=== PATIENT | male | born 1945 | race African-American/Black ===

== ENCOUNTER 2018-11-08 16:38 | Inpatient (IN) | payer MEDICARE ==
[~2018-11-08] VITALS: Ht 182.9 cm; Wt 99.2 kg
[2018-11-08] MEDS ORDERED: ASPIRIN81 MG PO (16:41)
[2018-11-08] MEDS ORDERED: LACTINEX C1 TAB.CHEW PO (16:41)
[2018-11-08] MEDS ORDERED: NORVASC2.5 MG PO (16:41)
[2018-11-08] MEDS ORDERED: ZYLOPRIM100 MG PO (16:41)
[2018-11-08] MEDS ORDERED: LIPITOR40 MG PO (16:42)
[2018-11-08] MEDS ORDERED: CATAPRES0.1 MG PO (16:42)
[2018-11-08] MEDS ORDERED: VITAMIN D31000 UNI2 PO (16:42)
[2018-11-08] MEDS ORDERED: COREG6.25 MG PO (16:42)
[2018-11-08] MEDS ORDERED: FLUTICASONE PRO16 GM NASAL (16:43)
[2018-11-08] MEDS ORDERED: CARDURA8 MG PO (16:43)
[2018-11-08] MEDS ORDERED: FERROUS SULFAT325 MG PO (16:43)
[2018-11-08] MEDS ORDERED: AVODART0.5 MG PO (16:43)
[2018-11-08] MEDS ORDERED: GLIMEPIRIDE2 MG PO (16:44)
[2018-11-08] MEDS ORDERED: PROCTOCORT28.35 GM RC (16:44)
[2018-11-08] MEDS ORDERED: NOVOLOG100 UNIT/1 SQ (16:44)
[2018-11-08] MEDS ORDERED: LASIX80 MG PO (16:44)
[2018-11-08] MEDS ORDERED: CHRONULAC30 ML PO (16:45)
[2018-11-08] MEDS ORDERED: CLARITIN 10 MG10 MG PO (16:45)
[2018-11-08] MEDS ORDERED: LEVEMIR IN100 UNITS/ SC (16:45)
[2018-11-08] MEDS ORDERED: [UNRECOGNIZED DRUG - OTHER] (16:46)
[2018-11-08] MEDS ORDERED: SALONPAS (16:46)
[2018-11-08] MEDS ORDERED: LOPRESSOR25 MG PO (16:46)
[2018-11-08] MEDS ORDERED: ADALAT CC90 MG PO (16:47)
[2018-11-08] MEDS ORDERED: SENNA-DOCUSATE (16:47)
[2018-11-08] MEDS ORDERED: OMEPRAZOLE20 M1 PO (16:47)
[2018-11-08] MEDS ORDERED: GLYCOLAX527 GM PO (16:47)
[2018-11-08] MEDS ORDERED: RENVELA800 MG PO (16:48)
[2018-11-08] MEDS ORDERED: VITAMIN B-12500 MC1 PO (16:48)
--- NOTE | 2018-11-08 17:13 | NUR ---
ARMEN ROBERSON TRANSPORTED PT TO DIALYSIS OK PER EDP JAD.
[2018-11-08 17:47] LABS: BASOPHILS 0.4 % (0-2); HEMATOCRIT 35.4 % (42.0-54.0); HEMOGLOBIN 10.9 g/dL (13.5-17.5); IMMATURE GRANULOCYTES 0.1 % (0-5); LYMPHOCYTES 27.7 % (15-50); MCHC 30.8 g/dL (31.0-37.0); MCV 81.2 fL (80.0-100.0); MEAN PLATELET VOLUME 10.3 fL (7.4-10.4); MONOCYTES 13.2 % (2-11); NEUTROPHILS 53.6 % (40-80); RBC 4.36 10x6/uL (4.20-6.10); RDW 16.6 % (11.5-14.5)
[2018-11-08 17:54] LABS: PLATELET COUNT 210 10x3/uL (130-400)
[2018-11-08 17:58] LABS: ANION GAP 14.1 mmol/L (8-16); CALCIUM 9.1 mg/dL (8.5-10.1); CARBON DIOXIDE 28.8 mmol/L (21.0-32.0); CREATININE - SERUM 8.3 mg/dL (0.6-1.3); POTASSIUM - SERUM 4.9 mmol/L (3.5-5.1)
--- NOTE | 2018-11-08 18:17 | NUR ---
CALLED REPORT TO CHAGO ESTRELLA. PT IS IN DIALYSIS AT THIS TIME AND WILL BE TRANSPORTED AFTER DIALYSIS.
--- NOTE | 2018-11-08 18:39 | NUR ---
RECIEVED REPORT FROM ER. PT IN DIAYLISIS.
[2018-11-08 18:52] LABS: ERYTHROCYTE SEDIMENTATION RATE 40 mm/hr (0-20)
--- NOTE | 2018-11-08 19:40 | NUR ---
RECIEVED FROM DIALYSIS AAOX3, RESP EVEN AND UNLABORED WITH NO SS OF DISTRESS, DRESSING TO ANAHY FEET, SALINE LOCK TO LEFT AC PATENT AND INTACT. LEFT SUBCLAVIAN HEME SPLIT INTACT. NOTED MISSING TEETH. SKIN EXTREMELY DRY AND SHEDDING. EDEMA TO ANAHY LOWER EXT NOTED. 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 DENIES PAIN OR DISCOMFORT AT THIS TIME. ORIENTED TO ROOM AND EQUIPMENT. VERBALIZED UNDERSTANDING. TELEMETRY PLACED ON PT. INSTRUCTED TO CALL FOR NEEDS OR ASSISTANCE AND ENSURED CALL LIGHT IN REACH. WILL CONT TO MONITOR.
[2018-11-08 21:08] VITALS: BP 138/55
--- NOTE | 2018-11-08 22:30 | NUR ---
CHANGED DRESSING TO RIGHT FOOT. PLACED 4X4 AND WRAPPED WITH KERLIX. SEE ASSESSMENT FOR FINDINGS.
[2018-11-09] VITALS (8 sets, daily range): BP systolic 126–172; BP diastolic 49–80; BMI 30.4; BMI 30.3
--- NOTE | 2018-11-09 02:00 | NUR ---
SITTING UP ON SIDE OF BED STATED" I JUST HAD TO USE THE URINAL." ASSISTED BACK TO BED. NO C/O OF PAIN OR DISCOMFORT. CALL LIGHT IN REACH WILL CONT TO MONITOR.
[2018-11-09 05:27] LABS: BASOPHILS 0.5 % (0-2); EOSINOPHILS 4.5 % (0-7); HEMATOCRIT 31.2 % (42.0-54.0); HEMOGLOBIN 9.6 g/dL (13.5-17.5); IMMATURE GRANULOCYTES 0.1 % (0-5); MCHC 30.8 g/dL (31.0-37.0); MCV 81.3 fL (80.0-100.0); MEAN PLATELET VOLUME 10.2 fL (7.4-10.4); MONOCYTES 10.3 % (2-11); NEUTROPHILS 52.6 % (40-80); PLATELET COUNT 188 10x3/uL (130-400); RBC 3.84 10x6/uL (4.20-6.10); RDW 16.4 % (11.5-14.5); WBC 7.8 10x3/uL (4.8-10.8)
[2018-11-09 06:09] LABS: ANION GAP 13.3 mmol/L (8-16); CALCIUM 8.6 mg/dL (8.5-10.1); CARBON DIOXIDE 29.6 mmol/L (21.0-32.0); CREATININE - SERUM 8.2 mg/dL (0.6-1.3); POTASSIUM - SERUM 4.9 mmol/L (3.5-5.1)
--- NOTE | 2018-11-09 06:15 | NUR ---
RESTING IN BED RESP EVEN AND UNLABORED WITH NO SS OF DISTRESS NOTED. FINGER STICK BLOOD SUGAR 214. NO C/O OF PAIN OR DISCOMFORT AT PRESENT TIME. BED IN LOW POSITION AND CALL LIGHT IN REACH WILL CONT TO MONITOR.
--- NOTE | 2018-11-09 08:10 | NUR ---
PT LYING IN BED ASLEEP. DID NOT DISTURB AT THIS TIME. CL IN REACH.
--- NOTE | 2018-11-09 09:40 | NUR ---
UP SOB WITH CALL LIGHT IN REACH. WILL MONITOR NEEDS.
--- NOTE | 2018-11-09 14:36 | NUR ---
SPOKE WITH PARMINDER MONTES, STATED THEY COULD WAIT TO DO CT WITH CONTRAST UNTIL TOMORROW SINCE NEXT DIAYLISIS IS ON SUNDAY.
--- NOTE | 2018-11-09 16:45 | NUR ---
PT GONE FOR CT
--- NOTE | 2018-11-09 16:50 | NUR ---
I ENTERED PATIENT'S ROOM TO GATHER PATIENT AND BRING HIM DOWN TO SUITE FOR TREATMENT. PATIENT WANTED TO KNOW WHY, AND I EXPLAINED THAT HE DID NOT GET A FULL TREATMENT YESTERDAY AND THE DOCTOR WANTS HIM TO HAVE A COMPLETE TREATMENT. HE WANTED TO KNOW WHICH DOCTOR, I EXPLAINED IT WAS FROM HIS FORMULA MIXER HERE DR. SUN. HE STATED HE NEVER SEEN DR. SUN. I TOLD HIM THAT HE MIGHT HAVE SEEN HIS CAREER SERVICES COORDINATOR, PARMINDER. HE THEN WANTED TO KNOW WHAT LABS WERE MESSED UP THAT HE WAS HAVING TO GO DO ANOTHER TREATMENT. I THEN EXPLAINED I HAD TO GO SPEAK WITH HIS NURSE, THAT I WAS NOT SURE. I WENT AND SPOKE WITH OZZIE. WE WENT OVER THE NOTES IN THE COMPUTER AND HER NOTES AND WHAT SHE HAD HEARD FROM THE NEPHROLOGY TEAM THIS AM, AND THAT THEY WANTED HIM TO FINISH TREATMENT BECAUSE HE ONLY HAD 500 ML TAKEN OFF. WHEN I RETURNED TO ROOM TO EXPLAIN THIS (NOW ABOUT 1715), HE HAD JUST RECEIVED HIS DINNER TRAY, AND WANTED TO EAT AND WANTED LEMON MERANGUE PIE AND I EXPLAINED THAT I WOULD COME BACK IN 30 MINUTES AND SEE IF HE WAS READY. AT 1745 I RETURNED AND PATIENT WAS STILL NOT WANTING TO COME DOWN.
--- NOTE | 2018-11-09 18:27 | NUR ---
DIAYLISIS HELD TILL 09 TOMORROW PER DIAYLISIS TEAM.
--- NOTE | 2018-11-09 19:19 | NUR ---
REPORT RECEIVED. PT SITTING UP IN BED WITH EYES OPEN, RR EVEN AND UNLABORED. BED IN LOW POSITION. NO S/S OF DISTRESS. DENIES NEEDS AND COMPLAINTS OF PAIN. CALL LIGHT IN REACH. WILL CONTINUE TO MONITOR.
[2018-11-10] VITALS (8 sets, daily range): BP systolic 100–135; BP diastolic 45–75
--- NOTE | 2018-11-10 02:38 | NUR ---
PT SITTING UP IN BED EATING ICE CREAM, DENIES NEEDS. NO S/S OF DISTRESS. BED IN LOW POSITION. SIDE RAILS UP X2. CALL LIGHT IN REACH. WILL CONTINUE TO MONITOR.
--- NOTE | 2018-11-10 04:12 | NUR ---
RESTING IN BED WITH NO DISTRESS. CALL LIGHT IN REACH. MONITOR AND CPOC.
--- NOTE | 2018-11-10 11:35 | NUR ---
ALERT AND ORIENTED X4. SITTING UP IN BED. WAITING FOR DIALYSIS. DENIES ANY NEEDS. DELORES ANDERS RESUMES PLAN OF CARE AND SAFETY PRECAUTIONS.
--- NOTE | 2018-11-10 12:29 | NUR ---
CHANGED [facility] FOOT DRESSING. DATED/TIMED
--- NOTE | 2018-11-10 17:56 | NUR ---
PT ABOUT TO GO TO DIALYSIS. FINISHED SUPPER. FEET DRESSINGS FIXED. NO CONCERNS OR COMPLAINTS AT THIS TIME. CL IN REACH.
--- NOTE | 2018-11-10 19:19 | NUR ---
REPORT RECEIVED. PT NOT AVAILABLE IN ROOM. IN DIALYSIS.
--- NOTE | 2018-11-10 22:09 | NUR ---
PT RECEIVED TO FLOOR FROM DIALYSIS, VITALS STABLE, BLOOD SUGAR 138, NO COVERAGE NEEDED. ADMINISTERED ORDERED ATARAX FOR PT COMPLAINTS OF ITCHINESS. PT SITTING UP IN BED WITH EYES OPEN, EATING SANDWHICH. NO S/S OF DISTRESS. IV ABX INFUSING THROUGH LEFT AC PIV. BED IN LOW POSITION. CALL LIGHT IN REACH. WILL CONTINUE TO MONITOR.
[2018-11-11 00:30] VITALS: BP 107/54
--- NOTE | 2018-11-11 03:54 | NUR ---
RESTING IN BED WITH NO DISTRESS. MONITOR AND CPOC.
[2018-11-11 04:30] VITALS: BP 108/50
--- NOTE | 2018-11-11 05:28 | NUR ---
LEFT FOREARM IV REMOVED, IV RESITED IN LEFT HAND.
--- NOTE | 2018-11-11 07:30 | NUR ---
PATIENT REPORT RECIEVED FROM DESK EDITOR NURSE. PATIENT ROUNDING COMPLETED. DENIES ANY NEEDS. CALL LIGHT IN REACH. BED IN LOWEST POSITION. WILL CONT WITH POC.
[2018-11-11 07:47] VITALS: BP 134/50
--- NOTE | 2018-11-11 09:30 | NUR ---
PATIENT TRANSPORTED BY [facility] ETCHER IN BED TO DIALYSIS. IV VANCYOMCIN IS ON HOLD AT THIS TIME. WILL RESUME ONCE BACK TO FLOOR.
--- NOTE | 2018-11-11 10:51 | NUR ---
Nutrition follow-up: Diet: Renal ADA PO intake 90% average of last 3 meals Labs reviewed Wt: 225# PO intake good at this time RDN following.
--- NOTE | 2018-11-11 15:08 | MORECARE ---
CASE MANAGEMENT DISCHARGE SUMMARY PATIENT: RADHA SALGUERO UNIT: [id number] ADM DATE: 11/08/18 AGE: 73 : 45 SEX: M ROOM/BED: D.2135 AUTHOR: GENEVA LEE PHYSICIAN: REFERRING PHYSICIAN: MALOU SUN MD DATE OF SERVICE: 11/11/18 Discharge Plan Patient Name: RADHA SALGUERO Facility: [facility]:[place] : 1945 Planned Disposition: Home Anticipated Discharge Date: Discharge Date: Expected LOS: Initial Reviewer: [email or web address] Initial Review Date: 11/08/2018 Generated: 11/11/18 4:07 pm Comments DCP- Discharge Planning Updated by [email or web address]: Mallory Hawley on 11/11/18 12:[address] PATIENT PRESENTLY IN HD. CM AWAITS HIS RETURN TO THE ROOM DCP- Discharge Planning Updated by [email or web address]: Mallory Hawley on 11/10/18 6:[address] CM TO FOLLOW FOR ASSESSMENT. APPARENTLY HE RECENTLY RELOCATED TO [place], [place]. HAS ORDERED HD SETUP FOR [facility]. TC TO KAYLENE HELTON. LEFT VOICE MAIL. PATIENT REPORTEDLY LIVING IN A HOTEL. QUESTION REGARDING HOUSING. CM TO FOLLOW. DCPIA - Discharge Planning Initial Assessment Updated by [email or web address]: Mallory Hawley on 11/11/18 3:04 pm * Is the patient Alert and Oriented? Yes * PCP DR RONN DURAN * Pharmacy [facility] IN [place] * Other Environment [facility] * ADLs Independent * List name and contact numbers for known caregivers / representatives who currently or will assist patient after discharge: INDIRA DUNN- FRIEND FOR TRANSPORTATION * Verbal permission to speak to the caregivers and representatives has been obtained from the patient. No * Community resources currently utilized Other * Please name any agencies selected above. [facility] IN [place], [place] KAYLENE HELTON TRYING TO GET HD SET UP * Additional services required to return to the preadmission environment? Yes * Can the patient safely return to the preadmission environment? Yes Patient Name: RADHA SALGUERO Page [id number] at 1508 All edits/amendments must be made on the electronic document DICTATION DATE: 11/11/181506 EAR MOLD LABORATORY TECHNICIAN: JEANMARIE 11/11/181506 RPT#: [id number] LA DATE: STATUS: ADM IN [facility] [address] [place] [address] END OF REPORT
[2018-11-11 15:09] VITALS: BP 130/47
--- NOTE | 2018-11-11 15:16 | MORECARE ---
CASE MANAGEMENT DISCHARGE SUMMARY PATIENT: RADHA SALGUERO UNIT: [id number] ADM DATE: 11/08/18 AGE: 73 : 45 SEX: M ROOM/BED: D.4357 AUTHOR: ROSA,DOC PHYSICIAN: REFERRING PHYSICIAN: MALOU SUN MD DATE OF SERVICE: 11/11/18 Discharge Plan Patient Name: RADHA SALGUERO Facility: [facility]:[place] : 1945 Planned Disposition: Home Anticipated Discharge Date: Discharge Date: Expected LOS: Initial Reviewer: [email or web address] Initial Review Date: 11/08/2018 Generated: 11/11/18 4:16 pm Comments DCP- Discharge Planning Updated by [id number]: Mallory Hawley on 11/11/18 2:[address] PATIENT HAD RECENTLY RETURNED FROM HD AND HAD EATEN HIS LUNCH. HE SAID HE WAS TIRED. SPOKE SLOWLY PATIENT STATES HE IS HARD OF HEARING BUT DID NOT WANT TO TURN DOWN THE VOLUME ON TV. LIVES AT THE [facility] IN [place], [place]. STATES HE HAS NO BROTHERS, SISTERS OR CHILDREN. HE SAYS HE DOES HAVE COUSINS THAT LIVE IN [place]. STATES HE WILL HAVE TRANSPORTATION AT DISCHARGE FROM HIS FRIEND INDIRA DUNN. CONTACT PHONE NUMBER- [phone]. STATES HE IS TIRED THEREFORE CM STATED WILL REVISIT TO ASSIST WITH DISCHARGE. KAYLENE HELTON ON SITE AND HE STATES HE HAS SPOKEN WITH THE HD COORDINATOR. DCP- Discharge Planning Updated by [id number]: Mallory Pemiscot on 11/11/18 12:[address] PATIENT PRESENTLY IN HD. CM AWAITS HIS RETURN TO THE ROOM DCP- Discharge Planning Updated by [id number]: Mallory Pemiscot on 11/10/18 6:[address] CM TO FOLLOW FOR ASSESSMENT. APPARENTLY HE RECENTLY RELOCATED TO [place], [place]. HAS ORDERED HD SETUP FOR [facility]. TC TO KAYLENE HELTON. LEFT VOICE MAIL. PATIENT REPORTEDLY LIVING IN A HOTEL. QUESTION REGARDING HOUSING. CM TO FOLLOW. DCPIA - Discharge Planning Initial Assessment Updated by [id number]: Mallory [place]ot on 11/11/18 3:04 pm * Is the patient Alert and Oriented? Yes * PCP DR RONN DURAN * Pharmacy [facility] IN [place] * Other Environment [facility] * ADLs Independent * List name and contact numbers for known caregivers / representatives who currently or will assist patient after discharge: INDIRA DUNN- FRIEND FOR TRANSPORTATION * Verbal permission to speak to the caregivers and representatives has been obtained from the patient. No * Community resources currently utilized Other * Please name any agencies selected above. [facility] [place] , [place] KAYLENE HELTON TRYING TO GET HD SET UP * Additional services required to return to the preadmission environment? Yes * Can the patient safely return to the preadmission environment? Yes Last DP export: 11/11/18 2:07 Patient Name: RADHA SALGUERO Page [phone] at 1516 All edits/amendments must be made on the electronic document DICTATION DATE: 11/11/181515 NETWORK SUPPORT ADMINISTRATOR: JEANMARIE 11/11/181515 RPT#: [id number] DC DATE: STATUS: ADM IN [facility] [address] [place] [address] END OF REPORT
--- NOTE | 2018-11-11 17:09 | NUR ---
PATIENT SITTING UP IN BED EATING SUPPER. BLOOD SUGAR CHECKED AND INSULIN COVERAGE PROVIDED. ITCH MEDICATION GIVEN PER REQUEST AT THIS TIME. PATIENT ADVISES HE IS OK BESIDES BEING ITCHY. CALL LIGHT IN REACH. BED IN LOWEST POSITION. WILL CONT WITH POC.
--- NOTE | 2018-11-11 19:25 | NUR ---
REPORT RECEIVED. PT SITTING UP IN BED WITH EYES CLOSED, RR EVEN AND UNLABORED. BED IN LOW POSITION. SIDE RAILS UP X2. NO S/S OF DISTRESS. CALL LIGHT IN REACH. WILL CONTINUE TO MONITOR.
[2018-11-11 20:00] VITALS: BP 111/43
--- NOTE | 2018-11-12 04:16 | NUR ---
CONCESSION WORKER AT BEDSIDE TO OBTAIN VITALS, CALL LIGHT IN REACH. WILL CONTINUE WITH PLAN OF CARE.
[2018-11-12 04:48] VITALS: BP 114/45
[2018-11-12 05:08] LABS: BASOPHILS 0.3 % (0-2); EOSINOPHILS 7.7 % (0-7); HEMATOCRIT 32.5 % (42.0-54.0); HEMOGLOBIN 10.2 g/dL (13.5-17.5); IMMATURE GRANULOCYTES 0.2 % (0-5); LYMPHOCYTES 24.6 % (15-50); MCH 25.2 pg (26.0-34.0); MCHC 31.4 g/dL (31.0-37.0); MCV 80.2 fL (80.0-100.0); MEAN PLATELET VOLUME 10.1 fL (7.4-10.4); NEUTROPHILS 54.2 % (40-80); PLATELET COUNT 187 10x3/uL (130-400); RBC 4.05 10x6/uL (4.20-6.10); RDW 16.3 % (11.5-14.5); WBC 6.4 10x3/uL (4.8-10.8)
[2018-11-12 05:56] LABS: ANION GAP 14.5 mmol/L (8-16); CALCIUM 8.5 mg/dL (8.5-10.1); CARBON DIOXIDE 28.4 mmol/L (21.0-32.0); CREATININE - SERUM 6.2 mg/dL (0.6-1.3); POTASSIUM - SERUM 3.9 mmol/L (3.5-5.1); VANCOMYCIN - RANDOM 18.2 ug/mL (10.0-20.0)
--- NOTE | 2018-11-12 06:05 | NUR ---
PT RESTING COMFORTABLY IN BED WITH EYES CLOSED, RR EVEN AND UNLABORED. BED IN LOW POSITION. SIDE RAILS UP X2. DENIES NEEEDS. CALL LIGHT IN REACH. DRESSING ON RIGHT FOOT CHANGED. WILL CONTINUE TO MONITOR.
--- NOTE | 2018-11-12 08:00 | NUR ---
AM ROUNDS COMPLETED. PT A/O, VSS, RR UNLABORED. PT C/O ITCHING IN HIS BACK ASSESSED PT AND ADMINISTERED AM MEDICATION WITH KARAN FOR PT ITCHING. ASSESSED PT FOOT ULCER. DRESSING C/D/I.. PT DENIES NEED FOR PAIN. CL IN REACH. BED IN LOW. WILL CONTINUE TO MONITOR PT.
[2018-11-12 08:08] LABS: HEPATITIS C ANTIBODY 0.1 S/CO RAT (0.0-0.9)
[2018-11-12 08:25] VITALS: BP 107/44
--- NOTE | 2018-11-12 08:30 | NUR ---
HELD PT NIFEDIPINE FOR LOW BP. WILL CONTINUE TO MONITOR VS.
--- NOTE | 2018-11-12 09:50 | NUR ---
BP IMPROVE, NIFIDIPINE GIVEN. CL IN REACH, BED IN LOW WILL CONTINUE TO MONITOR PT.
[2018-11-12 12:13] VITALS: BP 141/60
--- NOTE | 2018-11-12 14:00 | NUR ---
REMOVED OLD DRESSING ON RIGHT FOOT ULCER. PRIMARY, REQUESTED FOR NEW DRESSING. CLEANED PT PU, APPLIED A 4X4 GUAZE, TAPED AND DATED. PT TOLERATED WELL. PT DENIES ANY NEED FOR PAIN. BED IN LOW, CL IN REACH. WILL CONTINUE TO MONITOR PT.
[2018-11-12 16:00] VITALS: BP 131/52
--- NOTE | 2018-11-12 16:07 | NUR ---
ASSUMED PRIMARY CARE OF IDANIA. DENIES NEEDS AT THIS TIME. WATCHING TV.
--- NOTE | 2018-11-12 17:52 | NUR ---
FINISHED SUPPER, WANTS LIGHTS OUT. DENIES NEEDS.
[2018-11-12 18:50] VITALS: BP 121/49
--- NOTE | 2018-11-12 18:50 | NUR ---
CALLED TO ROOM WITH PATIENT HAVING COMPLAINTS OF "NIGHT SWEATS". PATIENT REPORTS THAT HE HAS AT LEAST 3-4 A NIGHT. WHEN ASKED FOR HOW LONG, HE REPLIES "LONG TIME". CHECKED POC GLUCOSE WITH RESULTS OF 180. B/P 121/49, HR 66. UN-COVERED TWO BLANKETS AND LEFT SHEET IN PLACE. WILL PASS THIS TO NEXT SHIFT.
--- NOTE | 2018-11-12 19:43 | NUR ---
RESUMING PATIENT CARE. PATIENT IS ALERT AND ORIENTED. RESTING COMFORTABLY IN BED. RESPIRATIONS ARE EVEN AND UNLABORED. NO S/S OF DISTRESS. ALL PATIENT NEEDS MET. CALL LIGHT WITHIN REACH, PATIENT BOARD UPDATED. WILL CPOC.
[2018-11-12 20:25] VITALS: BP 132/35
[2018-11-13] VITALS: BP 142/59
[2018-11-13 04:00] VITALS: BP 130/58
--- NOTE | 2018-11-13 04:11 | NUR ---
REC;D, ASSISTED UP BSC. DRSG. DRY AND INTACT TO RT. FOOT WITH DRY CRUSTY GRAVES BOTH FEET.STATES SOME DECREASE IN SENSATION.BUT CAN FEEL JAMARCUS PRESSURE TO FOOT. WIGGLES TOES ON COMMAND.FEET ELEVATED BILAT.HEEL PROTECTORS IN PLACE.WILL CONTINUE TO MONITOR FOR ANY CHGES. IN NEUROVASCULAR STATUS AND FOLLOW CURRENT PLAN OF CARE.
[2018-11-13 05:51] LABS: BASOPHILS 0.3 % (0-2); EOSINOPHILS 7.4 % (0-7); HEMATOCRIT 31.2 % (42.0-54.0); HEMOGLOBIN 9.7 g/dL (13.5-17.5); IMMATURE GRANULOCYTES 0.1 % (0-5); LYMPHOCYTES 23.2 % (15-50); MCH 24.9 pg (26.0-34.0); MCHC 31.1 g/dL (31.0-37.0); MEAN PLATELET VOLUME 10.5 fL (7.4-10.4); MONOCYTES 11.7 % (2-11); NEUTROPHILS 57.3 % (40-80); PLATELET COUNT 187 10x3/uL (130-400); RDW 16.1 % (11.5-14.5); WBC 6.9 10x3/uL (4.8-10.8)
[2018-11-13 06:14] LABS: ANION GAP 15.5 mmol/L (8-16); CALCIUM 8.1 mg/dL (8.5-10.1); CARBON DIOXIDE 28.9 mmol/L (21.0-32.0); POTASSIUM - SERUM 4.4 mmol/L (3.5-5.1); VANCOMYCIN - RANDOM 25.2 ug/mL (10.0-20.0)
--- NOTE | 2018-11-13 07:36 | NUR ---
REPORT RECIEVED AND MORNING ROUNDING COMPLETE. PT LAYING IN BED A&O. PT STATES HE IS HARD OF HEARING. PT HAS NO NEEDS AT THIS TIME. CALL LIGHT WITHIN REACH. BED IN LOWEST POSITION.
[2018-11-13 08:19] VITALS: BP 127/53
[2018-11-13 09:19] VITALS: Ht 182.9 cm; Wt 99.2 kg
--- NOTE | 2018-11-13 09:29 | NUR ---
RESTS IN BED WITH EYES CLOSED. IV PATENT. CALL LIGHT IN REACH. WILL CONT. PLAN OF CARE.
--- NOTE | 2018-11-13 11:49 | NUR ---
Wound care consult: Pt has open nonhealing wounds on right foot and heel. 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 Dr. Marin here seeing pt. Orders entered for dressing changes. Wound care will follow as needed.
[2018-11-13 12:25] VITALS: BP 130/53
[2018-11-13 16:05] VITALS: BP 122/56
--- NOTE | 2018-11-13 18:21 | NUR ---
PT LAYING IN BED EYES CLOSED BREATHING EVEN AND UNLABORED, CALL LIGHT WITHIN REACH.
--- NOTE | 2018-11-13 19:49 | NUR ---
AWAKE,ALERT,ORIENTED. RESP EVEN AND UNLABORED.NO DISTRESS NOTED. IV TO LEFT HAND INTACT WITHOUT REDNESS OR EDEMA NOTED. DRSG TO RIGHT FOOT INTACT. HEAL PROTECTORS ON BILATERAL. NO COMPLIAINTS VOICED. CL IN REACH
[2018-11-13 20:27] VITALS: BP 113/42
--- NOTE | 2018-11-14 01:35 | NUR ---
PT RESTING WELL IN BED WITH EYES CLOSED, RESPIRATIONS EVEN AND UNALBORED. CALL LIGHT IN REACH, WILL CONTINUE PLAN OF CARE.
[2018-11-14 02:01] VITALS: BP 127/54
[2018-11-14 05:42] VITALS: BP 140/57
[2018-11-14 06:04] LABS: BASOPHILS 0.4 % (0-2); EOSINOPHILS 7.8 % (0-7); HEMATOCRIT 28.9 % (42.0-54.0); HEMOGLOBIN 9.1 g/dL (13.5-17.5); IMMATURE GRANULOCYTES 0.1 % (0-5); LYMPHOCYTES 25.8 % (15-50); MCH 25.1 pg (26.0-34.0); MCHC 31.5 g/dL (31.0-37.0); MCV 79.6 fL (80.0-100.0); MEAN PLATELET VOLUME 10.1 fL (7.4-10.4); MONOCYTES 8.7 % (2-11); NEUTROPHILS 57.2 % (40-80); PLATELET COUNT 207 10x3/uL (130-400); RBC 3.63 10x6/uL (4.20-6.10); RDW 16.2 % (11.5-14.5); WBC 8.1 10x3/uL (4.8-10.8)
[2018-11-14 06:23] LABS: ANION GAP 17.2 mmol/L (8-16); C-REACTIVE PROTEIN 0.9 mg/dL (0.0-0.9); CALCIUM 7.7 mg/dL (8.5-10.1); CARBON DIOXIDE 24.2 mmol/L (21.0-32.0); CREATININE - SERUM 9.2 mg/dL (0.6-1.3); POTASSIUM - SERUM 4.4 mmol/L (3.5-5.1); VANCOMYCIN - RANDOM 23.9 ug/mL (10.0-20.0)
[2018-11-14 07:16] LABS: ERYTHROCYTE SEDIMENTATION RATE 59 mm/hr (0-20)
[2018-11-14 08:02] VITALS: BP 144/62
--- NOTE | 2018-11-14 08:38 | NUR ---
PT TAKEN TO DIALYSIS VIA BED.
--- NOTE | 2018-11-14 08:48 | NUR ---
IN DIALYSIS AT THIS TIME. WILL CONT. PLAN OF CARE.
--- NOTE | 2018-11-14 09:18 | NUR ---
SPOKE WITH [facility] AND THEY STATED THEY DO NOT SUPPL CRUTCHES AND TO CALL [facility]8 [facility]. CALLED [facility] AND THEY STATED THEY DO NOT CARRY CRUTCHES.
--- NOTE | 2018-11-14 09:29 | NUR ---
[facility] TO DELIVER CRUTCHES WITHIN AN HOUR PER CASE MANANAGEMENT.
--- NOTE | 2018-11-14 13:10 | NUR ---
PT RETURNED FROM DIALYSIS VIA BED. CRUTCHES ON BED WITH PT. DIALYSIS REPORT RECEIVED AND THEY STATED TOOK PT OFF 30 MIN. EARLY BECAUSE HIS BP STARTED DROPPING. 3.3L WAS REMOVED. TEMP. 97.4, RR 17, HR 55, AND BP 127/65.
--- NOTE | 2018-11-14 14:18 | NUR ---
Nutrition follow-up: Diet: Renal ADA PO intake 75-100% of meals Labs reviewed Wt: 229# PO intake remains good at this time. RDN following.
--- NOTE | 2018-11-14 14:29 | NUR ---
RIGHT FOOT BETADINE WET TO DRY DRESSING DONE.
--- NOTE | 2018-11-14 14:58 | NUR ---
PHYSICAL THERAPY WORKING WITH PT.
--- NOTE | 2018-11-14 15:30 | NUR ---
PHYSICAL THERAPIST STATES PT IS NOT VERY ABLE TO USE CRUTCHES AT THIS TIME. HE DOES MUCH BETTER WITH A WALKER.
[2018-11-14 15:42] VITALS: BP 136/68
--- NOTE | 2018-11-14 15:53 | MORECARE ---
CASE MANAGEMENT DISCHARGE SUMMARY PATIENT: RADHA SALGUERO UNIT: [id number] ADM DATE: 11/08/18 AGE: 73 : 45 SEX: M ROOM/BED: D.8885 AUTHOR: ROSA,DOC PHYSICIAN: REFERRING PHYSICIAN: MALOU SUN MD DATE OF SERVICE: 11/14/18 Discharge Plan Patient Name: RADHA SALGUERO Facility: [facility]:[place] : 1945 Planned Disposition: Home Anticipated Discharge Date: Discharge Date: Expected LOS: Initial Reviewer: [email or web address] Initial Review Date: 11/08/2018 Generated: 11/14/18 4:53 pm Comments DCP- Discharge Planning Updated by [id number]: Sherri Walker on 11/14/18 2:[address] I HAVE BEEN IN COMMUNICATION WITH KAYLENE KIM, CLINICAL LIASON FOR [facility]. SHE HAS BEEN WORKING ON PLACEMENT FOR THE PATIENT. THIS PATIENT WAS IN A [facility] IN [place] AND RECEIVING DIALYSIS. HE KNEW HE WAS NOT ACCEPTED BY THE [place] [facility] BEFORE HE EVER MOVED TO [place], BUT CAME ANYWAY. KAYLENE HAD BEEN WORKING WITH THE [place] [facility], AND THEY ARE STILL DENYING HIM PLACEMENT THERE. SHE STATED THAT HE HAS THE OPTION OF [place], [place], OR [place]. WHILE I WAS ON THE PHONE WITH KAYLENE, PHILOMENA WENT AND ASKED THE PATIENT AND HE SAID [facility], BUT IS INSISTENT THAT HE HAVE A M-W-F SCHEDULE. KAYLENE CALLED BACK AND STATED THAT BECAUSE DR SIMS HAS REFUSED THE PATIENT, THE [place] AND [place] UNITS HAVE ALSO DENIED THE PATIENT. THE ONLY OPTION IS FOR THE [place] UNIT AND THESE ARE THE SAME DOCTORS THAT CARED FOR HIM IN [place]. I WENT AND TALKED TO THE PATIENT AND HE STATED THAT THAT WOULD BE FINE. I HAVE LET KAYLENE KNOW THIS. I HAVE ALSO PASSED ONTO HER THAT PER DR AGUIRRE, THE PATIENT WAS GOING TO NEED 6 WEEKS OF VANCOMYCIN TO BE GIVEN IN DIALYSIS. SHE HAS STATED THAT THAT SHOULD NOT BE A PROBLEM ONCE HE IS ACCEPTED. ALSO DURING THIS TIME, JEFFERSON, PHYSICAL THERAPIST, CAME BY AND STATED THAT THE PATIENT WAS NOT STABLE ON THE CRUTCHES AND DID MUCH BETTER ON THE WALKER. HE RECOMMENDED THAT THE PATIENT GET A WALKER. I ALSO SPOKE WITH THE PATIENT AND HE STATED THAT HE HAS A WALKER AT THE [place] AND DOES NOT NEED ANOTHER ONE. HE STATED THAT THE THERAPIST CAME IN AND GOT HIM UP RIGHT AFTER DIALYSIS AND HE WAS WEEK. HE STATED THAT HE WILL DO BETTER TOMORROW. I HAVE EXPLAINED THAT WE SHOULD HAVE A WALKER THAT HE CAN BORROW DURING THERAPY IF NEEDED. DCP- Discharge Planning Updated by [id number]: Mallory Tripp on 11/11/18 2:[address] PATIENT HAD RECENTLY RETURNED FROM HD AND HAD EATEN HIS LUNCH. HE SAID HE WAS TIRED. SPOKE SLOWLY PATIENT STATES HE IS HARD OF HEARING BUT DID NOT WANT TO TURN DOWN THE VOLUME ON TV. LIVES AT [facility] IN [place], [place]. STATES HE HAS NO BROTHERS, SISTERS OR CHILDREN. HE SAYS HE DOES HAVE COUSINS THAT LIVE IN [place]. STATES HE WILL HAVE TRANSPORTATION AT DISCHARGE FROM HIS FRIEND INDIRA DUNN. CONTACT PHONE NUMBER- [phone]. STATES HE IS TIRED THEREFORE CM STATED WILL REVISIT TO ASSIST WITH DISCHARGE. KAYLENE HELTON ON SITE AND HE STATES HE HAS SPOKEN WITH THE HD COORDINATOR. DCP- Discharge Planning Updated by [id number]: Mallory Tripp on 11/11/18 12:[address] PATIENT PRESENTLY IN HD. CM AWAITS HIS RETURN TO THE ROOM DCP- Discharge Planning Updated by [id number]: Mallory Tripp on 11/10/18 6:[address] CM TO FOLLOW FOR ASSESSMENT. APPARENTLY HE RECENTLY RELOCATED TO [place], [place]. HAS ORDERED HD SETUP FOR [facility]. TC TO KAYLENE HELTON. LEFT VOICE MAIL. PATIENT REPORTEDLY LIVING IN A HOTEL. QUESTION REGARDING HOUSING. CM TO FOLLOW. DCPIA - Discharge Planning Initial Assessment Updated by [id number]: Mallory Tripp on 11/11/18 3:04 pm * Is the patient Alert and Oriented? Yes * PCP DR RONN DURAN * Pharmacy [facility] IN [place] * Other Environment [facility] * ADLs Independent * List name and contact numbers for known caregivers / representatives who currently or will assist patient after discharge: INDIRA DUNN- FRIEND FOR TRANSPORTATION * Verbal permission to speak to the caregivers and representatives has been obtained from the patient. No * Community resources currently utilized Other * Please name any agencies selected above. [facility] [place] , JENNIFER HELTON TRYING TO GET HD SET UP * Additional services required to return to the preadmission environment? Yes * Can the patient safely return to the preadmission environment? Yes Last DP export: 11/11/18 2:16 Patient Name: RADHA SALGUERO Page [id number] at 1553 All edits/amendments must be made on the electronic document DICTATION DATE: 11/14/181552 SLIP LASTER: JEANMARIE 11/14/181552 RPT#: [id number] DC DATE: STATUS: ADM IN [facility] [address] [place] [address] END OF REPORT
--- NOTE | 2018-11-14 17:43 | MORECARE ---
CASE MANAGEMENT DISCHARGE SUMMARY PATIENT: RADHA SALGUERO UNIT: [id number] ADM DATE: 11/08/18 AGE: 73 : 45 SEX: M ROOM/BED: D.2135 AUTHOR: ROSA,DOC PHYSICIAN: REFERRING PHYSICIAN: MALOU SUN MD DATE OF SERVICE: 11/14/18 Discharge Plan Patient Name: RADHA SALGUERO Facility: [facility]:[place] : 1945 Planned Disposition: Home Anticipated Discharge Date: Discharge Date: Expected LOS: Initial Reviewer: [id number] Initial Review Date: 11/08/2018 Generated: 11/14/18 6:43 pm Comments DCP- Discharge Planning Updated by [id number]: Eloy Casillas on 11/14/18 4:[address] Patient Name: RADHA SALGUERO Encounter No: [id number] : 1945 Primary Insurance: [employer] MEDICARE ADV Anticipated DC Date: Planned Disposition: Home DCP follow-up note: CM SPOKE TO DR. MATHIS REGARDING PT'S LIVING ARRAGEMENTS. CM SPOKE TO PT IN ROOM REGARDING LIVING IN HOTEL ROOM. PT REPORTS HE WAS LIVING IN A SENIOR CARE, DOES NOT WANT TO GO BACK TO ONE AND IS LIVING IN THE HOTEL UNTIL HE FINDS A PLACE THAT HE LIKES. CM DISCUSSED REHAB SERVICES HOME HEALTH AND MEDICAL EQUIPMENT. PT DENIES DISCHARGE NEEDS OTHER THAN NEEDING A DIALYSIS CLINIC. PT STILL UPSET THAT THE [facility] WILL NOT ACCEPT HIM A PATIENT. PT REPORTS HE WILL BE STAYING IN [place] AND WILL FIND HIMSELF AN APARTMENT THERE. PT REPORTS USING MEDICAID TRANSPORT FOR MEDICAL APPOINTMENTS AND NEEDS A Sunday SCHEDULE IN ORDER TO USE MEDICAID TRANSPORT TO AND FROM DIALYSIS. PT REPORTS INABILITY TO GET TO DILAYSIS ON WEEKENDS. KAYLENE OF [facility] [employer] NOTIFIED. CM WAITING ARRANGEMENT AND ACCEPTANCE AT OUTPATIENT DIALYSIS CLINIC; [facility] COORDINATOR IS WORKING ON THIS. CM TO CONTINUE TO FOLLOW AND ASSIST IF NEEDED. Eloy Casillas, CASE MANAGEMENT DCP- Discharge Planning Updated by [id number]: Sherri Walker on 11/14/18 2:[address] I HAVE BEEN IN COMMUNICATION WITH KAYLENE KIM, CLINICAL LI[facility]ON FOR [facility]. SHE HAS BEEN WORKING ON PLACEMENT FOR THE PATIENT. THIS PATIENT WAS IN A SENIOR CARE IN [place] AND RECEIVING DIALYSIS. HE KNEW HE WAS NOT ACCEPTED BY THE [facility] BEFORE HE EVER MOVED TO [place], BUT CAME ANYWAY. KAYLENE HAD BEEN WORKING WITH THE [facility], AND THEY ARE STILL DENYING HIM PLACEMENT THERE. SHE STATED THAT HE HAS THE OPTION OF [place], [place], OR [place]. WHILE I WAS ON THE PHONE WITH KAYLENE, PHILOMENA WENT AND ASKED THE PATIENT AND HE SAID CRICKET CRAMER, BUT IS INSISTENT THAT HE HAVE A -W- SCHEDULE. KAYLENE CALLED BACK AND STATED THAT BECAUSE DR SIMS HAS REFUSED THE PATIENT, THE [place] AND [place] UNITS HAVE ALSO DENIED THE PATIENT. THE ONLY OPTION IS FOR THE [place] UNIT AND THESE ARE THE SAME DOCTORS THAT CARED FOR HIM IN [place]. I WENT AND TALKED TO THE PATIENT AND HE STATED THAT THAT WOULD BE FINE. I HAVE LET KAYLENE KNOW THIS. I HAVE ALSO PASSED ONTO HER THAT PER DR AGUIRRE, THE PATIENT WAS GOING TO NEED 6 WEEKS OF VANCOMYCIN TO BE GIVEN IN DIALYSIS. SHE HAS STATED THAT THAT SHOULD NOT BE A PROBLEM ONCE HE IS ACCEPTED. ALSO DURING THIS TIME, JEFFERSON, PHYSICAL THERAPIST, CAME BY AND STATED THAT THE PATIENT WAS NOT STABLE ON THE CRUTCHES AND DID MUCH BETTER ON THE WALKER. HE RECOMMENDED THAT THE PATIENT GET A WALKER. I ALSO SPOKE WITH THE PATIENT AND HE STATED THAT HE HAS A WALKER AT THE HOTEL AND DOES NOT NEED ANOTHER ONE. HE STATED THAT THE THERAPIST CAME IN AND GOT HIM UP RIGHT AFTER DIALYSIS AND HE WAS WEEK. HE STATED THAT HE WILL DO BETTER TOMORROW. I HAVE EXPLAINED THAT WE SHOULD HAVE A WALKER THAT HE CAN BORROW DURING THERAPY IF NEEDED. DCP- Discharge Planning Updated by [email or web address]: Malloryruperto Hawley on 11/11/18 2:[address] PATIENT HAD RECENTLY RETURNED FROM HD AND HAD EATEN HIS LUNCH. HE SAID HE WAS TIRED. SPOKE SLOWLY PATIENT STATES HE IS HARD OF HEARING BUT DID NOT WANT TO TURN DOWN THE VOLUME ON TV. LIVES AT THE [facility] IN [place], [place]. STATES HE HAS NO BROTHERS, SISTERS OR CHILDREN. HE SAYS HE DOES HAVE COUSINS THAT LIVE IN [place]. STATES HE WILL HAVE TRANSPORTATION AT DISCHARGE FROM HIS FRIEND INDIRA DUNN. CONTACT PHONE NUMBER- [phone]. STATES HE IS TIRED THEREFORE CM STATED WILL REVISIT TO ASSIST WITH DISCHARGE. KAYLENE HELTON ON SITE AND HE STATES HE HAS SPOKEN WITH THE HD COORDINATOR. DCP- Discharge Planning Updated by [email or web address]: Mallory Hawley on 11/11/18 12:[address] PATIENT PRESENTLY IN HD. CM AWAITS HIS RETURN TO THE ROOM DCP- Discharge Planning Updated by [id number]: Mallory Hawley on 11/10/18 6:[address] CM TO FOLLOW FOR ASSESSMENT. APPARENTLY HE RECENTLY RELOCATED TO [place], [place]. HAS ORDERED HD SETUP FOR [facility]. TC TO KAYLENE HELTON. LEFT VOICE MAIL. PATIENT REPORTEDLY LIVING IN A HOTEL. QUESTION REGARDING HOUSING. CM TO FOLLOW. DCPIA - Discharge Planning Initial Assessment Updated by [id number]: Mallory Hawley on 11/11/18 3:04 pm * Is the patient Alert and Oriented? Yes * PCP DR RONN DURAN * Pharmacy [facility] IN [place] * Other Environment [facility] * ADLs Independent * List name and contact numbers for known caregivers / representatives who currently or will assist patient after discharge: INDIRA DUNN- FRIEND FOR TRANSPORTATION * Verbal permission to speak to the caregivers and representatives has been obtained from the patient. No * Community resources currently utilized Other * Please name any agencies selected above. [facility] [place] KAYLENE HELTON TRYING TO GET HD SET UP * Additional services required to return to the preadmission environment? Yes * Can the patient safely return to the preadmission environment? Yes Last DP export: 11/14/18 2:53 Patient Name: RADHA SALGUERO Page [phone] at 1743 All edits/amendments must be made on the electronic document DICTATION DATE: 11/14/181742 DRUM HANDLER: JEANMARIE 11/14/181742 RPT#: [id number] DC DATE: STATUS: ADM IN [facility] [address] [place] [address] END OF REPORT
--- NOTE | 2018-11-14 18:23 | NUR ---
PT NOT HAPPY WITH DINNER TRAY. PATIENT APPOINTMENT COORDINATOR CHAI ORDERED.
[2018-11-14 20:00] VITALS: BP 137/50
--- NOTE | 2018-11-15 02:00 | NUR ---
RN NOTE. PATIENT APPEARS TO BE SLEEPING. RESPIRATIONS ARE EVEN AND UNLABORED. NO S/S OF DISTRESS. CALL LIGHT WITHIN REACH.
--- NOTE | 2018-11-15 03:42 | NUR ---
PT LAYING IN BED WITH EYES CLOSED RESTING COMFORTABLY. BED IN LOW POSITION WITH CALL LIGHT IN REACH. WILL CONTINUE TO MONITOR PT AND FOLLOW PLAN OF CARE.
[2018-11-15 05:23] VITALS: BP 149/57
[2018-11-15 06:32] LABS: BASOPHILS 0.5 % (0-2); HEMATOCRIT 32.7 % (42.0-54.0); HEMOGLOBIN 10.3 g/dL (13.5-17.5); IMMATURE GRANULOCYTES 0.1 % (0-5); LYMPHOCYTES 27.1 % (15-50); MCH 25.3 pg (26.0-34.0); MCHC 31.5 g/dL (31.0-37.0); MCV 80.3 fL (80.0-100.0); MEAN PLATELET VOLUME 10.5 fL (7.4-10.4); MONOCYTES 9.6 % (2-11); NEUTROPHILS 56.7 % (40-80); PLATELET COUNT 223 10x3/uL (130-400); RBC 4.07 10x6/uL (4.20-6.10); RDW 16.6 % (11.5-14.5); WBC 8.5 10x3/uL (4.8-10.8)
[2018-11-15 07:11] LABS: ANION GAP 15.6 mmol/L (8-16); CALCIUM 8.6 mg/dL (8.5-10.1); CARBON DIOXIDE 26.4 mmol/L (21.0-32.0); CREATININE - SERUM 7.2 mg/dL (0.6-1.3); VANCOMYCIN - RANDOM 21.7 ug/mL (10.0-20.0)
--- NOTE | 2018-11-15 08:05 | NUR ---
AM ROUNDS COMPLETED, PT LAYING IN BED WITH EYES OPEN. VSS, RESP UNLABORED. ASSESED PT VITAL SIGN BEFORE AM BP MEDS. AM MEDS GIVEN. PT STATES HE IS AGITATED THIS MORNING. ASSESS PT FOOT ULCER, DRESSING C/D/I. PT DENIES NEEDS FOR PAIN AT THE MOMENT. CL IN REACH BED IN LOW, WILL CONTINUE TO MONITOR PT.
[2018-11-15 08:33] VITALS: BP 155/64
[2018-11-15 12:05] VITALS: BP 134/49
--- NOTE | 2018-11-15 14:00 | NUR ---
PT RESTING IN BED WITH EYES OPEN. ASSESSED PT FOOT ULCER, CHANGED PREVIOUS DRESSING. CLEAN, APPLY 4X4 GAUZE WITH POVODINE AND COVERED WITH A BANDAGE AND TAPE. DRESSING C/D/I. PT TOLERATED WELL. PT DENIES NEED FOR PAIN AT THIS MOMENT. CL LIGHT IN REACH, BED IN LOW. WILL CONTINUE TO MOITOR PT.
--- NOTE | 2018-11-15 14:39 | MORECARE ---
CASE MANAGEMENT DISCHARGE SUMMARY PATIENT: RADHA SALGUERO UNIT: [id number] ADM DATE: 11/08/18 AGE: 73 : 45 SEX: M ROOM/BED: D.2135 AUTHOR: ROSA,DOC PHYSICIAN: REFERRING PHYSICIAN: MALOU SUN MD DATE OF SERVICE: 11/15/18 Discharge Plan Patient Name: RADHA SALGUERO Facility: [facility]:[place] : 1945 Planned Disposition: Home Anticipated Discharge Date: Discharge Date: Expected LOS: Initial Reviewer: [email or web address] Initial Review Date: 11/08/2018 Generated: 11/15/18 3:38 pm Comments DCP- Discharge Planning Updated by [id number]: Eloy Casillas on 11/14/18 4:[address] Patient Name: RADHA SALGUERO Encounter No: [id number] : 1945 Primary Insurance: WELL[employer] MEDICARE ADV Anticipated DC Date: Planned Disposition: Home DCP follow-up note: CM SPOKE TO DR. MATHIS REGARDING PT'S LIVING ARRAGEMENTS. CM SPOKE TO PT IN ROOM REGARDING LIVING IN HOTEL ROOM. PT REPORTS HE WAS LIVING IN A RESIDENTIAL, DOES NOT WANT TO GO BACK TO ONE AND IS LIVING IN THE HOTEL UNTIL HE FINDS A PLACE THAT HE LIKES. CM DISCUSSED REHAB SERVICES HOME HEALTH AND MEDICAL EQUIPMENT. PT DENIES DISCHARGE NEEDS OTHER THAN NEEDING A DIALYSIS CLINIC. PT STILL UPSET THAT THE [facility] WILL NOT ACCEPT HIM A PATIENT. PT REPORTS HE WILL BE STAYING IN [place] AND WILL FIND HIMSELF AN APARTMENT THERE. PT REPORTS USING MEDICAID TRANSPORT FOR MEDICAL APPOINTMENTS AND NEEDS A Sunday SCHEDULE IN ORDER TO USE MEDICAID TRANSPORT TO AND FROM DIALYSIS. PT REPORTS INABILITY TO GET TO DILAYSIS ON WEEKENDS. KAYLENE OF [facility] [employer] NOTIFIED. CM WAITING ARRANGEMENT AND ACCEPTANCE AT OUTPATIENT DIALYSIS CLINIC; [facility] COORDINATOR IS WORKING ON THIS. CM TO CONTINUE TO FOLLOW AND ASSIST IF NEEDED. Eloy Casillas, CASE MANAGEMENT DCP- Discharge Planning Updated by [id number]: Sherri Walker on 11/14/18 2:[address] I HAVE BEEN IN COMMUNICATION WITH KAYLENE KIM, CLINICAL LIASON FOR [facility]. SHE HAS BEEN WORKING ON PLACEMENT FOR THE PATIENT. THIS PATIENT WAS IN A RESIDENTIAL IN [place] AND RECEIVING DIALYSIS. HE KNEW HE WAS NOT ACCEPTED BY THE [facility] BEFORE HE EVER MOVED TO [place], BUT CAME ANYWAY. KAYLENE HAD BEEN WORKING WITH THE [place] [facility], AND THEY ARE STILL DENYING HIM PLACEMENT THERE. SHE STATED THAT HE HAS THE OPTION OF [place], [place], OR [place]. WHILE I WAS ON THE PHONE WITH KAYLENE, PHILOMENA WENT AND ASKED THE PATIENT AND HE SAID CRICKET CRAMER, BUT IS INSISTENT THAT HE HAVE A -W- SCHEDULE. KAYLENE CALLED BACK AND STATED THAT BECAUSE DR SIMS HAS REFUSED THE PATIENT, THE [place] AND [place] UNITS HAVE ALSO DENIED THE PATIENT. THE ONLY OPTION IS FOR THE [place] UNIT AND THESE ARE THE SAME DOCTORS THAT CARED FOR HIM IN [place]. I WENT AND TALKED TO THE PATIENT AND HE STATED THAT THAT WOULD BE FINE. I HAVE LET KAYLENE KNOW THIS. I HAVE ALSO PASSED ONTO HER THAT PER DR AGUIRRE, THE PATIENT WAS GOING TO NEED 6 WEEKS OF VANCOMYCIN TO BE GIVEN IN DIALYSIS. SHE HAS STATED THAT THAT SHOULD NOT BE A PROBLEM ONCE HE IS ACCEPTED. ALSO DURING THIS TIME, JEFFERSON, PHYSICAL THERAPIST, CAME BY AND STATED THAT THE PATIENT WAS NOT STABLE ON THE CRUTCHES AND DID MUCH BETTER ON THE WALKER. HE RECOMMENDED THAT THE PATIENT GET A WALKER. I ALSO SPOKE WITH THE PATIENT AND HE STATED THAT HE HAS A WALKER AT THE [place] AND DOES NOT NEED ANOTHER ONE. HE STATED THAT THE THERAPIST CAME IN AND GOT HIM UP RIGHT AFTER DIALYSIS AND HE WAS WEEK. HE STATED THAT HE WILL DO BETTER TOMORROW. I HAVE EXPLAINED THAT WE SHOULD HAVE A WALKER THAT HE CAN BORROW DURING THERAPY IF NEEDED. DCP- Discharge Planning Updated by [id number]: Malloryruperto Hawley on 11/11/18 2:[address] PATIENT HAD RECENTLY RETURNED FROM HD AND HAD EATEN HIS LUNCH. HE SAID HE WAS TIRED. SPOKE SLOWLY PATIENT STATES HE IS HARD OF HEARING BUT DID NOT WANT TO TURN DOWN THE VOLUME ON TV. LIVES AT THE [facility] IN [place], [place]. STATES HE HAS NO BROTHERS, SISTERS OR CHILDREN. HE SAYS HE DOES HAVE COUSINS THAT LIVE IN [place]. STATES HE WILL HAVE TRANSPORTATION AT DISCHARGE FROM HIS FRIEND INDIRA DUNN. CONTACT PHONE NUMBER- [phone]. STATES HE IS TIRED THEREFORE CM STATED WILL REVISIT TO ASSIST WITH DISCHARGE. KAYLENE HELTON ON SITE AND HE STATES HE HAS SPOKEN WITH THE HD COORDINATOR. DCP- Discharge Planning Updated by [id number]: Mallory Hawley on 11/11/18 12:[address] PATIENT PRESENTLY IN HD. CM AWAITS HIS RETURN TO THE ROOM DCP- Discharge Planning Updated by [id number]: Mallory Hawley on 11/10/18 6:[address] CM TO FOLLOW FOR ASSESSMENT. APPARENTLY HE RECENTLY RELOCATED TO [place], [place]. HAS ORDERED HD SETUP FOR [facility]. TC TO KAYLENE HELTON. LEFT VOICE MAIL. PATIENT REPORTEDLY LIVING IN A HOTEL. QUESTION REGARDING HOUSING. CM TO FOLLOW. DCPIA - Discharge Planning Initial Assessment Updated by [id number]: Mallory Hawley on 11/11/18 3:04 pm * Is the patient Alert and Oriented? Yes * PCP DR RONN DURAN * Pharmacy [facility] IN [place] * Other Environment [facility] * ADLs Independent * List name and contact numbers for known caregivers / representatives who currently or will assist patient after discharge: INDIRA DUNN- FRIEND FOR TRANSPORTATION * Verbal permission to speak to the caregivers and representatives has been obtained from the patient. No * Community resources currently utilized Other * Please name any agencies selected above. [facility] [place] KAYLENE HELTON TRYING TO GET HD SET UP * Additional services required to return to the preadmission environment? Yes * Can the patient safely return to the preadmission environment? Yes Last DP export: 11/14/18 4:43 Patient Name: RADHA SALGUERO Page [id number] at 1439 All edits/amendments must be made on the electronic document DICTATION DATE: 11/15/18 1438 CHILDCARE WORKER: JEANMARIE 11/15/18 1438 RPT#: [id number] DC DATE: STATUS: ADM IN [facility] [address] [place] [address] END OF REPORT
[2018-11-15 15:52] VITALS: BP 127/57
--- NOTE | 2018-11-15 17:37 | NUR ---
PT HAS ALL HIS PILLS FROM HOME THAT NOBODY HAS LOCKED UP THEY WERE LAYING ON [place]USES STATION AND MOVED IN SEVERAL DIFFERENT LOCATIONS. I FOUND THEM AND EXPLAINED TO PT WE LOCK THEM UP HOWEVER HE STATES THAT WAS ALREADY SUPPOSE TO BE DONE AND WE JUST LEFT THEM SO HE REFUSED AND I PLACED ALL HIS PILL PACKAGES WITH HOME PILLS UP IN HIS CLOSET IN HIS BEDROOM. PT VERBALIZED UNDERSTANDING AND VOICED THANKS AND STATES HE WILL MAKE SURE TO TAKE HOME WHEN HE IS DISCHARGED.
--- NOTE | 2018-11-15 19:50 | NUR ---
RESUMING CARE. PT IS ALERT LAYING BED WATCHING TV. RESPIRATIONS EVEN AND UNLABORED. NO C/O VOICED AT THIS TIME. BED IN THE LOWEST POSITION WITH CALL LIGHT IN REACH. WILL CONTINUE TO MONITOR PT AND FOLLOW PLAN OF CARE.
[2018-11-15 20:50] VITALS: BP 101/35
--- NOTE | 2018-11-16 02:11 | NUR ---
RESTING QUIETLY WITH EYES CLOSED. RR EVEN UL. NO S/S OF DISCOMFORT. BED IS LOW WITH SR UP X2. CL IN REACH.
--- NOTE | 2018-11-16 03:25 | NUR ---
PT LAYING IN BED RESTING COMFORTABLY WITH EYES CLOSED. RESPIRATIONS EVEN AND UNLABORED. NO SIGNS OF DISTRESS AT THIS TIME. BED IN THE LOWEST POSITION WITH CALL LIGHT IN REACH. WILL CONTINUE MONITOR PT AND FOLLOW PLAN OF CARE
[2018-11-16 06:14] VITALS: BP 105/54
[2018-11-16 06:56] LABS: BASOPHILS 0.4 % (0-2); EOSINOPHILS 5.9 % (0-7); HEMATOCRIT 31.6 % (42.0-54.0); HEMOGLOBIN 9.8 g/dL (13.5-17.5); IMMATURE GRANULOCYTES 0.1 % (0-5); LYMPHOCYTES 38.3 % (15-50); MCH 24.7 pg (26.0-34.0); MCV 79.8 fL (80.0-100.0); MEAN PLATELET VOLUME 11.1 fL (7.4-10.4); MONOCYTES 9.6 % (2-11); NEUTROPHILS 45.7 % (40-80); PLATELET COUNT 232 10x3/uL (130-400); RBC 3.96 10x6/uL (4.20-6.10); RDW 16.4 % (11.5-14.5); WBC 7.7 10x3/uL (4.8-10.8)
--- NOTE | 2018-11-16 07:28 | NUR ---
AM ROUNDS COMPLETED, PT SITTING UP IN BED. AAO X3, VSS, PT C/O SINUS CONGESTION AND STATES THAT HIS NOSE HAS BEEN DRAINING ALL NIGHT. WILL NOTIFY PRIMARY. ASSESSED PT FOOT ULCER DRESSING C/D/I. PT DENIES NEED FOR PAIN. BED IN LOW, WILL CONTINUE TO MONITOR PT.
[2018-11-16 07:40] LABS: ANION GAP 18.5 mmol/L (8-16); CALCIUM 8.1 mg/dL (8.5-10.1); CARBON DIOXIDE 25.6 mmol/L (21.0-32.0); POTASSIUM - SERUM 4.1 mmol/L (3.5-5.1); VANCOMYCIN - RANDOM 18.1 ug/mL (10.0-20.0)
[2018-11-16 07:42] LABS: CREATININE - SERUM 9.2 mg/dL (0.6-1.3)
--- NOTE | 2018-11-16 08:01 | NUR ---
LAB CALLED CRITICAL GLUCOSE. PT IS ASYMPTOMATIC SITTING UP IN BED EATING BREAKFAST. WILL HOLD PTS INSULIN AND RECHECK AFTER HE EATS. NO IMMEDIATE ACTION NEEDED AT THIS TIME.
[2018-11-16 08:21] VITALS: BP 116/52
--- NOTE | 2018-11-16 08:32 | NUR ---
PTS FSBS NOW UP TO 158. PT ATE HIS BREAKFAST AND STATES HE IS FEELING GOOD. NO ACTION NEEDED. WILL CTM.
--- NOTE | 2018-11-16 10:00 | NUR ---
PT OUT FOR DIALYSIS. BP MEDS HELD FOR DIALYSIS. WILL ASSESS PT ON RETURN FROM DIALYSIS AND ADMINISTER MED.
[2018-11-16 16:51] VITALS: BP 152/85
--- NOTE | 2018-11-16 18:00 | NUR ---
ASSESSED PT FOOT ULCER. CHANGED PREVIOUS DRESSING, CLEANED WITH NS, APPLIED DAB OF POVODINE ON FOOT ULCER. COVERED WITH 4X4, WRAPPED WITH BANDAGE AND DATED. PT TOLERATED WELL. WILL CTM. CL IN REACH, BED IN LOW.
--- NOTE | 2018-11-16 19:10 | NUR ---
AWAKE WATCHING TV. DENIES PAIN OR ANY NEEDS. IV IN L HAND INTACT SL. RT CHEST HEMESPLIT DRSG C/D/I. DRSG ON RT FOOT C/D/I. ORIENTED TO CALL LIGHT FOR ANY NEEDS.
[2018-11-16 20:30] VITALS: BP 120/56
--- NOTE | 2018-11-16 21:50 | NUR ---
ADMIN SCHED PO MEDS WITH SIPS OF WATER. CHECKED BS AT 267, ADMIN SCHED LEVIMIR 20 UNITS SC AND HUMULIN R 16 UNITS SC. GAVE DIABETIC SNACK OF VANILLA WAFERS, REFUSED THE APPLESAUCE. REQUESTED A DIET LEMON-KLAMATH SODA.
[2018-11-17 00:38] VITALS: BP 115/56
[2018-11-17 05:40] VITALS: BP 104/51
--- NOTE | 2018-11-17 05:58 | NUR ---
AWAKE WATCHING TV. DENIES PAIN OR ANY NEEDS.
[2018-11-17 06:51] LABS: BASOPHILS 0.3 % (0-2); HEMOGLOBIN 11.3 g/dL (13.5-17.5); IMMATURE GRANULOCYTES 0.1 % (0-5); LYMPHOCYTES 34.7 % (15-50); MCH 25.2 pg (26.0-34.0); MCHC 31.4 g/dL (31.0-37.0); MCV 80.4 fL (80.0-100.0); MEAN PLATELET VOLUME 10.6 fL (7.4-10.4); MONOCYTES 9.7 % (2-11); NEUTROPHILS 50.2 % (40-80); PLATELET COUNT 239 10x3/uL (130-400); RBC 4.48 10x6/uL (4.20-6.10); RDW 16.5 % (11.5-14.5); WBC 7.8 10x3/uL (4.8-10.8)
[2018-11-17 07:31] LABS: ANION GAP 17.6 mmol/L (8-16); CALCIUM 8.4 mg/dL (8.5-10.1); CARBON DIOXIDE 26.3 mmol/L (21.0-32.0); CREATININE - SERUM 8.3 mg/dL (0.6-1.3); POTASSIUM - SERUM 3.9 mmol/L (3.5-5.1); VANCOMYCIN - RANDOM 16.9 ug/mL (10.0-20.0)
--- NOTE | 2018-11-17 08:14 | NUR ---
AM ROUNDS COMPLETED INTRODUCED MYSELF TO PT PRIMARY RN FOR TODAYS SHIFT. PT IS A&O SITTING UP ON EDGE OF BED. PT C/O BEING DIZZY. BP LOW LEFT ARM 95/45 RIGHT ARM 90/46. WILL HOLD MORNING BP MEDICATIONS AND WATCH CLOSELY. PT STATES EVER SINCE HE STARTED DIALYSIS HE GETS SICK AT TIMES AND BP WILL DROP, MAY NEED TO CLEAN UP MEDICATION LIST AND COME OFF SOME MEDICATIONS IF ABLE, WILL DISCUSS WITH PRIMARY. PT C/O HIS URINE BEING PAINFUL AND STATES HE HAD A UTI PRIOR TO ADMISSION NO WORKUP HAS BEEN DONE HERE BUT WILL ALSO DISCUSS ABOUT NEEDING CULTURE OR WORKUP. PT VOICED THANKS AND DENIES ANY CURRENT PAIN OR NEEDS. SITTING UP ON EDGE OF BED AND STATES HE DOESNT WANT BREAKFAST HE IS GOING TO LAY DOWN FOR A BIT. CL IN REACH, BED IN LOWEST, SIDE RAILS X2. WILL CTM.
[2018-11-17 08:31] VITALS: BP 94/45
[2018-11-17 12:54] VITALS: BP 126/62
[2018-11-17 16:42] VITALS: BP 127/61
[2018-11-17 20:53] VITALS: BP 138/68
--- NOTE | 2018-11-17 23:52 | NUR ---
AWAKE WATCHING TV. ADMIN SCHED PO MEDS AND INSULINS FOR BS 258. REQUESTED DIET SODA. GAVE DIABETIC SNACK OF VANILLA WAFERS.
[2018-11-18 00:45] VITALS: BP 147/73
--- NOTE | 2018-11-18 02:01 | NUR ---
CHANGED DRSG'S ON RT FOOT WET-DRY WITH BETADINE PER ORDER. REQUESTED SHERBERT ICE CREAM.
[2018-11-18 04:25] VITALS: BP 146/69
[2018-11-18 04:40] LABS: BASOPHILS 0.4 % (0-2); EOSINOPHILS 4.9 % (0-7); HEMATOCRIT 32.6 % (42.0-54.0); HEMOGLOBIN 10.3 g/dL (13.5-17.5); IMMATURE GRANULOCYTES 0.1 % (0-5); LYMPHOCYTES 26.2 % (15-50); MCH 25.1 pg (26.0-34.0); MCHC 31.6 g/dL (31.0-37.0); MCV 79.3 fL (80.0-100.0); MEAN PLATELET VOLUME 10.4 fL (7.4-10.4); MONOCYTES 7.5 % (2-11); NEUTROPHILS 60.9 % (40-80); PLATELET COUNT 264 10x3/uL (130-400); RBC 4.11 10x6/uL (4.20-6.10); RDW 16.2 % (11.5-14.5); WBC 9.1 10x3/uL (4.8-10.8)
[2018-11-18 05:26] LABS: CALCIUM 7.9 mg/dL (8.5-10.1); CARBON DIOXIDE 24.5 mmol/L (21.0-32.0); VANCOMYCIN - RANDOM 14.7 ug/mL (10.0-20.0)
[2018-11-18 05:30] LABS: CREATININE - SERUM 10.5 mg/dL (0.6-1.3); POTASSIUM - SERUM 4.5 mmol/L (3.5-5.1)
--- NOTE | 2018-11-18 07:28 | NUR ---
ROUNDING DONE WITH PATIENT SITTING ON SIDE OF BED DURING AM CARE, WASHING UP. DENIES NEEDS AT THIS TIME. ON HEART MONITOR SHOWING SR, HR 87. ROOM AIR. RIGHT CHEST HEMISPLIT SEEN WITH C/D/I DRESSING. LEFT HAND PIV SAL[place] LOCK. ON EP, K+ 4.5. RIGHT FOOT SEEN WITH C/D/I DRESSING, MISSING SOME TOES. WILL ASSIST NEEDED.
[2018-11-18 08:52] VITALS: BP 141/63
--- NOTE | 2018-11-18 10:05 | NUR ---
TO DIALYSIS VIA BED.
--- NOTE | 2018-11-18 14:18 | NUR ---
TO RETURN FROM DIALYSIS VIA BED.
--- NOTE | 2018-11-18 15:29 | NUR ---
IV TO LEFT HAND INFILTRATING. CATH REMOVED WITH TIP INTACT. RE-SITED TO RIGHT HAND PAST 3 ATTEMPTS WITH 22 G.
--- NOTE | 2018-11-18 16:33 | NUR ---
IV VANC IS STILL INFUSING WITHOUT PROBLEMS TO RIGHT THUMB.
[2018-11-18 16:42] VITALS: BP 135/61
--- NOTE | 2018-11-18 18:16 | NUR ---
PATIENT STILL HAS NOT VOIDED FOR THIS SHIFT FOR URINE COLLECTION.
[2018-11-18 19:00] VITALS: BP 155/76
--- NOTE | 2018-11-18 19:51 | NUR ---
PT LAYING IN BED RESTING. PT DENIES PAIN AT THIS TIME. PT SLEEPY FROM TAKING BENADRYL. NORMAL SINUS ON TELE. VERY HARD OF HEARING. DRSG TO R FOOT C/D/I. R HAND IV SL. ROOM AIR. BS 263, WILL TREAT WITH HUMULIN AND LEVAMIR. BEDSIDE COMMODE WITHIN REACH. NO FURTHER CONCERNS AT THIS TIME. BED LOWERED AND LOCKED. CL IN REACH. WILL CONTINUE TO MONITOR.
--- NOTE | 2018-11-18 21:43 | NUR ---
PT TOOK MEDS WITHOUT DIFFICULTY. NO FURTHER COMPLAINTS AT THIS TIME. BED LOWERED AND LOCKED. CL IN REACH. WILL CONTINUE TO MONITOR.
[2018-11-19] VITALS: BP 124/67
[2018-11-19 05:03] LABS: BASOPHILS 0.6 % (0-2); EOSINOPHILS 6.2 % (0-7); HEMATOCRIT 34.4 % (42.0-54.0); HEMOGLOBIN 10.9 g/dL (13.5-17.5); IMMATURE GRANULOCYTES 0.1 % (0-5); LYMPHOCYTES 31.1 % (15-50); MCH 25.2 pg (26.0-34.0); MCHC 31.7 g/dL (31.0-37.0); MCV 79.6 fL (80.0-100.0); MEAN PLATELET VOLUME 10.8 fL (7.4-10.4); MONOCYTES 11.1 % (2-11); NEUTROPHILS 50.9 % (40-80); PLATELET COUNT 248 10x3/uL (130-400); RBC 4.32 10x6/uL (4.20-6.10); RDW 16.1 % (11.5-14.5); WBC 8.1 10x3/uL (4.8-10.8)
[2018-11-19 05:32] LABS: ANION GAP 15.6 mmol/L (8-16); CALCIUM 8.5 mg/dL (8.5-10.1); CARBON DIOXIDE 27.3 mmol/L (21.0-32.0); CREATININE - SERUM 7.9 mg/dL (0.6-1.3); POTASSIUM - SERUM 3.9 mmol/L (3.5-5.1); VANCOMYCIN - RANDOM 21.5 ug/mL (10.0-20.0)
[2018-11-19 05:36] VITALS: BP 110/51
--- NOTE | 2018-11-19 06:29 | NUR ---
PT LAYING IN BED. C/O BEING HOT AND SOB. PT O2 @ 96% ON ROOM AIR. PT 72 NORMAL SINUS ON TELE. INFORMED PT THAT HIS VITALS WERE STABLE AND THAT HIS OXYGEN WAS NORMAL. PT NOT RUNNING A FEVER. PT STATES HE FEELS THAT HIS SINUSES ARE STOPPED UP AND WOULD LIKE A NASAL SPRAY. WILL WORK ON GETTING THIS FOR PT. INFORMED HIM HE WILL BE GETTING AN KARAN AT 0900, NO FURTHER CONCERNS AT THIS TIME.
--- NOTE | 2018-11-19 07:15 | NUR ---
REPORT RECIEVED AND MORNING ROUNDING COMPLETE. PT LAYING IN BED EYES CLOSED AND BREATHING EVENA AND UNLABORED. CALL LIGHT WITHIN REACH AND BED IN LOWEST POSITION.
[2018-11-19 07:46] VITALS: BP 135/68
--- NOTE | 2018-11-19 09:25 | NUR ---
RESTS IN BED WITH EYES CLOSED. CALL LIGHT IN REACH. WILL MONITOR NEEDS.
[2018-11-19 11:58] VITALS: BP 138/72
--- NOTE | 2018-11-19 18:33 | NUR ---
CHANGED BANDGE TO Pt'S RIGHT FOOT. CLEANED AND APPLIED NEW WET TO DRY DRESSING. PT TOLERATED WELL. NO OTHER NEEDS AT THIS TIME. CALL LIGHT WITHIN REACH AND BED IN LOWEST POSITION.
--- NOTE | 2018-11-19 19:30 | NUR ---
RESUMING PATIENT CARE. PATIENT IS ALERT AND ORIENTED. RESPIRATIONS ARE EVEN AND UNLABORED. NO S/S OF DISTRESS. NO C/O PAIN. PT. VERBALIZED NO NEEDS AT THIS TIME. PATIENT BOARD UPDATED. CALL LIGHT WITHIN REACH. WILL CPOC.
[2018-11-19 21:23] VITALS: BP 120/55
[2018-11-20 00:33] VITALS: BP 133/56
--- NOTE | 2018-11-20 03:00 | NUR ---
PATIENT APPEARS TO BE SLEEPING. RESPIRATIONS NOTED. NO S/S OF DISTRESS. CALL LIGHT WITHIN REACH. WILL CPOC.
[2018-11-20 05:39] LABS: BASOPHILS 0.5 % (0-2); EOSINOPHILS 5.8 % (0-7); HEMOGLOBIN 10.5 g/dL (13.5-17.5); IMMATURE GRANULOCYTES 0.1 % (0-5); LYMPHOCYTES 29.9 % (15-50); MCH 25.2 pg (26.0-34.0); MCHC 31.8 g/dL (31.0-37.0); MCV 79.1 fL (80.0-100.0); MEAN PLATELET VOLUME 10.8 fL (7.4-10.4); NEUTROPHILS 51.7 % (40-80); PLATELET COUNT 266 10x3/uL (130-400); RBC 4.17 10x6/uL (4.20-6.10); RDW 16.1 % (11.5-14.5); WBC 8.8 10x3/uL (4.8-10.8)
[2018-11-20 06:09] LABS: ANION GAP 19.5 mmol/L (8-16); CALCIUM 8.3 mg/dL (8.5-10.1); CARBON DIOXIDE 25.4 mmol/L (21.0-32.0)
[2018-11-20 06:21] LABS: CREATININE - SERUM 10.4 mg/dL (0.6-1.3); POTASSIUM - SERUM 4.9 mmol/L (3.5-5.1)
[2018-11-20 06:24] VITALS: BP 133/66
[2018-11-20 07:54] VITALS: BP 135/64
--- NOTE | 2018-11-20 11:00 | NUR ---
TAKEN TO DIALYSIS VIA BED. CONTINUE PLAN OF CARE AND SAFETY PRECAUTIONS.
[2018-11-20 15:07] VITALS: BP 128/65
--- NOTE | 2018-11-20 15:18 | NUR ---
Nutrition follow-up: Diet: Renal ADA PO intake ~75% average of meals Labs reviewed Wt: 220# +BM PO intake good at this time. RDN following.
[2018-11-20 20:46] VITALS: BP 122/60
[2018-11-21 00:03] VITALS: BP 128/59
[2018-11-21 04:17] VITALS: BP 137/62
--- NOTE | 2018-11-21 04:41 | NUR ---
PT RESTING IN BED WITH EYES CLOSED. RESPIRATIONS EVEN AND UNLABORED. BED LOW CALL LIGHT WITHIN REACH. WILL CONTINUE TO MONITOR
[2018-11-21 06:32] LABS: BASOPHILS 0.3 % (0-2); EOSINOPHILS 5.5 % (0-7); HEMATOCRIT 34.6 % (42.0-54.0); HEMOGLOBIN 11.1 g/dL (13.5-17.5); IMMATURE GRANULOCYTES 0.1 % (0-5); LYMPHOCYTES 26.6 % (15-50); MCH 25.4 pg (26.0-34.0); MCHC 32.1 g/dL (31.0-37.0); MCV 79.2 fL (80.0-100.0); MEAN PLATELET VOLUME 10.3 fL (7.4-10.4); MONOCYTES 8.5 % (2-11); PLATELET COUNT 238 10x3/uL (130-400); RBC 4.37 10x6/uL (4.20-6.10); WBC 9.3 10x3/uL (4.8-10.8)
[2018-11-21 06:51] LABS: ANION GAP 19.5 mmol/L (8-16); CALCIUM 8.2 mg/dL (8.5-10.1); CARBON DIOXIDE 25.8 mmol/L (21.0-32.0); CREATININE - SERUM 9.3 mg/dL (0.6-1.3); POTASSIUM - SERUM 5.3 mmol/L (3.5-5.1)
--- NOTE | 2018-11-21 07:30 | NUR ---
ASSESSMENT DONE. DENIES NEEDS.
[2018-11-21 08:25] VITALS: BP 135/66
--- NOTE | 2018-11-21 11:03 | NUR ---
RESTING QUIETLY NAD NOTED
[2018-11-21 12:41] VITALS: BP 141/63
[2018-11-21 15:48] VITALS: BP 132/81
--- NOTE | 2018-11-21 18:04 | NUR ---
WITHOUT CHANGES OR DISTRESS NOTED AT THIS TIME.
[2018-11-21 21:41] VITALS: BP 133/58
--- NOTE | 2018-11-22 05:17 | NUR ---
REC'D. AT [facility] SHIFT IN BED REQUESTING REGULAR COKE AND ICECREAM INSTRUCTEDWOULD BE HAPPYTO GET HIMDIET COLA.BECAME VERYANGRY.DRSG. DRY AND INTACT TO FOOT UP ON PILLOW. WILL CONTINUE TO MONITOR FORANY CHGDES.IN NEUROVASCULARSTATUS AND FOLLOW CURRENT PLAN OF CARE.
[2018-11-22 05:44] VITALS: BP 118/55
--- NOTE | 2018-11-22 07:00 | NUR ---
MORNING ASSESSMENT COMPLETE. SEE ASSESSMENT FLOWSHEET FOR FURTHER DETAILS. PT LYING IN BED AAO X3 TO PERSON, PLACE, ADN TIME. L WRIST PIV SL; RC HEMESPLIT- BOTH C/D/I AND PATENT. R FOOT ULCER WRAPPED IN KERLEX DRSG. HEART: S1 AND S2 HEARD AT AORTIC, PULMONIC, ERBS, TRICUSPID, AND MITRAL SITES- REG RHYTHM. BILAT RADIALA DN PEDAL PULSES PALP- REGULAR AND STRONG. LUNGS: CTA IN ALL LUNG ROBLERO. ABD: BS ACTIVE X4. DENIES NEEDS AT THIS TIME. CL IN REACH. SIDE RAILS UP X3 FOR PATIENT SAFETY
[2018-11-22 08:37] VITALS: BP 108/54
[2018-11-22 11:54] VITALS: BP 161/66
[2018-11-22 12:44] LABS: APPEARANCE CLEAR (CLEAR); COLOR YELLOW (YELLOW)
[2018-11-22 12:45] LABS: BILIRUBIN NEGATIVE (NEGATIVE); GLUCOSE NEGATIVE (NEGATIVE); KETONE NEGATIVE (NEGATIVE); NITRITE NEGATIVE (NEGATIVE); PROTEIN 2+ mg/dL (NEGATIVE); UROBILINOGEN NORMAL (NORMAL); WHITE CELLS - URINE OCC /hpf (0-5)
[2018-11-22 12:46] LABS: BACTERIA FEW /hpf (NONE SEEN)
[2018-11-22 12:47] LABS: EPITHELIAL CELLS OCC /hpf (0-5); RED CELLS - URINE OCC /hpf (0-5)
--- NOTE | 2018-11-22 15:58 | MORECARE ---
CASE MANAGEMENT DISCHARGE SUMMARY PATIENT: RADHA SALGUERO UNIT: [id number] ADM DATE: 11/08/18 AGE: 73 : 45 SEX: M ROOM/BED: D.2135 AUTHOR: ROSA,DOC PHYSICIAN: REFERRING PHYSICIAN: MALOU SUN MD DATE OF SERVICE: 11/22/18 Discharge Plan Patient Name: RADHA SALGUERO Facility: [facility]:[place] : 1945 Planned Disposition: [facility]ci Facility Anticipated Discharge Date: Discharge Date: Expected LOS: Initial Reviewer: [id number] Initial Review Date: 11/08/2018 Generated: 11/22/18 4:58 pm Comments DCP- Discharge Planning Updated by [id number]: Eloy Casillas on 11/14/18 4:[address] Patient Name: RADHA SALGUERO Encounter No: [id number] : 1945 Primary Insurance: WE[employer] MEDICARE ADV Anticipated DC Date: Planned Disposition: Home DCP follow-up note: CM SPOKE TO DR. MATHIS REGARDING PT'S LIVING ARRAGEMENTS. CM SPOKE TO PT IN ROOM REGARDING LIVING IN HOTEL ROOM. PT REPORTS HE WAS LIVING IN A PRISON, DOES NOT WANT TO GO BACK TO ONE AND IS LIVING IN THE HOTEL UNTIL HE FINDS A PLACE THAT HE LIKES. CM DISCUSSED REHAB SERVICES HOME HEALTH AND MEDICAL EQUIPMENT. PT DENIES DISCHARGE NEEDS OTHER THAN NEEDING A DIALYSIS CLINIC. PT STILL UPSET THAT THE [place] [facility] WILL NOT ACCEPT HIM A PATIENT. PT REPORTS HE WILL BE STAYING IN [place] AND WILL FIND HIMSELF AN APARTMENT THERE. PT REPORTS USING MEDICAID TRANSPORT FOR MEDICAL APPOINTMENTS AND NEEDS A Sunday SCHEDULE IN ORDER TO USE MEDICAID TRANSPORT TO AND FROM DIALYSIS. PT REPORTS INABILITY TO GET TO DILAYSIS ON WEEKENDS. KAYLENE OF [facility] NOTIFIED. CM WAITING ARRANGEMENT AND ACCEPTANCE AT OUTPATIENT DIALYSIS CLINIC; [facility] COORDINATOR IS WORKING ON THIS. CM TO CONTINUE TO FOLLOW AND ASSIST IF NEEDED. Eloy Casillas, CASE MANAGEMENT DCP- Discharge Planning Updated by [id number]: Sherri Walker on 11/14/18 2:[address] I HAVE BEEN IN COMMUNICATION WITH KAYLENE KIM, CLINICAL LIASON FOR [facility]. SHE HAS BEEN WORKING ON PLACEMENT FOR THE PATIENT. THIS PATIENT WAS IN A PRISON IN [place] AND RECEIVING DIALYSIS. HE KNEW HE WAS NOT ACCEPTED BY THE [place] [facility] BEFORE HE EVER MOVED TO [place], BUT CAME ANYWAY. KAYLENE HAD BEEN WORKING WITH THE [place] [facility], AND THEY ARE STILL DENYING HIM PLACEMENT THERE. SHE STATED THAT HE HAS THE OPTION OF [place], [place], OR [place]. WHILE I WAS ON THE PHONE WITH KAYLENE, PHILOMENA WENT AND ASKED THE PATIENT AND HE SAID CRICKET CRAMER, BUT IS INSISTENT THAT HE HAVE A M-W- SCHEDULE. KAYLENE CALLED BACK AND STATED THAT BECAUSE DR SIMS HAS REFUSED THE PATIENT, THE [place] AND [place] UNITS HAVE ALSO DENIED THE PATIENT. THE ONLY OPTION IS FOR THE [place] UNIT AND THESE ARE THE SAME DOCTORS THAT CARED FOR HIM IN [place]. I WENT AND TALKED TO THE PATIENT AND HE STATED THAT THAT WOULD BE FINE. I HAVE LET KAYLENE KNOW THIS. I HAVE ALSO PASSED ONTO HER THAT PER DR AGUIRRE, THE PATIENT WAS GOING TO NEED 6 WEEKS OF VANCOMYCIN TO BE GIVEN IN DIALYSIS. SHE HAS STATED THAT THAT SHOULD NOT BE A PROBLEM ONCE HE IS ACCEPTED. ALSO DURING THIS TIME, JEFFERSON, PHYSICAL THERAPIST, CAME BY AND STATED THAT THE PATIENT WAS NOT STABLE ON THE CRUTCHES AND DID MUCH BETTER ON THE WALKER. HE RECOMMENDED THAT THE PATIENT GET A WALKER. I ALSO SPOKE WITH THE PATIENT AND HE STATED THAT HE HAS A WALKER AT THE [place] AND DOES NOT NEED ANOTHER ONE. HE STATED THAT THE THERAPIST CAME IN AND GOT HIM UP RIGHT AFTER DIALYSIS AND HE WAS WEEK. HE STATED THAT HE WILL DO BETTER TOMORROW. I HAVE EXPLAINED THAT WE SHOULD HAVE A WALKER THAT HE CAN BORROW DURING THERAPY IF NEEDED. DCP- Discharge Planning Updated by [email or web address]: Mallory Zamarripas on 11/11/18 2:[address] PATIENT HAD RECENTLY RETURNED FROM HD AND HAD EATEN HIS LUNCH. HE SAID HE WAS TIRED. SPOKE SLOWLY PATIENT STATES HE IS HARD OF HEARING BUT DID NOT WANT TO TURN DOWN THE VOLUME ON TV. LIVES AT THE [facility] IN [place], [place]. STATES HE HAS NO BROTHERS, SISTERS OR CHILDREN. HE SAYS HE DOES HAVE COUSINS THAT LIVE IN [place]. STATES HE WILL HAVE TRANSPORTATION AT DISCHARGE FROM HIS FRIEND INDIRA DUNN. CONTACT PHONE NUMBER- [phone]. STATES HE IS TIRED THEREFORE CM STATED WILL REVISIT TO ASSIST WITH DISCHARGE. KAYLENE HELTON ON SITE AND HE STATES HE HAS SPOKEN WITH THE HD COORDINATOR. DCP- Discharge Planning Updated by [id number]: Mallory Hawley on 11/11/18 12:[address] PATIENT PRESENTLY IN HD. CM AWAITS HIS RETURN TO THE ROOM DCP- Discharge Planning Updated by [id number]: Mallory Hawley on 11/10/18 6:[address] CM TO FOLLOW FOR ASSESSMENT. APPARENTLY HE RECENTLY RELOCATED TO [place], [place]. HAS ORDERED HD SETUP FOR [facility]. TC TO KAYLENE HELTON. LEFT VOICE MAIL. PATIENT REPORTEDLY LIVING IN A HOTEL. QUESTION REGARDING HOUSING. CM TO FOLLOW. DCPIA - Discharge Planning Initial Assessment Updated by [id number]: Mallory Hawley on 11/11/18 3:04 pm * Is the patient Alert and Oriented? Yes * PCP DR RONN DURAN * [facility] [place] * Other Environment [facility] * ADLs Independent * List name and contact numbers for known caregivers / representatives who currently or will assist patient after discharge: INDIRA DUNN- FRIEND FOR TRANSPORTATION * Verbal permission to speak to the caregivers and representatives has been obtained from the patient. No * Community resources currently utilized Other * Please name any agencies selected above. [facility] [place] KAYLENE HELTON TRYING TO GET HD SET UP * Additional services required to return to the preadmission environment? Yes * Can the patient safely return to the preadmission environment? Yes External Providers External Provider: OTHER-OTHER Next Contact Date: 11/22/2018 Service Request Date: Service Type: Resolution: Reviewer: Comments: External Provider: ELEAZ[facility] Next Contact Date: 11/22/2018 Service Request Date: Service Type: Resolution: Reviewer: Comments: External Provider: [facility] Next Contact Date: 11/22/2018 Service Request Date: Service Type: Resolution: Reviewer: Comments: External Provider: LEONELA[facility] Next Contact Date: 11/22/2018 Service Request Date: Service Type: Resolution: Reviewer: Comments: Last DP export: 11/15/18 1:38 Patient Name: RADHA SALGUERO Page [phone] at 1558 All edits/amendments must be made on the electronic document DICTATION DATE: 11/22/181557 LEVEL GLASS FORMING MACHINE OPERATOR: JEANMARIE 11/22/181557 RPT#: [id number] DC DATE: STATUS: ADM IN [facility] [address] [place] [address] END OF REPORT
--- NOTE | 2018-11-22 17:01 | MORECARE ---
CASE MANAGEMENT DISCHARGE SUMMARY PATIENT: RADHA SALGUERO UNIT: [id number] ADM DATE: 11/08/18 AGE: 73 : 45 SEX: M ROOM/BED: D.2135 AUTHOR: ROSA,DOC PHYSICIAN: REFERRING PHYSICIAN: MALOU SUN MD DATE OF SERVICE: 11/22/18 Discharge Plan Patient Name: RADHA SALGUERO Facility: [facility]:[place] : 1945 Planned Disposition: Long-Term Facility Anticipated Discharge Date: Discharge Date: Expected LOS: Initial Reviewer: [id number] Initial Review Date: 11/08/2018 Generated: 11/22/18 6:01 pm Comments DCP- Discharge Planning Updated by [id number]: Eloy Casillas on 11/22/18 3:[address] Patient Name: RADHA SALGUERO Encounter No: [id number] : 1945 Primary Insurance: WELLCARE MEDICARE ADV Anticipated DC Date: Planned Disposition: Long-Term Facility External Planned Provider: FIRST ACCEPTING ASSISTED FACILITY FOR MEDICARE REHAB BED DCP follow-up note: CM SPOKE TO PT IN ROOM AND PROVIDED UPDATE THIS MORNING. CM INFORMED PT THAT HE WOULD BE DISCHARGING FROM THE HOSPITAL SOON OUTPATIENT DIALYSIS UNIT SCHEDULE IS OBTAINED. PT CONTINUES TO REPORT PLAN TO GO BACK TO HIS HOTEL ROOM IN [place] AND THEN BEGAN INSISTING TO KNOW WHY THE DOCTORS AT THE DIALYSIS UNITS WILL NOT ACCEPT HIM. CM EXPLAINED THAT PT WILL HAVE TO TALK TO THE DOCTORS HIMSELF AND CM WAS CONCERNED WITH FINDING AN ACCEPTING UNIT FOR OUTPATIENT DIALYSIS. PT ARGUED THAT THE DOCTORS HAVE NO REASON TO NOT ACCEPT HIM. CM EXPLAINED TO PT THAT HE CANNOT CHANGE THIS AND NEEDS TO CONCENTRATE ON DISCHARGE PLANNING AND LET THE [facility] COORDINATOR FIND A UNIT THAT WOULD ACCEPT. PT CONTINUED TO ARGUE REPORTING THE [place] [facility] HAD ACCEPTED HIM AND HAD NO REASON TO NOT TAKE HIM WHEN HE ARRIVED "HOME" IN [place]. CM EXPLAINED THAT THE UNIT NEVER ACCEPTED HIM, PT REPORTS THIS IS NOT TRUE. CM INFORMED PT THAT CM WILL NOT CONTINUE TO ARGUE THE POINT AND WOULD FOCUS ON DISCHARGE PLANNING. PT REPORTS PLAN TO RETURN TO HIS HOTEL ROOM IN [place] AND NEEDS A MWF DIALYSIS SCHEDULE TO USE MEDICAID TRANSPORTATION. CM DISCUSSED AVAILABILTY OF ASSISTED REHAB SERVICES PT'S THERAPY NOTES INDICATE PT IS NOT WALKING WELL. PT DECLINES AND STATES HE IS GOING HOME. CM RECEIVED CALL FROM KWAN OF [facility] WHO REPORTS THEY RECEIVED REFERRAL FOR HOME HEALTH REGARDING PT. KWAN ADVISED THAT THEY WILL NOT ACCEPT PT DOES NOT APPEAR TO BE APPROPRIATE AT THIS TIME FOR HOME HEALTH. CM SPOKE TO KAYLENE OF [facility], PT ACCEPTED FOR DIALYSIS AT [facility] IN [place], [facility] [place], 0930AM. CM NOTIFIED PT AND PROVIDED PT A COPY OF HIS THERAPY NOTE FROM YESTERDAY THAT INDICATES PT WALKING 4 FEET WITH 35 % ASSISTANCE. CM INFORMED PT THAT IS NOT SAFE FOR HIM TO DISCHARGE HOME WITHOUT ASSISTANCE. PT REPORTS HAVING NO FAMILY OR FRIENDS TO ASSIST. PT STILL DECLINED ASSISTED FACILITY STATING HE LEFT ONE AND IS NOT GOING BACK. CM DISCUSSED HAVING A SAFE DISCHARGE PLAN AND IF PT INSISTED ON GOING HOME IN CURRENT CONDITION, CM WOULD CALL ADULT PROTECTIVE SERVICES. PT DOES NOT WANT TO BE INVOLVED WITH ADULT PROTECTIVE SERVICES AND WILL AGREE FOR REHAB PLACEMENT ONLY IN [place] IF POSSIBLE AND IF NOT, [place]. CHOICE LETTER SIGNED. CM SPOKE TO [facility], [facility] AND [facility]. N[facility]Y INFORMED CM THAT [facility] WILL NOT TRANSPORT TO DIALYSIS IN [place], THAT [facility] CANNOT ACCOMODATE TTS SCHEDULE ADN [facility] WOULD NEED TO EVALUATE. CM FAXED REFERRAL TO [facility] AT [phone]. CM CALLED [facility], , SPOKE TO SANTA WHO WILL EVALUATE PT NEXT SUNDAY. CM FAXED REFERRAL TO [facility] AT [phone]. CM CALLED [facility], , SPOKE TO ENRIKE WHO WILL SCREEN FOR REHAB ADMISSION; CM FAXED REFERRAL TO [facility] AT [phone]. CM CALLED [facility], , SPOKE TO EZEKIEL WHO WILL SCREEN PT FOR ADMISSION, CM FAXED REFERRAL TO [facility] AT [phone]. PT HAS BEEN ACCEPTED FOR DIALYSIS AT [facility] IN [place], [place], 0930AM. CM WAITING ADMISSION DETERMINATIONS FOR REHAB FROM [facility], [facility], [facility] AND [facility]. Eloy Casillas, CASE MANAGEMENT DCP- Discharge Planning Updated by [id number]: Eloy Casillas on 11/14/18 4:[address] Patient Name: RADHA SALGUERO Encounter No: [id number] : 1945 Primary Insurance: WELLCARE MEDICARE ADV Anticipated DC Date: Planned Disposition: Home DCP follow-up note: CM SPOKE TO DR. MATHIS REGARDING PT'S LIVING ARRAGEMENTS. CM SPOKE TO PT IN ROOM REGARDING LIVING IN HOTEL ROOM. PT REPORTS HE WAS LIVING IN A [facility]P, DOES NOT WANT TO GO BACK TO ONE AND IS LIVING IN THE HOTEL UNTIL HE FINDS A PLACE THAT HE LIKES. CM DISCUSSED REHAB SERVICES HOME HEALTH AND MEDICAL EQUIPMENT. PT DENIES DISCHARGE NEEDS OTHER THAN NEEDING A DIALYSIS CLINIC. PT STILL UPSET THAT THE [place] [facility] WILL NOT ACCEPT HIM A PATIENT. PT REPORTS HE WILL BE STAYING IN [place] AND WILL FIND HIMSELF AN APARTMENT THERE. PT REPORTS USING MEDICAID TRANSPORT FOR MEDICAL APPOINTMENTS AND NEEDS A Sunday SCHEDULE IN ORDER TO USE MEDICAID TRANSPORT TO AND FROM DIALYSIS. PT REPORTS INABILITY TO GET TO [facility] WEEKEN[facility]. KAYLENE OF [facility] NOTIFIED. CM WAITING ARRANGEMENT AND ACCEPTANCE AT OUTPATIENT DIALYSIS CLINIC; [facility] COORDINATOR IS WORKING ON THIS. CM TO CONTINUE TO FOLLOW AND ASSIST IF NEEDED. Eloy Casillas, CASE MANAGEMENT DCP- Discharge Planning Updated by [id number]: Sherri Walker on 11/14/18 2:[address] I HAVE BEEN IN COMMUNICATION WITH KAYLENE KIM, CLINICAL LIASON FOR [facility]. SHE HAS BEEN WORKING ON PLACEMENT FOR THE PATIENT. THIS PATIENT WAS IN A USP IN [place] AND RECEIVING DIALYSIS. HE KNEW HE WAS NOT ACCEPTED BY THE [place] [facility] BEFORE HE EVER MOVED TO [place], BUT CAME ANYWAY. KAYLENE HAD BEEN WORKING WITH THE [place] UNIT, AND THEY ARE STILL DENYING HIM PLACEMENT THERE. SHE STATED THAT HE HAS THE OPTION OF [place], [place], OR [place]. WHILE I WAS ON THE PHONE WITH KAYLENE, PHILOMENA WENT AND ASKED THE PATIENT AND HE SAID CRICKET CRAMER, BUT IS INSISTENT THAT HE HAVE A -W- SCHEDULE. KAYLENE CALLED BACK AND STATED THAT BECAUSE DR SIMS HAS REFUSED THE PATIENT, THE [place] AND [place] UNITS HAVE ALSO DENIED THE PATIENT. THE ONLY OPTION IS FOR THE [place] UNIT AND THESE ARE THE SAME DOCTORS THAT CARED FOR HIM IN [place]. I WENT AND TALKED TO THE PATIENT AND HE STATED THAT THAT WOULD BE FINE. I HAVE LET KAYLENE KNOW THIS. I HAVE ALSO PASSED ONTO HER THAT PER DR AGUIRRE, THE PATIENT WAS GOING TO NEED 6 WEEKS OF VANCOMYCIN TO BE GIVEN IN DIALYSIS. SHE HAS STATED THAT THAT SHOULD NOT BE A PROBLEM ONCE HE IS ACCEPTED. ALSO DURING THIS TIME, JEFFERSON, PHYSICAL THERAPIST, CAME BY AND STATED THAT THE PATIENT WAS NOT STABLE ON THE CRUTCHES AND DID MUCH BETTER ON THE WALKER. HE RECOMMENDED THAT THE PATIENT GET A WALKER. I ALSO SPOKE WITH THE PATIENT AND HE STATED THAT HE HAS A WALKER AT THE [place]OTEL AND DOES NOT NEED ANOTHER ONE. HE STATED THAT THE THERAPIST CAME IN AND GOT HIM UP RIGHT AFTER DIALYSIS AND HE WAS WEEK. HE STATED THAT HE WILL DO BETTER TOMORROW. I HAVE EXPLAINED THAT WE SHOULD HAVE A WALKER THAT HE CAN BORROW DURING THERAPY IF NEEDED. DCP- Discharge Planning Updated by [id number]: Mallory Hawley on 11/11/18 2:[address] PATIENT HAD RECENTLY RETURNED FROM HD AND HAD EATEN HIS LUNCH. HE SAID HE WAS TIRED. SPOKE SLOWLY PATIENT STATES HE IS HARD OF HEARING BUT DID NOT WANT TO TURN DOWN THE VOLUME ON TV. L[facility] [place], [place]. STATES HE HAS NO BROTHERS, SISTERS OR CHILDREN. HE SAYS HE DOES HAVE COUSINS THAT LIVE IN [place]. STATES HE WILL HAVE TRANSPORTATION AT DISCHARGE FROM HIS FRIEND INDIRA DUNN. CONTACT PHONE NUMBER- [phone]. STATES HE IS TIRED THEREFORE CM STATED WILL REVISIT TO ASSIST WITH DISCHARGE. KAYLENE HELTON ON SITE AND HE STATES HE HAS SPOKEN WITH THE HD COORDINATOR. DCP- Discharge Planning Updated by [id number]: Mallory Hawley on 11/11/18 12:[address] PATIENT PRESENTLY IN HD. CM AWAITS HIS RETURN TO THE ROOM DCP- Discharge Planning Updated by [id number]: Mallory Hawley on 11/10/18 6:[address] CM TO FOLLOW FOR ASSESSMENT. APPARENTLY HE RECENTLY RELOCATED TO [place], [place]. HAS ORDERED HD SETUP FOR [facility]. TC TO KAYLENE HELTON. LEFT VOICE MAIL. PATIENT REPORTEDLY LIVING IN A HOTEL. QUESTION REGARDING HOUSING. CM TO FOLLOW. DCPIA - Discharge Planning Initial Assessment Updated by [id number]: Mallory Hawley on 11/11/18 3:04 pm * Is the patient Alert and Oriented? Yes * PCP DR RONN DURAN * Pharmacy [facility] IN [place] * Other Environment [facility] * ADLs Independent * List name and contact numbers for known caregivers / representatives who currently or will assist patient after discharge: INDIRA DUNN- FRIEND FOR TRANSPORTATION * Verbal permission to speak to the caregivers and representatives has been obtained from the patient. No * Community resources currently utilized Other * Please name any agencies selected above. [facility] IN [place] , [place] KAYLENE HELTON TRYING TO GET HD SET UP * Additional services required to return to the preadmission environment? Yes * Can the patient safely return to the preadmission environment? Yes Coverage Notice Reviewer: [id number] Vincenzo Casillas Notice Issued Date-Time: 11/22/2018 11:50 Notice Type: Patient Choice Letter Notice Delivered To: Patient Relationship to Patient: Auto Clutch Specialist Name: Delivery Method: HAND - Hand Delivered Nguyen Days: Prior Verbal Notification: Recipient Understood Notice: Yes Recipient Signature: Yes Med Rec Note Co-signed by Attending: Coverage Notice Comment: SNF IN [place] OR [place] FOR REHAB ONLY... Last DP export: 11/22/18 2:58 pm Patient Name: RADHA SALGUERO Page [id number] at 1701 All edits/amendments must be made on the electronic document DICTATION DATE: 11/22/181700 MANAGER OF DISTRIBUTION: JEANMARIE 11/22/181700 RPT#: [id number] DC DATE: STATUS: ADM IN [facility] [address] [place] [address] END OF REPORT
--- NOTE | 2018-11-22 17:15 | MORECARE ---
CASE MANAGEMENT DISCHARGE SUMMARY PATIENT: RADHA SALGUERO UNIT: [id number] ADM DATE: 11/08/18 AGE: 73 : 45 SEX: M ROOM/BED: D.2135 AUTHOR: ROSA,DOC PHYSICIAN: REFERRING PHYSICIAN: MALOU SUN MD DATE OF SERVICE: 11/22/18 Discharge Plan Patient Name: RADHA SALGUERO Facility: [facility] : 1945 Planned Disposition: [facility] Facility Anticipated Discharge Date: Discharge Date: Expected LOS: Initial Reviewer: [id number] Initial Review Date: 11/08/2018 Generated: 11/22/18 6:15 pm Comments DCP- Discharge Planning Updated by [id number]: Eloy Casillas on 11/22/18 4:[address] Patient Name: RADHA SALGUERO Encounter No: [id number] : 1945 Primary Insurance: [employer] MEDICARE ADV Anticipated DC Date: Planned Disposition: [facility] Facility External Planned Provider: FIRST ACCEPTING CUSTODIAL FACILITY FOR MEDICARE REHAB BED DCP follow-up note: CM SPOKE TO PT IN ROOM AND PROVIDED UPDATE THIS MORNING. CM INFORMED PT THAT HE WOULD BE DISCHARGING FROM THE HOSPITAL SOON OUTPATIENT DIALYSIS UNIT SCHEDULE IS OBTAINED. PT CONTINUES TO REPORT PLAN TO GO BACK TO HIS HOTEL ROOM IN [place] AND THEN BEGAN INSISTING TO KNOW WHY THE DOCTORS AT THE DIALYSIS UNITS WILL NOT ACCEPT HIM. CM EXPLAINED THAT PT WILL HAVE TO TALK TO THE DOCTORS HIMSELF AND CM WAS CONCERNED WITH FINDING AN ACCEPTING UNIT FOR OUTPATIENT DIALYSIS. PT ARGUED THAT THE DOCTORS HAVE NO REASON TO NOT ACCEPT HIM. CM EXPLAINED TO PT THAT HE CANNOT CHANGE THIS AND NEEDS TO CONCENTRATE ON DISCHARGE PLANNING AND LET THE [facility] COORDINATOR FIND A UNIT THAT WOULD ACCEPT. PT CONTINUED TO ARGUE REPORTING THE [place] UNIT HAD ACCEPTED HIM AND HAD NO REASON TO NOT TAKE HIM WHEN HE ARRIVED "HOME" IN [place]. CM EXPLAINED THAT THE UNIT NEVER ACCEPTED HIM, PT REPORTS THIS IS NOT TRUE. CM INFORMED PT THAT CM WILL NOT CONTINUE TO ARGUE THE POINT AND WOULD FOCUS ON DISCHARGE PLANNING. PT REPORTS PLAN TO RETURN TO HIS HOTEL ROOM IN [place] AND NEEDS A MWF DIALYSIS SCHEDULE TO USE MEDICAID TRANSPORTATION. CM DISCUSSED AVAILABILTY OF CUSTODIAL REHAB SERVICES PT'S THERAPY NOTES INDICATE PT IS NOT WALKING WELL. PT DECLINES AND STATES HE IS GOING HOME. BHAVANA RECEIVED CALL FROM KWAN OF [facility] WHO REPORTS THEY RECEIVED REFERRAL FOR HOME HEALTH REGARDING PT. KWAN ADVISED THAT THEY WILL NOT ACCEPT PT DOES NOT APPEAR TO BE APPROPRIATE AT THIS TIME FOR HOME HEALTH. CM SPOKE TO KAYLENE OF [facility], PT ACCEPTED FOR DIALYSIS AT [facility] IN [place], TTS, 0930AM. CM NOTIFIED PT AND PROVIDED PT A COPY OF HIS THERAPY NOTE FROM YESTERDAY THAT INDICATES PT WALKING 4 FEET WITH 35 % ASSISTANCE. CM INFORMED PT THAT IS NOT SAFE FOR HIM TO DISCHARGE HOME WITHOUT ASSISTANCE. PT REPORTS HAVING NO FAMILY OR FRIENDS TO ASSIST. PT STILL DECLINED CUSTODIAL FACILITY STATING HE LEFT ONE AND IS NOT GOING BACK. CM DISCUSSED HAVING A SAFE DISCHARGE PLAN AND IF PT INSISTED ON GOING HOME IN CURRENT CONDITION, CM WOULD CALL ADULT PROTECTIVE SERVICES. PT DOES NOT WANT TO BE INVOLVED WITH ADULT PROTECTIVE SERVICES AND WILL AGREE FOR REHAB PLACEMENT ONLY IN [place] IF POSSIBLE AND IF NOT, [place]. CHOICE LETTER SIGNED. CM SPOKE TO [facility]ATHALY [facility]. NATHALY INFORMED CM THAT [facility] WILL NOT TRANSPORT TO DIALYSIS IN [place], THAT [facility] CANNOT ACCOMODATE TTS SCHEDULE ADN [facility] WOULD NEED TO EVALUATE. CM FAXED REFERRAL TO NATHALY AT [phone]. CM CALLED [facility] CHRISTOPHER, , SPOKE TO SANTA WHO WILL EVALUATE PT NEXT SUNDAY. CM FAXED REFERRAL TO MELISSA BLOCK AT [phone]. CM CALLED [facility], , SPOKE TO ENRIKE WHO WILL SCREEN FOR REHAB ADMISSION; CM FAXED REFERRAL TO [facility] AT [phone]. CM CALLED [facility], , SPOKE TO EZEKIEL WHO WILL SCREEN PT FOR ADMISSION, CM FAXED REFERRAL TO [facility] AT [phone]. PT HAS BEEN ACCEPTED FOR DIALYSIS AT [facility] IN [place], TTS, 0930AM. PT CAN START AT [facility] OP DAILYSIS ON 11-26-18 AT 0900 AM. CM WAITING ADMISSION DETERMINATIONS FOR REHAB FROM [facility], [facility], [facility] AND [facility]. Eloy Casillas, CASE MANAGEMENT DCP- Discharge Planning Updated by [id number]: Eloy Casillas on 11/14/18 4:[address] Patient Name: RADHA SALGUERO Encounter No: [id number] : 1945 Primary Insurance: WELLCARE MEDICARE ADV Anticipated DC Date: Planned Disposition: Home DCP follow-up note: CM SPOKE TO DR. MATHIS REGARDING PT'S LIVING ARRAGEMENTS. CM SPOKE TO PT IN ROOM REGARDING LIVING IN HOTEL ROOM. PT REPORTS HE WAS LIVING IN A SNF, DOES NOT WANT TO GO BACK TO ONE AND IS LIVING IN THE HOTEL UNTIL HE FINDS A PLACE THAT HE LIKES. CM DISCUSSED REHAB SERVICES HOME HEALTH AND MEDICAL EQUIPMENT. PT DENIES DISCHARGE NEEDS OTHER THAN NEEDING A DIALYSIS CLINIC. PT STILL UPSET THAT THE [place] [facility] WILL NOT ACCEPT HIM A PATIENT. PT REPORTS HE WILL BE STAYING IN [place] AND WILL FIND HIMSELF AN APARTMENT THERE. PT REPORTS USING MEDICAID TRANSPORT FOR MEDICAL APPOINTMENTS AND NEEDS A Sunday SCHEDULE IN ORDER TO USE MEDICAID TRANSPORT TO AND FROM DIALYSIS. PT REPORTS INABILITY TO GET TO [facility] ON WEEKENDS. KAYLENE OF [facility] NOTIFIED. CM WAITING ARRANGEMENT AND ACCEPTANCE AT OUTPATIENT DIALYSIS CLINIC; [facility] COORDINATOR IS WORKING ON THIS. CM TO CONTINUE TO FOLLOW AND ASSIST IF NEEDED. Eloy Casillas, CASE MANAGEMENT DCP- Discharge Planning Updated by [id number]: Sherri Walker on 11/14/18 2:[address] I HAVE BEEN IN COMMUNICATION WITH KAYLENE KIM, CLINICAL LIASON FOR [facility]. SHE HAS BEEN WORKING ON PLACEMENT FOR THE PATIENT. THIS PATIENT WAS IN A SNF IN [place] AND RECEIVING DIALYSIS. HE KNEW HE WAS NOT ACCEPTED BY THE [place] [facility] BEFORE HE EVER MOVED TO [place], BUT CAME ANYWAY. KAYLENE HAD BEEN WORKING WITH [facility], AND THEY ARE STILL DENYING HIM PLACEMENT THERE. SHE STATED THAT HE HAS THE OPTION OF [place], [place], OR [place]. WHILE I WAS ON THE PHONE WITH KAYLENE, PHILOMENA WENT AND ASKED THE PATIENT AND HE SAID CRICKET CRAMER, BUT IS INSISTENT THAT HE HAVE A M-W- SCHEDULE. KAYLENE CALLED BACK AND STATED THAT BECAUSE DR SIMS HAS REFUSED THE PATIENT, THE [place] AND [place] UNITS HAVE ALSO DENIED THE PATIENT. THE ONLY OPTION IS FOR THE [place] UNIT AND THESE ARE THE SAME DOCTORS THAT CARED FOR HIM IN [place]. I WENT AND TALKED TO THE PATIENT AND HE STATED THAT THAT WOULD BE FINE. I HAVE LET KAYLENE KNOW THIS. I HAVE ALSO PASSED ONTO HER THAT PER DR AGUIRRE, THE PATIENT WAS GOING TO NEED 6 WEEKS OF VANCOMYCIN TO BE GIVEN IN DIALYSIS. SHE HAS STATED THAT THAT SHOULD NOT BE A PROBLEM ONCE HE IS ACCEPTED. ALSO DURING THIS TIME, JEFFERSON, PHYSICAL THERAPIST, CAME BY AND STATED THAT THE PATIENT WAS NOT STABLE ON THE CRUTCHES AND DID MUCH BETTER ON THE WALKER. HE RECOMMENDED THAT THE PATIENT GET A WALKER. I ALSO SPOKE WITH THE PATIENT AND HE STATED THAT HE HAS A WALKER AT THE [place] AND DOES NOT NEED ANOTHER ONE. HE STATED THAT THE THERAPIST CAME IN AND GOT HIM UP RIGHT AFTER DIALYSIS AND HE WAS WEEK. HE STATED THAT HE WILL DO BETTER TOMORROW. I HAVE EXPLAINED THAT WE SHOULD HAVE A WALKER THAT HE CAN BORROW DURING THERAPY IF NEEDED. DCP- Discharge Planning Updated by [id number]: Mallory Hawley on 11/11/18 2:[address] PATIENT HAD RECENTLY RETURNED FROM HD AND HAD EATEN HIS LUNCH. HE SAID HE WAS TIRED. SPOKE SLOWLY PATIENT STATES HE IS HARD OF HEARING BUT DID NOT WANT TO TURN DOWN THE VOLUME ON TV. LIVES AT THE [facility] IN [place], [place]. STATES HE HAS NO BROTHERS, SISTERS OR CHILDREN. HE SAYS HE DOES HAVE COUSINS THAT LIVE IN [place]. STATES HE WILL HAVE TRANSPORTATION AT DISCHARGE FROM HIS FRIEND INDIRA DUNN. CONTACT PHONE NUMBER- [phone]. STATES HE IS TIRED THEREFORE CM STATED WILL REVISIT TO ASSIST WITH DISCHARGE. KAYLENE HELTON ON SITE AND HE STATES HE HAS SPOKEN WITH THE HD COORDINATOR. DCP- Discharge Planning Updated by [id number]: Mallory Hawley on 11/11/18 12:[address] PATIENT PRESENTLY IN HD. CM AWAITS HIS RETURN TO THE ROOM DCP- Discharge Planning Updated by [id number]: Mallory Hawley on 11/10/18 6:[address] CM TO FOLLOW FOR ASSESSMENT. APPARENTLY HE RECENTLY RELOCATED TO [place], [place]. HAS ORDERED HD SETUP FOR [facility]. TC TO KAYLENE HELTON. LEFT VOICE MAIL. PATIENT REPORTEDLY LIVING IN A HOTEL. QUESTION REGARDING HOUSING. CM TO FOLLOW. DCPIA - Discharge Planning Initial Assessment Updated by [id number]: Mallory Hawley on 11/11/18 3:04 pm * Is the patient Alert and Oriented? Yes * PCP DR RONN DURAN * Pharmacy [facility] IN [place] * Other Environment [facility] * ADLs Independent * List name and contact numbers for known caregivers / representatives who currently or will assist patient after discharge: INDIRA DUNN- FRIEND FOR TRANSPORTATION * Verbal permission to speak to the caregivers and representatives has been obtained from the patient. No * Community resources currently utilized Other * Please name any agencies selected above. [facility] [place] , [place] KAYLENE HELTON TRYING TO GET HD SET UP * Additional services required to return to the preadmission environment? Yes * Can the patient safely return to the preadmission environment? 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 Last DP export: 11/22/18 4:01 pm Patient Name: RADHA SALGUERO Page [phone] at 1715 All edits/amendments must be made on the electronic document DICTATION DATE: 11/22/181714 SUPERVISOR PRE WAVE: JEANMARIE 11/22/181714 RPT#: [id number] DC DATE: STATUS: ADM IN [facility] [address] [place] [address] END OF REPORT
[2018-11-22 20:00] VITALS: BP 112/48
--- NOTE | 2018-11-22 20:42 | NUR ---
REPORT RECEIVED. PT SITTING UP IN BED WITH EYES CLOSED, RR EVEN AND UNLABORED. BED IN LOW POSITION. SIDE RAILS UP X2, NO S/S OF DISTRESS, CALL LIGHT IN REACH. WILL CTM.
[2018-11-23] VITALS: BP 116/49
--- NOTE | 2018-11-23 03:05 | NUR ---
RIGHT FOOT DRESSING CHANGED ORDERED, HEEL WOUND APPEARS TO BE 2.5 CM BY 3 CM IN DIAMETER WITH PINK, EVEN BORDERS. NO SIGNS OF DRAINAGE NOTED. NO FOUL ODORS NOTED. DRESSING SIGNED AND DATED.
[2018-11-23 04:00] VITALS: BP 123/55
[2018-11-23 07:00] VITALS: BP 107/40
--- NOTE | 2018-11-23 07:50 | NUR ---
PT ASLEEP, LYING IN BED. DID NOT WAKE I ENTERED DID NOT DISTURB AT THIS TIME. CL IN REACH.
--- NOTE | 2018-11-23 10:30 | NUR ---
NO NEEDS VOICED AT THIS TIME. CALL LIGHT IN REACH. WILL MONITOR.
[2018-11-23 11:00] VITALS: BP 110/72
--- NOTE | 2018-11-23 11:52 | NUR ---
D/C TELEMTRY. PT HAS BEEN SR SINCE ADMIT, IS TO D/C WITH PLACEMENT. NO CURRENT CARDIAC ISSUES.
[2018-11-23 15:00] VITALS: BP 112/82
--- NOTE | 2018-11-23 19:15 | NUR ---
AROUSES EASILY LCTA SKIN WARM AND DRY DRSG IN PLACE TO RT FOOT DATE INDICATES CHANGED TODAY. APPLIED HEAL PROTECTORS TO BOTH FEET PEDAL PULSES PRES. BED LOW SR UP X2 AND CALL LIGHT IS IN REACH
--- NOTE | 2018-11-23 20:16 | NUR ---
PTWATCHING TV. NO DISTRESS NOTED. CALL LIGHT WITHIN REACH.
[2018-11-23 20:25] VITALS: BP 131/59
--- NOTE | 2018-11-23 21:13 | NUR ---
OMAR GIVEN PER PT REQUEST... CALL LIGHT IN REACH
[2018-11-24 00:30] VITALS: BP 135/60
--- NOTE | 2018-11-24 01:12 | NUR ---
AWAKE NOW ASKING FOR SHERBERET. DENIES PAIN..SR X2 BED LOW AND CALL LIGHT IN PLACE
--- NOTE | 2018-11-24 03:34 | NUR ---
AT REST WITH EYES CLOSED SRX2 BED LOW CALL LIGHT IN REACH RESP EVEN AND UNLABORED
[2018-11-24 04:45] VITALS: BP 138/59
[2018-11-24 08:25] VITALS: BP 189/61
[2018-11-24 11:32] VITALS: BP 172/58
--- NOTE | 2018-11-24 15:05 | NUR ---
SANDWICH ORDERED FROM DIETARY. PT AT BEDSIDE WORKING WITH PATIENT AT THIS TIME.
[2018-11-24 15:54] VITALS: BP 141/67
--- NOTE | 2018-11-24 17:28 | NUR ---
ALERT AND ORIENTED X4. SITTING UP IN BED WATCHING TV. DENIES ANY NEEDS. NO CHANGE. CONTINUE PLAN OF CARE AND SAFETY PRECAUTIONS.
--- NOTE | 2018-11-24 19:30 | NUR ---
RECEIVED REPORT, WILL ASSUME CARE OF PT, PT WATCHING TV, DENIES ANY NEEDS, BED IS LOW, SRX2, CALL LIGHT IN REACH, WILL CONTINUE PLAN OF CARE
[2018-11-24 21:20] VITALS: BP 137/57
[2018-11-25 00:57] VITALS: BP 129/53
--- NOTE | 2018-11-25 03:18 | NUR ---
RESTING IN BED WITH NO DISTRESS. RESPS EVEN/NONLABORED. CALL LIGHT IN REACH. MONITOR AND CPOC.
--- NOTE | 2018-11-25 04:50 | NUR ---
SLEEPING, NO DISTRESS NOTICED, BED IS LOW, SRX2, CALL LIGHT IN REACH
[2018-11-25 05:53] VITALS: BP 131/56
[2018-11-25 09:20] VITALS: BP 136/59
--- NOTE | 2018-11-25 12:32 | MORECARE ---
CASE MANAGEMENT DISCHARGE SUMMARY PATIENT: RADHA SALGUERO UNIT: [id number] ADM DATE: 11/08/18 AGE: 73 : 45 SEX: M ROOM/BED: D.2135 AUTHOR: ROSA,DOC PHYSICIAN: REFERRING PHYSICIAN: MALOU SUN MD DATE OF SERVICE: 11/25/18 Discharge Plan Patient Name: RADHA SALGUERO Facility: [facility]:[place] : 1945 Planned Disposition: Group Home Facility Anticipated Discharge Date: Discharge Date: Expected LOS: Initial Reviewer: [id number] Initial Review Date: 11/08/2018 Generated: 11/25/18 1:32 pm Comments DCP- Discharge Planning Updated by [id number]: Eloy Casillas on 11/25/18 11:[address] Patient Name: RADHA SALGUERO Encounter No: [id number] : 1945 Primary Insurance: [employer] MEDICARE ADV Anticipated DC Date: Planned Disposition: Group Home Facility External Planned Provider: FIRST ACCEPTING INTERMEDIATE FACILITY FOR MEDICARE REHAB BED DCP follow-up note: CM SPOKE TO PT IN ROOM AND PROVIDED UPDATE THIS MORNING. CM INFORMED PT THAT HE WOULD BE DISCHARGING FROM THE HOSPITAL SOON OUTPATIENT DIALYSIS UNIT SCHEDULE IS OBTAINED. PT CONTINUES TO REPORT PLAN TO GO BACK TO HIS HOTEL ROOM IN [place] AND THEN BEGAN INSISTING TO KNOW WHY THE DOCTORS AT THE DIALYSIS UNITS WILL NOT ACCEPT HIM. CM EXPLAINED THAT PT WILL HAVE TO TALK TO THE DOCTORS HIMSELF AND CM WAS CONCERNED WITH FINDING AN ACCEPTING UNIT FOR OUTPATIENT DIALYSIS. PT ARGUED THAT THE DOCTORS HAVE NO REASON TO NOT ACCEPT HIM. CM EXPLAINED TO PT THAT HE CANNOT CHANGE THIS AND NEEDS TO CONCENTRATE ON DISCHARGE PLANNING AND LET THE [facility] COORDINATOR FIND A UNIT THAT WOULD ACCEPT. PT CONTINUED TO ARGUE REPORTING THE [place] [facility] HAD ACCEPTED HIM AND HAD NO REASON TO NOT TAKE HIM WHEN HE ARRIVED "HOME" IN [place]. CM EXPLAINED THAT THE UNIT NEVER ACCEPTED HIM, PT REPORTS THIS IS NOT TRUE. CM INFORMED PT THAT CM WILL NOT CONTINUE TO ARGUE THE POINT AND WOULD FOCUS ON DISCHARGE PLANNING. PT REPORTS PLAN TO RETURN TO HIS HOTEL ROOM IN [place] AND NEEDS A MWF DIALYSIS SCHEDULE TO USE MEDICAID TRANSPORTATION. CM DISCUSSED AVAILABILTY OF INTERMEDIATE REHAB SERVICES PT'S THERAPY NOTES INDICATE PT IS NOT WALKING WELL. PT DECLINES AND STATES HE IS GOING HOME. CM RECEIVED CALL FROM KWAN OF [facility] WHO REPORTS THEY RECEIVED REFERRAL FOR HOME HEALTH REGARDING PT. KWAN ADVISED THAT THEY WILL NOT ACCEPT PT DOES NOT APPEAR TO BE APPROPRIATE AT THIS TIME FOR HOME HEALTH. CM SPOKE TO DR. SUN WHO INFORMED PT IS STABLE FOR DISCHARGE. CM FAXED REFERRAL TO [facility]IA [facility] AT [phone]. CM RECEIVED REQUEST FOR MORE INFORMATION (OUTPATIENT DIALYSIS UNIT, NEED FOR ANTIBIOTICS AT DISCHARE AND ISOLATION STATUS.) CM CALLED [facility], , SPOKE TO EZEKIEL, PROVIDED INFORMATION AND FAXED REFERRAL UPDATE TO [facility] AT [phone] CM FAXED REFERRAL UPDATE TO MELISSA CHRISTOPHER AT [phone]. CM FAXED REFERRAL UPDATE TO [facility] AT [phone]. . PT HAS BEEN ACCEPTED FOR DIALYSIS AT [facility] IN [facility], 0930AM. PT CAN START AT [facility] OP DAILYSIS ON 11-26-18 AT 0900 AM. CM WAITING ADMISSION DETERMINATIONS FOR REHAB FROM [facility], [facility], [facility] AND [facility]. Eloy Casillas, CASE MANAGEMENT DCP- Discharge Planning Updated by [id number]: Eloy Casillas on 11/22/18 4:[address] Patient Name: RADHA SALGUERO Encounter No: [id number] : 1945 Primary Insurance: WELL[employer] MEDICARE ADV Anticipated DC Date: Planned Disposition: Group Home Facility External Planned Provider: FIRST ACCEPTING INTERMEDIATE FACILITY FOR MEDICARE REHAB BED DCP follow-up note: CM SPOKE TO PT IN ROOM AND PROVIDED UPDATE THIS MORNING. CM INFORMED PT THAT HE WOULD BE DISCHARGING FROM THE HOSPITAL SOON OUTPATIENT DIALYSIS UNIT SCHEDULE IS OBTAINED. PT CONTINUES TO REPORT PLAN TO GO BACK TO HIS HOTEL ROOM IN [place] AND THEN BEGAN INSISTING TO KNOW WHY THE DOCTORS AT THE DIALYSIS UNITS WILL NOT ACCEPT HIM. CM EXPLAINED THAT PT WILL HAVE TO TALK TO THE DOCTORS HIMSELF AND CM WAS CONCERNED WITH FINDING AN ACCEPTING UNIT FOR OUTPATIENT DIALYSIS. PT ARGUED THAT THE DOCTORS HAVE NO REASON TO NOT ACCEPT HIM. CM EXPLAINED TO PT THAT HE CANNOT CHANGE THIS AND NEEDS TO CONCENTRATE ON DISCHARGE PLANNING AND LET THE [facility] COORDINATOR FIND A UNIT THAT WOULD ACCEPT. PT CONTINUED TO ARGUE REPORTING THE [place] [facility] HAD ACCEPTED HIM AND HAD NO REASON TO NOT TAKE HIM WHEN HE ARRIVED "HOME" IN [place]. CM EXPLAINED THAT THE UNIT NEVER ACCEPTED HIM, PT REPORTS THIS IS NOT TRUE. CM INFORMED PT THAT CM WILL NOT CONTINUE TO ARGUE THE POINT AND WOULD FOCUS ON DISCHARGE PLANNING. PT REPORTS PLAN TO RETURN TO HIS HOTEL ROOM IN [place] AND NEEDS A MWF DIALYSIS SCHEDULE TO USE MEDICAID TRANSPORTATION. CM DISCUSSED AVAILABILTY OF INTERMEDIATE REHAB SERVICES PT'S THERAPY NOTES INDICATE PT IS NOT WALKING WELL. PT DECLINES AND STATES HE IS GOING HOME. CM RECEIVED CALL FROM KWAN OF [facility] WHO REPORTS THEY RECEIVED REFERRAL FOR HOME HEALTH REGARDING PT. KWAN ADVISED THAT THEY WILL NOT ACCEPT PT DOES NOT APPEAR TO BE APPROPRIATE AT THIS TIME FOR HOME HEALTH. CM SPOKE TO KAYLENE OF [facility], PT ACCEPTED FOR DIALYSIS AT [facility] IN [place], [facility], 0930AM. CM NOTIFIED PT AND PROVIDED PT A COPY OF HIS THERAPY NOTE FROM YESTERDAY THAT INDICATES PT WALKING 4 FEET WITH 35 % ASSISTANCE. CM INFORMED PT THAT IS NOT SAFE FOR HIM TO DISCHARGE HOME WITHOUT ASSISTANCE. PT REPORTS HAVING NO FAMILY OR FRIENDS TO ASSIST. PT STILL DECLINED INTERMEDIATE FACILITY STATING HE LEFT ONE AND IS NOT GOING BACK. CM DISCUSSED HAVING A SAFE DISCHARGE PLAN AND IF PT INSISTED ON GOING HOME IN CURRENT CONDITION, CM WOULD CALL ADULT PROTECTIVE SERVICES. PT DOES NOT WANT TO BE INVOLVED WITH ADULT PROTECTIVE SERVICES AND WILL AGREE FOR REHAB PLACEMENT ONLY IN [place] IF POSSIBLE AND IF NOT, [place]. CHOICE LETTER SIGNED. CM SPOKE TO NATHALY PURDY CLIFFORD, [facility] AND [facility]. NATHALY INFORMED CM THAT [facility] WILL NOT TRANSPORT TO DIALYSIS IN [place], THAT [facility] CANNOT ACCOMODATE TTS SCHEDULE ADN [facility] WOULD NEED TO EVALUATE. CM FAXED REFERRAL TO [facility] AT [phone]. CM CALLED [facility] CHRISTOPHER, , SPOKE TO SANTA WHO WILL EVALUATE PT NEXT SUNDAY. CM FAXED REFERRAL TO MELISSA BLOCK AT [phone]. CM CALLED [facility], , SPOKE TO ENRIKE WHO WILL SCREEN FOR REHAB ADMISSION; CM FAXED REFERRAL TO [facility] AT [phone]. CM CALLED [facility], , SPOKE TO EZEKIEL WHO WILL SCREEN PT FOR ADMISSION, CM FAXED REFERRAL TO [facility] AT [phone]. PT HAS BEEN ACCEPTED FOR DIALYSIS AT [facility] IN [place], [place], 0930AM. PT CAN START AT [facility] OP DAILYSIS ON 11-26-18 AT 0900 AM. CM WAITING ADMISSION DETERMINATIONS FOR REHAB FROM [facility], [facility], [facility] AND [facility]. Eloy Casillas, CASE MANAGEMENT DCP- Discharge Planning Updated by [id number]: Eloy Casillas on 11/14/18 4:[address] Patient Name: RADHA SALGUERO Encounter No: [id number] : 1945 Primary Insurance: WELLCARE MEDICARE ADV Anticipated DC Date: Planned Disposition: Home DCP follow-up note: CM SPOKE TO DR. MATHIS REGARDING PT'S LIVING ARRAGEMENTS. CM SPOKE TO PT IN ROOM REGARDING LIVING IN HOTEL ROOM. PT REPORTS HE WAS LIVING IN A ASSISTED, DOES NOT WANT TO GO BACK TO ONE AND IS LIVING IN THE HOTEL UNTIL HE FINDS A PLACE THAT HE LIKES. CM DISCUSSED REHAB SERVICES HOME HEALTH AND MEDICAL EQUIPMENT. PT DENIES DISCHARGE NEEDS OTHER THAN NEEDING A DIALYSIS CLINIC. PT STILL UPSET THAT THE [place] [facility] [facility] WILL NOT ACCEPT HIM A PATIENT. PT REPORTS HE WILL BE STAYING IN [place] AND WILL FIND HIMSELF AN APARTMENT THERE. PT REPORTS USING MEDICAID TRANSPORT FOR MEDICAL APPOINTMENTS AND NEEDS A Sunday SCHEDULE IN ORDER TO USE MEDICAID TRANSPORT TO AND FROM DIALYSIS. PT RE[facility]. KAYLENE OF [facility] NOTIFIED. CM WAITING ARRANGEMENT AND ACCEPTANCE AT OUTPATIENT DIALYSIS CLINIC; [facility] COORDINATOR IS WORKING ON THIS. CM TO CONTINUE TO FOLLOW AND ASSIST IF NEEDED. Eloy Casillas, CASE MANAGEMENT DCP- Discharge Planning Updated by [id number]: Sherri Walker on 11/14/18 2:[address] I HAVE BEEN IN COMMUNICATION WITH KAYLENE KIM, CLINICAL LIASON FOR [facility]. SHE HAS BEEN WORKING ON PLACEMENT FOR THE PATIENT. THIS PATIENT WAS IN A ASSISTED IN [place] AND RECEIVING DIALYSIS. HE KNEW HE WAS NOT ACCEPTED BY THE [place] [facility] BEFORE HE EVER MOVED TO [place], BUT CAME ANYWAY. KAYLENE HAD BEEN WORKING WITH THE [place] [facility], AND THEY ARE STILL DENYING HIM PLACEMENT THERE. SHE STATED THAT HE HAS THE OPTION OF [place], [place], OR [place]. WHILE I WAS ON THE PHONE WITH KAYLENE, PHILOMENA WENT AND ASKED THE PATIENT AND HE SAID [place], BUT IS INSISTENT THAT HE HAVE A -W- SCHEDULE. KAYLENE CALLED BACK AND STATED THAT BECAUSE DR SIMS HAS REFUSED THE PATIENT, THE [place] AND [place] UNITS HAVE ALSO DENIED THE PATIENT. THE ONLY OPTION IS FOR THE [place] UNIT AND THESE ARE THE SAME DOCTORS THAT CARED FOR HIM IN [place]. I WENT AND TALKED TO THE PATIENT AND HE STATED THAT THAT WOULD BE FINE. I HAVE LET KAYLENE KNOW THIS. I HAVE ALSO PASSED ONTO HER THAT PER DR AGUIRRE, THE PATIENT WAS GOING TO NEED 6 WEEKS OF VANCOMYCIN TO BE GIVEN IN DIALYSIS. SHE HAS STATED THAT THAT SHOULD NOT BE A PROBLEM ONCE HE IS ACCEPTED. ALSO DURING THIS TIME, JEFFERSON, PHYSICAL THERAPIST, CAME BY AND STATED THAT THE PATIENT WAS NOT STABLE ON THE CRUTCHES AND DID MUCH BETTER ON THE WALKER. HE RECOMMENDED THAT THE PATIENT GET A WALKER. I ALSO SPOKE WITH THE PATIENT AND HE STATED THAT HE HAS A WALKER AT THE [facility] AND DOES NOT NEED ANOTHER ONE. HE STATED THAT THE THERAPIST CAME IN AND GOT HIM UP RIGHT AFTER DIALYSIS AND HE WAS WEEK. HE STATED THAT HE WILL DO BETTER TOMORROW. I HAVE EXPLAINED THAT WE SHOULD HAVE A WALKER THAT HE CAN BORROW DURING THERAPY IF NEEDED. DCP- Discharge Planning Updated by [id number]: Mallory Hawley on 11/11/18 2:[address] PATIENT HAD RECENTLY RETURNED FROM HD AND HAD EATEN HIS LUNCH. HE SAID HE WAS TIRED. SPOKE SLOWLY PATIENT STATES HE IS HARD OF HEARING BUT DID NOT WANT TO TURN DOWN THE VOLUME ON TV. LIV[facility] AT THE [facility] IN [place], [place]. STATES HE HAS NO BROTHERS, SISTERS OR CHILDREN. HE SAYS HE DOES HAVE COUSINS THAT LIVE IN [place]. STATES HE WILL HAVE TRANSPORTATION AT DISCHARGE FROM HIS FRIEND INDIRA DUNN. CONTACT PHONE NUMBER- [phone]. STATES HE IS TIRED THEREFORE CM STATED WILL REVISIT TO ASSIST WITH DISCHARGE. KAYLENE ROBERT PHI ON SITE AND HE STATES HE HAS SPOKEN WITH THE HD COORDINATOR. DCP- Discharge Planning Updated by [id number]: Mallory Hawley on 11/11/18 12:[address] PATIENT PRESENTLY IN HD. CM AWAITS HIS RETURN TO THE ROOM DCP- Discharge Planning Updated by [id number]: Mallory Hawley on 11/10/18 6:[address] CM TO FOLLOW FOR ASSESSMENT. APPARENTLY HE RECENTLY RELOCATED TO [place], [place]. HAS ORDERED HD SETUP FOR [facility]. TC TO KAYLENE HELTON. LEFT VOICE MAIL. PATIENT REPORTEDLY LIVING IN A HOTEL. QUESTION REGARDING HOUSING. CM TO FOLLOW. DCPIA - Discharge Planning Initial Assessment Updated by [id number]: Mallory Hawley on 11/11/18 3:04 pm * Is the patient Alert and Oriented? Yes * PCP DR RONN DURAN * Pharmacy [facility] IN [place] * Other Environment [facility] [place] * ADLs Independent * List name and contact numbers for known caregivers / representatives who currently or will assist patient after discharge: INDIRA DUNN- FRIEND FOR TRANSPORTATION * Verbal permission to speak to the caregivers and representatives has been obtained from the patient. No * Community resources currently utilized Other * Please name any agencies selected above. [facility] IN [place] , [place] KAYLENE HELTON TRYING TO GET HD SET UP * Additional services required to return to the preadmission environment? Yes * Can the patient safely return to the preadmission environment? Yes Coverage Notice Reviewer: [id number] - Eloy Casillas Notice Issued Date-Time: 11/22/2018 11:50 Notice Type: Patient Choice Letter Notice Delivered To: Patient Relationship to Patient: Java Sdet Name: Delivery Method: HAND - Hand Delivered Nguyen Days: Prior Verbal Notification: Recipient Understood Notice: Yes Recipient Signature: Yes Med Rec Note Co-signed by Attending: Coverage Notice Comment: SNF IN [place] OR [place] FOR REHAB ONLY... Last DP export: 11/22/18 4:15 pm Patient Name: RADHA SALGUERO Page [id number] at 1232 All edits/amendments must be made on the electronic document DICTATION DATE: 11/25/[address]: JEANMARIE 11/25/18 1232 RPT#: [id number] DC DATE: STATUS: ADM IN [facility] [address] [place] [address] END OF REPORT
--- NOTE | 2018-11-25 19:30 | NUR ---
RECEIVED REPORT, WILL ASSUME CARE OF PT, PT ASKING FOR A DRINK, WILL PROVIDE, DENIES ANY NEEDS AT THIS TIME, BED IS LOW, SRX2, CALL LIGHT IN REACH, WILL CONTINUE PLAN OF CARE
[2018-11-25 20:56] VITALS: BP 125/56
--- NOTE | 2018-11-25 21:43 | NUR ---
[id number] 12 UNITS HUMULIN-20 UNITS OF LEVEMIR, CALL LIGHT IN REACH, WILL CONTINUE PLAN OF CARE
--- NOTE | 2018-11-25 23:27 | NUR ---
INTERLIBRARY LOAN SPECIALIST AT BEDSIDE TO OBTAIN VITALS, CALL LIGHT IN REACH. WILL CONTINUE WITH PLAN OF CARE.
[2018-11-26 02:02] VITALS: BP 113/47
[2018-11-26 06:09] VITALS: BP 144/72
--- NOTE | 2018-11-26 06:16 | NUR ---
[id number] COVERAGE
[2018-11-26 09:34] VITALS: BP 160/64
--- NOTE | 2018-11-26 09:49 | MORECARE ---
CASE MANAGEMENT DISCHARGE SUMMARY PATIENT: RADHA SALGUERO UNIT: [id number] ADM DATE: 11/08/18 AGE: 73 : 45 SEX: M ROOM/BED: D.2135 AUTHOR: ROSA,DOC PHYSICIAN: REFERRING PHYSICIAN: MALOU SUN MD DATE OF SERVICE: 11/26/18 Discharge Plan Patient Name: RADHA SALGUERO Facility: [facility]:[place] : 1945 Planned Disposition: Shelter Facility Anticipated Discharge Date: Discharge Date: Expected LOS: Initial Reviewer: [id number] Initial Review Date: 11/08/2018 Generated: 11/26/18 10:48 am Comments DCP- Discharge Planning Updated by [id number]: Eloy Casillas on 11/26/18 8:[address] Patient Name: RADHA SALGUERO Encounter No: [id number] : 1945 Primary Insurance: [employer] MEDICARE ADV Anticipated DC Date: Planned Disposition: Shelter Facility External Planned Provider: FIRST ACCEPTING [facility]PC FACILITY FOR MEDICARE REHAB BED DCP follow-up note: CM RECEIVED CALL FROM [facility], , THEY WERE WILLING TO ACCEPT BUT CALLED [facility] DIALYSIS AND PT COULD NOT BE CHANGED TO MWF DIALYSIS SCHEDULE FROM [facility]. [facility] CANNOT ACCEPT THEY HAVE NO TRANSPORT AVAILABLE FOR SUNDAY DIALYSIS. CM FAXED REFERRAL UPDATE TO [facility] VIA NATHALY AT [phone]. CM FAXED REFERRAL UPDATE TO [facility] AT [phone]. CM FAXED REFERRAL UPDATE TO [facility] AT [phone]. . PT HAS BEEN ACCEPTED FOR DIALYSIS AT [facility] IN [facility] [place], 0930AM. PT CAN START AT [facility] OP DAILYSIS ON 11-26-18 AT 0900 AM. CM WAITING ADMISSION DETERMINATIONS FOR REHAB FROM [facility], [facility] AND [facility]. Eloy Casillas, CASE MANAGEMENT DCP- Discharge Planning Updated by [id number]: Eloy Casillas on 11/25/18 11:[address] Patient Name: RADHA SALGUERO Encounter No: [id number] : 1945 Primary Insurance: WELL[employer] MEDICARE ADV Anticipated DC Date: Planned Disposition: Shelter Facility External Planned Provider: FIRST ACCEPTING [facility] FACILITY FOR MEDICARE REHAB BED DCP follow-up note: CM SPOKE TO PT IN ROOM AND PROVIDED UPDATE THIS MORNING. CM INFORMED PT THAT HE WOULD BE DISCHARGING FROM THE HOSPITAL SOON OUTPATIENT DIALYSIS UNIT SCHEDULE IS OBTAINED. PT CONTINUES TO REPORT PLAN TO GO BACK TO HIS HOTEL ROOM IN [place] AND THEN BEGAN INSISTING TO KNOW WHY THE DOCTORS AT THE DIALYSIS UNITS WILL NOT ACCEPT HIM. CM EXPLAINED THAT PT WILL HAVE TO TALK TO THE DOCTORS HIMSELF AND CM WAS CONCERNED WITH FINDING AN ACCEPTING UNIT FOR OUTPATIENT DIALYSIS. PT ARGUED THAT THE DOCTORS HAVE NO REASON TO NOT ACCEPT HIM. CM EXPLAINED TO PT THAT HE CANNOT CHANGE THIS AND NEEDS TO CONCENTRATE ON DISCHARGE PLANNING AND LET THE [facility] COORDINATOR FIND A UNIT THAT WOULD ACCEPT. PT CONTINUED TO ARGUE REPORTING THE [place] UNIT HAD ACCEPTED HIM AND HAD NO REASON TO NOT TAKE HIM WHEN HE ARRIVED "HOME" IN [place]. CM EXPLAINED THAT THE UNIT NEVER ACCEPTED HIM, PT REPORTS THIS IS NOT TRUE. CM INFORMED PT THAT CM WILL NOT CONTINUE TO ARGUE THE POINT AND WOULD FOCUS ON DISCHARGE PLANNING. PT REPORTS PLAN TO RETURN TO HIS HOTEL ROOM IN [place] AND NEEDS A MWF DIALYSIS SCHEDULE TO USE MEDICAID TRANSPORTATION. CM DISCUSSED AVAILABILTY OF FPC REHAB SERVICES PT'S THERAPY NOTES INDICATE PT IS NOT WALKING WELL. PT DECLINES AND STATES HE IS GOING HOME. BHAVANA RECEIVED CALL FROM KWAN OF [facility] WHO REPORTS THEY RECEIVED REFERRAL FOR HOME HEALTH REGARDING PT. KWAN ADVISED THAT THEY WILL NOT ACCEPT PT DOES NOT APPEAR TO BE APPROPRIATE AT THIS TIME FOR HOME HEALTH. BHAVANA SPOKE TO DR. SUN WHO INFORMED PT IS STABLE FOR DISCHARGE. CM FAXED REFERRAL TO [facility]IA NATHALY AT [phone]. CM RECEIVED REQUEST FOR MORE INFORMATION (OUTPATIENT DIALYSIS UNIT, NEED FOR ANTIBIOTICS AT DISCHARE AND ISOLATION STATUS.) CM CALLED [facility], , SPOKE TO EZEKIEL, PROVIDED INFORMATION AND FAXED REFERRAL UPDATE TO [facility] AT [phone] CM FAXED REFERRAL UPDATE TO [facility] AT [phone]. CM FAXED REFERRAL UPDATE TO [facility] AT [phone]. . PT HAS BEEN ACCEPTED FOR DIALYSIS AT [facility] IN [facility] [place], 0930AM. PT CAN START AT [facility] OP DAILYSIS ON 11-26-18 AT 0900 AM. CM WAITING ADMISSION DETERMINATIONS FOR REHAB FROM [facility], [facility], [facility] AND [facility]. Eloy Casillas, CASE MANAGEMENT DCP- Discharge Planning Updated by [id number]: Elyo Casillas on 11/22/18 4:[address] Patient Name: RADHA SALGUERO Encounter No: [id number] : 1945 Primary Insurance: WELL[employer] MEDICARE ADV Anticipated DC Date: Planned Disposition: Shelter Facility External Planned Provider: FIRST ACCEPTING [facility] FACILITY FOR MEDICARE REHAB BED DCP follow-up note: CM SPOKE TO PT IN ROOM AND PROVIDED UPDATE THIS MORNING. CM INFORMED PT THAT HE WOULD BE DISCHARGING FROM THE HOSPITAL SOON OUTPATIENT DIALYSIS UNIT SCHEDULE IS OBTAINED. PT CONTINUES TO REPORT PLAN TO GO BACK TO HIS HOTEL ROOM IN [place] AND THEN BEGAN INSISTING TO KNOW WHY THE DOCTORS AT THE DIALYSIS UNITS WILL NOT ACCEPT HIM. CM EXPLAINED THAT PT WILL HAVE TO TALK TO THE DOCTORS HIMSELF AND CM WAS CONCERNED WITH FINDING AN ACCEPTING UNIT FOR OUTPATIENT DIALYSIS. PT ARGUED THAT THE DOCTORS HAVE NO REASON TO NOT ACCEPT HIM. CM EXPLAINED TO PT THAT HE CANNOT CHANGE THIS AND NEEDS TO CONCENTRATE ON DISCHARGE PLANNING AND LET THE [facility] COORDINATOR FIND A UNIT THAT WOULD ACCEPT. PT CONTINUED TO ARGUE REPORTING THE [place] UNIT HAD ACCEPTED HIM AND HAD NO REASON TO NOT TAKE HIM WHEN HE ARRIVED "HOME" IN [place]. CM EXPLAINED THAT THE UNIT NEVER ACCEPTED HIM, PT REPORTS THIS IS NOT TRUE. CM INFORMED PT THAT CM WILL NOT CONTINUE TO ARGUE THE POINT AND WOULD FOCUS ON DISCHARGE PLANNING. PT REPORTS PLAN TO RETURN TO HIS HOTEL ROOM IN [place] AND NEEDS A MWF DIALYSIS SCHEDULE TO USE MEDICAID TRANSPORTATION. CM DISCUSSED AVAILABILTY OF [facility] REHAB SERVICES PT'S THERAPY NOTES INDICATE PT IS NOT WALKING WELL. PT DECLINES AND STATES HE IS GOING HOME. BHAVANA RECEIVED CALL FROM KWAN OF [facility] WHO REPORTS THEY RECEIVED REFERRAL FOR HOME HEALTH REGARDING PT. [facility] ADVISED THAT THEY WILL NOT ACCEPT PT DOES NOT APPEAR TO BE APPROPRIATE AT THIS TIME FOR HOME HEALTH. BHAVANA SPOKE TO KAYLENE OF [facility], PT ACCEPTED FOR DIALYSIS AT [facility] IN [facility] [place], 0930AM. CM NOTIFIED PT AND PROVIDED PT A COPY OF HIS THERAPY NOTE FROM YESTERDAY THAT INDICATES PT WALKING 4 FEET WITH 35 % ASSISTANCE. CM INFORMED PT THAT IS NOT SAFE FOR HIM TO DISCHARGE HOME WITHOUT ASSISTANCE. PT REPORTS HAVING NO FAMILY OR FRIENDS TO ASSIST. PT STILL DECLINED FPC FACILITY STATING HE LEFT ONE AND IS NOT GOING BACK. CM DISCUSSED HAVING A SAFE DISCHARGE PLAN AND IF PT INSISTED ON GOING HOME IN CURRENT CONDITION, CM WOULD CALL ADULT PROTECTIVE SERVICES. PT DOES NOT WANT TO BE INVOLVED WITH ADULT PROTECTIVE SERVICES AND WILL AGREE FOR REHAB PLACEMENT ONLY IN [place] IF POSSIBLE AND IF NOT, [place]. CHOICE LETTER SIGNED. CM SPOKE TO NATHALY EDWARDS [facility] AND [facility]. NATHALY INFORMED CM THAT [facility] WILL NOT TRANSPORT TO DIALYSIS IN [place], THAT [facility] CANNOT ACCOMODATE TTS SCHEDULE ADN [facility] WOULD NEED TO EVALUATE. CM FAXED REFERRAL TO [facility] AT [phone]. CM CALLED [facility], , SPOKE TO [facility]ANTA WHO WILL EVALUATE PT NEXT SUNDAY. CM FAXED REFERRAL TO [facility] AT [phone]. CM CALLED [facility], , SPOKE TO ENRIKE WHO WILL SCREEN FOR REHAB ADMISSION; CM FAXED REFERRAL TO [facility] AT [phone]. CM CALLED [facility], , SPOKE TO EZEKIEL WHO WILL SCREEN PT FOR ADMISSION, CM FAXED REFERRAL TO [facility] AT [phone]. PT HAS BEEN ACCEPTED FOR DIALYSIS AT [facility] IN [place], [place], 0930AM. PT CAN START AT [facility] OP DAILYSIS ON 11-26-18 AT 0900 AM. CM WAITING ADMISSION DETERMINATIONS FOR REHAB FROM [facility], [facility], [facility] AND [facility]. Eloy Casillas, CASE MANAGEMENT DCP- Discharge Planning Updated by [id number]: Eloy Casillas on 11/14/18 4:[address] Patient Name: RADHA SALGUERO Encounter No: [id number] : 1945 Primary Insurance: WELLCARE MEDICARE ADV Anticipated DC Date: Planned Disposition: Home DCP follow-up note: CM SPOKE TO DR. MATHIS REGARDING PT'S LIVING ARRAGEMENTS. CM SPOKE TO PT IN ROOM REGARDING LIVING IN HOTEL ROOM. PT REPORTS HE WAS LIVING IN A GROUP HOME, DOES NOT WANT TO GO BACK TO ONE AND IS LIVING IN THE HOTEL UNTIL HE FINDS A PLACE THAT HE LIKES. CM DISCUSSED REHAB SERVICES HOME HEALTH AND MEDICAL EQUIPMENT. PT DENIES DISCHARGE NEEDS OTHER THAN NEEDING A DIALYSIS CLINIC. PT STILL UPSET THAT THE [place] [facility] WILL NOT ACCEPT HIM A PATIENT. PT REPORTS HE WILL BE STAYING IN [place] AND WILL FIND HIMSELF AN APARTMENT THERE. PT REPORTS USING MEDICAID TRANSPORT FOR MEDICAL APPOINTMENTS AND NEEDS A Sunday SCHEDULE IN ORDER TO USE MEDICAID TRANSPORT TO AND FROM DIALYSIS. PT REPORTS INABILITY TO GET TO [facility] ON WEEKENDS. KAYLENE OF [facility] NOTIFIED. CM WAITING ARRANGEMENT AND ACCEPTANCE AT OUTPATIENT DIALYSIS CLINIC; [facility] COORDINATOR IS WORKING ON THIS. CM TO CONTINUE TO FOLLOW AND ASSIST IF NEEDED. Eloy Casillas, CASE MANAGEMENT DCP- Discharge Planning Updated by [id number]: Sherri Walker on 11/14/18 2:[address] I HAVE BEEN IN COMMUNICATION WITH KAYLENE KIM, CLINICAL LIASON FOR [facility]. SHE HAS BEEN WORKING ON PLACEMENT FOR THE PATIENT. THIS PATIENT WAS IN A GROUP HOME IN [place] AND RECEIVING DIALYSIS. HE KNEW HE WAS NOT ACCEPTED BY THE [place] [facility] BEFORE HE EVER MOVED TO [place], BUT CAME ANYWAY. KAYLENE HAD BEEN WORKING WITH [facility], AND THEY ARE STILL DENYING HIM PLACEMENT THERE. SHE STATED THAT HE HAS THE OPTION OF [place], [place], OR [place]. WHILE I WAS ON THE PHONE WITH KAYLENE, PHILOMENA WENT AND ASKED THE PATIENT AND HE SAID [facility], BUT IS INSISTENT THAT HE HAVE A M-W-F SCHEDULE. KAYLENE CALLED BACK AND STATED THAT BECAUSE DR SIMS HAS REFUSED THE PATIENT, THE [place] AND [place] UNITS HAVE ALSO DENIED THE PATIENT. THE ONLY OPTION IS FOR THE [place] UNIT AND THESE ARE THE SAME DOCTORS THAT CARED FOR HIM IN [place]. I WENT AND TALKED TO THE PATIENT AND HE STATED THAT THAT WOULD BE FINE. I HAVE LET KAYLENE KNOW THIS. I HAVE ALSO PASSED ONTO HER THAT PER DR AGURIRE, THE PATIENT WAS GOING TO NEED 6 WEEKS OF VANCOMYCIN TO BE GIVEN IN DIALYSIS. SHE HAS STATED THAT THAT SHOULD NOT BE A PROBLEM ONCE HE IS ACCEPTED. ALSO DURING THIS TIME, JEFFERSON, PHYSICAL THERAPIST, CAME BY AND STATED THAT THE PATIENT WAS NOT STABLE ON THE CRUTCHES AND DID MUCH BETTER ON THE WALKER. HE RECOMMENDED THAT THE PATIENT GET A WALKER. I ALSO SPOKE WITH THE PATIENT AND HE STATED THAT HE HAS A WALKER AT THE [place]EL AND DOES NOT NEED ANOTHER ONE. HE STATED THAT THE THERAPIST CAME IN AND GOT HIM UP RIGHT AFTER DIALYSIS AND HE WAS WEEK. HE STATED THAT HE WILL DO BETTER TOMORROW. I HAVE EXPLAINED THAT WE SHOULD HAVE A WALKER THAT HE CAN BORROW DURING THERAPY IF NEEDED. DCP- Discharge Planning Updated by [id number]: Malloryruperto Hawley on 11/11/18 2:[address] PATIENT HAD RECENTLY RETURNED FROM HD AND HAD EATEN HIS LUNCH. HE SAID HE WAS TIRED. SPOKE SLOWLY PATIENT STATES HE IS HARD OF HEARING BUT DID NOT WANT TO TURN DOWN THE VOLUME ON TV. L[facility] IN [place], [place]. STATES HE HAS NO BROTHERS, SISTERS OR CHILDREN. HE SAYS HE DOES HAVE COUSINS THAT LIVE IN [place]. STATES HE WILL HAVE TRANSPORTATION AT DISCHARGE FROM HIS FRIEND INDIRA DUNN. CONTACT PHONE NUMBER- [phone]. STATES HE IS TIRED THEREFORE CM STATED WILL REVISIT TO ASSIST WITH DISCHARGE. KAYLENE HELTON ON SITE AND HE STATES HE HAS SPOKEN WITH THE HD COORDINATOR. DCP- Discharge Planning Updated by [id number]: Mallorynicolette Hawley on 11/11/18 12:[address] PATIENT PRESENTLY IN HD. CM AWAITS HIS RETURN TO THE ROOM DCP- Discharge Planning Updated by [id number]: Mallory Hawley on 11/10/18 6:[address] CM TO FOLLOW FOR ASSESSMENT. APPARENTLY HE RECENTLY RELOCATED TO [place], [place]. HAS ORDERED HD SETUP FOR [facility]. TC TO KAYLENE HELTON. LEFT VOICE MAIL. PATIENT REPORTEDLY LIVING IN A [place]OTEL. QUESTION REGARDING HOUSING. CM TO FOLLOW. DCPIA - Discharge Planning Initial Assessment Updated by [id number]: Mallory Hawley on 11/11/18 3:04 pm * Is the patient Alert and Oriented? Yes * PCP DR RONN DURAN * Pharmacy [facility] IN [place] * Other Environment [facility] * ADLs Independent * List name and contact numbers for known caregivers / representatives who currently or will assist patient after discharge: INDIRA DUNN- FRIEND FOR TRANSPORTATION * Verbal permission to speak to the caregivers and representatives has been obtained from the patient. No * Community resources currently utilized Other * Please name any agencies selected above. [facility] [place] KAYLENE HELTON TRYING TO GET HD SET UP * Additional services required to return to the preadmission environment? Yes * Can the patient safely return to the preadmission environment? 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 Last DP export: 11/25/18 11:32 am Patient Name: RADHA SALGUERO Page [id number] at 0949 All edits/amendments must be made on the electronic document DICTATION DATE: 11/26/18947 KNITTING MACHINE FIXER HEAD: JEANMARIE 11/26/18947 RPT#: [id number] DC DATE: STATUS: ADM IN [facility] [address] [place] [address] END OF REPORT
--- NOTE | 2018-11-26 11:06 | MORECARE ---
CASE MANAGEMENT DISCHARGE SUMMARY PATIENT: RADHA SALGUERO UNIT: [id number] ADM DATE: 11/08/18 AGE: 73 : 45 SEX: M ROOM/BED: D.2135 AUTHOR: ROSA,DOC PHYSICIAN: REFERRING PHYSICIAN: MALOU SUN MD DATE OF SERVICE: 11/26/18 Discharge Plan Patient Name: RADHA SALGUERO Facility: [facility]:[place] : 1945 Planned Disposition: [facility] Facility Anticipated Discharge Date: Discharge Date: Expected LOS: Initial Reviewer: [id number] Initial Review Date: 11/08/2018 Generated: 11/26/18 12:06 pm Comments DCP- Discharge Planning Updated by [id number]: Eloy Casillas on 11/26/18 10:[address] Patient Name: RADHA SALGUERO Encounter No: [id number] : 1945 Primary Insurance: WELL[employer] MEDICARE ADV Anticipated DC Date: Planned Disposition: [facility] Facility External Planned Provider: FIRST ACCEPTING LONGTERM FACILITY FOR MEDICARE REHAB BED DCP follow-up note: CM RECEIVED CALL FROM [facility], , THEY WERE WILLING TO ACCEPT BUT CALLED [facility] AND PT COULD NOT BE CHANGED TO MWF DIALYSIS SCHEDULE FROM [facility]. [facility] CANNOT ACCEPT THEY HAVE NO TRANSPORT AVAILABLE FOR SUNDAY DIALYSIS. CM FAXED REFERRAL UPDATE TO [facility]IA [facility] AT [phone]. CM FAXED REFERRAL UPDATE TO M[facility] CHRISTOPHER AT [phone]. CM FAXED REFERRAL UPDATE TO M[facility] AT [phone]. . PT HAS BEEN ACCEPTED FOR DIALYSIS AT [facility] IN [facility], 0930AM. PT CAN START AT [facility] OP DAILYSIS ON 11-26-18 AT 0900 AM. CM WAITING ADMISSION DETERMINATIONS FOR REHAB FROM [facility], [facility] AND [facility]. Eloy Casillas, CASE MANAGEMENT Appended by Eloy Casillas on 11/26/2018 11:05 SKEIN YARN DYER: CM [facility] WHO REPORTS THEY WILL NOT ACCEPT PT DUE TO PRIOR NON COMPLIANCE IN PREVIOUS SENIOR CARE PLACEMENT IN [place] AND THEY CANNOT TRANSPORT TO DIALYSIS ON SATURDAYS. CM RECEIVED CALL FROM [facility], THEY ARE NOT ABLE TO MEET PT'S CLINICAL NEEDS AT THIS TIME. PT HAS BEEN ACCEPTED FOR DIALYSIS AT [facility] IN [place], [facility], 0930AM. PT CAN START AT [facility] OP DAILYSIS ON 11-26-18 AT 0900 AM. CM WAITING ADMISSION DETERMINATIONS FOR REHAB FROM [facility]. Eloy Casillas, CASE MANAGEMENT DCP- Discharge Planning Updated by [id number]: Eloy Casillas on 11/25/18 11:[address] Patient Name: RADHA SALGUERO Encounter No: [id number] : 1945 Primary Insurance: WELLCARE MEDICARE ADV Anticipated DC Date: Planned Disposition: [facility] Facility External Planned Provider: FIRST ACCEPTING LONGTERM FACILITY FOR MEDICARE REHAB BED DCP follow-up note: CM SPOKE TO PT IN ROOM AND PROVIDED UPDATE THIS MORNING. CM INFORMED PT THAT HE WOULD BE DISCHARGING FROM THE HOSPITAL SOON OUTPATIENT DIALYSIS UNIT SCHEDULE IS OBTAINED. PT CONTINUES TO REPORT PLAN TO GO BACK TO HIS HOTEL ROOM IN [place] AND THEN BEGAN INSISTING TO KNOW WHY THE DOCTORS AT THE DIALYSIS UNITS WILL NOT ACCEPT HIM. CM EXPLAINED THAT PT WILL HAVE TO TALK TO THE DOCTORS HIMSELF AND CM WAS CONCERNED WITH FINDING AN ACCEPTING UNIT FOR OUTPATIENT DIALYSIS. PT ARGUED THAT THE DOCTORS HAVE NO REASON TO NOT ACCEPT HIM. CM EXPLAINED TO PT THAT HE CANNOT CHANGE THIS AND NEEDS TO CONCENTRATE ON DISCHARGE PLANNING AND LET THE [facility] COORDINATOR FIND A UNIT THAT WOULD ACCEPT. PT CONTINUED TO ARGUE REPORTING THE [place] UNIT HAD ACCEPTED HIM AND HAD NO REASON TO NOT TAKE HIM WHEN HE ARRIVED "HOME" IN [place]. CM EXPLAINED THAT THE UNIT NEVER ACCEPTED HIM, PT REPORTS THIS IS NOT TRUE. CM INFORMED PT THAT CM WILL NOT CONTINUE TO ARGUE THE POINT AND WOULD FOCUS ON DISCHARGE PLANNING. PT REPORTS PLAN TO RETURN TO HIS HOTEL ROOM IN [place] AND NEEDS A MWF DIALYSIS SCHEDULE TO USE MEDICAID TRANSPORTATION. CM DISCUSSED AVAILABILTY OF LONGTERM REHAB SERVICES PT'S THERAPY NOTES INDICATE PT IS NOT WALKING WELL. PT DECLINES AND STATES HE IS GOING HOME. CM RECEIVED CALL FROM [facility] WHO REPORTS THEY RECEIVED REFERRAL FOR HOME HEALTH REGARDING PT. [facility] ADVISED THAT THEY WILL NOT ACCEPT PT DOES NOT APPEAR TO BE APPROPRIATE AT THIS TIME FOR HOME HEALTH. BHAVANA SPOKE TO DR. SUN WHO INFORMED PT IS STABLE FOR DISCHARGE. CM FAXED REFERRAL TO [facility] AT [phone]. CM RECEIVED REQUEST FOR MORE INFORMATION (OUTPATIENT DIALYSIS UNIT, NEED FOR ANTIBIOTICS AT DISCHARE AND ISOLATION STATUS.) CM CALLED [facility], , SPOKE TO EZEKIEL, PROVIDED INFORMATION AND FAXED REFERRAL UPDATE TO [facility] AT [phone] CM FAXED REFERRAL UPDATE TO MAXELIN NETTIEMellisa AT [phone]. CM FAXED REFERRAL UPDATE TO [facility] AT [phone]. . PT HAS BEEN ACCEPTED FOR DIALYSIS AT [facility] IN [facility], 0930AM. PT CAN START AT [facility] OP DAILYSIS ON 11-26-18 AT 0900 AM. CM WAITING ADMISSION DETERMINATIONS FOR REHAB FROM [facility], [facility], [facility] AND [facility]. Eloy Casillas, CASE MANAGEMENT DCP- Discharge Planning Updated by [id number]: Eloy Casillas on 11/22/18 4:[address] Patient Name: RADHA SALGUERO Encounter No: [id number] : 1945 Primary Insurance: WELLCARE MEDICARE ADV Anticipated DC Date: Planned Disposition: [facility] Facility External Planned Provider: FIRST ACCEPTING LONGTERM FACILITY FOR MEDICARE REHAB BED DCP follow-up note: CM SPOKE TO PT IN ROOM AND PROVIDED UPDATE THIS MORNING. CM INFORMED PT THAT HE WOULD BE DISCHARGING FROM THE HOSPITAL SOON OUTPATIENT DIALYSIS UNIT SCHEDULE IS OBTAINED. PT CONTINUES TO REPORT PLAN TO GO BACK TO HIS HOTEL ROOM IN [place] AND THEN BEGAN INSISTING TO KNOW WHY THE DOCTORS AT THE DIALYSIS UNITS WILL NOT ACCEPT HIM. CM EXPLAINED THAT PT WILL HAVE TO TALK TO THE DOCTORS HIMSELF AND CM WAS CONCERNED WITH FINDING AN ACCEPTING UNIT FOR OUTPATIENT DIALYSIS. PT ARGUED THAT THE DOCTORS HAVE NO REASON TO NOT ACCEPT HIM. CM EXPLAINED TO PT THAT HE CANNOT CHANGE THIS AND NEEDS TO CONCENTRATE ON DISCHARGE PLANNING AND LET THE [facility] COORDINATOR FIND A UNIT THAT WOULD ACCEPT. PT CONTINUED TO ARGUE REPORTING THE [place] [facility] HAD ACCEPTED HIM AND HAD NO REASON TO NOT TAKE HIM WHEN HE ARRIVED "HOME" IN [place]. CM EXPLAINED THAT THE UNIT NEVER ACCEPTED HIM, PT REPORTS THIS IS NOT TRUE. CM INFORMED PT THAT CM WILL NOT CONTINUE TO ARGUE THE POINT AND WOULD FOCUS ON DISCHARGE PLANNING. PT REPORTS PLAN TO RETURN TO HIS HOTEL ROOM IN [place] AND NEEDS A MWF DIALYSIS SCHEDULE TO USE MEDICAID TRANSPORTATION. CM DISCUSSED AVAILABILTY OF LONGTERM REHAB SERVICES PT'S THERAPY NOTES INDICATE PT IS NOT WALKING WELL. PT DECLINES AND STATES HE IS GOING HOME. CM RECEIVED CALL FROM [facility] WHO REPORTS THEY RECEIVED REFERRAL FOR HOME HEALTH REGARDING PT. [facility] ADVISED THAT THEY WILL NOT ACCEPT PT DOES NOT APPEAR TO BE APPROPRIATE AT THIS TIME FOR HOME HEALTH. CM SPOKE TO KAYLENE OF [facility], PT ACCEPTED FOR DIALYSIS AT [facility] IN [place], [place], 0930AM. CM NOTIFIED PT AND PROVIDED PT A COPY OF HIS THERAPY NOTE FROM YESTERDAY THAT INDICATES PT WALKING 4 FEET WITH 35 % ASSISTANCE. CM INFORMED PT THAT IS NOT SAFE FOR HIM TO DISCHARGE HOME WITHOUT ASSISTANCE. PT REPORTS HAVING NO FAMILY OR FRIENDS TO ASSIST. PT STILL DECLINED LONGTERM FACILITY STATING HE LEFT ONE AND IS NOT GOING BACK. CM DISCUSSED HAVING A SAFE DISCHARGE PLAN AND IF PT INSISTED ON GOING HOME IN CURRENT CONDITION, CM WOULD CALL ADULT PROTECTIVE SERVICES. PT DOES NOT WANT TO BE INVOLVED WITH ADULT PROTECTIVE SERVICES AND WILL AGREE FOR REHAB PLACEMENT ONLY IN [place] IF POSSIBLE AND IF NOT, [place]. CHOICE LETTER SIGNED. CM SPOKE TO [facility] AND [facility]. NATHALY INFORMED CM THAT [facility] WILL NOT TRANSPORT TO DIALYSIS IN [place], THAT [facility] CANNOT ACCOMODATE TTS SCHEDULE ADN [facility] WOULD NEED TO EVALUATE. CM FAXED REFERRAL TO [facility] AT [phone]. CM CALLED [facility], , SPOKE TO [facility]ANTA WHO WILL EVALUATE PT NEXT SUNDAY. CM FAXED REFERRAL TO [facility] AT [phone]. CM CALLED [facility], , SPOKE TO ENRIKE WHO WILL SCREEN FOR REHAB ADMISSION; CM FAXED REFERRAL TO [facility] AT [phone]. CM CALLED [facility], , SPOKE TO EZEKIEL WHO WILL SCREEN PT FOR ADMISSION, CM FAXED REFERRAL TO [facility] AT [phone]. PT HAS BEEN ACCEPTED FOR DIALYSIS AT [facility] IN [place], [place], 0930AM. PT CAN START AT [facility] OP DAILYSIS ON 11-26-18 AT 0900 AM. CM WAITING ADMISSION DETERMINATIONS FOR REHAB FROM [facility], [facility], [facility] AND [facility]. Eloy Casillas, CASE MANAGEMENT DCP- Discharge Planning Updated by [id number]: Eloy Casillas on 11/14/18 4:[address] Patient Name: RADHA SALGUERO Encounter No: [id number] : 1945 Primary Insurance: WELLCARE MEDICARE ADV Anticipated DC Date: Planned Disposition: Home DCP follow-up note: CM SPOKE TO DR. MATHIS REGARDING PT'S LIVING ARRAGEMENTS. CM SPOKE TO PT IN ROOM REGARDING LIVING IN HOTEL ROOM. PT REPORTS HE WAS LIVING IN A SENIOR CARE, DOES NOT WANT TO GO BACK TO ONE AND IS LIVING IN THE HOTEL UNTIL HE FINDS A PLACE THAT HE LIKES. CM DISCUSSED REHAB SERVICES HOME HEALTH AND MEDICAL EQUIPMENT. PT DENIES DISCHARGE NEEDS OTHER THAN NEEDING A DIALYSIS CLINIC. PT STILL UPSET THAT THE [place] [facility] WILL NOT ACCEPT HIM A PATIENT. PT REPORTS HE WILL BE STAYING IN [place] AND WILL FIND HIMSELF AN APARTMENT THERE. PT REPORTS USING MEDICAID TRANSPORT FOR MEDICAL APPOINTMENTS AND NEEDS A Sunday SCHEDULE IN ORDER TO USE MEDICAID TRANSPORT TO AND FROM DIALYSIS. PT REPORTS INABILITY TO GET TO [facility] WEEKEN[facility]. KAYLENE OF [facility] NOTIFIED. CM WAITING ARRANGEMENT AND ACCEPTANCE AT OUTPATIENT DIALYSIS CLINIC; [facility] COORDINATOR IS WORKING ON THIS. CM TO CONTINUE TO FOLLOW AND ASSIST IF NEEDED. Eloy Casillas, CASE MANAGEMENT DCP- Discharge Planning Updated by [id number]: Sherri Walker on 11/14/18 2:[address] I HAVE BEEN IN COMMUNICATION WITH KAYLENE KIM, CLINICAL LIASON [facility]. SHE HAS BEEN WORKING ON PLACEMENT FOR THE PATIENT. THIS PATIENT WAS IN A SENIOR CARE IN [place] AND RECEIVING DIALYSIS. HE KNEW HE WAS NOT ACCEPTED BY THE [place] [facility] BEFORE HE EVER MOVED TO [place], BUT CAME ANYWAY. KAYLENE HAD BEEN WORKING WITH THE [place] UNIT, AND THEY ARE STILL DENYING HIM PLACEMENT THERE. SHE STATED THAT HE HAS THE OPTION OF [place], [place], OR [place]. WHILE I WAS ON THE PHONE WITH KAYLENE, PHILOMENA WENT AND ASKED THE PATIENT AND HE SAID [place], BUT IS INSISTENT THAT HE HAVE A M-W-F SCHEDULE. KAYLENE CALLED BACK AND STATED THAT BECAUSE DR SIMS HAS REFUSED THE PATIENT, THE [place] AND [place] UNITS HAVE ALSO DENIED THE PATIENT. THE ONLY OPTION IS FOR THE [place] UNIT AND THESE ARE THE SAME DOCTORS THAT CARED FOR HIM IN [place]. I WENT AND TALKED TO THE PATIENT AND HE STATED THAT THAT WOULD BE FINE. I HAVE LET KAYLENE KNOW THIS. I HAVE ALSO PASSED ONTO HER THAT PER DR AGUIRRE, THE PATIENT WAS GOING TO NEED 6 WEEKS OF VANCOMYCIN TO BE GIVEN IN DIALYSIS. SHE HAS STATED THAT THAT SHOULD NOT BE A PROBLEM ONCE HE IS ACCEPTED. ALSO DURING THIS TIME, JEFFERSON, PHYSICAL THERAPIST, CAME BY AND STATED THAT THE PATIENT WAS NOT STABLE ON THE CRUTCHES AND DID MUCH BETTER ON THE WALKER. HE RECOMMENDED THAT THE PATIENT GET A WALKER. I ALSO SPOKE WITH THE PATIENT AND HE STATED THAT HE HAS A WALKER AT THE [place] AND DOES NOT NEED ANOTHER ONE. HE STATED THAT THE THERAPIST CAME IN AND GOT HIM UP RIGHT AFTER DIALYSIS AND HE WAS WEEK. HE STATED THAT HE WILL DO BETTER TOMORROW. I HAVE EXPLAINED THAT WE SHOULD HAVE A WALKER THAT HE CAN BORROW DURING THERAPY IF NEEDED. DCP- Discharge Planning Updated by [id number]: Mallory Hawley on 11/11/18 2:[address] PATIENT HAD RECENTLY RETURNED FROM HD AND HAD EATEN HIS LUNCH. HE SAID HE WAS TIRED. SPOKE SLOWLY PATIENT STATES HE IS HARD OF HEARING BUT DID NOT WANT TO TURN DOWN THE VOLUME ON TV. LIVES AT THE [facility] IN [place], [place]. STATES HE HAS NO BROTHERS, SISTERS OR CHILDREN. HE SAYS HE DOES HAVE COUSINS THAT LIVE IN [place]. STATES HE WILL HAVE TRANSPORTATION AT DISCHARGE FROM HIS FRIEND INDIRA DUNN. CONTACT PHONE NUMBER- [phone]. STATES HE IS TIRED THEREFORE CM STATED WILL REVISIT TO ASSIST WITH DISCHARGE. KAYLENE HELTON ON SITE AND HE STATES HE HAS SPOKEN WITH THE HD COORDINATOR. DCP- Discharge Planning Updated by [id number]: Mallory Hawley on 11/11/18 12:[address] PATIENT PRESENTLY IN HD. CM AWAITS HIS RETURN TO THE ROOM DCP- Discharge Planning Updated by [id number]: Mallory Hawley on 11/10/18 6:[address] CM TO FOLLOW FOR ASSESSMENT. APPARENTLY HE RECENTLY RELOCATED TO [place]. HAS ORDERED HD SETUP FOR [facility]. TC TO KAYLENE HELTON. LEFT VOICE MAIL. PATIENT REPORTEDLY LIVING IN A [place]OTEL. QUESTION REGARDING HOUSING. CM TO FOLLOW. DCPIA - Discharge Planning Initial Assessment Updated by [id number]: Mallory Hawley on 11/11/18 3:04 pm * Is the patient Alert and Oriented? Yes * PCP DR RONN DURAN * [facility] [place] * Other Environment [facility] * ADLs Independent * List name and contact numbers for known caregivers / representatives who currently or will assist patient after discharge: INDIRA DUNN- FRIEND FOR TRANSPORTATION * Verbal permission to speak to the caregivers and representatives has been obtained from the patient. No * Community resources currently utilized Other * Please name any agencies selected above. [facility] [place] KAYLENE HELTON TRYING TO GET HD SET UP * Additional services required to return to the preadmission environment? Yes * Can the patient safely return to the preadmission environment? Yes Coverage Notice Reviewer: [id number] Vincenzo Casillas Notice Issued Date-Time: 11/22/2018 11:50 Notice Type: Patient Choice Letter Notice Delivered To: Patient Relationship to Patient: Oiler Bander Name: Delivery Method: HAND - Hand Delivered Nguyen Days: Prior Verbal Notification: Recipient Understood Notice: Yes Recipient Signature: Yes Med Rec Note Co-signed by Attending: Coverage Notice Comment: SNF IN [place] OR [place] FOR REHAB ONLY... Last DP export: 11/26/18 8:49 am Patient Name: RADHA SALGUERO Page [phone] at 1106 All edits/amendments must be made on the electronic document DICTATION DATE: 11/26/18 1106 DANCE CHOREOGRAPHER: JEANMARIE 11/26/18 1106 RPT#: [id number] DC DATE: STATUS: ADM IN [facility] [address] [place] [address] END OF REPORT
--- NOTE | 2018-11-26 11:24 | MORECARE ---
CASE MANAGEMENT DISCHARGE SUMMARY PATIENT: RADHA SALGUERO UNIT: [id number] ADM DATE: 11/08/18 AGE: 73 : 45 SEX: M ROOM/BED: D.2135 AUTHOR: ROSA,DOC PHYSICIAN: REFERRING PHYSICIAN: MALOU SUN MD DATE OF SERVICE: 11/26/18 Discharge Plan Patient Name: RADHA SALGUERO Facility: [facility]:[place] : 1945 Planned Disposition: Detention Facility Anticipated Discharge Date: Discharge Date: Expected LOS: Initial Reviewer: [id number] Initial Review Date: 11/08/2018 Generated: 11/26/18 12:24 pm Comments DCP- Discharge Planning Updated by [id number]: Eloy Casillas on 11/26/18 10:[address] Patient Name: RADHA SALGUERO Encounter No: [id number] : 1945 Primary Insurance: [employer] MEDICARE ADV Anticipated DC Date: Planned Disposition: Detention Facility External Planned Provider: FIRST ACCEPTING RETIREMENT FACILITY FOR MEDICARE REHAB BED DCP follow-up note: CM RECEIVED CALL FROM [facility], , THEY WERE WILLING TO ACCEPT BUT CALLED [facility]IAL[facility] AND PT COULD NOT BE CHANGED TO MWF DIALYSIS SCHEDULE FROM [facility]. [facility] CANNOT ACCEPT THEY HAVE NO TRANSPORT AVAILABLE FOR SUNDAY DIALYSIS. CM FAXED REFERRAL UPDATE TO [facility] VIA NATHALY AT [phone]. CM FAXED REFERRAL UPDATE TO M[facility] CHRISTOPHER AT [phone]. CM FAXED REFERRAL UPDATE TO [facility] AT [phone]. . PT HAS BEEN ACCEPTED FOR DIALYSIS AT [facility], 0930AM[facility] PT CAN START AT [facility] OP DAILYSIS ON 11-26-18 AT 0900 AM. CM WAITING ADMISSION DETERMINATIONS FOR REHAB FROM [facility], [facility] AND [facility]. 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 CM RECEIVED CALL FROM [facility], THEY ARE NOT ABLE TO MEET PT'S CLINICAL NEEDS AT THIS TIME. PT HAS BEEN ACCEPTED FOR DIALYSIS AT [facility] IN [place], [facility], 0930AM. PT CAN START AT [facility] OP DAILYSIS ON 11-26-18 AT 0900 AM. CM WAITING ADMISSION DETERMINATIONS FOR REHAB FROM [facility]. Eloy Casillas, CASE MANAGEMENT DCP- Discharge Planning Updated by [id number]: Eloy Casillas on 11/25/18 11:[address] Patient Name: RADHA SALGUERO Encounter No: [id number] : 1945 Primary Insurance: WELLCARE MEDICARE ADV Anticipated DC Date: Planned Disposition: Detention Facility External Planned Provider: FIRST ACCEPTING RETIREMENT FACILITY FOR MEDICARE REHAB BED DCP follow-up note: CM SPOKE TO PT IN ROOM AND PROVIDED UPDATE THIS MORNING. CM INFORMED PT THAT HE WOULD BE DISCHARGING FROM THE HOSPITAL [facility] OUTPATIENT DIALYSIS UNIT SCHEDULE IS OBTAINED. PT CONTINUES TO REPORT PLAN TO GO BACK TO HIS HOTEL ROOM IN [place] AND THEN BEGAN INSISTING TO KNOW WHY THE DOCTORS AT THE DIALYSIS UNITS WILL NOT ACCEPT HIM. CM EXPLAINED THAT PT WILL HAVE TO TALK TO THE DOCTORS HIMSELF AND CM WAS CONCERNED WITH FINDING AN ACCEPTING UNIT FOR OUTPATIENT DIALYSIS. PT ARGUED THAT THE DOCTORS HAVE NO REASON TO NOT ACCEPT HIM. CM EXPLAINED TO PT THAT HE CANNOT CHANGE THIS AND NEEDS TO CONCENTRATE ON DISCHARGE PLANNING AND LET THE [facility] COORDINATOR FIND A UNIT THAT WOULD ACCEPT. PT CONTINUED TO ARGUE REPORTING THE [place] HAD ACCEPTED HIM AND HAD NO REASON TO NOT TAKE HIM WHEN HE ARRIVED "HOME" IN [place]. CM EXPLAINED THAT THE UNIT NEVER ACCEPTED HIM, PT REPORTS THIS IS NOT TRUE. CM INFORMED PT THAT CM WILL NOT CONTINUE TO ARGUE THE POINT AND WOULD FOCUS ON DISCHARGE PLANNING. PT REPORTS PLAN TO RETURN TO HIS HOTEL ROOM IN [place] AND NEEDS A MWF DIALYSIS SCHEDULE TO USE MEDICAID TRANSPORTATION. CM DISCUSSED AVAILABILTY OF RETIREMENT REHAB SERVICES PT'S THERAPY NOTES INDICATE PT IS NOT WALKING WELL. PT DECLINES AND STATES HE IS GOING HOME. CM RECEIVED CALL FROM [facility] WHO REPORTS THEY RECEIVED REFERRAL FOR HOME HEALTH REGARDING PT. [facility] ADVISED THAT THEY WILL NOT ACCEPT PT DOES NOT APPEAR TO BE APPROPRIATE AT THIS TIME FOR HOME HEALTH. BHAVANA SPOKE TO DR. SUN WHO INFORMED PT IS STABLE FOR DISCHARGE. CM FAXED REFERRAL TO [facility]IA N[facility] AT [phone]. CM RECEIVED REQUEST FOR MORE INFORMATION (OUTPATIENT DIALYSIS UNIT, NEED FOR ANTIBIOTICS AT DISCHARE AND ISOLATION STATUS.) CM CALLED [facility], , SPOKE TO EZEKIEL, PROVIDED INFORMATION AND FAXED REFERRAL UPDATE TO [facility] AT [phone] CM FAXED REFERRAL UPDATE TO MAXELIN NETTIEMellisa AT [phone]. CM FAXED REFERRAL UPDATE TO [facility] AT [phone]. . PT HAS BEEN ACCEPTED FOR DIALYSIS AT [facility], 0930AM. PT CAN START AT [facility] OP DAILYSIS ON 11-26-18 AT 0900 AM. CM WAITING ADMISSION DETERMINATIONS FOR REHAB FROM [facility], [facility], [facility] AND [facility]. Eloy Casillas, CASE MANAGEMENT DCP- Discharge Planning Updated by [id number]: Eloy Casillas on 11/22/18 4:[address] Patient Name: RADHA SALGUERO Encounter No: [id number] : 1945 Primary Insurance: WELL[employer]ARE MEDICARE ADV Anticipated DC Date: Planned Disposition: Detention Facility External Planned Provider: FIRST ACCEPTING RETIREMENT FACILITY FOR MEDICARE REHAB BED DCP follow-up note: CM SPOKE TO PT IN ROOM AND PROVIDED UPDATE THIS MORNING. CM INFORMED PT THAT HE WOULD BE DISCHARGING FROM THE HOSPITAL [facility] OUTPATIENT DIALYSIS UNIT SCHEDULE IS OBTAINED. PT CONTINUES TO REPORT PLAN TO GO BACK TO HIS [place]OTEL ROOM [place] AND THEN BEGAN INSISTING TO KNOW WHY THE DOCTORS AT THE DIALYSIS UNITS WILL NOT ACCEPT HIM. CM EXPLAINED THAT PT WILL HAVE TO TALK TO THE DOCTORS HIMSELF AND CM WAS CONCERNED WITH FINDING AN ACCEPTING UNIT FOR OUTPATIENT DIALYSIS. PT ARGUED THAT THE DOCTORS HAVE NO REASON TO NOT ACCEPT HIM. CM EXPLAINED TO PT THAT HE CANNOT CHANGE THIS AND NEEDS TO CONCENTRATE ON DISCHARGE PLANNING AND LET THE [facility] COORDINATOR FIND A UNIT THAT WOULD ACCEPT. PT CONTINUED TO ARGUE REPORTING THE [place] [facility] HAD ACCEPTED HIM AND HAD NO REASON TO NOT TAKE HIM WHEN HE ARRIVED "HOME" IN [place]. CM EXPLAINED THAT THE UNIT NEVER ACCEPTED HIM, PT REPORTS THIS IS NOT TRUE. CM INFORMED PT THAT CM WILL NOT CONTINUE TO ARGUE THE POINT AND WOULD FOCUS ON DISCHARGE PLANNING. PT REPORTS PLAN TO RETURN TO HIS [place]OTEL ROOM IN [place] AND NEEDS A MWF DIALYSIS SCHEDULE TO USE MEDICAID TRANSPORTATION. CM DISCUSSED AVAILABILTY OF RETIREMENT REHAB SERVICES PT'S THERAPY NOTES INDICATE PT IS NOT WALKING WELL. PT DECLINES AND STATES HE IS GOING HOME. CM RECEIVED CALL FROM [facility] WHO REPORTS THEY RECEIVED REFERRAL FOR HOME HEALTH REGARDING PT. [facility] ADVISED THAT THEY WILL NOT ACCEPT PT DOES NOT APPEAR TO BE APPROPRIATE AT THIS TIME FOR HOME HEALTH. CM SPOKE TO KAYLENE OF [facility], PT ACCEPTED FOR DIALYSIS AT [facility] IN [place], [place], 0930AM. CM NOTIFIED PT AND PROVIDED PT A COPY OF HIS THERAPY NOTE FROM YESTERDAY THAT INDICATES PT WALKING 4 FEET WITH 35 % ASSISTANCE. CM INFORMED PT THAT IS NOT SAFE FOR HIM TO DISCHARGE HOME WITHOUT ASSISTANCE. PT REPORTS HAVING NO FAMILY OR FRIENDS TO ASSIST. PT STILL DECLINED RETIREMENT FACILITY STATING HE LEFT ONE AND IS NOT GOING BACK. CM DISCUSSED HAVING A SAFE DISCHARGE PLAN AND IF PT INSISTED ON GOING HOME IN CURRENT CONDITION, CM WOULD CALL ADULT PROTECTIVE SERVICES. PT DOES NOT WANT TO BE INVOLVED WITH ADULT PROTECTIVE SERVICES AND WILL AGREE FOR REHAB PLACEMENT ONLY IN [place] IF POSSIBLE AND IF NOT, [place]. CHOICE LETTER SIGNED. CM SPOKE TO [facility]. NATHALY INFORMED CM THAT [facility] WILL NOT TRANSPORT TO DIALYSIS IN [place], THAT [facility] CANNOT ACCOMODATE TTS SCHEDULE ADN [facility] WOULD NEED TO EVALUATE. CM FAXED REFERRAL TO [facility] AT [phone]. CM CALLED [facility], , SPOKE TO [facility] WHO WILL EVALUATE PT NEXT SUNDAY. CM FAXED REFERRAL TO [facility] AT [phone]. CM CALLED [facility], , SPOKE TO ENRIKE WHO WILL SCREEN FOR REHAB ADMISSION; CM FAXED REFERRAL TO [facility] AT [phone]. CM CALLED [facility], , SPOKE TO EZEKIEL WHO WILL SCREEN PT FOR ADMISSION, CM FAXED REFERRAL TO [facility] AT [phone]. PT HAS BEEN ACCEPTED FOR DIALYSIS AT [facility] IN [place], [place], 0930AM. PT CAN START AT [facility] OP DAILYSIS ON 11-26-18 AT 0900 AM. CM WAITING ADMISSION DETERMINATIONS FOR REHAB FROM [facility], [facility], [facility] AND [facility]. Eloy Casillas, CASE MANAGEMENT DCP- Discharge Planning Updated by [id number]: Eloy Casillas on 11/14/18 4:[address] Patient Name: RADHA SALGUERO Encounter No: [id number] : 1945 Primary Insurance: WELLCARE MEDICARE ADV Anticipated DC Date: Planned Disposition: Home DCP follow-up note: CM SPOKE TO DR. MATHIS REGARDING PT'S LIVING ARRAGEMENTS. CM SPOKE TO PT IN ROOM REGARDING LIVING IN [place] RO[place]. PT REPORTS HE WAS LIVING IN A [facility], DOES NOT WANT TO GO BACK TO ONE AND IS LIVING IN THE [place] UNTIL HE FINDS A PLACE THAT HE LIKES. CM DISCUSSED REHAB SERVICES HOME HEALTH AND MEDICAL EQUIPMENT. PT DENIES DISCHARGE NEEDS OTHER THAN NEEDING A DIALYSIS CLINIC. PT STILL UPSET THAT THE [facility] WILL NOT ACCEPT HIM A PATIENT. PT REPORTS HE WILL BE STAYING IN [place] AND WILL FIND HIMSELF AN APARTMENT THERE. PT REPORTS USING MEDICAID TRANSPORT FOR MEDICAL APPOINTMENTS AND NEEDS A Sunday SCHEDULE IN ORDER TO USE MEDICAID TRANSPORT TO AND FROM DIALYSIS. PT REPORTS INABILITY TO GET TO [facility] ON WEEKENDS. KAYLENE OF [facility] NOTIFIED. CM WAITING ARRANGEMENT AND ACCEPTANCE AT OUTPATIENT DIALYSIS CLINIC; [facility] COORDINATOR IS WORKING ON THIS. CM TO CONTINUE TO FOLLOW AND ASSIST IF NEEDED. Eloy Casillas, CASE MANAGEMENT DCP- Discharge Planning Updated by [id number]: Sherri Walker on 11/14/18 2:[address] I HAVE BEEN IN COMMUNICATION WITH KAYLENE KIM, CLINICAL LIASON [facility]. SHE HAS BEEN WORKING ON PLACEMENT FOR THE PATIENT. THIS PATIENT WAS IN A [facility] [place] AND RECEIVING DIALYSIS. HE KNEW HE WAS NOT ACCEPTED BY THE [place] [facility] BEFORE HE EVER MOVED TO [place], BUT CAME ANYWAY. KAYLENE HAD BEEN WORKING WITH THE [place] [facility], AND THEY ARE STILL DENYING HIM PLACEMENT THERE. SHE STATED THAT HE HAS THE OPTION OF [place], [place], OR [place]. WHILE I WAS ON THE PHONE WITH KAYLENE, PHILOMENA WENT AND ASKED THE PATIENT AND HE SAID [place], BUT IS INSISTENT THAT HE HAVE A M-W-F SCHEDULE. KAYLENE CALLED BACK AND STATED THAT BECAUSE DR SIMS HAS REFUSED THE PATIENT, THE [place] AND [place] UNITS HAVE ALSO DENIED THE PATIENT. THE ONLY OPTION IS FOR THE [place] UNIT AND THESE ARE THE SAME DOCTORS THAT CARED FOR HIM IN [place]. I WENT AND TALKED TO THE PATIENT AND HE STATED THAT THAT WOULD BE FINE. I HAVE LET KAYLENE KNOW THIS. I HAVE ALSO PASSED ONTO HER THAT PER DR AGUIRRE, THE PATIENT WAS GOING TO NEED 6 WEEKS OF VANCOMYCIN TO BE GIVEN IN DIALYSIS. SHE HAS STATED THAT THAT SHOULD NOT BE A PROBLEM ONCE HE IS ACCEPTED. ALSO DURING THIS TIME, JEFFERSON, PHYSICAL THERAPIST, CAME BY AND STATED THAT THE PATIENT WAS NOT STABLE ON THE CRUTCHES AND DID MUCH BETTER ON THE WALKER. HE RECOMMENDED THAT THE PATIENT GET A WALKER. I ALSO SPOKE WITH THE PATIENT AND HE STATED THAT HE HAS A WALKER AT THE [place] AND DOES NOT NEED ANOTHER ONE. HE STATED THAT THE THERAPIST CAME IN AND GOT HIM UP RIGHT AFTER DIALYSIS AND HE WAS WEEK. HE STATED THAT HE WILL DO BETTER TOMORROW. I HAVE EXPLAINED THAT WE SHOULD HAVE A WALKER THAT HE CAN BORROW DURING THERAPY IF NEEDED. DCP- Discharge Planning Updated by [id number]: Mallory Hawley on 11/11/18 2:[address] PATIENT HAD RECENTLY RETURNED FROM HD AND HAD EATEN HIS LUNCH. HE SAID HE WAS TIRED. SPOKE SLOWLY PATIENT STATES HE IS HARD OF HEARING BUT DID NOT WANT TO TURN DOWN THE VOLUME ON TV. L[facility] IN [place], [place]. STATES HE HAS NO BROTHERS, SISTERS OR CHILDREN. HE SAYS HE DOES HAVE COUSINS THAT LIVE IN [place]. STATES HE WILL HAVE TRANSPORTATION AT DISCHARGE FROM HIS FRIEND INDIRA DUNN. CONTACT PHONE NUMBER- [phone]. STATES HE IS TIRED THEREFORE CM STATED WILL REVISIT TO ASSIST WITH DISCHARGE. KAYLENE HELTON ON SITE AND HE STATES HE HAS SPOKEN WITH THE HD COORDINATOR. DCP- Discharge Planning Updated by [id number]: Mallory Hawley on 11/11/18 12:[address] PATIENT PRESENTLY IN [place]. CM AWAITS HIS RETURN TO THE ROOM DCP- Discharge Planning Updated by [id number]: Mallory Hawley on 11/10/18 6:[address] CM TO FOLLOW FOR ASSESSMENT. APPARENTLY HE RECENTLY RELOCATED TO [place], [place]. HAS ORDERED HD SETUP FOR [facility]. TC TO KAYLENE HELTON. LEFT VOICE MAIL. PATIENT REPORTEDLY LIVING IN A [place]. QUESTION REGARDING HOUSING. CM TO FOLLOW. DCPIA - Discharge Planning Initial Assessment Updated by [id number]: Mallory Hawley on 11/11/18 3:04 pm * Is the patient Alert and Oriented? Yes * PCP DR RONN DURAN * [facility] [place] * Other Environment [facility] * ADLs Independent * List name and contact numbers for known caregivers / representatives who currently or will assist patient after discharge: INDIRAKevin DUNN- FRIEND FOR TRANSPORTATION * Verbal permission to speak to the caregivers and representatives has been obtained from the patient. No * Community resources currently utilized Other * Please name any agencies selected above. [facility] IN [place] , [place] KAYLENE HELTON TRYING TO GET HD SET UP * Additional services required to return to the preadmission environment? Yes * Can the patient safely return to the preadmission environment? Yes External Providers External Provider: [facility] Next Contact Date: 11/26/2018 Service Request Date: Service Type: Resolution: Reviewer: Comments: Coverage Notice Reviewer: [id number] Vincenzo Casillas Notice Issued Date-Time: 11/22/2018 11:50 Notice Type: Patient Choice Letter Notice Delivered To: Patient Relationship to Patient: Chief Deputy Coroner Name: Delivery Method: HAND - Hand Delivered Nguyen Days: Prior Verbal Notification: Recipient Understood Notice: Yes Recipient Signature: Yes Med Rec Note Co-signed by Attending: Coverage Notice Comment: [facility] IN [place] OR [place] FOR REHAB ONLY... Last DP export: 11/26/18 10:06 am Patient Name: RADHA SALGUERO Page [id number] at 1124 All edits/amendments must be made on the electronic document DICTATION DATE: 11/26/18 1124 MOP WORKER: JEANMARIE 11/26/18 1124 RPT#: [id number] DC DATE: STATUS: ADM IN [facility] [address], [place] [id number] END OF REPORT
--- NOTE | 2018-11-26 12:15 | MORECARE ---
CASE MANAGEMENT DISCHARGE SUMMARY PATIENT: RADHA SALGUERO UNIT: [id number] ADM DATE: 11/08/18 AGE: 73 : 45 SEX: M ROOM/BED: D.2135 AUTHOR: ROSA,DOC PHYSICIAN: REFERRING PHYSICIAN: MALOU SUN MD DATE OF SERVICE: 11/26/18 Discharge Plan Patient Name: RADHA SALGUERO Facility: [facility]:[place] : 1945 Planned Disposition: Detention Facility Anticipated Discharge Date: Discharge Date: Expected LOS: Initial Reviewer: [id number] Initial Review Date: 11/08/2018 Generated: 11/26/18 1:14 pm Comments DCP- Discharge Planning Updated by [id number]: Eloy Casillas on 11/26/18 11:[address] Patient Name: RADHA SALGUERO Encounter No: [id number] : 1945 Primary Insurance: [employer] MED[employer]ARE ADV Anticipated DC Date: Planned Disposition: Detention Facility External Planned Provider: FIRST ACCEPTING PENITENTIARY FACILITY FOR MEDICARE REHAB BED DCP follow-up note: CM RECEIVED CALL FROM [facility], , THEY WERE WILLING TO ACCEPT BUT CALLED [facility] AND PT COULD NOT BE CHANGED TO MWF DIALYSIS SCHEDULE FROM [facility]. [facility] CANNOT ACCEPT THEY HAVE NO TRANSPORT AVAILABLE FOR SUNDAY DIALYSIS. CM FAXED REFERRAL UPDATE TO [facility]IA [facility] AT [phone]. CM FAXED REFERRAL UPDATE TO [facility] CHRISTOPHER AT [phone]. CM FAXED REFERRAL UPDATE TO [facility] AT [phone]. . PT HAS BEEN ACCEPTED FOR DIALYSIS AT [facility] IN [facility], 0930AM. PT CAN START AT [facility] OP DAILYSIS ON 11-26-18 AT 0900 AM. CM WAITING ADMISSION DETERMINATIONS FOR REHAB FROM [facility], [facility] AND [facility]. Eloy Casillas, CASE MANAGEMENT Appended by Eloy Casillas on 11/26/2018 11:05 DIRECTOR CAREER SERVICES: CM RECEIVED CALL FROM [facility] WHO REPORTS THEY WILL NOT ACCEPT PT DUE TO PRIOR NON COMPLIANCE IN PREVIOUS CORRECTION PLACEMENT IN [place] AND THEY CANNOT TRANSPORT TO DIALYSIS ON SATURDAYS. CM RECEIVED CALL FROM [facility], THEY ARE NOT ABLE TO MEET PT'S CLINICAL NEEDS AT THIS TIME. PT HAS BEEN ACCEPTED FOR DIALYSIS AT [facility] IN [facility], 0930AM. PT CAN START AT [facility] OP DAILYSIS ON 11-26-18 AT 0900 AM. CM WAITING ADMISSION DETERMINATIONS FOR REHAB FROM [facility]. Eloy Casillas, CASE MANAGEMENT Appended by Eloy Casillas on 11/26/2018 12:06 DIRECTOR CAREER SERVICES: CM CALLED AND SPOKE TO JES OF [facility] IN [place], , DISCUSSED REHAB REFERRAL AND ASKED IF SHE WOULD BE ABLE TO TRANSPORT PT TO [place] FOR DIALYSIS ON TTS SCHEDULE. JES WILL REVIEW REFERRAL AND GET BACK WITH CM. CM FAXED REFERRAL TO [facility] AT [phone]. PT HAS BEEN ACCEPTED FOR DIALYSIS AT [facility] IN [place], [facility], 0930AM. PT CAN START AT [facility] OP DAILYSIS ON 11-26-18 AT 0900 AM. CM WAITING ADMISSION DETERMINATIONS FOR REHAB FROM [facility] AND [facility]. Eloy Casillas, CASE MANAGEMENT DCP- Discharge Planning Updated by [id number]: Eloy Casillas on 11/25/18 11:[address] Patient Name: RADHA SALGUERO Encounter No: [id number] : 1945 Primary Insurance: [employer] MEDICARE ADV Anticipated DC Date: Planned Disposition: Detention Facility External Planned Provider: FIRST ACCEPTING PENITENTIARY FACILITY FOR MEDICARE REHAB BED DCP follow-up note: CM SPOKE TO PT IN ROOM AND PROVIDED UPDATE THIS MORNING. CM INFORMED PT THAT HE WOULD BE DISCHARGING FROM THE HOSPITAL SOON OUTPATIENT DIALYSIS UNIT SCHEDULE IS OBTAINED. PT CONTINUES TO REPORT PLAN TO GO BACK TO HIS HOTEL ROOM IN [place] AND THEN BEGAN INSISTING TO KNOW WHY THE DOCTORS AT THE DIALYSIS UNITS WILL NOT ACCEPT HIM. CM EXPLAINED THAT PT WILL HAVE TO TALK TO THE DOCTORS HIMSELF AND CM WAS CONCERNED WITH FINDING AN ACCEPTING UNIT FOR OUTPATIENT DIALYSIS. PT ARGUED THAT THE DOCTORS HAVE NO REASON TO NOT ACCEPT HIM. CM EXPLAINED TO PT THAT HE CANNOT CHANGE THIS AND NEEDS TO CONCENTRATE ON DISCHARGE PLANNING AND LET THE [facility] COORDINATOR FIND A UNIT THAT WOULD ACCEPT. PT CONTINUED TO ARGUE REPORTING THE [place] UNIT HAD ACCEPTED HIM AND HAD NO REASON TO NOT TAKE HIM WHEN HE ARRIVED "HOME" IN [place]. CM EXPLAINED THAT THE UNIT NEVER ACCEPTED HIM, PT REPORTS THIS IS NOT TRUE. CM INFORMED PT THAT CM WILL NOT CONTINUE TO ARGUE THE POINT AND WOULD FOCUS ON DISCHARGE PLANNING. PT REPORTS PLAN TO RETURN TO HIS HOTEL ROOM IN [place] AND NEEDS A MWF DIALYSIS SCHEDULE TO USE MEDICAID TRANSPORTATION. CM DISCUSSED AVAILABILTY OF PENITENTIARY REHAB SERVICES PT'S THERAPY NOTES INDICATE PT IS NOT WALKING WELL. PT DECLINES AND STATES HE IS GOING HOME. CM RECEIVED CALL FROM KWAN OF [facility] WHO REPORTS THEY RECEIVED REFERRAL FOR HOME HEALTH REGARDING PT. KWAN ADVISED THAT THEY WILL NOT ACCEPT PT DOES NOT APPEAR TO BE APPROPRIATE AT THIS TIME FOR HOME HEALTH. CM SPOKE TO DR. SUN WHO INFORMED PT IS STABLE FOR DISCHARGE. CM FAXED REFERRAL TO [facility] AT [phone]. CM RECEIVED REQUEST FOR MORE INFORMATION (OUTPATIENT DIALYSIS UNIT, NEED FOR ANTIBIOTICS AT DISCHARE AND ISOLATION STATUS.) CM CALLED [facility], , SPOKE TO EZEKIEL, PROVIDED INFORMATION AND FAXED REFERRAL UPDATE TO [facility] AT [phone] CM FAXED REFERRAL UPDATE TO [facility]RISTOP[facility] AT [phone]. CM FAXED REFERRAL UPDATE TO [facility] AT [phone]. . PT HAS BEEN ACCEPTED FOR DIALYSIS AT [facility] IN [facility], 0930AM. PT CAN START AT [facility] OP DAILYSIS ON 11-26-18 AT 0900 AM. CM WAITING ADMISSION DETERMINATIONS FOR REHAB FROM [facility], [facility], [facility] AND [facility]. Eloy Casillas, CASE MANAGEMENT DCP- Discharge Planning Updated by [id number]: Eloy Casillas on 11/22/18 4:[address] Patient Name: RADHA SALGUERO Encounter No: [id number] : 1945 Primary Insurance: [employer] MEDICARE ADV Anticipated DC Date: Planned Disposition: Detention Facility External Planned Provider: FIRST ACCEPTING PENITENTIARY FACILITY FOR MEDICARE REHAB BED DCP follow-up note: CM SPOKE TO PT IN ROOM AND PROVIDED UPDATE THIS MORNING. CM INFORMED PT THAT HE WOULD BE DISCHARGING FROM THE HOSPITAL SOON OUTPATIENT DIALYSIS UNIT SCHEDULE IS OBTAINED. PT CONTINUES TO REPORT PLAN TO GO BACK TO HIS HOTEL ROOM IN [place] AND THEN BEGAN INSISTING TO KNOW WHY THE DOCTORS AT THE DIALYSIS UNITS WILL NOT ACCEPT HIM. CM EXPLAINED THAT PT WILL HAVE TO TALK TO THE DOCTORS HIMSELF AND CM WAS CONCERNED WITH FINDING AN ACCEPTING UNIT FOR OUTPATIENT DIALYSIS. PT ARGUED THAT THE DOCTORS HAVE NO REASON TO NOT ACCEPT HIM. CM EXPLAINED TO PT THAT HE CANNOT CHANGE THIS AND NEEDS TO CONCENTRATE ON DISCHARGE PLANNING AND LET THE [facility] COORDINATOR FIND A UNIT THAT WOULD ACCEPT. PT CONTINUED TO ARGUE REPORTING THE [place] UNIT HAD ACCEPTED HIM AND HAD NO REASON TO NOT TAKE HIM WHEN HE ARRIVED "HOME" IN [place]. CM EXPLAINED THAT THE UNIT NEVER ACCEPTED HIM, PT REPORTS THIS IS NOT TRUE. CM INFORMED PT THAT CM WILL NOT CONTINUE TO ARGUE THE POINT AND WOULD FOCUS ON DISCHARGE PLANNING. PT REPORTS PLAN TO RETURN TO HIS HOTEL ROOM IN [place] AND NEEDS A MWF DIALYSIS SCHEDULE TO USE MEDICAID TRANSPORTATION. CM DISCUSSED AVAILABILTY OF PENITENTIARY REHAB SERVICES PT'S THERAPY NOTES INDICATE PT IS NOT WALKING WELL. PT DECLINES AND STATES HE IS GOING HOME. CM RECEIVED CALL FROM KWAN OF [facility] WHO REPORTS THEY RECEIVED REFERRAL FOR HOME HEALTH REGARDING PT. [facility] ADVISED THAT THEY WILL NOT ACCEPT PT DOES NOT APPEAR TO BE APPROPRIATE AT THIS TIME FOR HOME HEALTH. CM SPOKE TO KAYLENE OF [facility], PT ACCEPTED FOR DIALYSIS AT [facility] IN [place], [facility], 0930AM. CM NOTIFIED PT AND PROVIDED PT A COPY OF HIS THERAPY NOTE FROM YESTERDAY THAT INDICATES PT WALKING 4 FEET WITH 35 % ASSISTANCE. CM INFORMED PT THAT IS NOT SAFE FOR HIM TO DISCHARGE HOME WITHOUT ASSISTANCE. PT REPORTS HAVING NO FAMILY OR FRIENDS TO ASSIST. PT STILL DECLINED PENITENTIARY FACILITY STATING HE LEFT ONE AND IS NOT GOING BACK. CM DISCUSSED HAVING A SAFE DISCHARGE PLAN AND IF PT INSISTED ON GOING HOME IN CURRENT CONDITION, CM WOULD CALL ADULT PROTECTIVE SERVICES. PT DOES NOT WANT TO BE INVOLVED WITH ADULT PROTECTIVE SERVICES AND WILL AGREE FOR REHAB PLACEMENT ONLY IN [place] IF POSSIBLE AND IF NOT, [place]. CHOICE LETTER SIGNED. BHAVANA SPOKE TO [facility] AND [facility]. NATHALY INFORMED CM THAT [place] [facility] WILL NOT TRANSPORT TO DIALYSIS IN [place], THAT [facility] CANNOT ACCOMODATE TTS SCHEDULE ADN [facility] WOULD NEED TO EVALUATE. CM FAXED REFERRAL TO [facility] AT [phone]. CM CALLED [facility], , SPOKE TO [facility] WHO WILL EVALUATE PT NEXT SUNDAY. CM FAXED REFERRAL TO [facility] AT [phone]. CM CALLED [facility], , SPOKE TO ENRIKE WHO WILL SCREEN FOR REHAB ADMISSION; CM FAXED REFERRAL TO [facility] AT [phone]. CM CALLED [facility], , SPOKE TO EZEKIEL WHO WILL SCREEN PT FOR ADMISSION, CM FAXED REFERRAL TO [facility] AT [phone]. PT HAS BEEN ACCEPTED FOR DIALYSIS AT [facility] IN [facility], 0930AM. PT CAN START AT [facility] OP DAILYSIS ON 11-26-18 AT 0900 AM. CM WAITING ADMISSION DETERMINATIONS FOR REHAB FROM [facility], [facility], [facility] AND [facility]. Eloy Casillas, CASE MANAGEMENT DCP- Discharge Planning Updated by [id number]: Eloy Casillas on 11/14/18 4:[address] Patient Name: RADHA SALGUERO Encounter No: [id number] : 1945 Primary Insurance: [employer] MEDICARE ADV Anticipated DC Date: Planned Disposition: Home DCP follow-up note: CM SPOKE TO DR. MATHIS REGARDING PT'S LIVING ARRAGEMENTS. CM SPOKE TO PT IN ROOM REGARDING LIVING IN HOTEL ROOM. PT REPORTS HE WAS LIVING IN A CORRECTION, DOES NOT WANT TO GO BACK TO ONE AND IS LIVING IN THE HOTEL UNTIL HE FINDS A PLACE THAT HE LIKES. CM DISCUSSED REHAB SERVICES HOME HEALTH AND MEDICAL EQUIPMENT. PT DENIES DISCHARGE NEEDS OTHER THAN NEEDING A DIALYSIS CLINIC. PT STILL UPSET THAT THE [place] [facility] WILL NOT ACCEPT HIM A PATIENT. PT REPORTS HE WILL BE STAYING IN [place] AND WILL FIND HIMSELF AN APARTMENT THERE. PT REPORTS USING MEDICAID TRANSPORT FOR MEDICAL APPOINTMENTS AND NEEDS A Sunday SCHEDULE IN ORDER TO USE MEDICAID TRANSPORT TO AND FROM DIALYSIS. PT REPORTS INABILITY TO GET TO [facility] ON WEEKENDS. KAYLENE OF [facility] NOTIFIED. CM WAITING ARRANGEMENT AND ACCEPTANCE AT OUTPATIENT DIALYSIS CLINIC; [facility] COORDINATOR IS WORKING ON THIS. CM TO CONTINUE TO FOLLOW AND ASSIST IF NEEDED. Eloy Casillas, CASE MANAGEMENT DCP- Discharge Planning Updated by [id number]: Sherri Walker on 11/14/18 2:[address] I HAVE BEEN IN COMMUNICATION WITH KAYLENE KIM, CLINICAL LIASON FOR [facility]. SHE HAS BEEN WORKING ON PLACEMENT FOR THE PATIENT. THIS PATIENT WAS IN A CORRECTION IN [place] AND RECEIVING DIALYSIS. HE KNEW HE WAS NOT ACCEPTED BY THE [place] [facility] BEFORE HE EVER MOVED TO [place], BUT CAME ANYWAY. KAYLENE HAD BEEN WORKING WITH THE [place] UNIT, AND THEY ARE STILL DENYING HIM PLACEMENT THERE. SHE STATED THAT HE HAS THE OPTION OF [place], [place], OR [place]. WHILE I WAS ON THE PHONE WITH KAYLENE, PHILOMENA WENT AND ASKED THE PATIENT AND HE SAID [facility], BUT IS INSISTENT THAT HE HAVE A -W- SCHEDULE. KAYLENE CALLED BACK AND STATED THAT BECAUSE DR SIMS HAS REFUSED THE PATIENT, THE [place] AND [place] UNITS HAVE ALSO DENIED THE PATIENT. THE ONLY OPTION IS FOR THE [place] UNIT AND THESE ARE THE SAME DOCTORS THAT CARED FOR HIM IN [place]. I WENT AND TALKED TO THE PATIENT AND HE STATED THAT THAT WOULD BE FINE. I HAVE LET KAYLENE KNOW THIS. I HAVE ALSO PASSED ONTO HER THAT PER DR AGUIRRE, THE PATIENT WAS GOING TO NEED 6 WEEKS OF VANCOMYCIN TO BE GIVEN IN DIALYSIS. SHE HAS STATED THAT THAT SHOULD NOT BE A PROBLEM ONCE HE IS ACCEPTED. ALSO DURING THIS TIME, JEFFERSON, PHYSICAL THERAPIST, CAME BY AND STATED THAT THE PATIENT WAS NOT STABLE ON THE CRUTCHES AND DID MUCH BETTER ON THE WALKER. HE RECOMMENDED THAT THE PATIENT GET A WALKER. I ALSO SPOKE WITH THE PATIENT AND HE STATED THAT HE HAS A WALKER AT THE [place] AND DOES NOT NEED ANOTHER ONE. HE STATED THAT THE THERAPIST CAME IN AND GOT HIM UP RIGHT AFTER DIALYSIS AND HE WAS WEEK. HE STATED THAT HE WILL DO BETTER TOMORROW. I HAVE EXPLAINED THAT WE SHOULD HAVE A WALKER THAT HE CAN BORROW DURING THERAPY IF NEEDED. DCP- Discharge Planning Updated by [id number]: Mallory Hawley on 11/11/18 2:[address] PATIENT HAD RECENTLY RETURNED FROM HD AND HAD EATEN HIS LUNCH. HE SAID HE WAS TIRED. SPOKE SLOWLY PATIENT STATES HE IS HARD OF HEARING BUT DID NOT WANT TO TURN DOWN THE VOLUME ON TV. LIV[facility] [place] STATES HE HAS NO BROTHERS, SISTERS OR CHILDREN. HE SAYS HE DOES HAVE COUSINS THAT LIVE IN [place]. STATES HE WILL HAVE TRANSPORTATION AT DISCHARGE FROM HIS FRIEND INDIRA DUNN. CONTACT PHONE NUMBER- [phone]. STATES HE IS TIRED THEREFORE CM STATED WILL REVISIT TO ASSIST WITH DISCHARGE. KAYLENE HELTON ON SITE AND HE STATES HE HAS SPOKEN WITH THE HD COORDINATOR. DCP- Discharge Planning Updated by [id number]: Mallory Hawley on 11/11/18 12:[address] PATIENT PRESENTLY IN HD. CM AWAITS HIS RETURN TO THE ROOM DCP- Discharge Planning Updated by [id number]: Mallory Hawley on 11/10/18 6:[address] CM TO FOLLOW FOR ASSESSMENT. APPARENTLY HE RECENTLY RELOCATED TO [place], [place]. HAS ORDERED HD SETUP FOR [facility]. TC TO KAYLENE HELTON. LEFT VOICE MAIL. PATIENT REPORTEDLY LIVING IN A HOTEL. QUESTION REGARDING HOUSING. CM TO FOLLOW. DCPIA - Discharge Planning Initial Assessment Updated by [id number]: Mallory Hawley on 11/11/18 3:04 pm * Is the patient Alert and Oriented? Yes * PCP DR RONN DURAN * Pharmacy [facility] IN [place] * Other Environment [facility] * ADLs Independent * List name and contact numbers for known caregivers / representatives who currently or will assist patient after discharge: INDIRA DUNN- FRIEND FOR TRANSPORTATION * Verbal permission to speak to the caregivers and representatives has been obtained from the patient. No * Community resources currently utilized Other * Please name any agencies selected above. [facility] [place] KAYLENE HELTON TRYING TO GET HD SET UP * Additional services required to return to the preadmission environment? Yes * Can the patient safely return to the preadmission environment? Yes Coverage Notice Reviewer: [id number] - Eloy Casillas Notice Issued Date-Time: 11/22/2018 11:50 Notice Type: Patient Choice Letter Notice Delivered To: Patient Relationship to Patient: Hearing Officer Name: Delivery Method: HAND - Hand Delivered Nguyen Days: Prior Verbal Notification: Recipient Understood Notice: Yes Recipient Signature: Yes Med Rec Note Co-signed by Attending: Coverage Notice Comment: [facility] IN [place] OR [place] FOR REHAB ONLY... Last DP export: 11/26/18 10:24 am Patient Name: RADHA SALGUERO Page [id number] at 1215 All edits/amendments must be made on the electronic document DICTATION DATE: 11/26/18 1214 FRANCHISE SALES MANAGER: DM 11/26/18 1214 RPT#: [id number] DC DATE: STATUS: ADM IN [facility] [address] [place] [address] END OF REPORT
[2018-11-26 13:11] VITALS: BP 159/72
--- NOTE | 2018-11-26 13:29 | NUR ---
Nutrition follow-up: Diet: Renal ADA PO intake ~67% average of last 9 meals Labs reviewed +BM Wt: 220# PO intake fair to good at most meals RDN following.
--- NOTE | 2018-11-26 13:55 | MORECARE ---
CASE MANAGEMENT DISCHARGE SUMMARY PATIENT: RADHA SALGUERO UNIT: [id number] ADM DATE: 11/08/18 AGE: 73 : 45 SEX: M ROOM/BED: D.2135 AUTHOR: ROSA,DOC PHYSICIAN: REFERRING PHYSICIAN: MALOU SUN MD DATE OF SERVICE: 11/26/18 Discharge Plan Patient Name: RADHA SALGUERO Facility: [facility] : 1945 Planned Disposition: Senior Living Facility Anticipated Discharge Date: Discharge Date: Expected LOS: Initial Reviewer: [id number] Initial Review Date: 11/08/2018 Generated: 11/26/18 2:54 pm Comments DCP- Discharge Planning Updated by [id number]: Eloy Casillas on 11/26/18 12:[address] Patient Name: RADHA SALGUERO Encounter No: [id number] : 1945 Primary Insurance: [employer] MED[employer]ARE ADV Anticipated DC Date: Planned Disposition: Senior Living Facility External Planned Provider: FIRST ACCEPTING [facility] FACILITY FOR MEDICARE REHAB BED DCP follow-up note: CM RECEIVED CALL FROM [facility], , THEY WERE WILLING TO ACCEPT BUT CALLED [facility] DIALYSIS AND PT COULD NOT BE CHANGED TO MWF DIALYSIS SCHEDULE FROM [facility]. [facility] CANNOT ACCEPT THEY HAVE NO TRANSPORT AVAILABLE FOR SUNDAY DIALYSIS. CM FAXED REFERRAL UPDATE TO [facility] VIA NATH[facility]Y AT [phone]. CM FAXED REFERRAL UPDATE TO [facility] AT [phone]. CM FAXED REFERRAL UPDATE TO [facility] AT [phone]. . PT HAS BEEN ACCEPTED FOR DIALYSIS AT [facility] IN [facility], 0930AM. PT CAN START AT [facility] OP DAILYSIS ON 11-26-18 AT 0900 AM. CM WAITING ADMISSION DETERMINATIONS FOR REHAB FROM [facility], [facility] AND [facility]. Eloy Casillas, CASE MANAGEMENT Appended by Eloy Casillas on 11/26/2018 11:05 AG SERVICE MANAGER: CM RECEIVED CALL FROM [facility] WHO REPORTS THEY WILL NOT ACCEPT PT DUE TO PRIOR NON COMPLIANCE IN PREVIOUS LONGTERM PLACEMENT IN [place] AND THEY CANNOT TRANSPORT TO DIALYSIS ON SATURDAYS. CM RECEIVED CALL FROM [facility], THEY ARE NOT ABLE TO MEET PT'S CLINICAL NEEDS AT THIS TIME. PT HAS BEEN ACCEPTED FOR DIALYSIS AT [facility] IN [facility], 0930AM. PT CAN START AT [facility] OP DAILYSIS ON 11-26-18 AT 0900 AM. CM WAITING ADMISSION DETERMINATIONS FOR REHAB FROM [facility]. Eloy Casillas, CASE MANAGEMENT Appended by Eloy Casillas on 11/26/2018 12:06 AG SERVICE MANAGER: CM CALLED AND SPOKE TO JES OF [facility] IN [place], , DISCUSSED REHAB REFERRAL AND ASKED IF SHE WOULD BE ABLE TO TRANSPORT PT TO [place] FOR DIALYSIS ON TTS SCHEDULE. JES WILL REVIEW REFERRAL AND GET BACK WITH CM. CM FAXED REFERRAL TO [facility] AT [phone]. PT HAS BEEN ACCEPTED FOR DIALYSIS AT [facility] IN [facility], 0930AM. PT CAN START AT [facility] OP DAILYSIS ON 11-26-18 AT 0900 AM. CM WAITING ADMISSION DETERMINATIONS FOR REHAB FROM [facility] AND [facility]. Eloy Casillas, CASE MANAGEMENT Appended by Eloy Casillas on 11/26/2018 13:48 AG SERVICE MANAGER: CM RECEIVED CALL FROM [facility], THEY WILL NOT ACCEPT PT. CM RECEIVED CALL FROM [facility] WHO REQUESTED REFERRAL BE FAXED TO ALTERNATE NUMBER FAX IS NOT WORKING ON THE MAIN LINE. CM FAXED REFERRAL TO [facility] AT [phone]. PT HAS BEEN ACCEPTED FOR DIALYSIS AT [facility] IN [facility], 0930AM. PT CAN START AT [facility] OP DAILYSIS ON 11-26-18 AT 0900 AM. CM WAITING ADMISSION DETERMINATION FOR REHAB FROM [facility]. Eloy Casillas, CASE MANAGEMENT DCP- Discharge Planning Updated by [id number]: Eloy Casillas on 11/25/18 11:[address] Patient Name: RADHA SALGUERO Encounter No: [id number] : 1945 Primary Insurance: WELL[employer] MEDICARE ADV Anticipated DC Date: Planned Disposition: Senior Living Facility External Planned Provider: FIRST ACCEPTING [facility] FACILITY FOR MEDICARE REHAB BED DCP follow-up note: CM SPOKE TO PT IN ROOM AND PROVIDED UPDATE THIS MORNING. CM INFORMED PT THAT HE WOULD BE DISCHARGING FROM THE HOSPITAL SOON OUTPATIENT DIALYSIS UNIT SCHEDULE IS OBTAINED. PT CONTINUES TO REPORT PLAN TO GO BACK TO HIS HOTEL ROOM IN [place] AND THEN BEGAN INSISTING TO KNOW WHY THE DOCTORS AT THE DIALYSIS UNITS WILL NOT ACCEPT HIM. CM EXPLAINED THAT PT WILL HAVE TO TALK TO THE DOCTORS HIMSELF AND CM WAS CONCERNED WITH FINDING AN ACCEPTING UNIT FOR OUTPATIENT DIALYSIS. PT ARGUED THAT THE DOCTORS HAVE NO REASON TO NOT ACCEPT HIM. CM EXPLAINED TO PT THAT HE CANNOT CHANGE THIS AND NEEDS TO CONCENTRATE ON DISCHARGE PLANNING AND LET THE [facility] COORDINATOR FIND A UNIT THAT WOULD ACCEPT. PT CONTINUED TO ARGUE REPORTING THE [place] UNIT HAD ACCEPTED HIM AND HAD NO REASON TO NOT TAKE HIM WHEN HE ARRIVED "HOME" IN [place]. CM EXPLAINED THAT THE UNIT NEVER ACCEPTED HIM, PT REPORTS THIS IS NOT TRUE. CM INFORMED PT THAT CM WILL NOT CONTINUE TO ARGUE THE POINT AND WOULD FOCUS ON DISCHARGE PLANNING. PT REPORTS PLAN TO RETURN TO HIS HOTEL ROOM IN [place] AND NEEDS A MWF DIALYSIS SCHEDULE TO USE MEDICAID TRANSPORTATION. CM DISCUSSED AVAILABILTY OF FPC REHAB SERVICES PT'S THERAPY NOTES INDICATE PT IS NOT WALKING WELL. PT DECLINES AND STATES HE IS GOING HOME. BHAVANA RECEIVED CALL FROM KWAN OF [facility] WHO REPORTS THEY RECEIVED REFERRAL FOR HOME HEALTH REGARDING PT. KWAN ADVISED THAT THEY WILL NOT ACCEPT PT DOES NOT APPEAR TO BE APPROPRIATE AT THIS TIME FOR HOME HEALTH. BHAVANA SPOKE TO DR. SUN WHO INFORMED PT IS STABLE FOR DISCHARGE. CM FAXED REFERRAL TO [facility]IA [facility] AT [phone]. CM RECEIVED REQUEST FOR MORE INFORMATION (OUTPATIENT DIALYSIS UNIT, NEED FOR ANTIBIOTICS AT DISCHARE AND ISOLATION STATUS.) CM CALLED [facility], , SPOKE TO EZEKIEL, PROVIDED INFORMATION AND FAXED REFERRAL UPDATE TO [facility] AT [phone] CM FAXED REFERRAL UPDATE TO [facility] AT [phone]. CM FAXED REFERRAL UPDATE TO [facility] AT [phone]. . PT HAS BEEN ACCEPTED FOR DIALYSIS AT [facility] IN [place], [facility], 0930AM. PT CAN START AT [facility] OP DAILYSIS ON 11-26-18 AT 0900 AM. CM WAITING ADMISSION DETERMINATIONS FOR REHAB FROM [facility], [facility], [facility] AND [facility]. Eloy Casillas, CASE MANAGEMENT DCP- Discharge Planning Updated by [id number]: Eloy Casillas on 11/22/18 4:[address] Patient Name: RADHA SALGUERO Encounter No: [id number] : 1945 Primary Insurance: WE[employer] MEDICARE ADV Anticipated DC Date: Planned Disposition: Senior Living Facility External Planned Provider: FIRST ACCEPTING [facility] FACILITY FOR MEDICARE REHAB BED DCP follow-up note: CM SPOKE TO PT IN ROOM AND PROVIDED UPDATE THIS MORNING. CM INFORMED PT THAT HE WOULD BE DISCHARGING FROM THE HOSPITAL SOON OUTPATIENT DIALYSIS UNIT SCHEDULE IS OBTAINED. PT CONTINUES TO REPORT PLAN TO GO BACK TO HIS HOTEL ROOM IN [place] AND THEN BEGAN INSISTING TO KNOW WHY THE DOCTORS AT THE DIALYSIS UNITS WILL NOT ACCEPT HIM. CM EXPLAINED THAT PT WILL HAVE TO TALK TO THE DOCTORS HIMSELF AND CM WAS CONCERNED WITH FINDING AN ACCEPTING UNIT FOR OUTPATIENT DIALYSIS. PT ARGUED THAT THE DOCTORS HAVE NO REASON TO NOT ACCEPT HIM. CM EXPLAINED TO PT THAT HE CANNOT CHANGE THIS AND NEEDS TO CONCENTRATE ON DISCHARGE PLANNING AND LET THE [facility] COORDINATOR FIND A UNIT THAT WOULD ACCEPT. PT CONTINUED TO ARGUE REPORTING THE [place] UNIT HAD ACCEPTED HIM AND HAD NO REASON TO NOT TAKE HIM WHEN HE ARRIVED "HOME" IN [place]. CM EXPLAINED THAT THE UNIT NEVER ACCEPTED HIM, PT REPORTS THIS IS NOT TRUE. CM INFORMED PT THAT CM WILL NOT CONTINUE TO ARGUE THE POINT AND WOULD FOCUS ON DISCHARGE PLANNING. PT REPORTS PLAN TO RETURN TO HIS HOTEL ROOM IN [place] AND NEEDS A MWF DIALYSIS SCHEDULE TO USE MEDICAID TRANSPORTATION. CM DISCUSSED AVAILABILTY OF [facility] REHAB SERVICES PT'S THERAPY NOTES INDICATE PT IS NOT WALKING WELL. PT DECLINES AND STATES HE IS GOING HOME. CM RECEIVED CALL FROM KWAN OF [facility] WHO REPORTS THEY RECEIVED REFERRAL FOR HOME HEALTH REGARDING PT. [facility] ADVISED THAT THEY WILL NOT ACCEPT PT DOES NOT APPEAR TO BE APPROPRIATE AT THIS TIME FOR HOME HEALTH. BHAVANA SPOKE TO KAYLENE OF [facility], PT ACCEPTED FOR DIALYSIS AT [facility] IN [facility], 0930AM. CM NOTIFIED PT AND PROVIDED PT A COPY OF HIS THERAPY NOTE FROM YESTERDAY THAT INDICATES PT WALKING 4 FEET WITH 35 % ASSISTANCE. CM INFORMED PT THAT IS NOT SAFE FOR HIM TO DISCHARGE HOME WITHOUT ASSISTANCE. PT REPORTS HAVING NO FAMILY OR FRIENDS TO ASSIST. PT STILL DECLINED FPC FACILITY STATING HE LEFT ONE AND IS NOT GOING BACK. CM DISCUSSED HAVING A SAFE DISCHARGE PLAN AND IF PT INSISTED ON GOING HOME IN CURRENT CONDITION, CM WOULD CALL ADULT PROTECTIVE SERVICES. PT DOES NOT WANT TO BE INVOLVED WITH ADULT PROTECTIVE SERVICES AND WILL AGREE FOR REHAB PLACEMENT ONLY IN [place] IF POSSIBLE AND IF NOT, [place]. CHOICE LETTER SIGNED. CM SPOKE TO NATHALY OLIVAREZ [facility] AND [facility]. NATHALY INFORMED CM THAT [place] [facility] WILL NOT TRANSPORT TO DIALYSIS IN [place], THAT [facility] CANNOT ACCOMODATE TTS SCHEDULE ADN [facility] WOULD NEED TO EVALUATE. CM FAXED REFERRAL TO [facility] AT [phone]. CM CALLED [facility], , SPOKE TO SANTA WHO WILL EVALUATE PT NEXT SUNDAY. CM FAXED REFERRAL TO [facility] AT [phone]. CM CALLED [facility], , SPOKE TO ENRIKE WHO WILL SCREEN FOR REHAB ADMISSION; CM FAXED REFERRAL TO [facility] AT [phone]. CM CALLED [facility], , SPOKE TO EZEKIEL WHO WILL SCREEN PT FOR ADMISSION, CM FAXED REFERRAL TO [facility] AT [phone]. PT HAS BEEN ACCEPTED FOR DIALYSIS AT [facility] IN [place], [facility], 0930AM. PT CAN START AT [facility] OP DAILYSIS ON 11-26-18 AT 0900 AM. CM WAITING ADMISSION DETERMINATIONS FOR REHAB FROM [facility], [facility], [facility] AND [facility]. Eloy Casillas, CASE MANAGEMENT DCP- Discharge Planning Updated by [id number]: Eloy Casillas on 11/14/18 4:[address] Patient Name: RADHA SALGUERO Encounter No: [id number] : 1945 Primary Insurance: WE[employer] MEDICARE ADV Anticipated DC Date: Planned Disposition: Home DCP follow-up note: CM SPOKE TO DR. MATHIS REGARDING PT'S LIVING ARRAGEMENTS. CM SPOKE TO PT IN ROOM REGARDING LIVING IN HOTEL ROOM. PT REPORTS HE WAS LIVING IN A LONGTERM, DOES NOT WANT TO GO BACK TO ONE AND IS LIVING IN THE HOTEL UNTIL HE FINDS A PLACE THAT HE LIKES. CM DISCUSSED REHAB SERVICES HOME HEALTH AND MEDICAL EQUIPMENT. PT DENIES DISCHARGE NEEDS OTHER THAN NEEDING A DIALYSIS CLINIC. PT STILL UPSET THAT THE [place] [facility] CLINIC WILL NOT ACCEPT HIM A PATIENT. PT REPORTS HE WILL BE STAYING IN [place] AND WILL FIND HIMSELF AN APARTMENT THERE. PT REPORTS USING MEDICAID TRANSPORT FOR MEDICAL APPOINTMENTS AND NEEDS A Sunday SCHEDULE IN ORDER TO USE MEDICAID TRANSPORT TO AND FROM DIALYSIS. PT REPORTS INABILITY TO GET TO DILAYSIS ON WEEKENDS. KAYLENE OF [facility] NOTIFIED. CM WAITING ARRANGEMENT AND ACCEPTANCE AT OUTPATIENT DIALYSIS CLINIC; [facility] COORDINATOR IS WORKING ON THIS. CM TO CONTINUE TO FOLLOW AND ASSIST IF NEEDED. Eloy Casillas, CASE MANAGEMENT DCP- Discharge Planning Updated by [id number]: Sherri Aaron on 11/14/18 2:[address] I HAVE BEEN IN COMMUNICATION WITH KAYLENE KIM, CLINICAL [facility]ON FOR [facility]. SHE HAS BEEN WORKING ON PLACEMENT FOR THE PATIENT. THIS PATIENT WAS IN A LONGTERM IN [place] AND RECEIVING DIALYSIS. HE KNEW HE WAS NOT ACCEPTED BY THE [place] DIALYSIS BEFORE HE EVER MOVED TO [place], BUT CAME ANYWAY. KAYLENE HAD BEEN [facility]ING [facility], AND THEY ARE STILL DENYING HIM PLACEMENT THERE. SHE STATED THAT HE HAS THE OPTION OF [place], [place], OR [place]. WHILE I WAS ON THE PHONE WITH KAYLENE, PHILOMENA WENT AND ASKED THE PATIENT AND HE SAID [facility], BUT IS INSISTENT THAT HE HAVE A M-W-F SCHEDULE. KAYLENE CALLED BACK AND STATED THAT BECAUSE DR SIMS HAS REFUSED THE PATIENT, THE [place] AND [place] UNITS HAVE ALSO DENIED THE PATIENT. THE ONLY OPTION IS FOR THE [place] UNIT AND THESE ARE THE SAME DOCTORS THAT CARED FOR HIM IN [place]. I WENT AND TALKED TO THE PATIENT AND HE STATED THAT THAT WOULD BE FINE. I HAVE LET KAYLENE KNOW THIS. I HAVE ALSO PASSED ONTO HER THAT PER DR AGUIRRE, THE PATIENT WAS GOING TO NEED 6 WEEKS OF VANCOMYCIN TO BE GIVEN IN DIALYSIS. SHE HAS STATED THAT THAT SHOULD NOT BE A PROBLEM ONCE HE IS ACCEPTED. ALSO DURING THIS TIME, JEFFERSON, PHYSICAL THERAPIST, CAME BY AND STATED THAT THE PATIENT WAS NOT STABLE ON THE CRUTCHES AND DID MUCH BETTER ON THE WALKER. HE RECOMMENDED THAT THE PATIENT GET A WALKER. I ALSO SPOKE WITH THE PATIENT AND HE STATED THAT HE HAS A WALKER AT THE HOTEL AND DOES NOT NEED ANOTHER ONE. HE STATED THAT THE THERAPIST CAME IN AND GOT HIM UP RIGHT AFTER DIALYSIS AND HE WAS WEEK. HE STATED THAT HE WILL DO BETTER TOMORROW. I HAVE EXPLAINED THAT WE SHOULD HAVE A WALKER THAT HE CAN BORROW DURING THERAPY IF NEEDED. DCP- Discharge Planning Updated by [id number]: Mallory Alfalfa on 11/11/18 2:[address] PATIENT HAD RECENTLY RETURNED FROM HD AND HAD EATEN HIS LUNCH. HE SAID HE WAS TIRED. SPOKE SLOWLY PATIENT STATES HE IS HARD OF HEARING BUT DID NOT WANT TO TURN DOWN THE VOLUME ON TV. [facility] IN [place], [place]. STATES HE HAS NO BROTHERS, SISTERS OR CHILDREN. HE SAYS HE DOES HAVE COUSINS THAT LIVE IN [place]. STATES HE WILL HAVE TRANSPORTATION AT DISCHARGE FROM HIS FRIEND INDIRA DUNN. CONTACT PHONE NUMBER- [phone]. STATES HE IS TIRED THEREFORE CM STATED WILL REVISIT TO ASSIST WITH DISCHARGE. KAYLENE HELTON ON SITE AND HE STATES HE HAS SPOKEN WITH THE HD COORDINATOR. DCP- Discharge Planning Updated by [id number]: Mallory Alfalfa on 11/11/18 12:[address] PATIENT PRESENTLY IN HD. CM AWAITS HIS RETURN TO THE ROOM DCP- Discharge Planning Updated by [id number]: Mallory Alfalfa on 11/10/18 6:[address] CM TO FOLLOW FOR ASSESSMENT. APPARENTLY HE RECENTLY RELOCATED TO [place], [place]. HAS ORDERED HD SETUP FOR [facility]. TC TO KAYLENE HELTON. LEFT VOICE MAIL. PATIENT REPORTEDLY LIVING IN A HOTEL. QUESTION REGARDING HOUSING. CM TO FOLLOW. DCPIA - Discharge Planning Initial Assessment Updated by [id number]: Mallory Alfalfa on 11/11/18 3:04 pm * Is the patient Alert and Oriented? Yes * PCP DR RONN DURAN * Pharmacy [facility] IN [place] * Other Environment [facility] * ADLs Independent * List name and contact numbers for known caregivers / representatives who currently or will assist patient after discharge: INDIRA DUNN- FRIEND FOR TRANSPORTATION * Verbal permission to speak to the caregivers and representatives has been obtained from the patient. No * Community resources currently utilized Other * Please name any agencies selected above. [facility] IN [place], [place] KAYLENE HELTON TRYING TO GET HD SET UP * Additional services required to return to the preadmission environment? Yes * Can the patient safely return to the preadmission environment? Yes Coverage Notice Reviewer: [id number] - Eloy Casillas Notice Issued Date-Time: 11/22/2018 11:50 Notice Type: Patient Choice Letter Notice Delivered To: Patient Relationship to Patient: Manager Editorial Name: Delivery Method: HAND - Hand Delivered Nguyen Days: Prior Verbal Notification: Recipient Understood Notice: Yes Recipient Signature: Yes Med Rec Note Co-signed by Attending: Coverage Notice Comment: SNF IN [place] OR [place] FOR REHAB ONLY... Last DP export: 11/26/18 11:14 am Patient Name: RADHA SALGUERO Page [phone] at 1355 All edits/amendments must be made on the electronic document DICTATION DATE: 11/26/18 1354 FIELD ATTENDANT: JEANMARIE 11/26/18 1354 RPT#: [id number] DC DATE: STATUS: ADM IN [facility] [address] [place] [address] END OF REPORT
--- NOTE | 2018-11-26 17:09 | MORECARE ---
CASE MANAGEMENT DISCHARGE SUMMARY PATIENT: RADHA SALGUERO UNIT: [id number] ADM DATE: 11/08/18 AGE: 73 : 45 SEX: M ROOM/BED: D.2135 AUTHOR: ROSA,DOC PHYSICIAN: REFERRING PHYSICIAN: MALOU SUN MD DATE OF SERVICE: 11/26/18 Discharge Plan Patient Name: RADHA SALGUERO Facility: [facility]:[place] : 1945 Planned Disposition: [facility] Facility Anticipated Discharge Date: Discharge Date: Expected LOS: Initial Reviewer: [id number] Initial Review Date: 11/08/2018 Generated: 11/26/18 6:09 pm Comments DCP- Discharge Planning Updated by [id number]: Eloy Casillas on 11/26/18 12:[address] Patient Name: RADHA SALGUERO Encounter No: [id number] : 1945 Primary Insurance: [employer] MEDICARE ADV Anticipated DC Date: Planned Disposition: [facility] Facility External Planned Provider: FIRST ACC[facility]ING [facility] FAC[facility] FOR MEDICARE REHAB BED DCP follow-up note: CM RECEIVED CALL FROM [facility], , THEY WERE WILLING TO ACCEPT BUT CALLED [facility] DIALYSIS AND PT COULD NOT BE CHANGED TO MWF DIALYSIS SCHEDULE FROM [facility]. [facility] CANNOT ACCEPT THEY HAVE NO TRANSPORT AVAILABLE FOR SUNDAY DIALYSIS. CM FAXED REFERRAL UPDATE TO [facility] VIA NATHALY AT [phone]. CM FAXED REFERRAL UPDATE TO MELISSA CHRISTOPHER AT [phone]. CM FAXED REFERRAL UPDATE TO [facility] AT [phone]. . PT HAS BEEN ACCEPTED FOR DIALYSIS AT [facility] 0930[facility]. PT CAN START AT [facility] OP DAILYSIS ON 11-26-18 AT 0900 AM. CM WAITING ADMISSION DETERMINATIONS FOR REHAB FROM [facility], [facility] AND [facility]. Eloy Casillas, CASE MANAGEMENT Appended by Eloy Casillas on 11/26/2018 11:05 ACCOUNTING CLERKS SUPERVISOR: CM [facility] WHO REPORTS [facility] WILL NOT ACCEPT PT DUE TO PRIOR NON COMPLIANCE IN PREVIOUS SHELTER PLACEMENT IN [place] AND THEY CANNOT TRANSPORT TO DIALYSIS ON SATURDAYS. CM RECEIVED CALL FROM [facility], THEY ARE NOT ABLE TO MEET PT'S CLINICAL NEEDS AT THIS TIME. PT HAS BEEN ACCEPTED FOR DIALYSIS AT [facility] 0930[facility]. PT CAN START AT [facility] OP DAILYSIS ON 11-26-18 AT 0900 AM. CM WAITING ADMISSION DETERMINATIONS FOR REHAB FROM [facility]. Eloy Casillas, CASE MANAGEMENT Appended by Eloy Casillas on 11/26/2018 12:06 ACCOUNTING CLERKS SUPERVISOR: CM CALLED AND SPOKE TO JES OF [facility] IN [place], , DISCUSSED REHAB REFERRAL AND ASKED IF SHE WOULD BE ABLE TO TRANSPORT PT TO [place] FOR DIALYSIS ON TTS SCHEDULE. JES WILL REVIEW REFERRAL AND GET BACK WITH CM. CM FAXED REFERRAL TO [place] AT [phone]. PT HAS BEEN ACCEPTED FOR DIALYSIS AT [facility] 0930AM. PT CAN START AT [facility] OP DAILYSIS ON 11-26-18 AT 0900 AM. CM WAITING ADMISSION DETERMINATIONS FOR REHAB FROM [facility] AND [place]. Eloy Casillas, CASE MANAGEMENT Appended by Eloy Casillas on 11/26/2018 13:48 ACCOUNTING CLERKS SUPERVISOR: CM RECEIVED CALL FROM [facility], THEY WILL NOT ACCEPT PT. CM RECEIVED CALL FROM [facility] WHO REQUESTED REFERRAL BE FAXED TO ALTERNATE NUMBER FAX IS NOT WORKING ON THE MAIN LINE. CM FAXED REFERRAL TO [place] AT [phone]. PT HAS BEEN ACCEPTED FOR DIALYSIS AT [facility], 0930AM. PT CAN START AT [facility] OP DAILYSIS ON 11-26-18 AT 0900 AM. CM WAITING ADMISSION DETERMINATION FOR REHAB FROM [facility]. Eloy Casillas, CASE MANAGEMENT DCP- Discharge Planning Updated by [id number]: Eloy Casillas on 11/25/18 11:[address] Patient Name: RADHA SALGUERO Encounter No: [id number] : 1945 Primary Insurance: WELLCARE MEDICARE ADV Anticipated DC Date: Planned Disposition: [facility] Facility External Planned Provider: [facility] FACILITY FOR MEDICARE REHAB BED DCP follow-up note: CM SPOKE TO PT IN ROOM AND PROVIDED UPDATE THIS MORNING. CM INFORMED PT THAT HE WOULD BE DISCHARGING FROM THE HOSPITAL SOON OUTPATIENT DIALYSIS UNIT SCHEDULE IS OBTAINED. PT CONTINUES TO REPORT PLAN TO GO BACK TO HIS HOTEL ROOM IN [place] AND THEN BEGAN INSISTING TO KNOW WHY THE DOCTORS AT THE DIALYSIS UNITS WILL NOT ACCEPT HIM. CM EXPLAINED THAT PT WILL HAVE TO TALK TO THE DOCTORS HIMSELF AND CM WAS CONCERNED WITH FINDING AN ACCEPTING UNIT FOR OUTPATIENT DIALYSIS. PT ARGUED THAT THE DOCTORS HAVE NO REASON TO NOT ACCEPT HIM. CM EXPLAINED TO PT THAT HE CANNOT CHANGE THIS AND NEEDS TO CONCENTRATE ON DISCHARGE PLANNING AND LET THE [facility] COORDINATOR FIND A UNIT THAT WOULD ACCEPT. PT CONTINUED TO ARGUE REPORTING THE [place] UNIT HAD ACCEPTED HIM AND HAD NO REASON TO NOT TAKE HIM WHEN HE ARRIVED "HOME" IN [place]. CM EXPLAINED THAT THE UNIT NEVER ACCEPTED HIM, PT REPORTS THIS IS NOT TRUE. CM INFORMED PT THAT CM WILL NOT CONTINUE TO ARGUE THE POINT AND WOULD FOCUS ON DISCHARGE PLANNING. PT REPORTS PLAN TO RETURN TO HIS HOTEL ROOM IN [place] AND NEEDS A MWF DIALYSIS SCHEDULE TO USE MEDICAID TRANSPORTATION. CM DISCUSSED AVAILABILTY OF [facility] REHAB SERVICES PT'S THERAPY NOTES INDICATE PT IS NOT WALKING WELL. PT DECLINES AND STATES HE IS GOING HOME. BHAVANA RECEIVED CALL FROM KWAN OF [facility] WHO REPORTS THEY RECEIVED REFERRAL FOR HOME HEALTH REGARDING PT. KWAN ADVISED THAT THEY WILL NOT ACCEPT PT DOES NOT APPEAR TO BE APPROPRIATE AT THIS TIME FOR HOME HEALTH. BHAVANA SPOKE TO DR. SUN WHO INFORMED PT IS STABLE FOR DISCHARGE. CM FAXED REFERRAL TO [facility]IA NATHALY AT [phone]. CM RECEIVED REQUEST FOR MORE INFORMATION (OUTPATIENT DIALYSIS UNIT, NEED FOR ANTIBIOTICS AT DISCHARE AND ISOLATION STATUS.) CM CALLED [facility], , SPOKE TO EZEKIEL, PROVIDED INFORMATION AND FAXED REFERRAL UPDATE TO [facility] AT [phone] CM FAXED REFERRAL UPDATE TO [facility] CHRISTOP[facility] AT [phone]. CM FAXED REFERRAL UPDATE TO [facility] AT [phone]. . PT HAS BEEN ACCEPTED FOR DIALYSIS AT [facility] IN [place], [facility], 0930AM. PT CAN START AT [facility] OP DAILYSIS ON 11-26-18 AT 0900 AM. CM WAITING ADMISSION DETERMINATIONS FOR REHAB FROM [facility], [facility], [facility] AND [facility]. Eloy Casillas, CASE MANAGEMENT DCP- Discharge Planning Updated by [id number]: Eloy Casillas on 11/22/18 4:[address] Patient Name: RADHA SALGUERO Encounter No: [id number] : 1945 Primary Insurance: WELLCARE MEDICARE ADV Anticipated DC Date: Planned Disposition: [facility] Facility External Planned Provider: [facility] FACILITY FOR MEDICARE REHAB BED DCP follow-up note: CM SPOKE TO PT IN ROOM AND PROVIDED UPDATE THIS MORNING. CM INFORMED PT THAT HE WOULD BE DISCHARGING FROM THE HOSPITAL SOON OUTPATIENT DIALYSIS UNIT SCHEDULE IS OBTAINED. PT CONTINUES TO REPORT PLAN TO GO BACK TO HIS HOTEL ROOM IN [place] AND THEN BEGAN INSISTING TO KNOW WHY THE DOCTORS AT THE DIALYSIS UNITS WILL NOT ACCEPT HIM. CM EXPLAINED THAT PT WILL HAVE TO TALK TO THE DOCTORS HIMSELF AND CM WAS CONCERNED WITH FINDING AN ACCEPTING UNIT FOR OUTPATIENT DIALYSIS. PT ARGUED THAT THE DOCTORS HAVE NO REASON TO NOT ACCEPT HIM. CM EXPLAINED TO PT THAT HE CANNOT CHANGE THIS AND NEEDS TO CONCENTRATE ON DISCHARGE PLANNING AND LET THE [facility] COORDINATOR FIND A UNIT THAT WOULD ACCEPT. PT CONTINUED TO ARGUE REPORTING THE [place] UNIT HAD ACCEPTED HIM AND HAD NO REASON TO NOT TAKE HIM WHEN HE ARRIVED "HOME" IN [place]. CM EXPLAINED THAT THE UNIT NEVER ACCEPTED HIM, PT REPORTS THIS IS NOT TRUE. CM INFORMED PT THAT CM WILL NOT CONTINUE TO ARGUE THE POINT AND WOULD FOCUS ON DISCHARGE PLANNING. PT REPORTS PLAN TO RETURN TO HIS HOTEL ROOM IN [place] AND NEEDS A MWF DIALYSIS SCHEDULE TO USE MEDICAID TRANSPORTATION. CM DISCUSSED AVAILABILTY OF [facility] PT'S THERAPY NOTES INDICATE PT IS NOT WALKING WELL. PT DECLINES AND STATES HE IS GOING HOME. CM RECEIVED CALL FROM KWAN OF [facility] WHO REPORTS THEY RECEIVED REFERRAL FOR HOME HEALTH REGARDING PT. KWAN ADVISED THAT THEY WILL NOT ACCEPT PT DOES NOT APPEAR TO BE APPROPRIATE AT THIS TIME FOR HOME HEALTH. BHAVANA SPOKE TO KAYLENE OF [facility], PT ACCEPTED FOR DIALYSIS AT [facility] 0930AM. CM NOTIFIED PT AND PROVIDED PT A COPY OF HIS THERAPY NOTE FROM YESTERDAY THAT INDICATES PT WALKING 4 FEET WITH 35 % ASSISTANCE. CM INFORMED PT THAT IS NOT SAFE FOR HIM TO DISCHARGE HOME WITHOUT ASSISTANCE. PT REPORTS HAVING NO FAMILY OR FRIENDS TO ASSIST. PT STILL DECLINED [facility] FACILITY STATING HE LEFT ONE AND IS NOT GOING BACK. CM DISCUSSED HAVING A SAFE DISCHARGE PLAN AND IF PT INSISTED ON GOING HOME IN CURRENT CONDITION, CM WOULD CALL ADULT PROTECTIVE SERVICES. PT DOES NOT WANT TO BE INVOLVED WITH ADULT PROTECTIVE SERVICES AND WILL AGREE FOR REHAB PLACEMENT ONLY IN [place] IF POSSIBLE AND IF NOT, [place]. CHOICE LETTER SIGNED. CM SPOKE TO NATHALY OLIVAREZ [facility] AND [facility]. NATHALY INFORMED CM THAT [place] [facility] WILL NOT TRANSPORT TO DIALYSIS IN [place], THAT [facility] CANNOT ACCOMODATE TTS SCHEDULE ADN [facility] WOULD NEED TO EVALUATE. CM FAXED REFERRAL TO N[facility] AT [phone]. CM CALLED [facility], , SPOKE TO SANTA WHO WILL EVALUATE PT NEXT SUNDAY. CM FAXED REFERRAL TO [facility] AT [phone]. CM CALLED [facility], , SPOKE TO [facility]RI[facility] WHO WILL SCREEN FOR REHAB ADMISSION; CM FAXED REFERRAL TO [facility] AT [phone]. CM CALLED [facility], , SPOKE TO EZEKIEL WHO WILL SCREEN PT FOR ADMISSION, CM FAXED REFERRAL TO [facility] AT [phone]. PT HAS BEEN ACCEPTED FOR DIALYSIS AT [facility] IN [place], [facility], 0930AM. PT CAN START AT [facility] OP DAILYSIS ON 11-26-18 AT 0900 AM. CM WAITING ADMISSION DETERMINATIONS FOR REHAB FROM [facility], [facility], [facility] AND [facility]. Eloy Casillas, CASE MANAGEMENT DCP- Discharge Planning Updated by [id number]: Eloy Casillas on 11/14/18 4:[address] Patient Name: RADHA SALGUERO Encounter No: [id number] : 1945 Primary Insurance: WELLCARE MEDICARE ADV Anticipated DC Date: Planned Disposition: Home DCP follow-up note: CM SPOKE TO DR. MATHIS REGARDING PT'S LIVING ARRAGEMENTS. CM SPOKE TO PT IN ROOM REGARDING LIVING IN HOTEL ROOM. PT REPORTS HE WAS LIVING IN A SHELTER, DOES NOT WANT TO GO BACK TO ONE AND IS LIVING IN THE HOTEL UNTIL HE FINDS A PLACE THAT HE LIKES. CM DISCUSSED REHAB SERVICES HOME HEALTH AND MEDICAL EQUIPMENT. PT DENIES DISCHARGE NEEDS OTHER THAN NEEDING A DIALYSIS CLINIC. PT STILL UPSET THAT THE [place] [facility] WILL NOT ACCEPT HIM A PATIENT. PT REPORTS HE WILL BE STAYING IN [place] AND WILL FIND HIMSELF AN APARTMENT THERE. PT REPORTS USING MEDICAID TRANSPORT FOR MEDICAL APPOINTMENTS AND NEEDS A Sunday SCHEDULE IN ORDER TO USE MEDICAID TRANSPORT TO AND FROM DIALYSIS. PT REPORTS INABILITY TO GET TO DILAYSIS ON WEEKENDS. KAYLENE OF [facility] NOTIFIED. CM WAITING ARRANGEMENT AND ACCEPTANCE AT OUTPATIENT DIALYSIS CLINIC; [facility] COORDINATOR IS WORKING ON THIS. CM TO CONTINUE TO FOLLOW AND ASSIST IF NEEDED. Eloy Casillas, CASE MANAGEMENT DCP- Discharge Planning Updated by [id number]: Sherri Aaron on 11/14/18 2:[address] I HAVE BEEN IN COMMUNICATION WITH KAYLENE KIM, CLINICAL LIASON FOR [facility]. SHE HAS BEEN WORKING ON PLACEMENT FOR THE PATIENT. THIS PATIENT WAS IN A SHELTER IN [place] AND RECEIVING DIALYSIS. HE KNEW HE WAS NOT ACCEPTED BY THE [place] [facility]IALYSIS BEFORE HE EVER MOVED TO [place], BUT CAME ANYWAY. KAYLENE HAD BEEN WORKING WITH [facility], AND THEY ARE STILL DENYING HIM PLACEMENT THERE. SHE STATED THAT HE HAS THE OPTION OF [place], [place], OR [place]. WHILE I WAS ON THE PHONE WITH KAYLENE, PHILOMENA WENT AND ASKED THE PATIENT AND HE SAID [facility], BUT IS INSISTENT THAT HE HAVE A M-W-F SCHEDULE. KAYLENE CALLED BACK AND STATED THAT BECAUSE DR SIMS HAS REFUSED THE PATIENT, THE [place] AND [place] UNITS HAVE ALSO DENIED THE PATIENT. THE ONLY OPTION IS FOR THE [place] UNIT AND THESE ARE THE SAME DOCTORS THAT CARED FOR HIM IN [place]. I WENT AND TALKED TO THE PATIENT AND HE STATED THAT THAT WOULD BE FINE. I HAVE LET KAYLENE KNOW THIS. I HAVE ALSO PASSED ONTO HER THAT PER DR AGUIRRE, THE PATIENT WAS GOING TO NEED 6 WEEKS OF VANCOMYCIN TO BE GIVEN IN DIALYSIS. SHE HAS STATED THAT THAT SHOULD NOT BE A PROBLEM ONCE HE IS ACCEPTED. ALSO DURING THIS TIME, JEFFERSON, PHYSICAL THERAPIST, CAME BY AND STATED THAT THE PATIENT WAS NOT STABLE ON THE CRUTCHES AND DID MUCH BETTER ON THE WALKER. HE RECOMMENDED THAT THE PATIENT GET A WALKER. I ALSO SPOKE WITH THE PATIENT AND HE STATED THAT HE HAS A WALKER AT THE [place] AND DOES NOT NEED ANOTHER ONE. HE STATED THAT THE THERAPIST CAME IN AND GOT HIM UP RIGHT AFTER DIALYSIS AND HE WAS WEEK. HE STATED THAT HE WILL DO BETTER TOMORROW. I HAVE EXPLAINED THAT WE SHOULD HAVE A WALKER THAT HE CAN BORROW DURING THERAPY IF NEEDED. DCP- Discharge Planning Updated by [id number]: Mallory [place] on 11/11/18 2:[address] PATIENT HAD RECENTLY RETURNED FROM HD AND HAD EATEN HIS LUNCH. HE SAID HE WAS TIRED. SPOKE SLOWLY PATIENT STATES HE IS HARD OF HEARING BUT DID NOT WANT TO TURN DOWN THE VOLUME ON TV. LIVES AT THE [facility] IN [place], [place]. STATES HE HAS NO BROTHERS, SISTERS OR CHILDREN. HE SAYS HE DOES HAVE COUSINS THAT LIVE IN [place]. STATES HE WILL HAVE TRANSPORTATION AT DISCHARGE FROM HIS FRIEND INDIRA DUNN. CONTACT PHONE NUMBER- [phone]. STATES HE IS TIRED THEREFORE CM STATED WILL REVISIT TO ASSIST WITH DISCHARGE. KAYLENE HELTON ON SITE AND HE STATES HE HAS SPOKEN WITH THE HD COORDINATOR. DCP- Discharge Planning Updated by [id number]: Mallory [place] on 11/11/18 12:[address] PATIENT PRESENTLY IN HD. CM AWAITS HIS RETURN TO THE ROOM DCP- Discharge Planning Updated by [id number]: Mallory Hawley on 11/10/18 6:[address] CM TO FOLLOW FOR ASSESSMENT. APPARENTLY HE RECENTLY RELOCATED TO [place], [place]. HAS ORDERED HD SETUP FOR [facility]. TC TO KAYLENE HELTON. LEFT VOICE MAIL. PATIENT REPORTEDLY LIVING IN A [place]OTEL. QUESTION REGARDING HOUSING. CM TO FOLLOW. DCPIA - Discharge Planning Initial Assessment Updated by [id number]: Mallory [place] on 11/11/18 3:04 pm * Is the patient Alert and Oriented? Yes * PCP DR RONN DURAN * Pharmacy [facility] IN [place] * Other Environment [facility] * ADLs Independent * List name and contact numbers for known caregivers / representatives who currently or will assist patient after discharge: INDIRA DUNN- FRIEND FOR TRANSPORTATION * Verbal permission to speak to the caregivers and representatives has been obtained from the patient. No * Community resources currently utilized Other * Please name any agencies selected above. [facility] IN [place], [place] KAYLENE HELTON TRYING TO GET HD SET UP * Additional services required to return to the preadmission environment? Yes * Can the patient safely return to the preadmission environment? Yes External Providers External Provider[facility] Next Contact Date: 11/27/2018 Service Request Date: Service Type: Resolution: Reviewer: Comments: Coverage Notice Reviewer: [id number] - Eloy Casillas Notice Issued Date-Time: 11/22/2018 11:50 Notice Type: Patient Choice Letter Notice Delivered To: Patient Relationship to Patient: Radius Corner Machine Operator Name: Delivery Method: HAND - Hand Delivered Nguyen Days: Prior Verbal Notification: Recipient Understood Notice: Yes Recipient Signature: Yes Med Rec Note Co-signed by Attending: Coverage Notice Comment: SNF IN [place] OR [place] FOR REHAB ONLY... Last DP export: 11/26/18 12:55 pm Patient Name: RADHA SALGUERO Page [id number] at 1709 All edits/amendments must be made on the electronic document DICTATION DATE: 11/26/181708 RECORDS TECH: JEANMARIE 11/26/181708 RPT#: [id number] DC DATE: STATUS: ADM IN [facility] [address] [place] [address] END OF REPORT
--- NOTE | 2018-11-26 17:19 | MORECARE ---
CASE MANAGEMENT DISCHARGE SUMMARY PATIENT: RADHA SALGUERO UNIT: [id number] ADM DATE: 11/08/18 AGE: 73 : 45 SEX: M ROOM/BED: D.2135 AUTHOR: ROSA,DOC PHYSICIAN: REFERRING PHYSICIAN: MALOU SUN MD DATE OF SERVICE: 11/26/18 Discharge Plan Patient Name: RADHA SALGUERO Facility: [facility]:[place] : 1945 Planned Disposition: Custodial Facility Anticipated Discharge Date: Discharge Date: Expected LOS: Initial Reviewer: [id number] Initial Review Date: 11/08/2018 Generated: 11/26/18 6:19 pm Comments DCP- Discharge Planning Updated by [id number]: Eloy Casillas on 11/26/18 4:[address] Patient Name: RADHA SALGUERO Encounter No: [id number] : 1945 Primary Insurance: [employer] MEDICARE ADV Anticipated DC Date: Planned Disposition: Custodial Facility External Planned Provider: FIRST ACCEPTING SENIOR CARE FACILITY FOR MEDICARE REHAB BED DCP follow-up note: CM RECEIVED CALL FROM [facility], , THEY WERE WILLING TO ACCEPT BUT CALLED [facility] AND PT COULD NOT BE CHANGED TO MWF DIALYSIS SCHEDULE FROM [facility]. [facility] CANNOT ACCEPT THEY HAVE NO TRANSPORT AVAILABLE FOR SUNDAY DIALYSIS. CM FAXED REFERRAL UPDATE TO [facility] VIA NATHALY AT [phone]. CM FAXED REFERRAL UPDATE TO MELISSA CHRISTOPHER AT [phone]. CM FAXED REFERRAL UPDATE TO [facility]VIN[facility] AT [phone]. . PT HAS BEEN ACCEPTED FOR DIALYSIS AT [facility], 0930AM. PT CAN START AT [facility] OP DAILYSIS ON 11-26-18 AT 0900 AM. CM WAITING ADMISSION DETERMINATIONS FOR REHAB FROM [facility], [facility] CHRISTOP[facility] AND [facility]. Eloy Casillas, CASE MANAGEMENT Appended by Eloy Casillas on 11/26/2018 11:05 LONG DISTANCE OPERATOR: CM [facility]IV[facility] CALL [facility] WHO REPORTS THEY WILL NOT ACCEPT PT DUE TO PRIOR NON COMPLIANCE IN [facility] PLACEMENT IN [place] AND THEY CANNOT TRANSPORT TO DIALYSIS ON SATURDAYS. CM RECEIVED CALL FROM [facility], THEY ARE NOT ABLE TO MEET PT'S CLINICAL NEEDS AT THIS TIME. PT HAS BEEN ACCEPTED FOR DIALYSIS AT [facility] IN [facility], 0930AM. PT CAN START AT [facility] OP DAILYSIS ON 11-26-18 AT 0900 AM. CM WAITING ADMISSION DETERMINATIONS FOR REHAB FROM [facility]. Eloy Casillas, CASE MANAGEMENT Appended by Eloy Casillas on 11/26/2018 12:06 LONG DISTANCE OPERATOR: CM CALLED AND SPOKE TO JES OF [facility] IN [place], , DISCUSSED REHAB REFERRAL AND ASKED IF SHE WOULD BE ABLE TO TRANSPORT PT TO [place] FOR DIALYSIS ON TTS SCHEDULE. JES WILL REVIEW REFERRAL AND GET BACK WITH CM. CM FAXED REFERRAL TO [facility] AT [phone]. PT HAS BEEN ACCEPTED FOR DIALYSIS AT [facility] IN [facility], 0930AM. PT CAN START AT [facility] OP DAILYSIS ON 11-26-18 AT 0900 AM. CM WAITING ADMISSION DETERMINATIONS FOR REHAB FROM [facility] AND [facility]. Eloy Casillas, CASE MANAGEMENT Appended by Eloy Casillas on 11/26/2018 13:48 LONG DISTANCE OPERATOR: CM RECEIVED CALL FROM [facility], THEY WILL NOT ACCEPT PT. CM RECEIVED CALL FROM [facility] WHO REQUESTED REFERRAL BE FAXED TO ALTERNATE NUMBER FAX IS NOT WORKING ON THE MAIN LINE. CM FAXED REFERRAL TO [facility] AT [phone]. PT HAS BEEN ACCEPTED FOR DIALYSIS AT [facility] IN [facility], 0930AM. PT CAN START AT [facility] OP DAILYSIS ON 11-26-18 AT 0900 AM. CM WAITING ADMISSION DETERMINATION FOR REHAB FROM [facility]. Eloy Casillas, CASE MANAGEMENT Appended by Eloy Casillas on 11/26/2018 17:13 LONG DISTANCE OPERATOR: CM SPOKE TO [facility] WHO WILL REVIEW TO SEE IF [facility] CAN MEET PT'S NEEDS. CM FAXED REFERRAL TO [facility] AT [phone]. PT HAS BEEN ACCEPTED FOR DIALYSIS AT [facility], 0930AM. PT CAN START AT [facility] OP DAILYSIS ON 11-26-18 AT 0900 AM. CM WAITING ADMISSION DETERMINATION FOR REHAB FROM [facility] IN [place] AND [facility] IN [place]. Eloy Casillas, CASE MANAGEMENT DCP- Discharge Planning Updated by [id number]: Eloy Casillas on 11/25/18 11:[address] Patient Name: RADHA SALGUERO Encounter No: [id number] : 1945 Primary Insurance: WELL[employer] MEDICARE ADV Anticipated DC Date: Planned Disposition: Custodial Facility External Planned Provider: FIRST ACCEPTING SENIOR CARE FACILITY FOR MEDICARE REHAB BED DCP follow-up note: CM SPOKE TO PT IN ROOM AND PROVIDED UPDATE THIS MORNING. CM INFORMED PT THAT HE WOULD BE DISCHARGING FROM THE HOSPITAL SOON OUTPATIENT DIALYSIS UNIT SCHEDULE IS OBTAINED. PT CONTINUES TO REPORT PLAN TO GO BACK TO HIS HOTEL ROOM IN [place] AND THEN BEGAN INSISTING TO KNOW WHY THE DOCTORS AT THE DIALYSIS UNITS WILL NOT ACCEPT HIM. CM EXPLAINED THAT PT WILL HAVE TO TALK TO THE DOCTORS HIMSELF AND CM WAS CONCERNED WITH FINDING AN ACCEPTING UNIT FOR OUTPATIENT DIALYSIS. PT ARGUED THAT THE DOCTORS HAVE NO REASON TO NOT ACCEPT HIM. CM EXPLAINED TO PT THAT HE CANNOT CHANGE THIS AND NEEDS TO CONCENTRATE ON DISCHARGE PLANNING AND LET THE [facility] COORDINATOR FIND A UNIT THAT WOULD ACCEPT. PT CONTINUED TO ARGUE REPORTING THE [place] [facility]IT HAD ACCEPTED HIM AND HAD NO REASON TO NOT TAKE HIM WHEN HE ARRIVED "HOME" IN [place]. CM EXPLAINED THAT THE UNIT NEVER ACCEPTED HIM, PT REPORTS THIS IS NOT TRUE. CM INFORMED PT THAT CM WILL NOT CONTINUE TO ARGUE THE POINT AND WOULD FOCUS ON DISCHARGE PLANNING. PT REPORTS PLAN TO RETURN TO HIS HOTEL ROOM IN [place] AND NEEDS A MWF DIALYSIS SCHEDULE TO USE MEDICAID TRANSPORTATION. CM DISCUSSED AVAILABILTY OF SENIOR CARE REHAB SERVICES PT'S THERAPY NOTES INDICATE PT IS NOT WALKING WELL. PT DECLINES AND STATES HE IS GOING HOME. BHAVANA RECEIVED CALL FROM KWAN OF [facility] WHO REPORTS THEY RECEIVED REFERRAL FOR HOME HEALTH REGARDING PT. KWAN ADVISED THAT THEY WILL NOT ACCEPT PT DOES NOT APPEAR TO BE APPROPRIATE AT THIS TIME FOR HOME HEALTH. BHAVANA SPOKE TO DR. SUN WHO INFORMED PT IS STABLE FOR DISCHARGE. BHAVANA FAXED REFERRAL TO [facility]IA NATHALY AT [phone]. BHAVANA RECEIVED REQUEST FOR MORE INFORMATION (OUTPATIENT DIALYSIS UNIT, NEED FOR ANTIBIOTICS AT DISCHARE AND ISOLATION STATUS.) [facility] CALLED [facility], , SPOKE TO EZEKIEL, PROVIDED INFORMATION AND FAXED REFERRAL UPDATE TO [facility] AT [phone] CM FAXED REFERRAL UPDATE TO MELISSA CHRISTOPHER AT [phone]. CM FAXED REFERRAL UPDATE TO [facility] AT [phone]. . PT HAS BEEN ACCEPTED FOR DIALYSIS AT [facility] IN [place], [facility], 0930AM. PT CAN START AT [facility] OP DAILYSIS ON 11-26-18 AT 0900 AM. CM WAITING ADMISSION DETERMINATIONS FOR REHAB FROM [facility], [facility], [facility] AND [facility]. Eloy Casillas, CASE MANAGEMENT DCP- Discharge Planning Updated by [id number]: Eloy Casillas on 11/22/18 4:[address] Patient Name: RADHA SALGUERO Encounter No: [id number] : 1945 Primary Insurance: WELLCARE MEDICARE ADV Anticipated DC Date: Planned Disposition: Custodial Facility External Planned Provider: FIRST ACCEPTING SENIOR CARE FACILITY FOR MEDICARE REHAB BED DCP follow-up note: CM SPOKE TO PT IN ROOM AND PROVIDED UPDATE THIS MORNING. CM INFORMED PT THAT HE WOULD BE DISCHARGING FROM THE HOSPITAL SOON OUTPATIENT DIALYSIS UNIT SCHEDULE IS OBTAINED. PT CONTINUES TO REPORT PLAN TO GO BACK TO HIS HOTEL ROOM IN [place] AND THEN BEGAN INSISTING TO KNOW WHY THE DOCTORS AT THE DIALYSIS UNITS WILL NOT ACCEPT HIM. CM EXPLAINED THAT PT WILL HAVE TO TALK TO THE DOCTORS HIMSELF AND CM WAS CONCERNED WITH FINDING AN ACCEPTING UNIT FOR OUTPATIENT DIALYSIS. PT ARGUED THAT THE DOCTORS HAVE NO REASON TO NOT ACCEPT HIM. CM EXPLAINED TO PT THAT HE CANNOT CHANGE THIS AND NEEDS TO CONCENTRATE ON DISCHARGE PLANNING AND LET THE [facility] COORDINATOR FIND A UNIT THAT WOULD ACCEPT. PT CONTINUED TO ARGUE REPORTING THE [place] [facility] HAD ACCEPTED HIM AND HAD NO REASON TO NOT TAKE HIM WHEN HE ARRIVED "HOME" IN [place]. CM EXPLAINED THAT THE UNIT NEVER ACCEPTED HIM, PT REPORTS THIS IS NOT TRUE. CM INFORMED PT THAT CM WILL NOT CONTINUE TO ARGUE THE POINT AND WOULD FOCUS ON DISCHARGE PLANNING. PT REPORTS PLAN TO RETURN TO HIS HOTEL ROOM IN [place] AND NEEDS A MWF DIALYSIS SCHEDULE TO USE MEDICAID TRANSPORTATION. CM DISCUSSED AVAILABILTY OF SENIOR CARE REHAB SERVICES PT'S THERAPY NOTES INDICATE PT IS NOT WALKING WELL. PT DECLINES AND STATES HE IS GOING HOME. BHAVANA RECEIVED CALL FROM KWAN OF [facility] WHO REPORTS THEY RECEIVED REFERRAL FOR HOME HEALTH REGARDING PT. [facility]WAN ADVISED THAT THEY WILL NOT ACCEPT PT DOES NOT APPEAR TO BE APPROPRIATE AT THIS TIME FOR HOME HEALTH. CM SPOKE TO KAYLENE OF [facility], PT ACCEPTED FOR DIALYSIS AT [facility] IN [place], [facility], 0930AM. CM NOTIFIED PT AND PROVIDED PT A COPY OF HIS THERAPY NOTE FROM YESTERDAY THAT INDICATES PT WALKING 4 FEET WITH 35 % ASSISTANCE. CM INFORMED PT THAT IS NOT SAFE FOR HIM TO DISCHARGE HOME WITHOUT ASSISTANCE. PT REPORTS HAVING NO FAMILY OR FRIENDS TO ASSIST. PT STILL DECLINED SENIOR CARE FACILITY STATING HE LEFT ONE AND IS NOT GOING BACK. CM DISCUSSED HAVING A SAFE DISCHARGE PLAN AND IF PT INSISTED ON GOING HOME IN CURRENT CONDITION, CM WOULD CALL ADULT PROTECTIVE SERVICES. PT DOES NOT WANT TO BE INVOLVED WITH ADULT PROTECTIVE SERVICES AND WILL AGREE FOR REHAB PLACEMENT ONLY IN [place] IF POSSIBLE AND IF NOT, [place]. CHOICE LETTER SIGNED. CM SPOKE TO [facility]ATH[facility], [facility] AND [facility]. NATHALY INFORMED CM THAT [facility] WILL NOT TRANSPORT TO DIALYSIS IN [place], THAT [facility] CANNOT ACCOMODATE TTS SCHEDULE ADN [facility] WOULD NEED TO EVALUATE. CM FAXED REFERRAL TO [facility] AT [phone]. CM CALLED [facility], , SPOKE TO SANTA WHO WILL EVALUATE PT NEXT SUNDAY. CM FAXED REFERRAL TO [facility] BLOCK AT [phone]. CM CALLED [facility], , SPOKE TO ENRIKE WHO WILL SCREEN FOR REHAB ADMISSION; CM FAXED REFERRAL TO [facility] AT [phone]. CM CALLED [facility], , SPOKE TO EZEKIEL WHO WILL SCREEN PT FOR ADMISSION, CM FAXED REFERRAL TO [facility] AT [phone]. PT HAS BEEN ACCEPTED FOR DIALYSIS AT [facility] IN [place], [facility], 0930AM. PT CAN START AT [facility] OP DAILYSIS ON 11-26-18 AT 0900 AM. CM WAITING ADMISSION DETERMINATIONS FOR REHAB FROM [facility], [facility], [facility] AND [facility]. Eloy Casillas, CASE MANAGEMENT DCP- Discharge Planning Updated by [id number]: Eloy Casillas on 11/14/18 4:[address] Patient Name: RADHA SALGUERO Encounter No: [id number] : 1945 Primary Insurance: WE[employer] MEDICARE ADV Anticipated DC Date: Planned Disposition: Home DCP follow-up note: CM SPOKE TO DR. MATHIS REGARDING PT'S LIVING ARRAGEMENTS. CM SPOKE TO PT IN ROOM REGARDING LIVING IN HOTEL ROOM. PT REPORTS HE WAS LIVING IN A [facility], DOES NOT WANT TO GO BACK TO ONE AND IS LIVING IN THE HOTEL UNTIL HE FINDS A PLACE THAT HE LIKES. CM DISCUSSED REHAB SERVICES HOME HEALTH AND MEDICAL EQUIPMENT. PT DENIES DISCHARGE NEEDS OTHER THAN NEEDING A DIALYSIS CLINIC. PT STILL UPSET THAT THE [place] [facility] WILL NOT ACCEPT HIM A PATIENT. PT REPORTS HE WILL BE STAYING IN [place] AND WILL FIND HIMSELF AN APARTMENT THERE. PT REPORTS USING MEDICAID TRANSPORT FOR MEDICAL APPOINTMENTS AND NEEDS A Sunday SCHEDULE IN ORDER TO USE MEDICAID TRANSPORT TO AND FROM DIALYSIS. PT RE[facility] KAYLENE OF [facility] NOTIFIED. CM WAITING ARRANGEMENT AND ACCEPTANCE AT OUTPATIENT DIALYSIS CLINIC; [facility] COORDINATOR IS WORKING ON THIS. CM TO CONTINUE TO FOLLOW AND ASSIST IF NEEDED. Eloy Casillas, CASE MANAGEMENT DCP- Discharge Planning Updated by [id number]: Sherri Walker on 11/14/18 2:[address] I HAVE BEEN IN COMMUNICATION WITH KAYLENE KIM, CLINICAL [facility]ON FOR [facility]. SHE HAS BEEN WORKING ON PLACEMENT FOR THE PATIENT. THIS PATIENT WAS IN A [facility] IN [place] AND RECEIVING DIALYSIS. HE KNEW HE WAS NOT ACCEPTED BY THE [place] [facility] BEFORE HE EVER MOVED TO [place], BUT CAME ANYWAY. KAYLENE HAD BEEN WORKING WITH THE [place] UNIT, AND THEY ARE STILL DENYING HIM PLACEMENT THERE. SHE STATED THAT HE HAS THE OPTION OF [place], [place], OR [place]. WHILE I WAS ON THE PHONE WITH KAYLENE, PHILOMENA WENT AND ASKED THE PATIENT AND HE SAID CRICKET CRAMER, BUT IS INSISTENT THAT HE HAVE A M-W- SCHEDULE. KAYLENE CALLED BACK AND STATED THAT BECAUSE DR SIMS HAS REFUSED THE PATIENT, THE [place] AND [place] UNITS HAVE ALSO DENIED THE PATIENT. THE ONLY OPTION IS FOR THE [place] UNIT AND THESE ARE THE SAME DOCTORS THAT CARED FOR HIM IN [place]. I WENT AND TALKED TO THE PATIENT AND HE STATED THAT THAT WOULD BE FINE. I HAVE LET KAYLENE KNOW THIS. I HAVE ALSO PASSED ONTO HER THAT PER DR AGUIRRE, THE PATIENT WAS GOING TO NEED 6 WEEKS OF VANCOMYCIN TO BE GIVEN IN DIALYSIS. SHE HAS STATED THAT THAT SHOULD NOT BE A PROBLEM ONCE HE IS ACCEPTED. ALSO DURING THIS TIME, JEFFERSON, PHYSICAL THERAPIST, CAME BY AND STATED THAT THE PATIENT WAS NOT STABLE ON THE CRUTCHES AND DID MUCH BETTER ON THE WALKER. HE RECOMMENDED THAT THE PATIENT GET A WALKER. I ALSO SPOKE WITH THE PATIENT AND HE STATED THAT HE HAS A WALKER AT THE HOTEL AND DOES NOT NEED ANOTHER ONE. HE STATED THAT THE THERAPIST CAME IN AND GOT HIM UP RIGHT AFTER DIALYSIS AND HE WAS WEEK. HE STATED THAT HE WILL DO BETTER TOMORROW. I HAVE EXPLAINED THAT WE SHOULD HAVE A WALKER THAT HE CAN BORROW DURING THERAPY IF NEEDED. DCP- Discharge Planning Updated by [id number]: Mallory Hawley on 11/11/18 2:[address] PATIENT HAD RECENTLY RETURNED FROM HD AND HAD EATEN HIS LUNCH. HE SAID HE WAS TIRED. SPOKE SLOWLY PATIENT STATES HE IS HARD OF HEARING BUT DID NOT WANT TO TURN DOWN THE VOLUME ON TV. L[facility] THE [facility] IN [place], [place] STATES HE HAS NO BROTHERS, SISTERS OR CHILDREN. HE SAYS HE DOES HAVE COUSINS THAT LIVE IN [place]. STATES HE WILL HAVE TRANSPORTATION AT DISCHARGE FROM HIS FRIEND INDIRA DUNN. CONTACT PHONE NUMBER- [phone]. STATES HE IS TIRED THEREFORE CM STATED WILL REVISIT TO ASSIST WITH DISCHARGE. KAYLENE HELTON ON SITE AND HE STATES HE HAS SPOKEN WITH THE HD COORDINATOR. DCP- Discharge Planning Updated by [id number]: Mallory Aurora on 11/11/18 12:[address] PATIENT PRESENTLY IN HD. CM AWAITS HIS RETURN TO THE ROOM DCP- Discharge Planning Updated by [id number]: Mallory Hawley on 11/10/18 6:[address] CM TO FOLLOW FOR ASSESSMENT. APPARENTLY HE RECENTLY RELOCATED TO [place], [place]. HAS ORDERED HD SETUP FOR [facility]. TC TO KAYLENE HELTON. LEFT VOICE MAIL. PATIENT REPORTEDLY LIVING IN A [place]OTEL. QUESTION REGARDING HOUSING. CM TO FOLLOW. DCPIA - Discharge Planning Initial Assessment Updated by [id number]: Mallory Aurora on 11/11/18 3:04 pm * Is the patient Alert and Oriented? Yes * PCP DR RONN DURAN * Pharmacy [facility] IN [place] * Other Environment [facility] [place] * ADLs Independent * List name and contact numbers for known caregivers / representatives who currently or will assist patient after discharge: INDIRA DUNN- FRIEND FOR TRANSPORTATION * Verbal permission to speak to the caregivers and representatives has been obtained from the patient. No * Community resources currently utilized Other * Please name any agencies selected above. [facility] [place] [facility] [place] KAYLENE HELTON TRYING TO GET HD SET UP * Additional services required to return to the preadmission environment? Yes * Can the patient safely return to the preadmission environment? Yes Coverage Notice Reviewer: [id number] Vincenzo Casillas Notice Issued Date-Time: 11/22/2018 11:50 Notice Type: Patient Choice Letter Notice Delivered To: Patient Relationship to Patient: Crusher Plant Operator Name: Delivery Method: HAND - Hand Delivered Nguyen Days: Prior Verbal Notification: Recipient Understood Notice: Yes Recipient Signature: Yes Med Rec Note Co-signed by Attending: Coverage Notice Comment: SNF IN [place] OR [place] FOR REHAB ONLY... Last DP export: 11/26/18 4:09 pm Patient Name: RADHA SALGUERO Page [id number] at 1719 All edits/amendments must be made on the electronic document DICTATION DATE: 11/26/181718 ADZING AND BORING MACHINE OPERATOR: JEANMARIE 11/26/181718 RPT#: [id number] DC DATE: STATUS: ADM IN [facility] [address] [place] [address] END OF REPORT
[2018-11-26 17:38] VITALS: BP 148/71
--- NOTE | 2018-11-26 19:35 | NUR ---
PT RESTING IN BED. PT IS LUIS MIGUEL CONROY X4. PT HAS CALL LIGHT IN REACH. RIGHT FOOT WITH HEEL PROTECTOR BERNIE VALLES. PT ASKING FOR MICK. NONE AVALIBLE. POPCYCLE GIVEN INSTEAD. NAME AND DATE PLACED ON BOARD. NO S/S OF DISTRESS. PT WILL CALL FOR ASSIST WHEN NEEDED. WILL CPOC
[2018-11-26 20:40] VITALS: BP 138/59
--- NOTE | 2018-11-26 22:35 | NUR ---
PT FSBS IS 184, PT REFUSES REGULAR INSULIN.TAKING THE LEVEMIR 20 UNITS. PT HAS NO S/S OF DISTRESS. PT IS AAO BUT KAW. BIENVENIDO AND CALL LIGHT IN REACH. WILL CPOC
--- NOTE | 2018-11-27 02:41 | NUR ---
PT ASLEEP. RESP EVEN AND UNLABORED. BEDLOW AND CALL LIGHT IN REACH. NO S/S OF DISTRESS. WILL CPOC
[2018-11-27 06:09] VITALS: BP 111/61
--- NOTE | 2018-11-27 06:41 | NUR ---
PT ASKING FOR BENADRYL. WILL CHECK ORDERS. NO OTHER NEEDS. WILL CPOC
--- NOTE | 2018-11-27 07:30 | NUR ---
RECIEVED A/A/OX4. DENIES ANY PAIN OR DISCOMFORT AT PRESENT TIME AND NO REQUESTS VOICED. BED IN LOWEST POSITION WITH SIDERAILS UP X 2 AND CALL LIGHT IN REACH. DRESSING TO RIGHT HEEL CDI WITH HEEL PROTECTOR IN PLACE. BOTH HEELS SPONGY. SMALL AMT BREAKDOWN ON RIGHT HEEL AND NONE ON LEFT HEEL. HEELS ARE FLOATED. ASSESSMENT COMPLETED.
[2018-11-27 08:06] VITALS: BP 110/61
--- NOTE | 2018-11-27 10:33 | NUR ---
IN DIALYSIS AT THIS TIME. WILL CONT. PLAN OF CARE.
--- NOTE | 2018-11-27 13:00 | NUR ---
RETURNED TO ROOM VIA BED FROM DIALYSIS. BLOOD SUGAR DONE AND NOON MEDS GIVEN.
--- NOTE | 2018-11-27 15:11 | MORECARE ---
CASE MANAGEMENT DISCHARGE SUMMARY PATIENT: RADHA SALGUERO UNIT: [id number] ADM DATE: 11/08/18 AGE: 73 : 45 SEX: M ROOM/BED: D.4845 AUTHOR: ROSA,DOC PHYSICIAN: REFERRING PHYSICIAN: MALOU SUN MD DATE OF SERVICE: 11/27/18 Discharge Plan Patient Name: RADHA SALGUERO Facility: [facility]:[place] : 1945 Planned Disposition: Group Home Facility Anticipated Discharge Date: Discharge Date: Expected LOS: Initial Reviewer: [id number] Initial Review Date: 11/08/2018 Generated: 11/27/18 4:10 pm Comments DCP- Discharge Planning Updated by [id number]: Eloy Casillas on 11/27/18 2:[address] Patient Name: RADHA SALGUERO Encounter No: [id number] : 1945 Primary Insurance: WELLCARE MEDICARE ADV Anticipated DC Date: Planned Disposition: Group Home Facility External Planned Provider: FIRST ACCEPTING FACILITY DCP follow-up note: [facility] CAME AND MET WITH PT TO ASSESS FOR REHAB PLACEMENT. CM RECEIVED MESSAGE FROM [facility] WHO INFORMED CM THAT THEY CHECKED PT'S INSURANCE, [employer], THAT INDICATES PT IS A HOSPICE PT AND MEDICAID STILL SHOWS PT IS [facility] AT [address] IN [place]. PT WOULD HAVE TO COME TO FACILITY [facility] CARE MEDICAID AND THEY COULD PROVIDE THERAPY UNDER MEDICARE PART B. CM LATER RECEIVED PHONE CALL FROM [facility] WHO INFORMED CM THAT THEY CANNOT TAKE PT THEY DO NOT HAVE TRANSPORTATION FOR SUNDAY DIALYSIS. CM RECEIVED CALL FROM [facility] IN [place] WHO HAS RECEIVED REFERRAL AND IS TRYING TO ASSIST PT WITH REHAB PLACEMENT. CM CONFIRMED THAT PT HAS DIALYSIS ON TTS SCHEDULE AT THE [place] [facility]. PT HAS BEEN ACCEPTED FOR DIALYSIS AT [facility] IN [place], TTS, 0930AM. PT CAN START AT [facility] OP [facility]ILYSIS ON 11-26-18 AT 0900 AM. CM WAITING ADMISSION DETERMINATION FOR REHAB FROM [facility] IN [place]. Eloy Casillas, CASE MANAGEMENT DCP- Discharge Planning Updated by [id number]: Eloy Casillas on 11/26/18 4:[address] Patient Name: RADHA SALGUERO Encounter No: [id number] : 1945 Primary Insurance: WELLCARE MEDICARE ADV Anticipated DC Date: Planned Disposition: Group Home Facility External Planned Provider: FIRST ACCEPTING ALF FACILITY FOR MEDICARE REHAB BED DCP follow-up note: CM RECEIVED CALL FROM [facility], , THEY WERE WILLING TO ACCEPT BUT CALLED [facility] AND PT COULD NOT BE CHANGED TO MWF DIALYSIS SCHEDULE FROM [facility]. [facility] CANNOT ACCEPT THEY HAVE NO TRANSPORT AVAILABLE FOR SUNDAY DIALYSIS. CM FAXED REFERRAL UPDATE TO [facility]IA [facility] AT [phone]. CM FAXED REFERRAL UPDATE TO [facility] AT [phone]. CM FAXED REFERRAL UPDATE TO [facility] AT [phone]. . PT HAS BEEN ACCEPTED FOR DIALYSIS AT [facility] IN [place], [facility], 0930AM. PT CAN START AT [facility] OP [facility] ON 11-26-18 AT 0900 AM. CM WAITING ADMISSION DETERMINATIONS FOR REHAB FROM [facility], [facility] AND [facility]. Eloy Casillas, CASE MANAGEMENT Appended by Eloy Casillas on 11/26/2018 11:05 RICE CLEANING MACHINE TENDER: CM RECEIVED CALL FROM [facility] WHO REPORTS THEY WILL NOT ACCEPT PT DUE TO PRIOR NON COMPLIANCE IN [place] PLACEMENT IN [place] AND THEY CANNOT TRANSPORT TO DIALYSIS ON SATURDAYS. CM RECEIVED CALL FROM [facility], THEY ARE NOT ABLE TO MEET PT'S CLINICAL NEEDS AT THIS TIME. PT HAS BEEN ACCEPTED FOR DIALYSIS AT [facility] IN [place], [facility], 0930AM. PT CAN START AT [facility] OP [facility] ON 11-26-18 AT 0900 AM. CM WAITING ADMISSION DETERMINATIONS FOR REHAB FROM [facility]. Eloy Casillas, CASE MANAGEMENT Appended by Eloy Casillas on 11/26/2018 12:06 RICE CLEANING MACHINE TENDER: CM CALLED AND SPOKE TO JES OF [facility] IN [place], , DISCUSSED REHAB REFERRAL AND ASKED IF SHE WOULD BE ABLE TO TRANSPORT PT TO [place] FOR DIALYSIS ON TTS SCHEDULE. JES WILL REVIEW REFERRAL AND GET BACK WITH CM. CM FAXED REFERRAL TO [facility] AT [phone]. PT HAS BEEN ACCEPTED FOR DIALYSIS AT [facility], 0930AM. PT CAN START AT [facility] OP [facility]IS ON 11-26-18 AT 0900 AM. CM WAITING ADMISSION DETERMINATIONS FOR REHAB FROM [facility] AND [facility]. Eloy Casillas, CASE MANAGEMENT Appended by lEoy Casillas on 11/26/2018 13:48 RICE CLEANING MACHINE TENDER: CM RECEIVED CALL FROM [facility], THEY WILL NOT ACCEPT PT. CM RECEIVED CALL FROM [facility] WHO REQUESTED REFERRAL BE FAXED TO ALTERNATE NUMBER FAX IS NOT WORKING ON THE MAIN LINE. CM FAXED REFERRAL TO [facility] AT [phone]. PT HAS BEEN ACCEPTED FOR DIALYSIS AT [facility], 0930AM. PT CAN START AT [facility] OP [facility]IS ON 11-26-18 AT 0900 AM. CM WAITING ADMISSION DETERMINATION FOR REHAB FROM [facility] IN [place]. Eloy Casillas, CASE MANAGEMENT Appended by Eloy Casillas on 11/26/2018 17:13 RICE CLEANING MACHINE TENDER: CM SPOKE TO [facility] WHO WILL REVIEW TO SEE IF [facility] CAN MEET PT'S NEEDS. CM FAXED REFERRAL TO [facility] AT [phone]. PT HAS BEEN ACCEPTED FOR DIALYSIS AT [facility] IN [place], [facility], 0930AM. PT CAN START AT [facility] OP [facility] ON 11-26-18 AT 0900 AM. CM WAITING ADMISSION DETERMINATION FOR REHAB FROM [facility] IN [place] AND [facility] IN [place]. Eloy Casillas, CASE MANAGEMENT DCP- Discharge Planning Updated by [id number]: Eloy Casillas on 11/25/18 11:[address] Patient Name: RADHA SALGUERO Encounter No: [id number] : 1945 Primary Insurance: WELL[employer] MEDICARE ADV Anticipated DC Date: Planned Disposition: Group Home Facility External Planned Provider: FIRST ACCEPTING ALF FACILITY FOR MEDICARE REHAB BED DCP follow-up note: CM SPOKE TO PT IN ROOM AND PROVIDED UPDATE THIS MORNING. CM INFORMED PT THAT HE WOULD BE DISCHARGING FROM THE HOSPITAL SOON OUTPATIENT DIALYSIS UNIT SCHEDULE IS OBTAINED. PT CONTINUES TO REPORT PLAN TO GO BACK TO HIS HOT ROOM IN [place] AND THEN BEGAN INSISTING TO KNOW WHY THE DOCTORS AT THE DIALYSIS UNITS WILL NOT ACCEPT HIM. CM EXPLAINED THAT PT WILL HAVE TO TALK TO THE DOCTORS HIMSELF AND CM WAS CONCERNED WITH FINDING AN ACCEPTING UNIT FOR OUTPATIENT DIALYSIS. PT ARGUED THAT THE DOCTORS HAVE NO REASON TO NOT ACCEPT HIM. CM EXPLAINED TO PT THAT HE CANNOT CHANGE THIS AND NEEDS TO CONCENTRATE ON DISCHARGE PLANNING AND LET THE [facility] COORDINATOR FIND A UNIT THAT WOULD ACCEPT. PT CONTINUED TO ARGUE REPORTING THE [place] UNIT HAD ACCEPTED HIM AND HAD NO REASON TO NOT TAKE HIM WHEN HE ARRIVED "HOME" IN [place]. CM EXPLAINED THAT THE UNIT NEVER ACCEPTED HIM, PT REPORTS THIS IS NOT TRUE. CM INFORMED PT THAT CM WILL NOT CONTINUE TO ARGUE THE POINT AND WOULD FOCUS ON DISCHARGE PLANNING. PT REPORTS PLAN TO RETURN TO HIS HOTEL ROOM IN [place] AND NEEDS A MWF DIALYSIS SCHEDULE TO USE MEDICAID TRANSPORTATION. CM DISCUSSED AVAILABILTY OF ALF REHAB SERVICES PT'S THERAPY NOTES INDICATE PT IS NOT WALKING WELL. PT DECLINES AND STATES HE IS GOING HOME. CM RECEIVED CALL FROM KWAN OF [facility] WHO REPORTS THEY RECEIVED REFERRAL FOR HOME HEALTH REGARDING PT. KWAN ADVISED THAT THEY WILL NOT ACCEPT PT DOES NOT APPEAR TO BE APPROPRIATE AT THIS TIME FOR HOME HEALTH. CM SPOKE TO DR. SUN WHO INFORMED PT IS STABLE FOR DISCHARGE. CM FAXED REFERRAL TO [facility] AT [phone]. CM RECEIVED REQUEST FOR MORE INFORMATION (OUTPATIENT DIALYSIS UNIT, NEED FOR ANTIBIOTICS AT DISCHARE AND ISOLATION STATUS.) CM CALLED [facility], , SPOKE TO EZEKIEL, PROVIDED INFORMATION AND FAXED REFERRAL UPDATE TO [facility] AT [phone] CM FAXED REFERRAL UPDATE TO [facility] AT [phone]. CM FAXED REFERRAL UPDATE TO [facility] AT [phone]. . PT HAS BEEN ACCEPTED FOR DIALYSIS AT [facility] [place], [facility], 0930AM. PT CAN START AT [facility] OP [facility]YSIS ON 11-26-18 AT 0900 AM. CM WAITING ADMISSION DETERMINATIONS FOR REHAB FROM [facility], [facility], [facility] AND [facility]. Eloy Casillas, CASE MANAGEMENT DCP- Discharge Planning Updated by [id number]: Eloy Casillas on 11/22/18 4:[address] Patient Name: RADHA SALGUERO Encounter No: [id number] : 1945 Primary Insurance: WE[employer] MEDICARE ADV Anticipated DC Date: Planned Disposition: Group Home Facility External Planned Provider: FIRST ACCEPTING ALF FACILITY FOR MEDICARE REHAB BED DCP follow-up note: CM SPOKE TO PT IN ROOM AND PROVIDED UPDATE THIS MORNING. CM INFORMED PT THAT HE WOULD BE DISCHARGING FROM THE HOSPITAL SOON OUTPATIENT DIALYSIS UNIT SCHEDULE IS OBTAINED. PT CONTINUES TO REPORT PLAN TO GO BACK TO HIS HOTEL ROOM IN [place] AND THEN BEGAN INSISTING TO KNOW WHY THE DOCTORS AT THE DIALYSIS UNITS WILL NOT ACCEPT HIM. CM EXPLAINED THAT PT WILL HAVE TO TALK TO THE DOCTORS HIMSELF AND CM WAS CONCERNED WITH FINDING AN ACCEPTING UNIT FOR OUTPATIENT DIALYSIS. PT ARGUED THAT THE DOCTORS HAVE NO REASON TO NOT ACCEPT HIM. CM EXPLAINED TO PT THAT HE CANNOT CHANGE THIS AND NEEDS TO CONCENTRATE ON DISCHARGE PLANNING AND LET THE [facility] COORDINATOR FIND A UNIT THAT WOULD ACCEPT. PT CONTINUED TO ARGUE REPORTING THE [place] UNIT HAD ACCEPTED HIM AND HAD NO REASON TO NOT TAKE HIM WHEN HE ARRIVED "HOME" IN [place]. CM EXPLAINED THAT THE UNIT NEVER ACCEPTED HIM, PT REPORTS THIS IS NOT TRUE. CM INFORMED PT THAT CM WILL NOT CONTINUE TO ARGUE THE POINT AND WOULD FOCUS ON DISCHARGE PLANNING. PT REPORTS PLAN TO RETURN TO HIS HOTEL ROOM IN [place] AND NEEDS A MWF DIALYSIS SCHEDULE TO USE MEDICAID TRANSPORTATION. CM DISCUSSED AVAILABILTY OF ALF REHAB SERVICES PT'S THERAPY NOTES INDICATE PT IS NOT WALKING WELL. PT DECLINES AND STATES HE IS GOING HOME. CM RECEIVED CALL FROM KWAN OF [facility] WHO REPORTS THEY RECEIVED REFERRAL FOR HOME HEALTH REGARDING PT. [facility] ADVISED THAT THEY WILL NOT ACCEPT PT DOES NOT APPEAR TO BE APPROPRIATE AT THIS TIME FOR HOME HEALTH. BHAVANA SPOKE TO KAYLENE OF [facility], PT ACCEPTED FOR DIALYSIS AT [facility], 0930AM. CM NOTIFIED PT AND PROVIDED PT A COPY OF HIS THERAPY NOTE FROM YESTERDAY THAT INDICATES PT WALKING 4 FEET WITH 35 % ASSISTANCE. CM INFORMED PT THAT IS NOT SAFE FOR HIM TO DISCHARGE HOME WITHOUT ASSISTANCE. PT REPORTS HAVING NO FAMILY OR FRIENDS TO ASSIST. PT STILL DECLINED ALF FACILITY STATING HE LEFT ONE AND IS NOT GOING BACK. CM DISCUSSED HAVING A SAFE DISCHARGE PLAN AND IF PT INSISTED ON GOING HOME IN CURRENT CONDITION, CM WOULD CALL ADULT PROTECTIVE SERVICES. PT DOES NOT WANT TO BE INVOLVED WITH ADULT PROTECTIVE SERVICES AND WILL AGREE FOR REHAB PLACEMENT ONLY IN [place] IF POSSIBLE AND IF NOT, [place]. CHOICE LETTER SIGNED. CM SPOKE TO [facility] AND [facility]. [facility] INFORMED CM THAT [facility] WILL NOT TRANSPORT TO DIALYSIS IN [place], THAT [facility] CANNOT ACCOMODATE TTS SCHEDULE ADN [facility] WOULD NEED TO EVALUATE. CM FAXED REFERRAL TO [facility] AT [phone]. CM CALLED [facility], , SPOKE TO SANTA WHO WILL EVALUATE PT NEXT SUNDAY. CM FAXED REFERRAL TO [facility] AT [phone]. CM CALLED [facility], , SPOKE TO ENRIKE WHO WILL SCREEN FOR REHAB ADMISSION; CM FAXED REFERRAL TO [facility] AT [phone]. CM CALLED [facility], , SPOKE TO EZEKIEL WHO WILL SCREEN PT FOR ADMISSION, CM FAXED REFERRAL TO [facility] AT [phone]. PT HAS BEEN ACCEPTED FOR DIALYSIS AT [facility] IN [place], TTS, 0930AM. PT CAN START AT [facility] OP [facility]ILYSIS ON 11-26-18 AT 0900 AM. CM WAITING ADMISSION DETERMINATIONS FOR REHAB FROM [facility], [facility], [facility] AND [facility]. Eloy Casillas, CASE MANAGEMENT DCP- Discharge Planning Updated by [id number]: Eloy Casillas on 11/14/18 4:[address] Patient Name: RADHA SALGUERO Encounter No: [id number] : 1945 Primary Insurance: WE[employer] MEDICARE ADV Anticipated DC Date: Planned Disposition: Home DCP follow-up note: CM SPOKE TO DR. MATHIS REGARDING PT'S LIVING ARRAGEMENTS. CM SPOKE TO PT IN ROOM REGARDING LIVING IN HOTEL ROOM. PT REPORTS HE WAS LIVING IN A HALF-WAY, DOES NOT WANT TO GO BACK TO ONE AND IS LIVING IN THE HOTEL UNTIL HE FINDS A PLACE THAT HE LIKES. CM DISCUSSED REHAB SERVICES HOME HEALTH AND MEDICAL EQUIPMENT. PT DENIES DISCHARGE NEEDS OTHER THAN NEEDING A DIALYSIS CLINIC. PT STILL UPSET THAT THE [place] [facility] WILL NOT ACCEPT HIM A PATIENT. PT REPORTS HE WILL BE STAYING IN [place] AND WILL FIND HIMSELF AN APARTMENT THERE. PT REPORTS USING MEDICAID TRANSPORT FOR MEDICAL APPOINTMENTS AND NEEDS A Sunday SCHEDULE IN ORDER TO USE MEDICAID TRANSPORT TO AND FROM DIALYSIS. PT RE[facility] KAYLENE OF [facility] NOTIFIED. CM WAITING ARRANGEMENT AND ACCEPTANCE AT OUTPATIENT DIALYSIS CLINIC; [facility] COORDINATOR IS WORKING ON THIS. CM TO CONTINUE TO FOLLOW AND ASSIST IF NEEDED. Eloy Casillas, CASE MANAGEMENT DCP- Discharge Planning Updated by [id number]: Sherri Walker on 11/14/18 2:[address] I HAVE BEEN IN COMMUNICATION WITH KAYLENE KIM, CLINICAL LIASON FOR [facility]. SHE HAS BEEN WORKING ON PLACEMENT FOR THE PATIENT. THIS PATIENT WAS IN A HALF-WAY IN [place] AND RECEIVING DIALYSIS. HE KNEW HE WAS NOT ACCEPTED BY THE [place] [facility] BEFORE HE EVER MOVED TO [place], BUT CAME ANYWAY. KAYLENE HAD BEEN WORKING WITH THE [facility], AND THEY ARE STILL DENYING HIM PLACEMENT THERE. SHE STATED THAT HE HAS THE OPTION OF [place], [place], OR [place]. WHILE I WAS ON THE PHONE WITH KAYLENE, PHILOMENA WENT AND ASKED THE PATIENT AND HE SAID [place] [place], BUT IS INSISTENT THAT HE HAVE A M-W-F SCHEDULE. KAYLENE CALLED BACK AND STATED THAT BECAUSE DR SIMS HAS REFUSED THE PATIENT, THE [place] AND [place] UNITS HAVE ALSO DENIED THE PATIENT. THE ONLY OPTION IS FOR THE [place] UNIT AND THESE ARE THE SAME DOCTORS THAT CARED FOR HIM IN [place]. I WENT AND TALKED TO THE PATIENT AND HE STATED THAT THAT WOULD BE FINE. I HAVE LET KAYLENE KNOW THIS. I HAVE ALSO PASSED ONTO HER THAT PER DR AGUIRRE, THE PATIENT WAS GOING TO NEED 6 WEEKS OF VANCOMYCIN TO BE GIVEN IN DIALYSIS. SHE HAS STATED THAT THAT SHOULD NOT BE A PROBLEM ONCE HE IS ACCEPTED. ALSO DURING THIS TIME, JEFFERSON, PHYSICAL THERAPIST, CAME BY AND STATED THAT THE PATIENT WAS NOT STABLE ON THE CRUTCHES AND DID MUCH BETTER ON THE WALKER. HE RECOMMENDED THAT THE PATIENT GET A WALKER. I ALSO SPOKE WITH THE PATIENT AND HE STATED THAT HE HAS A WALKER AT THE HOTEL AND DOES NOT NEED ANOTHER ONE. HE STATED THAT THE THERAPIST CAME IN AND GOT HIM UP RIGHT AFTER DIALYSIS AND HE WAS WEEK. HE STATED THAT HE WILL DO BETTER TOMORROW. I HAVE EXPLAINED THAT WE SHOULD HAVE A WALKER THAT HE CAN BORROW DURING THERAPY IF NEEDED. DCP- Discharge Planning Updated by [id number]: Mallory Zamarripas on 11/11/18 2:[address] PATIENT HAD RECENTLY RETURNED FROM HD AND HAD EATEN HIS LUNCH. HE SAID HE WAS TIRED. SPOKE SLOWLY PATIENT STATES HE IS HARD OF HEARING BUT DID NOT WANT TO TURN DOWN THE VOLUME ON TV. L[facility] IN [place], [place]. STATES HE HAS NO BROTHERS, SISTERS OR CHILDREN. HE SAYS HE DOES HAVE COUSINS THAT LIVE IN [place]. STATES HE WILL HAVE TRANSPORTATION AT DISCHARGE FROM HIS FRIEND INDIRA DUNN. CONTACT PHONE NUMBER- [phone]. STATES HE IS TIRED THEREFORE CM STATED WILL REVISIT TO ASSIST WITH DISCHARGE. KAYLENE HELTON ON SITE AND HE STATES HE HAS SPOKEN WITH THE HD COORDINATOR. DCP- Discharge Planning Updated by [id number]: Mallory Washita on 11/11/18 12:[address] PATIENT PRESENTLY IN HD. CM AWAITS HIS RETURN TO THE ROOM DCP- Discharge Planning Updated by [id number]: Mallory Washita on 11/10/18 6:[address] CM TO FOLLOW FOR ASSESSMENT. APPARENTLY HE RECENTLY RELOCATED TO [place], [place]. MD HAS ORDERED HD SETUP FOR [facility] [place] [facility]. TC TO KAYLENE HELTON. LEFT VOICE MAIL. PATIENT REPORTEDLY LIVING IN A HOTEL. QUESTION REGARDING HOUSING. CM TO FOLLOW. DCPIA - Discharge Planning Initial Assessment Updated by [id number]: Mallory Washita on 11/11/18 3:04 pm * Is the patient Alert and Oriented? Yes * PCP DR RONN DURAN * Pharmacy [facility] IN [place] * Other Environment [facility] * ADLs Independent * List name and contact numbers for known caregivers / representatives who currently or will assist patient after discharge: INDIRA DNUN- FRIEND FOR TRANSPORTATION * Verbal permission to speak to the caregivers and representatives has been obtained from the patient. No * Community resources currently utilized Other * Please name any agencies selected above. [facility] IN [place], [place] KAYLENE HELTON TRYING TO GET HD SET UP * Additional services required to return to the preadmission environment? Yes * Can the patient safely return to the preadmission environment? Yes Coverage Notice Reviewer: [email or web address] - Eloy Casillas Notice Issued Date-Time: 11/22/2018 11:50 Notice Type: Patient Choice Letter Notice Delivered To: Patient Relationship to Patient: Training Representative Name: Delivery Method: HAND - Hand Delivered Nguyen Days: Prior Verbal Notification: Recipient Understood Notice: Yes Recipient Signature: Yes Med Rec Note Co-signed by Attending: Coverage Notice Comment: SNF IN [place] OR [place] FOR REHAB ONLY... Last DP export: 11/26/18 4:19 pm Patient Name: RADHA SALGUERO Page [id number] at 1511 All edits/amendments must be made on the electronic document DICTATION DATE: 11/27/181509 CONTAINER REPAIRER: JEANMARIE 11/27/181509 RPT#: [id number] DC DATE: STATUS: ADM IN [facility] [address] [place] [address] END OF REPORT
--- NOTE | 2018-11-27 16:37 | NUR ---
DRESSING TO RIGHT FOOT CHANGED. 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
--- NOTE | 2018-11-27 20:00 | NUR ---
ALERT RESTING IN BED RESP UNLABORED NO APPARENT DISTRESS, SL TO LEFT FA, HEMISPLIT TO RIGHT CHEST DRESSING DRY AND INTACT, DRESSING TO RIGHT FOOT DRY AND INTACT CALL LIGHT IN REACH
[2018-11-27 21:07] VITALS: BP 115/53
[2018-11-28 01:12] VITALS: BP 119/54
[2018-11-28 06:11] VITALS: BP 124/68
[2018-11-28 07:49] VITALS: BP 132/66
--- NOTE | 2018-11-28 08:26 | NUR ---
PT ALERT X 3, DISORIENTED TO TIME. BREATH SOUNDS CLEAR BILAT, 2L O2 PER NC. TELEMETRY IN PLACE. PEG TUBE TO UPPER LEFT QUAD, CLAMPED, NOT IN USE AT THIS TIME. PT REPORTING PAIN OF 6/10 AROUND PEG TUBE AREA, NO REDNESS, SWELLING OR DRAINAGE NOTED, DRESSING CLEAN DRY AND INTACT, WILL MONITOR. IV TO LEFT HAND, PATENT, DRESSING CLEAN DRY AND INTACT. +2 EDEMA TO LOWER EXTREMITIES. BED LOW, CALL LIGHT IN REACH, NO OTHER NEEDS AT THIS TIME.
--- NOTE | 2018-11-28 08:52 | NUR ---
PT ALERT X 4. RED DEVIL. BREATH SOUNDS CLEAR BILAT. IV TO LEFT FOREARM, [place] LOCKED. HEMISPLIT TO RIGHT CHEST, DRESSING CLEAN DRY AND INTACT. SKIN DRY AND FLAKY ALL OVER. DRESSING TO RIGHT FOOT CLEAN DRY AND INTACT. NO PAIN THIS MORNING. BED LOW, CALL LIGHT IN REACH, NO OTHER NEEDS AT THIS TIME.
[2018-11-28 11:28] VITALS: BP 135/61
--- NOTE | 2018-11-28 12:42 | NUR ---
Rehab Note- Acute Inpatient prescreen order received. The patient has [employer] insurance and will require a PreAuth prior to an inpatient acute rehab stay. Will begin the PreAuth process. Thank you for this referral! Cecy Gonzalez RN CLinical Liaison, [facility] Rehab
[2018-11-28 15:54] VITALS: BP 120/59
--- NOTE | 2018-11-28 16:18 | MORECARE ---
CASE MANAGEMENT DISCHARGE SUMMARY PATIENT: RADHA SALGUERO UNIT: [id number] ADM DATE: 11/08/18 AGE: 73 : 45 SEX: M ROOM/BED: D.2135 AUTHOR: ROSA,DOC PHYSICIAN: REFERRING PHYSICIAN: MALOU SUN MD DATE OF SERVICE: 11/28/18 Discharge Plan Patient Name: RADHA SALGUERO [facility] [facility] 1945 Planned Disposition: Senior Care Facility Anticipated Discharge Date: Discharge Date: Expected LOS: Initial Reviewer: [id number] Initial Review Date: 11/08/2018 Generated: 11/28/18 5:18 pm Comments DCP- Discharge Planning Updated by [id number]: Eloy Casillas on 11/28/18 3:[address] Patient Name: RADHA SALGUERO Encounter No: [id number] : 1945 Primary Insurance: WELLCARE MEDICARE ADV Anticipated DC Date: Planned Disposition: Senior Care Facility External Planned Provider: FIRST ACCEPTING FACILITY OR INPATIENT REHAB AT [facility] DCP follow-up note: CM RECEIVED ORDER FOR INPATIENT REHAB PRESCREENING, SPOKE TO PT IN ROOM. PT REPORTS HE ONLY WANTS REHAB TO GET STRONGER AND RETURN TO [place] WHERE HE LIVES. PT REPORTS HE WOULD GO TO INPATIENT REHAB OR RETIREMENT. PT REPORTS ABILITY TO PARTICIPATE IN THREE HOURS OF PROGRESSIVE THERAPY PER DAY. PT ASKED ABOUT WHY WILL NOT THE DIALYSIS UNITS ACCEPT HIM AND AGAIN ASKED TO SPEAK TO DR. SUN. CM EXPLAINED THAT THE DOCTOR IS NOT GOING TO CONTINUE TO DISCUSS THIS ISSUE IT HAS BEEN DISCUSSED ALREADY WITH PT AND THAT PT WILL NEED TO ACCEPT HIS UNIT ACCEPTANCE IN [place] IT IS THE CLOSEST UNIT THAT WILL ACCEPT HIM FOR OUTPATIENT DIALYSIS. PT STATES HE WOULD LIKE REHAB AND THE HOSPITAL WOULD BE FINE AND IF [facility] WOULD ACCEPT, HE WILL GO EITHER PLACE FOR REHAB SERVICES ONLY WITH PLAN TO RETURN HOME. CM FAXED UPDATE TO JES AT [facility], . CM WAITING ADMISSION DETERMINATIONS FROM [facility] INPATIENT REHAB [facility] IN [place]. PT'S INSURANC WILL HAVE TO PROVIDE AUTHORIZATION FOR REHAB SERVICES AT WHICH EVER FACILITY ACCEPTS. CM TO CONTINUE TO FOLLOW AND ASSIST NEEDED. Eloy Casillas CASE MANAGEMENT DCP- Discharge Planning Updated by [id number]: Eloy Casillas on 11/27/18 2:[address] Patient Name: RADHA SALGUERO Encounter No: [id number] : 1945 Primary Insurance: WELLCARE MEDICARE ADV Anticipated DC Date: Planned Disposition: Senior Care Facility External Planned Provider: FIRST ACCEPTING FACILITY DCP follow-up note: GEETHA NGUYEN [facility] CAME AND MET WITH PT TO ASSESS FOR REHAB PLACEMENT. CM RECEIVED MESSAGE FROM GEETHA NGUYEN [facility] WHO INFORMED CM THAT THEY CHECKED PT'S INSURANCE, WELLCARE, THAT INDICATES PT IS A HOSPICE PT AND MEDICAID STILL SHOWS PT IS OPERATING ROOM NURSE CARE AT [facility] IN [place]. PT WOULD HAVE TO COME TO FACILITY OPERATING ROOM NURSE CARE MEDICAID AND THEY COULD PROVIDE THERAPY UNDER MEDICARE PART B. CM LATER RECEIVED PHONE CALL FROM GEETHA NGUYEN [facility] WHO INFORMED CM THAT THEY CANNOT TAKE PT THEY DO NOT HAVE TRANSPORTATION FOR SUNDAY DIALYSIS. CM RECEIVED CALL FROM JES [facility] IN [place] WHO HAS RECEIVED REFERRAL AND IS TRYING TO ASSIST PT WITH REHAB PLACEMENT. CM CONFIRMED THAT PT HAS DIALYSIS ON TTS SCHEDULE AT THE [place] [facility]. PT HAS BEEN ACCEPTED FOR DIALYSIS AT [facility] IN [place], [place], 0930AM. PT CAN START AT [facility] OP DAILYSIS ON 11-26-18 AT 0900 AM. CM WAITING ADMISSION DETERMINATION FOR REHAB FROM [facility] IN [place]. Eloy Casillas CASE MANN DCP- Discharge Planning Updated by [id number]: Eloy Casillas on 11/26/18 4:[address] Patient Name: RADHA SALGUERO Encounter No: [id number] : 1945 Primary Insurance: WELLCARE MEDICARE ADV Anticipated DC Date: Planned Disposition: Senior Care Facility External Planned Provider: FIRST ACCEPTING RETIREMENT FACILITY FOR MEDICARE REHAB BED DCP follow-up note: CM RECEIVED CALL FROM [facility], , THEY WERE WILLING TO ACCEPT BUT CALLED [facility] DIALYSIS AND PT COULD NOT BE CHANGED TO MWF DIALYSIS SCHEDULE FROM [place]. [facility] CANNOT ACCEPT THEY HAVE NO TRANSPORT AVAILABLE FOR SUNDAY DIALYSIS. CM FAXED REFERRAL UPDATE TO GONZALO ANDERSEN AT [phone]. CM FAXED REFERRAL UPDATE TO MELISSA CHRISTOPHER AT [phone]. CM FAXED REFERRAL UPDATE TO [place] AT [phone]. . PT HAS BEEN ACCEPTED FOR DIALYSIS AT [facility] IN [facility], 0930AM. PT CAN START AT [facility] OP DAILYSIS ON 11-26-18 AT 0900 AM. CM WAITING ADMISSION DETERMINATIONS FOR REHAB FROM [facility], [facility] AND [facility]. Eloy Casillas, CASE MANAGEMENT Appended by Eloy Casillas on 11/26/2018 11:05 PONY WORKER: CM RECEIVED CALL FROM [facility] WHO REPORTS THEY WILL NOT ACCEPT PT DUE TO PRIOR NON COMPLIANCE IN [facility] PLACEMENT IN [place] AND THEY CANNOT TRANSPORT TO DIALYSIS ON SATURDAYS. CM RECEIVED CALL FROM [facility], THEY ARE NOT ABLE TO MEET PT'S CLINICAL NEEDS AT THIS TIME. PT HAS BEEN ACCEPTED FOR DIALYSIS AT [facility] IN [facility], 0930AM. PT CAN START AT [facility] OP DAILYSIS ON 11-26-18 AT 0900 AM. CM WAITING ADMISSION DETERMINATIONS FOR REHAB FROM [facility]. Eloy Casillas, CASE MANAGEMENT Appended by Eloy Casillas on 11/26/2018 12:06 PONY WORKER: CM CALLED AND SPOKE TO JES OF [facility] IN [place], , DISCUSSED REHAB REFERRAL AND ASKED IF SHE WOULD BE ABLE TO TRANSPORT PT TO [place] FOR DIALYSIS ON TTS SCHEDULE. JES WILL REVIEW REFERRAL AND GET BACK WITH CM. CM FAXED REFERRAL TO [facility] AT [phone]. PT HAS BEEN ACCEPTED FOR DIALYSIS AT [facility] IN [facility], 0930AM. PT CAN START AT [facility] OP DAILYSIS ON 11-26-18 AT 0900 AM. CM WAITING ADMISSION DETERMINATIONS FOR REHAB FROM [facility] AND [facility]. Eloy Casillas, CASE MANAGEMENT Appended by Eloy Casillas on 11/26/2018 13:48 PONY WORKER: CM RECEIVED CALL FROM [facility], THEY WILL NOT ACCEPT PT. CM RECEIVED CALL FROM AMY OF [facility] WHO REQUESTED REFERRAL BE FAXED TO ALTERNATE NUMBER FAX IS NOT WORKING ON THE MAIN LINE. CM FAXED REFERRAL TO [facility] AT [phone]. PT HAS BEEN ACCEPTED FOR DIALYSIS AT [facility] IN [facility], 0930AM. PT CAN START AT [facility] OP DAILYSIS ON 11-26-18 AT 0900 AM. CM WAITING ADMISSION DETERMINATION FOR REHAB FROM [facility] IN [place]. Eloy Casillas, CASE MANAGEMENT Appended by Eloy Casillas on 11/26/2018 17:13 PONY WORKER: CM SPOKE TO GEETHA OF [facility] WHO WILL REVIEW TO SEE IF [facility] CAN MEET PT'S NEEDS. CM FAXED REFERRAL TO [facility] AT [phone]. PT HAS BEEN ACCEPTED FOR DIALYSIS AT [facility] IN [place], [facility], 0930AM. PT CAN START AT [facility] OP DAILYSIS ON 11-26-18 AT 0900 AM. CM WAITING ADMISSION DETERMINATION FOR REHAB FROM [facility] IN [place] AND [facility] IN [place]. Eloy Casillas, CASE MANAGEMENT DCP- Discharge Planning Updated by [id number]: Eloy Casillas on 11/25/18 11:[address] Patient Name: RADHA SALGUERO Encounter No: [id number] : 1945 Primary Insurance: WELLCARE MEDICARE ADV Anticipated DC Date: Planned Disposition: Senior Care Facility External Planned Provider: FIRST ACCEPTING RETIREMENT FACILITY FOR MEDICARE REHAB BED DCP follow-up note: CM SPOKE TO PT IN ROOM AND PROVIDED UPDATE THIS MORNING. CM INFORMED PT THAT HE WOULD BE DISCHARGING FROM THE HOSPITAL SOON OUTPATIENT DIALYSIS UNIT SCHEDULE IS OBTAINED. PT CONTINUES TO REPORT PLAN TO GO BACK TO HIS HOTEL ROOM IN [place] AND THEN BEGAN INSISTING TO KNOW WHY THE DOCTORS AT THE DIALYSIS UNITS WILL NOT ACCEPT HIM. CM EXPLAINED THAT PT WILL HAVE TO TALK TO THE DOCTORS HIMSELF AND CM WAS CONCERNED WITH FINDING AN ACCEPTING UNIT FOR OUTPATIENT DIALYSIS. PT ARGUED THAT THE DOCTORS HAVE NO REASON TO NOT ACCEPT HIM. CM EXPLAINED TO PT THAT HE CANNOT CHANGE THIS AND NEEDS TO CONCENTRATE ON DISCHARGE PLANNING AND LET THE [facility] COORDINATOR FIND A UNIT THAT WOULD ACCEPT. PT CONTINUED TO ARGUE REPORTING THE [place] UNIT HAD ACCEPTED HIM AND HAD NO REASON TO NOT TAKE HIM WHEN HE ARRIVED "HOME" IN [place]. CM EXPLAINED THAT THE UNIT NEVER ACCEPTED HIM, PT REPORTS THIS IS NOT TRUE. CM INFORMED PT THAT CM WILL NOT CONTINUE TO ARGUE THE POINT AND WOULD FOCUS ON DISCHARGE PLANNING. PT REPORTS PLAN TO RETURN TO HIS HOTEL ROOM IN [place] AND NEEDS A MWF DIALYSIS SCHEDULE TO USE MEDICAID TRANSPORTATION. CM DISCUSSED AVAILABILTY OF RETIREMENT REHAB SERVICES PT'S THERAPY NOTES INDICATE PT IS NOT WALKING WELL. PT DECLINES AND STATES HE IS GOING HOME. CM RECEIVED CALL FROM KWAN OF [facility] WHO REPORTS THEY RECEIVED REFERRAL FOR HOME HEALTH REGARDING PT. KWAN ADVISED THAT THEY WILL NOT ACCEPT PT DOES NOT APPEAR TO BE APPROPRIATE AT THIS TIME FOR HOME HEALTH. CM SPOKE TO DR. SUN WHO INFORMED PT IS STABLE FOR DISCHARGE. CM FAXED REFERRAL TO [facility] AT [phone]. CM RECEIVED REQUEST FOR MORE INFORMATION (OUTPATIENT DIALYSIS UNIT, NEED FOR ANTIBIOTICS AT DISCHARE AND ISOLATION STATUS.) CM CALLED [facility], , SPOKE TO EZEKIEL, PROVIDED INFORMATION AND FAXED REFERRAL UPDATE TO [facility] AT [phone] CM FAXED REFERRAL UPDATE TO MELISSA CHRISTOPHER AT [phone]. CM FAXED REFERRAL UPDATE TO [facility] AT [phone]. . PT HAS BEEN ACCEPTED FOR DIALYSIS AT [facility] IN [facility], 0930AM. PT CAN START AT [facility] OP DAILYSIS ON 11-26-18 AT 0900 AM. CM WAITING ADMISSION DETERMINATIONS FOR REHAB FROM [facility], [facility], [facility] AND [facility]. Eloy Casillas, CASE MANAGEMENT DCP- Discharge Planning Updated by [id number]: Eloy Casillas on 11/22/18 4:[address] Patient Name: RADHA SALGUERO Encounter No: [id number] : 1945 Primary Insurance: WELLCARE MEDICARE ADV Anticipated DC Date: Planned Disposition: Senior Care Facility External Planned Provider: FIRST ACCEPTING RETIREMENT FACILITY FOR MEDICARE REHAB BED DCP follow-up note: CM SPOKE TO PT IN ROOM AND PROVIDED UPDATE THIS MORNING. CM INFORMED PT THAT HE WOULD BE DISCHARGING FROM THE HOSPITAL SOON OUTPATIENT DIALYSIS UNIT SCHEDULE IS OBTAINED. PT CONTINUES TO REPORT PLAN TO GO BACK TO HIS HOTEL ROOM IN [place] AND THEN BEGAN INSISTING TO KNOW WHY THE DOCTORS AT THE DIALYSIS UNITS WILL NOT ACCEPT HIM. CM EXPLAINED THAT PT WILL HAVE TO TALK TO THE DOCTORS HIMSELF AND CM WAS CONCERNED WITH FINDING AN ACCEPTING UNIT FOR OUTPATIENT DIALYSIS. PT ARGUED THAT THE DOCTORS HAVE NO REASON TO NOT ACCEPT HIM. CM EXPLAINED TO PT THAT HE CANNOT CHANGE THIS AND NEEDS TO CONCENTRATE ON DISCHARGE PLANNING AND LET THE [facility] COORDINATOR FIND A UNIT THAT WOULD ACCEPT. PT CONTINUED TO ARGUE REPORTING THE [place] UNIT HAD ACCEPTED HIM AND HAD NO REASON TO NOT TAKE HIM WHEN HE ARRIVED "HOME" IN [place]. CM EXPLAINED THAT THE UNIT NEVER ACCEPTED HIM, PT REPORTS THIS IS NOT TRUE. CM INFORMED PT THAT CM WILL NOT CONTINUE TO ARGUE THE POINT AND WOULD FOCUS ON DISCHARGE PLANNING. PT REPORTS PLAN TO RETURN TO HIS HOTEL ROOM IN [place] AND NEEDS A MWF DIALYSIS SCHEDULE TO USE MEDICAID TRANSPORTATION. CM DISCUSSED AVAILABILTY OF RETIREMENT REHAB SERVICES PT'S THERAPY NOTES INDICATE PT IS NOT WALKING WELL. PT DECLINES AND STATES HE IS GOING HOME. CM RECEIVED CALL FROM KWAN OF [facility] WHO REPORTS THEY RECEIVED REFERRAL FOR HOME HEALTH REGARDING PT. [facility] ADVISED THAT THEY WILL NOT ACCEPT PT DOES NOT APPEAR TO BE APPROPRIATE AT THIS TIME FOR HOME HEALTH. CM SPOKE TO KAYLENE OF [facility], PT ACCEPTED FOR DIALYSIS AT [facility] IN [place], [facility], 0930AM. CM NOTIFIED PT AND PROVIDED PT A COPY OF HIS THERAPY NOTE FROM YESTERDAY THAT INDICATES PT WALKING 4 FEET WITH 35 % ASSISTANCE. CM INFORMED PT THAT IS NOT SAFE FOR HIM TO DISCHARGE HOME WITHOUT ASSISTANCE. PT REPORTS HAVING NO FAMILY OR FRIENDS TO ASSIST. PT STILL DECLINED RETIREMENT FACILITY STATING HE LEFT ONE AND IS NOT GOING BACK. CM DISCUSSED HAVING A SAFE DISCHARGE PLAN AND IF PT INSISTED ON GOING HOME IN CURRENT CONDITION, CM WOULD CALL ADULT PROTECTIVE SERVICES. PT DOES NOT WANT TO BE INVOLVED WITH ADULT PROTECTIVE SERVICES AND WILL AGREE FOR REHAB PLACEMENT ONLY IN [place] IF POSSIBLE AND IF NOT, [place]. CHOICE LETTER SIGNED. BHAVANA SPOKE TO NATHALY OLIVAREZ, [facility] AND [facility]. NATHALY INFORMED CM THAT [place] [facility] WILL NOT TRANSPORT TO DIALYSIS IN [place], THAT [facility] CANNOT ACCOMODATE TTS SCHEDULE ADN [facility] WOULD NEED TO EVALUATE. CM FAXED REFERRAL TO [facility] AT [phone]. CM CALLED [facility] CHRISTOPHER, , SPOKE TO [facility] WHO WILL EVALUATE PT NEXT SUNDAY. CM FAXED REFERRAL TO [facility] AT [phone]. CM CALLED [facility], , SPOKE TO ENRIKE WHO WILL SCREEN FOR REHAB ADMISSION; CM FAXED REFERRAL TO [facility] AT [phone]. CM CALLED [facility], , SPOKE TO EZEKIEL WHO WILL SCREEN PT FOR ADMISSION, CM FAXED REFERRAL TO [facility] AT [phone]. PT HAS BEEN ACCEPTED FOR DIALYSIS AT [facility] IN [place], [facility], 0930AM. PT CAN START AT [facility] OP DAILYSIS ON 11-26-18 AT 0900 AM. CM WAITING ADMISSION DETERMINATIONS FOR REHAB FROM [facility], [facility], [facility] AND [facility]. Eloy Casillas, CASE MANAGEMENT DCP- Discharge Planning Updated by [id number]: Eloy Casillas on 11/14/18 4:[address] Patient Name: RADHA SALGUERO Encounter No: [id number] : 1945 Primary Insurance: WELL[employer] MEDICARE ADV Anticipated DC Date: Planned Disposition: Home DCP follow-up note: CM SPOKE TO DR. MATHIS REGARDING PT'S LIVING ARRAGEMENTS. CM SPOKE TO PT IN ROOM REGARDING LIVING IN HOTEL ROOM. PT REPORTS HE WAS LIVING IN A JAIL, DOES NOT WANT TO GO BACK TO ONE AND IS LIVING IN THE HOTEL UNTIL HE FINDS A PLACE THAT HE LIKES. CM DISCUSSED REHAB SERVICES HOME HEALTH AND MEDICAL EQUIPMENT. PT DENIES DISCHARGE NEEDS OTHER THAN NEEDING A DIALYSIS CLINIC. PT STILL UPSET THAT THE [place] [facility] WILL NOT ACCEPT HIM A PATIENT. PT REPORTS HE WILL BE STAYING IN [place] AND WILL FIND HIMSELF AN APARTMENT THERE. PT REPORTS USING MEDICAID TRANSPORT FOR MEDICAL APPOINTMENTS AND NEEDS A Sunday SCHEDULE IN ORDER TO USE MEDICAID TRANSPORT TO AND FROM DIALYSIS. PT REPORTS INABILITY TO GET TO [facility] ON WEEKENDS. KAYLENE OF [facility] NOTIFIED. CM WAITING ARRANGEMENT AND ACCEPTANCE AT OUTPATIENT DIALYSIS CLINIC; [facility] COORDINATOR IS WORKING ON THIS. CM TO CONTINUE TO FOLLOW AND ASSIST IF NEEDED. Eloy Casillas, CASE MANAGEMENT DCP- Discharge Planning Updated by [id number]: Sherri Walker on 11/14/18 2:[address] I HAVE BEEN IN COMMUNICATION WITH KAYLENE KIM, CLINICAL LIASON FOR [facility]. SHE HAS BEEN WORKING ON PLACEMENT FOR THE PATIENT. THIS PATIENT WAS IN A [facility] IN [place] AND RECEIVING DIALYSIS. HE KNEW HE WAS NOT ACCEPTED BY THE [place] [facility] BEFORE HE EVER MOVED TO [place], BUT CAME ANYWAY. KAYLENE HAD BEEN WORKING WITH THE [place] UNIT, AND THEY ARE STILL DENYING HIM PLACEMENT THERE. SHE STATED THAT HE HAS THE OPTION OF [place], OR [place]. WHILE I WAS ON THE PHONE WITH KAYLENE, PHILOMENA WENT AND ASKED THE PATIENT AND HE SAID [place] [place], BUT IS INSISTENT THAT HE HAVE A -W- SCHEDULE. KAYLENE CALLED BACK AND STATED THAT BECAUSE DR SIMS HAS REFUSED THE PATIENT, THE [place] AND [place] UNITS HAVE ALSO DENIED THE PATIENT. THE ONLY OPTION IS FOR THE [place] UNIT AND THESE ARE THE SAME DOCTORS THAT CARED FOR HIM IN [place]. I WENT AND TALKED TO THE PATIENT AND HE STATED THAT THAT WOULD BE FINE. I HAVE LET KAYLENE KNOW THIS. I HAVE ALSO PASSED ONTO HER THAT PER DR AGUIRRE, THE PATIENT WAS GOING TO NEED 6 WEEKS OF VANCOMYCIN TO BE GIVEN IN DIALYSIS. SHE HAS STATED THAT THAT SHOULD NOT BE A PROBLEM ONCE HE IS ACCEPTED. ALSO DURING THIS TIME, JEFFERSON, PHYSICAL THERAPIST, CAME BY AND STATED THAT THE PATIENT WAS NOT STABLE ON THE CRUTCHES AND DID MUCH BETTER ON THE WALKER. HE RECOMMENDED THAT THE PATIENT GET A WALKER. I ALSO SPOKE WITH THE PATIENT AND HE STATED THAT HE HAS A WALKER AT THE HOTEL AND DOES NOT NEED ANOTHER ONE. HE STATED THAT THE THERAPIST CAME IN AND GOT HIM UP RIGHT AFTER DIALYSIS AND HE WAS WEEK. HE STATED THAT HE WILL DO BETTER TOMORROW. I HAVE EXPLAINED THAT WE SHOULD HAVE A WALKER THAT HE CAN BORROW DURING THERAPY IF NEEDED. DCP- Discharge Planning Updated by [id number]: Mallory Hawley on 11/11/18 2:[address] PATIENT HAD RECENTLY RETURNED FROM HD AND HAD EATEN HIS LUNCH. HE SAID HE WAS TIRED. SPOKE SLOWLY PATIENT STATES HE IS HARD OF HEARING BUT DID NOT WANT TO TURN DOWN THE VOLUME ON TV. LIV[facility] AT THE [facility] IN [place], [place]. STATES HE HAS NO BROTHERS, SISTERS OR CHILDREN. HE SAYS HE DOES HAVE COUSINS THAT LIVE IN [place]. STATES HE WILL HAVE TRANSPORTATION AT DISCHARGE FROM HIS FRIEND INDIRA DUNN. CONTACT PHONE NUMBER- [phone]. STATES HE IS TIRED THEREFORE CM STATED WILL REVISIT TO ASSIST WITH DISCHARGE. KAYLENE HELTON ON SITE AND HE STATES HE HAS SPOKEN WITH THE HD COORDINATOR. DCP- Discharge Planning Updated by [id number]: Mallory Hawley on 11/11/18 12:[address] PATIENT PRESENTLY IN HD. CM AWAITS HIS RETURN TO THE ROOM DCP- Discharge Planning Updated by [id number]: Mallory Hawley on 11/10/18 6:[address] CM TO FOLLOW FOR ASSESSMENT. APPARENTLY HE RECENTLY RELOCATED TO [place], [place]. HAS ORDERED HD SETUP FOR [facility] [place] [facility]. TC TO KAYLENE HELTON. LEFT VOICE MAIL. PATIENT REPORTEDLY LIVING IN A HOTEL. QUESTION REGARDING HOUSING. CM TO FOLLOW. DCPIA - Discharge Planning Initial Assessment Updated by [id number]: Mallory Hawley on 11/11/18 3:04 pm * Is the patient Alert and Oriented? Yes * PCP DR RONN DURAN * Pharmacy [facility] IN [place] * Other Environment [facility] * ADLs Independent * List name and contact numbers for known caregivers / representatives who currently or will assist patient after discharge: INDIRA DUNN- FRIEND FOR TRANSPORTATION * Verbal permission to speak to the caregivers and representatives has been obtained from the patient. No * Community resources currently utilized Other * Please name any agencies selected above. [facility] IN [place], [place] KAYLENE HELTON TRYING TO GET HD SET UP * Additional services required to return to the preadmission environment? Yes * Can the patient safely return to the preadmission environment? 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 Last DP export: 11/27/18 2:11 pm Patient Name: RADHA SALGUERO Page [id number] at 1618 All edits/amendments must be made on the electronic document DICTATION DATE: 11/28/181617 ADMINISTRATIVE RECEPTIONIST: JEANMARIE 11/28/181617 RPT#: [id number] DC DATE: STATUS: ADM IN [facility] [address] [place] [address] END OF REPORT
[2018-11-28 20:00] VITALS: BP 118/70
--- NOTE | 2018-11-29 00:52 | NUR ---
PT SLEEPING. BREATHING EVEN AND UNLABORED. WAKES TO A/OX4. DENIES NEEDS AT THIS TIME. WILL CONTINUE POC.
[2018-11-29 04:00] VITALS: BP 133/60
--- NOTE | 2018-11-29 07:30 | NUR ---
RECIEVE A/A/OX4. DENIES ANY PAIN OR DISCOMFORT AND NO REQUEST VOICED. BED IN LOW POSITION, SIDERAILS UP X 2 AND CALL LIGHT IN REACH. ASSESSMENT COMPLETED.
[2018-11-29 07:52] VITALS: BP 136/66
--- NOTE | 2018-11-29 10:58 | NUR ---
IN DIALYSIS AT THIS TIME. WILL CONT. PLAN OF CARE.
[2018-11-29 14:01] VITALS: BP 153/71
--- NOTE | 2018-11-29 16:20 | MORECARE ---
CASE MANAGEMENT DISCHARGE SUMMARY PATIENT: RADHA SALGUERO UNIT: [id number] ADM DATE: 11/08/18 AGE: 73 : 45 SEX: M ROOM/BED: D.2135 AUTHOR: ROSA,DOC PHYSICIAN: REFERRING PHYSICIAN: MALOU SUN MD DATE OF SERVICE: 11/29/18 Discharge Plan Patient Name: RAD[facility]GUERO [facility] [facility] 1945 Planned Disposition: Group Home Facility Anticipated Discharge Date: Discharge Date: Expected LOS: Initial Reviewer: [id number] Initial Review Date: 11/08/2018 Generated: 11/29/18 5:19 pm Comments DCP- Discharge Planning Updated by [id number]: Eloy Casillas on 11/29/18 3:[address] Patient Name: RADHA SALGUERO Encounter No: [id number] : 1945 Primary Insurance: [employer] MED[employer]ARE ADV Anticipated DC Date: Planned Disposition: Group Home Facility External Planned Provider: FIRST ACCEPTING FACILITY OR INPATIENT REHAB AT [place] DCP follow-up note: CM CALLED JES AT [facility], . WAS INFORMED THAT [facility] CANNOT MEET PT'S NEEDS. PT HAS BEEN DECLINED BY NURSING FACILTIES IN [facility]. CM WAITING ADMISSION DETERMINATIONS FROM [facility] INPATIENT REHAB. CM WILL CONTINUE TO EXPLORE OTHER NURSING HOMES IN [place]. PT'S INSURANC WILL HAVE TO PROVIDE AUTHORIZATION FOR REHAB SERVICES AT WHICH EVER FACILITY ACCEPTS. Eloy Casillas, MOON MANAGEMENT DCP- Discharge Planning Updated by [id number]: Eloy Casillas on 11/28/18 3:[address] Patient Name: RADHA SALGUERO Encounter No: [id number] : 1945 Primary Insurance: [employer] MEDICARE ADV Anticipated DC Date: Planned Disposition: Group Home Facility External Planned Provider: FIRST ACCEPTING FACILITY OR INPATIENT REHAB AT [place] DCP follow-up note: CM RECEIVED ORDER FOR INPATIENT REHAB PRESCREENING, SPOKE TO PT IN ROOM. PT REPORTS HE ONLY WANTS REHAB TO GET STRONGER AND RETURN TO [place] WHERE HE LIVES. PT REPORTS HE WOULD GO TO INPATIENT REHAB OR HALF-WAY. PT REPORTS ABILITY TO PARTICIPATE IN THREE HOURS OF PROGRESSIVE THERAPY PER DAY. PT ASKED ABOUT WHY WILL NOT THE DIALYSIS UNITS ACCEPT HIM AND AGAIN ASKED TO SPEAK TO DR. SUN. CM EXPLAINED THAT THE DOCTOR IS NOT GOING TO CONTINUE TO DISCUSS THIS ISSUE IT HAS BEEN DISCUSSED ALREADY WITH PT AND THAT PT WILL NEED TO ACCEPT HIS UNIT ACCEPTANCE IN [place] IT IS THE CLOSEST UNIT THAT WILL ACCEPT HIM FOR OUTPATIENT DIALYSIS. PT STATES HE WOULD LIKE REHAB AND THE HOSPITAL WOULD BE FINE AND IF [facility] WOULD ACCEPT, HE WILL GO EITHER PLACE FOR REHAB SERVICES ONLY WITH PLAN TO RETURN HOME. CM FAXED UPDATE TO JES AT [facility], . CM WAITING ADMISSION DETERMINATIONS FROM [facility]PATIENT [facility] FAC[facility] IN [place]. PT'S INSURANC WILL HAVE TO PROVIDE AUTHORIZATION FOR REHAB SERVICES AT WHICH EVER FACILITY ACCEPTS. CM TO CONTINUE TO FOLLOW AND ASSIST NEEDED. Eloy Casillas, CASE MANAGEMENT DCP- Discharge Planning Updated by [id number]: Eloy Casillas on 11/27/18 2:[address] Patient Name: RADHA SALGUERO Encounter No: [id number] : 1945 Primary Insurance: [employer] MEDICARE ADV Anticipated DC Date: Planned Disposition: Group Home Facility External Planned Provider: FIRST ACCEPTING FACILITY DCP follow-up note: ARCHIE HAWLEY CAME AND MET WITH PT TO ASSESS FOR REHAB PLACEMENT. CM RECEIVED MESSAGE FROM GEETHA NGUYEN [facility] WHO INFORMED CM THAT THEY CHECKED PT'S INSURANCE, [employer], THAT INDICATES PT IS A HOSPICE PT AND MEDICAID STILL SHOWS PT IS JAIL CARE AT [facility] IN [place]. PT WOULD HAVE TO COME TO FACILITY LAB [employer]CHNOLOGIST CARE MEDICAID AND THEY COULD PROVIDE THERAPY UNDER MEDICARE PART B. CM LATER RECEIVED PHONE CALL FROM GEETHA NGUYEN [facility] WHO INFORMED CM THAT THEY CANNOT TAKE PT THEY DO NOT HAVE TRANSPORTATION FOR SUNDAY DIALYSIS. CM RECEIVED CALL FROM JES OF [facility] IN [place] WHO HAS RECEIVED REFERRAL AND IS TRYING TO ASSIST PT WITH REHAB PLACEMENT. CM CONFIRMED THAT PT HAS DIALYSIS ON TTS SCHEDULE AT THE [place] [facility]. PT HAS BEEN ACCEPTED FOR DIALYSIS AT [facility] IN [place], TTS, 0930AM. PT CAN START AT [facility] OP DAILYSIS ON 11-26-18 AT 0900 AM. CM WAITING ADMISSION DETERMINATION FOR REHAB FROM [facility] IN [place]. Eloy Casillas CASE MANAGEMENT DCP- Discharge Planning Updated by [id number]: Eloy Casillas on 11/26/18 4:[address] Patient Name: RADHA SALGUERO Encounter No: [id number] : 1945 Primary Insurance: [employer] MEDICARE ADV Anticipated DC Date: Planned Disposition: Group Home Facility External Planned Provider: FIRST ACCEPTING HALF-WAY FACILITY FOR MEDICARE REHAB BED DCP follow-up note: CM RECEIVED CALL FROM [facility], , THEY WERE WILLING TO ACCEPT BUT CALLED [facility] DIALYSIS AND PT COULD NOT BE CHANGED TO [facility] DIALYSIS SCHEDULE FROM [place]. [facility] CANNOT ACCEPT THEY HAVE NO TRANSPORT AVAILABLE FOR SUNDAY DIALYSIS. CM FAXED REFERRAL UPDATE TO [facility] AT [phone]. CM FAXED REFERRAL UPDATE TO [facility] AT [phone]. CM FAXED REFERRAL UPDATE TO [facility] AT [phone]. . PT HAS BEEN ACCEPTED FOR DIALYSIS AT [facility] IN [place], [facility], 0930AM. PT CAN START AT [facility] OP DAILYSIS ON 11-26-18 AT 0900 AM. CM WAITING ADMISSION DETERMINATIONS FOR REHAB FROM [facility], [facility] AND [facility]. Eloy Casillas, CASE MANAGEMENT Appended by Eloy Casillas on 11/26/2018 11:05 POWDERED METAL SUPERVISOR: CM RECEIVED CALL FROM SANTA NGUYEN [facility] WHO REPORTS THEY WILL NOT ACCEPT PT DUE TO PRIOR NON COMPLIANCE IN [facility] PLACEMENT IN [place] AND THEY CANNOT TRANSPORT TO DIALYSIS ON SATURDAYS. CM RECEIVED CALL FROM [facility], THEY ARE NOT ABLE TO MEET PT'S CLINICAL NEEDS AT THIS TIME. PT HAS BEEN ACCEPTED FOR DIALYSIS AT [facility] IN [place], [facility], 0930AM. PT CAN START AT [facility] OP DAILYSIS ON 11-26-18 AT 0900 AM. CM WAITING ADMISSION DETERMINATIONS FOR REHAB FROM [facility]. Eloy Casillas, CASE MANAGEMENT Appended by Eloy Casillas on 11/26/2018 12:06 POWDERED METAL SUPERVISOR: CM CALLED AND SPOKE TO JES OF [facility] IN [place], , DISCUSSED REHAB REFERRAL AND ASKED IF SHE WOULD BE ABLE TO TRANSPORT PT TO [place] FOR DIALYSIS ON TTS SCHEDULE. JES WILL REVIEW REFERRAL AND GET BACK WITH CM. CM FAXED REFERRAL TO [facility] AT [phone]. PT HAS BEEN ACCEPTED FOR DIALYSIS AT [facility] IN [facility], 0930AM. PT CAN START AT [facility] OP DAILYSIS ON 11-26-18 AT 0900 AM. CM WAITING ADMISSION DETERMINATIONS FOR REHAB FROM [facility] AND [facility]. Eloy Casillas, CASE MANAGEMENT Appended by Eloy Casillas on 11/26/2018 13:48 POWDERED METAL SUPERVISOR: CM RECEIVED CALL FROM [facility], THEY WILL NOT ACCEPT PT. CM RECEIVED CALL FROM [facility] WHO REQUESTED REFERRAL BE FAXED TO ALTERNATE NUMBER FAX IS NOT WORKING ON THE MAIN LINE. CM FAXED REFERRAL TO [facility] AT [phone]. PT HAS BEEN ACCEPTED FOR DIALYSIS AT [facility] IN [facility], 0930AM. PT CAN START AT [facility] OP DAILYSIS ON 11-26-18 AT 0900 AM. CM WAITING ADMISSION DETERMINATION FOR REHAB FROM [facility] IN [place]. Eloy Casillas, CASE MANAGEMENT Appended by Eloy Casillas on 11/26/2018 17:13 POWDERED METAL SUPERVISOR: CM SPOKE TO GEETHA OF [facility] WHO WILL REVIEW TO SEE IF [facility] CAN MEET PT'S NEEDS. CM FAXED REFERRAL TO [facility] AT [phone]. PT HAS BEEN ACCEPTED FOR DIALYSIS AT [facility] IN [place], [facility], 0930AM. PT CAN START AT [facility] OP DAILYSIS ON 11-26-18 AT 0900 AM. CM WAITING ADMISSION DETERMINATION FOR REHAB FROM [facility] IN [place] AND [facility] IN [place]. Eloy Casillas, CASE MANAGEMENT DCP- Discharge Planning Updated by [id number]: Eloy Casillas on 11/25/18 11:[address] Patient Name: RADHA SALGUERO Encounter No: [id number] : 1945 Primary Insurance: [employer] MEDICARE ADV Anticipated DC Date: Planned Disposition: Group Home Facility External Planned Provider: FIRST ACCEPTING HALF-WAY FACILITY FOR MEDICARE REHAB BED DCP follow-up note: CM SPOKE TO PT IN ROOM AND PROVIDED UPDATE THIS MORNING. CM INFORMED PT THAT HE WOULD BE DISCHARGING FROM THE HOSPITAL SOON OUTPATIENT DIALYSIS UNIT SCHEDULE IS OBTAINED. PT CONTINUES TO REPORT PLAN TO GO BACK TO HIS HOTEL ROOM IN [place] AND THEN BEGAN INSISTING TO KNOW WHY THE DOCTORS AT THE DIALYSIS UNITS WILL NOT ACCEPT HIM. CM EXPLAINED THAT PT WILL HAVE TO TALK TO THE DOCTORS HIMSELF AND CM WAS CONCERNED WITH FINDING AN ACCEPTING UNIT FOR OUTPATIENT DIALYSIS. PT ARGUED THAT THE DOCTORS HAVE NO REASON TO NOT ACCEPT HIM. CM EXPLAINED TO PT THAT HE CANNOT CHANGE THIS AND NEEDS TO CONCENTRATE ON DISCHARGE PLANNING AND LET THE [facility] COORDINATOR FIND A UNIT THAT WOULD ACCEPT. PT CONTINUED TO ARGUE REPORTING THE [place] UNIT HAD ACCEPTED HIM AND HAD NO REASON TO NOT TAKE HIM WHEN HE ARRIVED "HOME" IN [place]. CM EXPLAINED THAT THE UNIT NEVER ACCEPTED HIM, PT REPORTS THIS IS NOT TRUE. CM INFORMED PT THAT CM WILL NOT CONTINUE TO ARGUE THE POINT AND WOULD FOCUS ON DISCHARGE PLANNING. PT REPORTS PLAN TO RETURN TO HIS HOTEL ROOM IN [place] AND NEEDS A MWF DIALYSIS SCHEDULE TO USE MEDICAID TRANSPORTATION. CM DISCUSSED AVAILABILTY OF HALF-WAY REHAB SERVICES PT'S THERAPY NOTES INDICATE PT IS NOT WALKING WELL. PT DECLINES AND STATES HE IS GOING HOME. CM RECEIVED CALL FROM KWAN OF [place] WHO REPORTS THEY RECEIVED REFERRAL FOR HOME HEALTH REGARDING PT. [facility] ADVISED THAT THEY WILL NOT ACCEPT PT DOES NOT APPEAR TO BE APPROPRIATE AT THIS TIME FOR HOME HEALTH. BHAVANA SPOKE TO DR. SUN WHO INFORMED PT IS STABLE FOR DISCHARGE. CM FAXED REFERRAL TO [facility] AT [phone]. CM RECEIVED REQUEST FOR MORE INFORMATION (OUTPATIENT DIALYSIS UNIT, NEED FOR ANTIBIOTICS AT DISCHARE AND ISOLATION STATUS.) CM CALLED [facility], , SPOKE TO EZEKIEL, PROVIDED INFORMATION AND FAXED REFERRAL UPDATE TO [facility] AT [phone] CM FAXED REFERRAL UPDATE TO [facility] AT [phone]. CM FAXED REFERRAL UPDATE TO [facility] AT [phone]. . PT HAS BEEN ACCEPTED FOR DIALYSIS AT [facility] IN [place], [facility], 0930AM. PT CAN START AT [facility] OP DAILYSIS ON 11-26-18 AT 0900 AM. CM WAITING ADMISSION DETERMINATIONS FOR REHAB FROM [facility], [facility], [facility] AND [facility]. Eloy Casillas, CASE MANAGEMENT DCP- Discharge Planning Updated by [id number]: Eloy Casillas on 11/22/18 4:[address] Patient Name: RADHA SALGUERO Encounter No: [id number] : 1945 Primary Insurance: [employer] MEDICARE ADV Anticipated DC Date: Planned Disposition: Group Home Facility External Planned Provider: FIRST ACCEPTING HALF-WAY FACILITY FOR MEDICARE REHAB BED DCP follow-up note: CM SPOKE TO PT IN ROOM AND PROVIDED UPDATE THIS MORNING. CM INFORMED PT THAT HE WOULD BE DISCHARGING FROM THE HOSPITAL SOON OUTPATIENT DIALYSIS UNIT SCHEDULE IS OBTAINED. PT CONTINUES TO REPORT PLAN TO GO BACK TO HIS HOTEL ROOM IN [place] AND THEN BEGAN INSISTING TO KNOW WHY THE DOCTORS AT THE DIALYSIS UNITS WILL NOT ACCEPT HIM. CM EXPLAINED THAT PT WILL HAVE TO TALK TO THE DOCTORS HIMSELF AND CM WAS CONCERNED WITH FINDING AN ACCEPTING UNIT FOR OUTPATIENT DIALYSIS. PT ARGUED THAT THE DOCTORS HAVE NO REASON TO NOT ACCEPT HIM. CM EXPLAINED TO PT THAT HE CANNOT CHANGE THIS AND NEEDS TO CONCENTRATE ON DISCHARGE PLANNING AND LET THE [facility] COORDINATOR FIND A UNIT THAT WOULD ACCEPT. PT CONTINUED TO ARGUE REPORTING THE [place] UNIT HAD ACCEPTED HIM AND HAD NO REASON TO NOT TAKE HIM WHEN HE ARRIVED "HOME" IN [place]. CM EXPLAINED THAT THE UNIT NEVER ACCEPTED HIM, PT REPORTS THIS IS NOT TRUE. CM INFORMED PT THAT CM WILL NOT CONTINUE TO ARGUE THE POINT AND WOULD FOCUS ON DISCHARGE PLANNING. PT REPORTS PLAN TO RETURN TO HIS HOTEL ROOM IN [place] AND NEEDS A MWF DIALYSIS SCHEDULE TO USE MEDICAID TRANSPORTATION. CM DISCUSSED AVAILABILTY OF HALF-WAY REHAB SERVICES PT'S THERAPY NOTES INDICATE PT IS NOT WALKING WELL. PT DECLINES AND STATES HE IS GOING HOME. BHAVANA RECEIVED CALL FROM KWAN OF [facility] WHO REPORTS THEY RECEIVED REFERRAL FOR HOME HEALTH REGARDING PT. [facility]WAN ADVISED THAT THEY WILL NOT ACCEPT PT DOES NOT APPEAR TO BE APPROPRIATE AT THIS TIME FOR HOME HEALTH. BHAVANA SPOKE TO KAYLEEN OF [facility], PT ACCEPTED FOR DIALYSIS AT [facility], 0930AM. CM NOTIFIED PT AND PROVIDED PT A COPY OF HIS THERAPY NOTE FROM YESTERDAY THAT INDICATES PT WALKING 4 FEET WITH 35 % ASSISTANCE. CM INFORMED PT THAT IS NOT SAFE FOR HIM TO DISCHARGE HOME WITHOUT ASSISTANCE. PT REPORTS HAVING NO FAMILY OR FRIENDS TO ASSIST. PT STILL DECLINED HALF-WAY FACILITY STATING HE LEFT ONE AND IS NOT GOING BACK. CM DISCUSSED HAVING A SAFE DISCHARGE PLAN AND IF PT INSISTED ON GOING HOME IN CURRENT CONDITION, CM WOULD CALL ADULT PROTECTIVE SERVICES. PT DOES NOT WANT TO BE INVOLVED WITH ADULT PROTECTIVE SERVICES AND WILL AGREE FOR REHAB PLACEMENT ONLY IN [place] IF POSSIBLE AND IF NOT, [place]. CHOICE LETTER SIGNED. CM SPOKE TO [facility], [facility] AND [facility]. [facility] INFORMED CM THAT [place] [facility] WILL NOT TRANSPORT TO DIALYSIS IN [place], THAT [facility] CANNOT ACCOMODATE TTS SCHEDULE ADN [facility] WOULD NEED TO EVALUATE. CM FAXED REFERRAL TO [facility] AT [phone]. CM CALLED [facility], , SPOKE TO SANTA WHO WILL EVALUATE PT NEXT SUNDAY. CM FAXED REFERRAL TO [facility] AT [phone]. CM CALLED [facility], , SPOKE TO ENRIKE WHO WILL SCREEN FOR REHAB ADMISSION; CM FAXED REFERRAL TO [facility] AT [phone]. CM CALLED [facility], , SPOKE TO EZEKIEL WHO WILL SCREEN PT FOR ADMISSION, CM FAXED REFERRAL TO [facility] AT [phone]. PT HAS BEEN ACCEPTED FOR DIALYSIS AT [facility] IN [place], [facility], 0930AM. PT CAN START AT [facility] OP DAILYSIS ON 11-26-18 AT 0900 AM. CM WAITING ADMISSION DETERMINATIONS FOR REHAB FROM [facility], [facility], [facility] AND [facility]. Eloy Casillas, CASE MANAGEMENT DCP- Discharge Planning Updated by [id number]: Eloy Casillas on 11/14/18 4:[address] Patient Name: RADHA SALGUERO Encounter No: [id number] : 1945 Primary Insurance: [employer] ADV Anticipated DC Date: Planned Disposition: Home DCP follow-up note: CM SPOKE TO DR. MATHIS REGARDING PT'S LIVING ARRAGEMENTS. CM SPOKE TO PT IN ROOM REGARDING LIVING IN HOTEL ROOM. PT REPORTS HE WAS LIVING IN A [facility]LTER, DOES NOT WANT TO GO BACK TO ONE AND IS LIVING IN THE HOTEL UNTIL HE FINDS A PLACE THAT HE LIKES. CM DISCUSSED REHAB SERVICES HOME HEALTH AND MEDICAL EQUIPMENT. PT DENIES DISCHARGE NEEDS OTHER THAN NEEDING A DIALYSIS CLINIC. PT STILL UPSET THAT THE [place] [facility] WILL NOT ACCEPT HIM A PATIENT. PT REPORTS HE WILL BE STAYING IN [place] AND WILL FIND HIMSELF AN APARTMENT THERE. PT REPORTS USING MEDICAID TRANSPORT FOR MEDICAL APPOINTMENTS AND NEEDS A Sunday SCHEDULE IN ORDER TO USE MEDICAID TRANSPORT TO AND FROM DIALYSIS. PT REPORTS INABILITY TO GET TO DILAYSIS ON WEEKENDS. KAYLENE OF [facility] NOTIFIED. CM WAITING ARRANGEMENT AND ACCEPTANCE AT OUTPATIENT DIALYSIS CLINIC; [facility] COORDINATOR IS WORKING ON THIS. CM TO CONTINUE TO FOLLOW AND ASSIST IF NEEDED. Eloy Casillas, CASE MANAGEMENT DCP- Discharge Planning Updated by [id number]: Sherri Walker on 11/14/18 2:[address] I HAVE BEEN IN COMMUNICATION WITH KAYLENE KIM, CLINICAL [facility] FOR [facility]. SHE HAS BEEN WORKING ON PLACEMENT FOR THE PATIENT. THIS PATIENT WAS IN A [facility]TER IN [place] AND RECEIVING DIALYSIS. HE KNEW HE WAS NOT ACCEPTED BY THE [place] [facility] BEFORE HE EVER MOVED TO [place], BUT CAME ANYWAY. KAYLENE HAD BEEN WORKING WITH THE [facility], AND THEY ARE STILL DENYING HIM PLACEMENT THERE. SHE STATED THAT HE HAS THE OPTION OF [place], [place], OR [place]. WHILE I WAS ON THE PHONE WITH KAYLENE, PHILOMENA WENT AND ASKED THE PATIENT AND HE SAID [place], BUT IS INSISTENT THAT HE HAVE A M-W-F SCHEDULE. KAYLENE CALLED BACK AND STATED THAT BECAUSE DR SIMS HAS REFUSED THE PATIENT, THE [place] AND [place] UNITS HAVE ALSO DENIED THE PATIENT. THE ONLY OPTION IS FOR THE [place] UNIT AND THESE ARE THE SAME DOCTORS THAT CARED FOR HIM IN [place]. I WENT AND TALKED TO THE PATIENT AND HE STATED THAT THAT WOULD BE FINE. I HAVE LET KAYLENE KNOW THIS. I HAVE ALSO PASSED ONTO HER THAT PER DR AGUIRRE, THE PATIENT WAS GOING TO NEED 6 WEEKS OF VANCOMYCIN TO BE GIVEN IN DIALYSIS. SHE HAS STATED THAT THAT SHOULD NOT BE A PROBLEM ONCE HE IS ACCEPTED. ALSO DURING THIS TIME, JEFFERSON, PHYSICAL THERAPIST, CAME BY AND STATED THAT THE PATIENT WAS NOT STABLE ON THE CRUTCHES AND DID MUCH BETTER ON THE WALKER. HE RECOMMENDED THAT THE PATIENT GET A WALKER. I ALSO SPOKE WITH THE PATIENT AND HE STATED THAT HE HAS A WALKER AT THE HOTEL AND DOES NOT NEED ANOTHER ONE. HE STATED THAT THE THERAPIST CAME IN AND GOT HIM UP RIGHT AFTER DIALYSIS AND HE WAS WEEK. HE STATED THAT HE WILL DO BETTER TOMORROW. I HAVE EXPLAINED THAT WE SHOULD HAVE A WALKER THAT HE CAN BORROW DURING THERAPY IF NEEDED. DCP- Discharge Planning Updated by [id number]: Malloryruperto Hawley on 11/11/18 2:[address] PATIENT HAD RECENTLY RETURNED FROM HD AND HAD EATEN HIS LUNCH. HE SAID HE WAS TIRED. SPOKE SLOWLY PATIENT STATES HE IS HARD OF HEARING BUT DID NOT WANT TO TURN DOWN THE VOLUME ON TV. LIVES AT THE [facility] IN [place], [place]. STATES HE HAS NO BROTHERS, SISTERS OR CHILDREN. HE SAYS HE DOES HAVE COUSINS THAT LIVE IN [place]. STATES HE WILL HAVE TRANSPORTATION AT DISCHARGE FROM HIS FRIEND INDIRA DUNN. CONTACT PHONE NUMBER- [phone]. STATES HE IS TIRED THEREFORE CM STATED WILL REVISIT TO ASSIST WITH DISCHARGE. KAYLENE HELTON ON SITE AND HE STATES HE HAS SPOKEN WITH THE HD COORDINATOR. DCP- Discharge Planning Updated by [id number]: Mallorynicolette Hawley on 11/11/18 12:[address] PATIENT PRESENTLY IN HD. CM AWAITS HIS RETURN TO THE ROOM DCP- Discharge Planning Updated by [id number]: Mallory Hawley on 11/10/18 6:[address] CM TO FOLLOW FOR ASSESSMENT. APPARENTLY HE RECENTLY RELOCATED TO [place], [place]. HAS ORDERED HD SETUP FOR [facility]. TC TO KAYLENE HELTON. LEFT VOICE MAIL. PATIENT REPORTEDLY LIVING IN A HOTEL. QUESTION REGARDING HOUSING. CM TO FOLLOW. DCPIA - Discharge Planning Initial Assessment Updated by [id number]: Mallory Hawley on 11/11/18 3:04 pm * Is the patient Alert and Oriented? Yes * PCP DR RONN DURAN * Pharmacy [facility] IN [place] * Other Environment [facility] * ADLs Independent * List name and contact numbers for known caregivers / representatives who currently or will assist patient after discharge: INDIRA DUNN- FRIEND FOR TRANSPORTATION * Verbal permission to speak to the caregivers and representatives has been obtained from the patient. No * Community resources currently utilized Other * Please name any agencies selected above. [facility] [place] KAYLENE HELTON TRYING TO GET HD SET UP * Additional services required to return to the preadmission environment? Yes * Can the patient safely return to the preadmission environment? Yes Coverage Notice Reviewer: [id number] - Eloy Casillas Notice Issued Date-Time: 11/22/2018 11:50 Notice Type: Patient Choice Letter Notice Delivered To: Patient Relationship to Patient: Cabana Attendant Name: Delivery Method: HAND - Hand Delivered Nguyen Days: Prior Verbal Notification: Recipient Understood Notice: Yes Recipient Signature: Yes Med Rec Note Co-signed by Attending: Coverage Notice Comment: SNF IN [place] OR [place] FOR REHAB ONLY... Last DP export: 11/28/18 3:18 p Patient Name: RADHA SALGUERO Page [id number] at 1620 All edits/amendments must be made on the electronic document DICTATION DATE: 11/29/181618 FILLER ROOM ATTENDANT: JEANMARIE 11/29/18 161 RPT#: [id number] DC DATE: STATUS: ADM IN [facility] [address] [place] [address] END OF REPORT
[2018-11-29 16:38] LABS: BASOPHILS 0.1 % (0-2); EOSINOPHILS 5.6 % (0-7); HEMATOCRIT 33.9 % (42.0-54.0); HEMOGLOBIN 10.9 g/dL (13.5-17.5); IMMATURE GRANULOCYTES 0.3 % (0-5); LYMPHOCYTES 34.8 % (15-50); MCH 25.2 pg (26.0-34.0); MCHC 32.2 g/dL (31.0-37.0); MCV 78.5 fL (80.0-100.0); MEAN PLATELET VOLUME 10.5 fL (7.4-10.4); NEUTROPHILS 53.2 % (40-80); PLATELET COUNT 226 10x3/uL (130-400); RBC 4.32 10x6/uL (4.20-6.10); RDW 15.8 % (11.5-14.5); WBC 7.9 10x3/uL (4.8-10.8)
--- NOTE | 2018-11-29 16:38 | MORECARE ---
CASE MANAGEMENT DISCHARGE SUMMARY PATIENT: RADHA SALGUERO UNIT: [id number] ADM DATE: 11/08/18 AGE: 73 : 45 SEX: M ROOM/BED: D.2135 AUTHOR: ROSA,DOC PHYSICIAN: REFERRING PHYSICIAN: MALOU SUN MD DATE OF SERVICE: 11/29/18 Discharge Plan Patient Name: RADHA SALGUERO [facility] : 1945 Planned Disposition: [facility] Facility Anticipated Discharge Date: Discharge Date: Expected LOS: Initial Reviewer: [id number] Initial Review Date: 11/08/2018 Generated: 11/29/18 5:38 pm Comments DCP- Discharge Planning Updated by [id number]: Eloy Casillas on 11/29/18 3:[address] Patient Name: RADHA SALGUERO Encounter No: [id number] : 1945 Primary Insurance: [employer] MEDICARE ADV Anticipated DC Date: Planned Disposition: Correction Facility External Planned Provider: FIRST ACCEPTING FACILITY OR INPATIENT REHAB AT [facility] DCP follow-up note: CM CALLED JES AT [facility], . WAS INFORMED THAT [facility] CANNOT MEET PT'S NEEDS. PT HAS BEEN DECLINED BY NURSING FACILTIES IN [facility]. CM NOTIFIED PT WHO WANTS REHAB AT [facility] TO RETURN TO HIS HOME AT THE [place] IN [facility] IN [place] AT DISCHARGE; PT STATES HE WILL CALL HIS INSURANCE COMPANY AND PT STATES "THEY WILL APPROVE THE REHAB HERE." PT DOES NOT WANT TO CONSIDER CORRECTION FACILITIES OUTSIDE THIS AREA. CM EXPLAINED THAT HE MAY HAVE NO OTHER OPTIONS IF HE IS UNABLE TO WALK AND CARE FOR HIMSELF. PT REPORTS UNDERSTANDING AND WANTS TO WAIT TO GET INTO REHAB HERE AND ASSURES CM AGAIN HE WILL CALL HIS INSURANCE COMPANY. CM WAITING ADMISSION DETERMINATIONS FROM [facility] INPATIENT REHAB. CM WILL CONTINUE TO EXPLORE OTHER NURSING HOMES IN [place]. PT'S INSURANC WILL HAVE TO PROVIDE AUTHORIZATION FOR REHAB SERVICES AT WHICH EVER FACILITY ACCEPTS. MOON Elizabeth DCP- Discharge Planning Updated by [id number]: Eloy Casillas on 11/28/18 3:[address] Patient Name: RADHA SALGUERO Encounter No: [id number] : 1945 Primary Insurance: [employer] MEDICARE ADV Anticipated DC Date: Planned Disposition: Correction Facility External Planned Provider: FIRST ACCEPTING FACILITY OR INPATIENT REHAB AT [facility] DCP follow-up note: CM RECEIVED ORDER FOR INPATIENT REHAB PRESCREENING, SPOKE TO PT IN ROOM. PT REPORTS HE ONLY WANTS REHAB TO GET STRONGER AND RETURN TO [place] WHERE HE LIVES. PT REPORTS HE WOULD GO TO INPATIENT REHAB OR CORRECTION. PT REPORTS ABILITY TO PARTICIPATE IN THREE HOURS OF PROGRESSIVE THERAPY PER DAY. PT ASKED ABOUT WHY WILL NOT THE DIALYSIS UNITS ACCEPT HIM AND AGAIN ASKED TO SPEAK TO DR. SUN. CM EXPLAINED THAT THE DOCTOR IS NOT GOING TO CONTINUE TO DISCUSS THIS ISSUE IT HAS BEEN DISCUSSED ALREADY WITH PT AND THAT PT WILL NEED TO ACCEPT HIS UNIT ACCEPTANCE IN [place] IT IS THE CLOSEST UNIT THAT WILL ACCEPT HIM FOR OUTPATIENT DIALYSIS. PT STATES HE WOULD LIKE REHAB AND THE HOSPITAL WOULD BE FINE AND IF [facility] WOULD ACCEPT, HE WILL GO EITHER PLACE FOR REHAB SERVICES ONLY WITH PLAN TO RETURN HOME. CM FAXED UPDATE TO JES AT [facility], . CM WAITING ADMISSION DETERMINATIONS FROM [facility] INPATIENT REHAB [facility] IN [place]. PT'S INSURANC WILL HAVE TO PROVIDE AUTHORIZATION FOR REHAB SERVICES AT WHICH EVER FACILITY ACCEPTS. CM TO CONTINUE TO FOLLOW AND ASSIST NEEDED. Eloy Casillas, CASE MANAGEMENT DCP- Discharge Planning Updated by [id number]: Elyo Casillas on 11/27/18 2:[address] Patient Name: RADHA SALGUERO Encounter No: [id number] : 1945 Primary Insurance: WELLCARE MEDICARE ADV Anticipated DC Date: Planned Disposition: Correction Facility External Planned Provider: FIRST ACCEPTING FACILITY DCP follow-up note: ARCH[facility] CRAMER CAME AND MET WITH PT TO ASSESS FOR REHAB PLACEMENT. 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 PT WOULD HAVE TO COME TO FACILITY [employer] MEDICAID AND THEY COULD PROVIDE THERAPY UNDER MEDICARE PART B. CM LATER RECEIVED PHONE CALL FROM ARCHIE CRAMER WHO INFORMED CM THAT THEY CANNOT TAKE PT THEY DO NOT HAVE TRANSPORTATION FOR SUNDAY DIALYSIS. CM RECEIVED CALL FROM JES OF [facility] IN [place] WHO HAS RECEIVED REFERRAL AND IS TRYING TO ASSIST PT WITH REHAB PLACEMENT. CM CONFIRMED THAT PT HAS DIALYSIS ON TTS SCHEDULE AT THE [place] [facility]. PT HAS BEEN ACCEPTED FOR DIALYSIS AT [facility] IN [place], [facility], 0930AM. PT CAN START AT [facility] OP DAILYSIS ON 11-26-18 AT 0900 AM. CM WAITING ADMISSION DETERMINATION FOR REHAB FROM [facility] IN [place]. Eloy Casillas, CASE MANAGEMENT DCP- Discharge Planning Updated by [id number]: Eloy Casillas on 11/26/18 4:[address] Patient Name: RADHA SALGUERO Encounter No: [id number] : 1945 Primary Insurance: WELLC[employer] MEDICARE ADV Anticipated DC Date: Planned Disposition: Correction Facility External Planned Provider: FIRST ACCEPTING [facility] FACILITY FOR MEDICARE REHAB BED DCP follow-up note: CM RECEIVED CALL FROM [facility], , THEY WERE WILLING TO ACCEPT BUT CALLED [facility] DIALYSIS AND PT COULD NOT BE CHANGED TO MWF DIALYSIS SCHEDULE FROM [facility]. [facility] CANNOT ACCEPT THEY HAVE NO TRANSPORT AVAILABLE FOR SUNDAY DIALYSIS. CM FAXED REFERRAL UPDATE TO [facility]IA [facility] AT [phone]. CM FAXED REFERRAL UPDATE TO [facility] AT [phone]. CM FAXED REFERRAL UPDATE TO [facility] AT [phone]. . PT HAS BEEN ACCEPTED FOR DIALYSIS AT [facility] IN [place], [facility], 0930AM. PT CAN START AT [facility] OP DAILYSIS ON 11-26-18 AT 0900 AM. CM WAITING ADMISSION DETERMINATIONS FOR REHAB FROM [facility], [facility]. Eloy Casillas, CASE MANAGEMENT Appended by Eloy Casillas on 11/26/2018 11:05 TURNTABLE OPERATOR: CM RECEIVED CALL FROM [facility] WHO REPORTS THEY WILL NOT ACCEPT PT DUE TO PRIOR NON COMPLIANCE IN PREVIOUS RETIREMENT PLACEMENT IN [place] AND THEY CANNOT TRANSPORT TO DIALYSIS ON SATURDAYS. CM RECEIVED CALL FROM [facility], THEY ARE NOT ABLE TO MEET PT'S CLINICAL NEEDS AT THIS TIME. PT HAS BEEN ACCEPTED FOR DIALYSIS AT [facility] IN [facility], 0930AM. PT CAN START AT [facility] OP DAILYSIS ON 11-26-18 AT 0900 AM. CM WAITING ADMISSION DETERMINATIONS FOR REHAB FROM [facility]. Eloy Casillas, CASE MANAGEMENT Appended by Eloy Casillas on 11/26/2018 12:06 TURNTABLE OPERATOR: CM CALLED AND SPOKE TO JES OF [facility] IN [place], , DISCUSSED REHAB REFERRAL AND ASKED IF SHE WOULD BE ABLE TO TRANSPORT PT TO [place] FOR DIALYSIS ON TTS SCHEDULE. JES WILL REVIEW REFERRAL AND GET BACK WITH CM. CM FAXED REFERRAL TO [facility] AT [phone]. PT HAS BEEN ACCEPTED FOR DIALYSIS AT [facility] IN [facility], 0930AM. PT CAN START AT [facility] OP DAILYSIS ON 11-26-18 AT 0900 AM. CM WAITING ADMISSION DETERMINATIONS FOR REHAB FROM [facility] AND [facility]. Eloy Casillas, CASE MANAGEMENT Appended by Eloy Casillas on 11/26/2018 13:48 TURNTABLE OPERATOR: CM RECEIVED CALL FROM [facility], THEY WILL NOT ACCEPT PT. CM RECEIVED CALL FROM [facility] WHO REQUESTED REFERRAL BE FAXED TO ALTERNATE NUMBER FAX IS NOT WORKING ON THE MAIN LINE. CM FAXED REFERRAL TO [facility] AT [phone]. PT HAS BEEN ACCEPTED FOR DIALYSIS AT [facility] IN [place], [facility], 0930AM. PT CAN START AT [facility] OP DAILYSIS ON 11-26-18 AT 0900 AM. CM WAITING ADMISSION DETERMINATION FOR REHAB FROM [facility] IN [place]. Eloy Casillas, CASE MANAGEMENT Appended by Eloy Casillas on 11/26/2018 17:13 TURNTABLE OPERATOR: CM SPOKE TO [facility] WHO WILL REVIEW TO SEE IF [facility] CAN MEET PT'S NEEDS. CM FAXED REFERRAL TO [facility] AT [phone]. PT HAS BEEN ACCEPTED FOR DIALYSIS AT [facility] IN [facility], 0930AM. PT CAN START AT [facility] OP DAILYSIS ON 11-26-18 AT 0900 AM. CM WAITING ADMISSION DETERMINATION FOR REHAB FROM [facility] IN [place] AND [facility] IN [place]. Eloy Casillas, CASE MANAGEMENT DCP- Discharge Planning Updated by [id number]: Eloy Casillas on 11/25/18 11:[address] Patient Name: RADHA SALGUERO Encounter No: [id number] : 1945 Primary Insurance: WE[employer] MEDICARE ADV Anticipated DC Date: Planned Disposition: Correction Facility External Planned Provider: FIRST ACCEPTING [facility] FACILITY FOR MEDICARE REHAB BED DCP follow-up note: CM SPOKE TO PT IN ROOM AND PROVIDED UPDATE THIS MORNING. CM INFORMED PT THAT HE WOULD BE DISCHARGING FROM THE HOSPITAL SOON OUTPATIENT DIALYSIS UNIT SCHEDULE IS OBTAINED. PT CONTINUES TO REPORT PLAN TO GO BACK TO HIS HOTEL ROOM IN [place] AND THEN BEGAN INSISTING TO KNOW WHY THE DOCTORS AT THE DIALYSIS UNITS WILL NOT ACCEPT HIM. CM EXPLAINED THAT PT WILL HAVE TO TALK TO THE DOCTORS HIMSELF AND CM WAS CONCERNED WITH FINDING AN ACCEPTING UNIT FOR OUTPATIENT DIALYSIS. PT ARGUED THAT THE DOCTORS HAVE NO REASON TO NOT ACCEPT HIM. CM EXPLAINED TO PT THAT HE CANNOT CHANGE THIS AND NEEDS TO CONCENTRATE ON DISCHARGE PLANNING AND LET THE [facility] COORDINATOR FIND A UNIT THAT WOULD ACCEPT. PT CONTINUED TO ARGUE REPORTING THE [place] UNIT HAD ACCEPTED HIM AND HAD NO REASON TO NOT TAKE HIM WHEN HE ARRIVED "HOME" IN [place]. CM EXPLAINED THAT THE UNIT NEVER ACCEPTED HIM, PT REPORTS THIS IS NOT TRUE. CM INFORMED PT THAT CM WILL NOT CONTINUE TO ARGUE THE POINT AND WOULD FOCUS ON DISCHARGE PLANNING. PT REPORTS PLAN TO RETURN TO HIS HOTEL ROOM IN [place] AND NEEDS A MWF DIALYSIS SCHEDULE TO USE MEDICAID TRANSPORTATION. CM DISCUSSED AVAILABILTY OF [facility] REHAB SERVICES PT'S THERAPY NOTES INDICATE PT IS NOT WALKING WELL. PT DECLINES AND STATES HE IS GOING HOME. BHAVANA RECEIVED CALL FROM KWAN OF [facility] WHO REPORTS THEY RECEIVED REFERRAL FOR HOME HEALTH REGARDING PT. KWAN ADVISED THAT THEY WILL NOT ACCEPT PT DOES NOT APPEAR TO BE APPROPRIATE AT THIS TIME FOR HOME HEALTH. BHAVANA SPOKE TO DR. SUN WHO INFORMED PT IS STABLE FOR DISCHARGE. CM FAXED REFERRAL TO [facility] AT [phone]. CM RECEIVED REQUEST FOR MORE INFORMATION (OUTPATIENT DIALYSIS UNIT, NEED FOR ANTIBIOTICS AT DISCHARE AND ISOLATION STATUS.) CM CALLED [facility], , SPOKE TO EZEKIEL, PROVIDED INFORMATION AND FAXED REFERRAL UPDATE TO [facility] AT [phone] CM FAXED REFERRAL UPDATE TO [facility] AT [phone]. CM FAXED REFERRAL UPDATE TO [facility] AT [phone]. . PT HAS BEEN ACCEPTED FOR DIALYSIS AT [facility] IN [place], [facility], 0930AM. PT CAN START AT [facility] OP DAILYSIS ON 11-26-18 AT 0900 AM. CM WAITING ADMISSION DETERMINATIONS FOR REHAB FROM [facility], [facility], [facility] AND [facility]. Eloy Casillas, CASE MANAGEMENT DCP- Discharge Planning Updated by [id number]: Eloy Casillas on 11/22/18 4:[address] Patient Name: RADHA SALGUERO Encounter No: [id number] : 1945 Primary Insurance: [employer] MEDICARE ADV Anticipated DC Date: Planned Disposition: Correction Facility External Planned Provider: FIRST ACCEPTING [facility] FACILITY FOR MEDICARE REHAB BED DCP follow-up note: CM SPOKE TO PT IN ROOM AND PROVIDED UPDATE THIS MORNING. CM INFORMED PT THAT HE WOULD BE DISCHARGING FROM THE HOSPITAL SOON OUTPATIENT DIALYSIS UNIT SCHEDULE IS OBTAINED. PT CONTINUES TO REPORT PLAN TO GO BACK TO HIS HOTEL ROOM IN [place] AND THEN BEGAN INSISTING TO KNOW WHY THE DOCTORS AT THE DIALYSIS UNITS WILL NOT ACCEPT HIM. CM EXPLAINED THAT PT WILL HAVE TO TALK TO THE DOCTORS HIMSELF AND CM WAS CONCERNED WITH FINDING AN ACCEPTING UNIT FOR OUTPATIENT DIALYSIS. PT ARGUED THAT THE DOCTORS HAVE NO REASON TO NOT ACCEPT HIM. CM EXPLAINED TO PT THAT HE CANNOT CHANGE THIS AND NEEDS TO CONCENTRATE ON DISCHARGE PLANNING AND LET THE [facility] COORDINATOR FIND A UNIT THAT WOULD ACCEPT. PT CONTINUED TO ARGUE REPORTING THE [place] UNIT HAD ACCEPTED HIM AND HAD NO REASON TO NOT TAKE HIM WHEN HE ARRIVED "HOME" IN [place]. CM EXPLAINED THAT THE UNIT NEVER ACCEPTED HIM, PT REPORTS THIS IS NOT TRUE. CM INFORMED PT THAT CM WILL NOT CONTINUE TO ARGUE THE POINT AND WOULD FOCUS ON DISCHARGE PLANNING. PT REPORTS PLAN TO RETURN TO HIS HOTEL ROOM IN [place] AND NEEDS A MWF DIALYSIS SCHEDULE TO USE MEDICAID TRANSPORTATION. CM DISCUSSED AVAILABILTY OF [facility] REHAB SERVICES PT'S THERAPY NOTES INDICATE PT IS NOT WALKING WELL. PT DECLINES AND STATES HE IS GOING HOME. BHAVANA RECEIVED CALL FROM KWAN OF [facility] WHO REPORTS THEY RECEIVED REFERRAL FOR HOME HEALTH REGARDING PT. KWAN ADVISED THAT THEY WILL NOT ACCEPT PT DOES NOT APPEAR TO BE APPROPRIATE AT THIS TIME FOR HOME HEALTH. BHAVANA SPOKE TO KAYLENE OF [facility], PT ACCEPTED FOR DIALYSIS AT [facility] [place], [place], 0930AM. CM NOTIFIED PT AND PROVIDED PT A COPY OF HIS THERAPY NOTE FROM YESTERDAY THAT INDICATES PT WALKING 4 FEET WITH 35 % ASSISTANCE. CM INFORMED PT THAT IS NOT SAFE FOR HIM TO DISCHARGE HOME WITHOUT ASSISTANCE. PT REPORTS HAVING NO FAMILY OR FRIENDS TO ASSIST. PT STILL DECLINED CORRE[facility] FACILITY STATING HE LEFT ONE AND IS NOT GOING BACK. CM DISCUSSED HAVING A SAFE DISCHARGE PLAN AND IF PT INSISTED ON GOING HOME IN CURRENT CONDITION, CM WOULD CALL ADULT PROTECTIVE SERVICES. PT DOES NOT WANT TO BE INVOLVED WITH ADULT PROTECTIVE SERVICES AND WILL AGREE FOR REHAB PLACEMENT ONLY IN [place] IF POSSIBLE AND IF NOT, [place]. CHOICE LETTER SIGNED. CM SPOKE TO [facility]ATH[facility], [facility] AND [facility]. NATHALY INFORMED CM THAT [facility] WILL NOT TRANSPORT TO DIALYSIS IN [place], THAT [facility] CANNOT ACCOMODATE TTS SCHEDULE ADN [facility] WOULD NEED TO EVALUATE. CM FAXED REFERRAL TO [facility] AT [phone]. CM CALLED [facility], , SPOKE TO SANTA WHO WILL EVALUATE PT NEXT SUNDAY. CM FAXED REFERRAL TO [facility] AT [phone]. CM CALLED [facility], , SPOKE TO [facility] WHO WILL SCREEN FOR REHAB ADMISSION; CM FAXED REFERRAL TO [facility] AT [phone]. CM CALLED [facility], , SPOKE TO EZEKIEL WHO WILL SCREEN PT FOR ADMISSION, CM FAXED REFERRAL TO [facility] AT [phone]. PT HAS BEEN ACCEPTED FOR DIALYSIS AT [facility] IN [place], [place], 0930AM. PT CAN START AT [facility] OP DAILYSIS ON 11-26-18 AT 0900 AM. CM WAITING ADMISSION DETERMINATIONS FOR REHAB FROM [facility], [facility], [facility] AND [facility]. Eloy Casillas, CASE MANAGEMENT DCP- Discharge Planning Updated by [id number]: Eloy Casillas on 11/14/18 4:[address] Patient Name: RADHA SALGUERO Encounter No: [id number] : 1945 Primary Insurance: [employer] MEDICARE ADV Anticipated DC Date: Planned Disposition: Home DCP follow-up note: CM SPOKE TO DR. MATHIS REGARDING PT'S LIVING ARRAGEMENTS. CM SPOKE TO PT IN ROOM REGARDING LIVING IN HOTEL ROOM. PT REPORTS HE WAS LIVING IN A RETIREMENT, DOES NOT WANT TO GO BACK TO ONE AND IS LIVING IN THE HOTEL UNTIL HE FINDS A PLACE THAT HE LIKES. CM DISCUSSED REHAB SERVICES HOME HEALTH AND MEDICAL EQUIPMENT. PT DENIES DISCHARGE NEEDS OTHER THAN NEEDING A DIALYSIS CLINIC. PT STILL UPSET THAT THE [place] [facility] WILL NOT ACCEPT HIM A PATIENT. PT REPORTS HE WILL BE STAYING IN [place] AND WILL FIND HIMSELF AN APARTMENT THERE. PT REPORTS USING MEDICAID TRANSPORT FOR MEDICAL APPOINTMENTS AND NEEDS A Sunday SCHEDULE IN ORDER TO USE MEDICAID TRANSPORT TO AND FROM DIALYSIS. PT REPORTS INABILITY TO GET TO DILAYSIS ON WEEKENDS. KAYLENE OF [facility] NOTIFIED. CM WAITING ARRANGEMENT AND ACCEPTANCE AT OUTPATIENT DIALYSIS CLINIC; [facility] COORDINATOR IS WORKING ON THIS. CM TO CONTINUE TO FOLLOW AND ASSIST IF NEEDED. Eloy Casillas, CASE MANAGEMENT DCP- Discharge Planning Updated by [id number]: Sherri Walker on 11/14/18 2:[address] I HAVE BEEN IN COMMUNICATION WITH KAYLENE KIM, CLINICAL LIASON FOR [facility]. SHE HAS BEEN WORKING ON PLACEMENT FOR THE PATIENT. THIS PATIENT WAS IN A RETIREMENT IN [place] AND RECEIVING DIALYSIS. HE KNEW HE WAS NOT ACCEPTED BY THE [place] [facility] BEFORE HE EVER MOVED TO [place], BUT CAME ANYWAY. KAYLENE HAD BEEN WORKING WITH THE [place] UNIT, AND THEY ARE STILL DENYING HIM PLACEMENT THERE. SHE STATED THAT HE HAS THE OPTION OF [place], [place], OR [place]. WHILE I WAS ON THE PHONE WITH KAYLENE, PHILOMENA WENT AND ASKED THE PATIENT AND HE SAID [facility], BUT IS INSISTENT THAT HE HAVE A M-W- SCHEDULE. KAYLENE CALLED BACK AND STATED THAT BECAUSE DR SIMS HAS REFUSED THE PATIENT, THE [place] AND [place] UNITS HAVE ALSO DENIED THE PATIENT. THE ONLY OPTION IS FOR THE [place] UNIT AND THESE ARE THE SAME DOCTORS THAT CARED FOR HIM IN [place]. I WENT AND TALKED TO THE PATIENT AND HE STATED THAT THAT WOULD BE FINE. I HAVE LET KAYLENE KNOW THIS. I HAVE ALSO PASSED ONTO HER THAT PER DR AGUIRRE, THE PATIENT WAS GOING TO NEED 6 WEEKS OF VANCOMYCIN TO BE GIVEN IN DIALYSIS. SHE HAS STATED THAT THAT SHOULD NOT BE A PROBLEM ONCE HE IS ACCEPTED. ALSO DURING THIS TIME, JEFFERSON, PHYSICAL THERAPIST, CAME BY AND STATED THAT THE PATIENT WAS NOT STABLE ON THE CRUTCHES AND DID MUCH BETTER ON THE WALKER. HE RECOMMENDED THAT THE PATIENT GET A WALKER. I ALSO SPOKE WITH THE PATIENT AND HE STATED THAT HE HAS A WALKER AT THE HOTEL AND DOES NOT NEED ANOTHER ONE. HE STATED THAT THE THERAPIST CAME IN AND GOT HIM UP RIGHT AFTER DIALYSIS AND HE WAS WEEK. HE STATED THAT HE WILL DO BETTER TOMORROW. I HAVE EXPLAINED THAT WE SHOULD HAVE A WALKER THAT HE CAN BORROW DURING THERAPY IF NEEDED. DCP- Discharge Planning Updated by [id number]: Mallory Hawley on 11/11/18 2:[address] PATIENT HAD RECENTLY RETURNED FROM HD AND HAD EATEN HIS LUNCH. HE SAID HE WAS TIRED. SPOKE SLOWLY PATIENT STATES HE IS HARD OF HEARING BUT DID NOT WANT TO TURN DOWN THE VOLUME ON TV. LIVES AT THE [facility] IN [place], [place]. STATES HE HAS NO BROTHERS, SISTERS OR CHILDREN. HE SAYS HE DOES HAVE COUSINS THAT LIVE IN [place]. STATES HE WILL HAVE TRANSPORTATION AT DISCHARGE FROM HIS FRIEND INDIRA UDNN. CONTACT PHONE NUMBER- [phone]. STATES HE IS TIRED THEREFORE CM STATED WILL REVISIT TO ASSIST WITH DISCHARGE. KAYLENE HELTON ON SITE AND HE STATES HE HAS SPOKEN WITH THE HD COORDINATOR. DCP- Discharge Planning Updated by [id number]: Mallory Hawley on 11/11/18 12:[address] PATIENT PRESENTLY IN HD. CM AWAITS HIS RETURN TO THE ROOM DCP- Discharge Planning Updated by [id number]: Mallory Hawley on 11/10/18 6:[address] CM TO FOLLOW FOR ASSESSMENT. APPARENTLY HE RECENTLY RELOCATED TO [place]. HAS ORDERED HD SETUP FOR [facility] [place] [facility]. TC TO KAYLENE HELTON. LEFT VOICE MAIL. PATIENT REPORTEDLY LIVING IN A HOTEL. QUESTION REGARDING HOUSING. CM TO FOLLOW. DCPIA - Discharge Planning Initial Assessment Updated by [id number]: Mallory Hawley on 11/11/18 3:04 pm * Is the patient Alert and Oriented? Yes * PCP DR RONN DURAN * Pharmacy [facility] IN [place] * Other Environment [facility] * ADLs Independent * List name and contact numbers for known caregivers / representatives who currently or will assist patient after discharge: INDIRA DUNN- FRIEND FOR TRANSPORTATION * Verbal permission to speak to the caregivers and representatives has been obtained from the patient. No * Community resources currently utilized Other * Please name any agencies selected above. [facility] IN [place] , JENNIFER HELTON TRYING TO GET HD SET UP * Additional services required to return to the preadmission environment? Yes * Can the patient safely return to the preadmission environment? 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 Last DP export: 11/29/18 3:20 p Patient Name: RADHA SALGUERO Page [id number] at 1638 All edits/amendments must be made on the electronic document DICTATION DATE: 11/29/18 1637 BARK FITTER: JEANMARIE 11/29/18 1637 RPT#: [id number] DC DATE: STATUS: ADM IN [facility] [address] [place] [address] END OF REPORT
[2018-11-29 16:47] LABS: ANION GAP 16.7 mmol/L (8-16); CALCIUM 8.3 mg/dL (8.5-10.1); CARBON DIOXIDE 24.8 mmol/L (21.0-32.0); CREATININE - SERUM 9.2 mg/dL (0.6-1.3); POTASSIUM - SERUM 4.5 mmol/L (3.5-5.1)
--- NOTE | 2018-11-29 19:45 | NUR ---
PT AWAKE ALERT AND ORIENTED RESTING IN BED WATCHING TV. PT REQUEST POPCORN. PT DENIES ANY PAIN OR NEEDS AT THIS TIME. WILL CONTINUE TO MONITOR. BED LOW CALL LIGHT WITHIN REACH.
[2018-11-29 20:00] VITALS: BP 119/67
--- NOTE | 2018-11-30 00:59 | NUR ---
PT RESTING IN BED WITH EYES CLOSED. RESPIRATIONS EVEN AND UNLABORED. BED LOW CALL LIGHT WITHIN REACH. WILL CONTINUE TO MONITOR.
--- NOTE | 2018-11-30 03:26 | NUR ---
RN NOTE: PATIENT APPEARS TO BE SLEEPING. RESPIRATIONS ARE EVEN AND UNLABORED. NO S/S OF DISTRESS. CALL LIGHT WITHIN REACH. WILL CPOC.
[2018-11-30 04:00] VITALS: BP 123/61
--- NOTE | 2018-11-30 06:43 | NUR ---
PT FSBS 57. PT REFUSED GLUCOSE TUBE AND REQUESTED APPLE JUICE. ADDED A PACK OF SUGAR. PT STATES HE KEEPS TRYING TO TELL US HE DOESNT NEED THE SLIDING SCALE INSULIN AT NIGHT. PT STATES FSBS DROPS EVERYTIME. BED LOW CALL LIGHT WITHIN REACH. WILL CONTINUE TO MONITOR
--- NOTE | 2018-11-30 07:30 | NUR ---
RECEIVED A/A/OX4. DENIES ANY PAIN OR DISCOMFORT AT PRESENT TIME AND VOICES NO REQUESTS. DRESSING TO RIGHT FOOT C/D/I. [place] LOCK PATENT TO LEFT FOREARM WITHOUT REDNESS OR EDEMA AT SITE. BED IN LOW POSITION, SIDERAILS UP X 2 AND CALL LIGHT IN REACH. PT GETS UP AD DONNIE TO BSC. ASSESSMENT COMPLETED.
[2018-11-30 08:33] VITALS: BP 144/62
[2018-11-30 11:57] VITALS: BP 157/84
--- NOTE | 2018-11-30 13:54 | NUR ---
POLEYARD SUPERVISOR NOTE: PT RESTING IN BED. NO S/S OF ACUTE DISTRESS. CL IN PLACE.
[2018-11-30 16:23] VITALS: BP 129/59
--- NOTE | 2018-11-30 19:30 | NUR ---
AFTER RECIEVING REPORT FROM NURSE, CHECKED ON PT. INTRODUCED SELF NURSE. PT DENIES PAIN. PT STATES HE WANTED POPCORN FROM VENDING MACHINE, INFORMED PT I WOULD HAVE TO CHECK INTO THAT. BS CHECKED, BS 134. VITALS STABLE. INFORMED PT I WOULD BE BACK WITH MEDS .
[2018-11-30 21:33] VITALS: BP 146/71
--- NOTE | 2018-11-30 21:38 | NUR ---
MEDS TAKEN WITHOUT DIFFICULTY. NO PAIN AT THIS TIME. L FOREARM IV SL. R CHEST HEMOSPLIT, DRSG C/D/I. ROOM AIR. DRSG TO R FOOT, C/D/I. POARCH, HEARING AID NOTED ON BEDSIDE TABLE. ALERT AND ORIENTED, UP WITH ASSIST TO BEDSIDE COMMODE. LEVAMIR HELD DUE TO PT BS DROPS QUICKLY. NO FURTHER CONCERNS AT THIS TIME. BED LOWERD AND LOCKED. CL IN REACH. CPOC.
[2018-12-01 02:08] VITALS: BP 129/64
[2018-12-01 04:54] VITALS: BP 134/62
[2018-12-01 08:32] VITALS: BP 89/56
[2018-12-01 12:21] VITALS: BP 133/67
--- NOTE | 2018-12-01 14:10 | NUR ---
ALERT AND ORIENTED X4. SITTING UP IN BED WATCHING TV. RT CHEST HEMOSPLIT SL. RT FOOT ELEVATED ON PILLOW. DRESSING C/D/I. DELORES HARRIS RESUMES PLAN OF CARE AND SAFETY PRECAUTIONS.
--- NOTE | 2018-12-01 15:08 | NUR ---
PT RESTING IN BED WITH EYES OPEN CALL LIGHT IN REACH WILL MONITER
[2018-12-01 16:31] VITALS: BP 153/70
--- NOTE | 2018-12-01 19:20 | NUR ---
REPORT RECEIVED. PT SITTING UP ON SIDE OF BED WITH EYES OPEN, USING URINAL. RR EVEN AND UNLABORED. BED IN LOW POSITION. CALL LIGHT IN REACH. NO S/S OF DISTRESS. DENIES NEEDS AND COMPLAINTS OF PAIN. CALL LIGHT IN REACH. WILL CTM.
[2018-12-01 21:00] VITALS: BP 144/75
--- NOTE | 2018-12-01 21:52 | NUR ---
I WALKED INTO THE ROOM AND ASKED PT IF HE NEEDED HIS ORDERED ATARAX FOR HIS COMPLAINTS OF ITCHINESS TO WHICH THE PT THEN STATED "ARE YOU GOING TO CHANGE MY DRESSINGS?" I STATED TO THE PT I WILL CHANGE YOUR DRESSINGS, DO NOT RAISE YOUR VOICE TO ME. I THEN ASKED THE PT IF I COULD SEE HIS WRISTBAND TO CHECK HIS BLOOD SUGAR, HE THEN STATED "NAW, I DONT WANT ANY MEDICINE FROM YOU". TO WHICH I THEN STATED "YES SIR" AND LEFT THE ROOM. I THEN NOTIFIED THE CHARGE NURSE PEEWEE QUEZADA RN OF PT'S REFUSAL TO ACCEPT MEDICATIONS AND BLOOD SUAGR CHECKS. WILL CTM.
--- NOTE | 2018-12-01 22:19 | NUR ---
ENTERED ROOM AND ASKED THE PT IF I MAY NOW TAKE HIS BLOOD SUGAR, THE PT STATED YES. THE BLOOD SUGAR WAS NOW 108, I ASKED THE PT IF HE WANTED TO TAKE HIS MEDICATIONS AND HE TURNED HIS HEAD AWAY FROM ME AND DID NOT ANSWER. I REPEATED MYSELF IN A LOUDER TONE OF VOICE AND THE PT STILL DID NOT ANSWER, I THEREFORE DOCUMENTED THIS A REFUSAL AND DID NOT ADMINISTER ANY OF THE PT'S EVENING MEDICATIONS.
--- NOTE | 2018-12-02 00:12 | NUR ---
RIGHT FOOT DRESSING CHANGED, RIGHT HEEL APPEARS TO BE HEALING WITH PINK EVEN BORDERS. MEASURES 2.5 CM BY 3.4 CM. NO DRAINAGE OR ODORS NOTED. DRESSING DATED PER POLICY.
--- NOTE | 2018-12-02 01:15 | NUR ---
PT RESTING COMFORTABLY IN BED WITH EYES CLOSED, ADMINISTERED ORDERED BENADRYL 50 MG FOR COMPLAINTS OF ITCHINESS. NO S/S OF DISTRESS. BED IN LOW POSITION. CALL LIGHT IN REACH. WILL CTM.
--- NOTE | 2018-12-02 01:26 | NUR ---
CONTENTS OF BEDSIDE COMMODE EMPTIED, PT APPEARS TO HAVE HAD A SMALL FORMED BOWEL MOVEMENT, BROWN IN COLOR.
--- NOTE | 2018-12-02 03:38 | NUR ---
PT SITTING UP IN BED WITH EYES CLOSED, RR EVEN AND UNLABORED. BED IN LOW POSITION. NO S/S OF DISTRESS NOTED. CALL LIGHT IN REACH. WILL CTM.
--- NOTE | 2018-12-02 04:04 | NUR ---
PT RESTING IN BED WITH NO DISTRESS. RESPS NONLABORED. MONITOR AND CPOC. CALL LIGHT IN REACH.
[2018-12-02 05:55] VITALS: BP 142/61
--- NOTE | 2018-12-02 07:47 | NUR ---
Nutrition follow-up: Diet: Renal ADA PO intake 100% of meals at this time Labs reviewed Wt: 219# RDN following.
[2018-12-02 08:49] VITALS: BP 145/76
--- NOTE | 2018-12-02 09:19 | NUR ---
PT TAKEN TO DIALYSIS VIA BED.
--- NOTE | 2018-12-02 10:00 | NUR ---
IN DIALYSIS AT THIS TIME. WILL CONT. PLAN OF CARE.
--- NOTE | 2018-12-02 13:00 | NUR ---
PT RETURNED FROM DIALYSIS VIA BED.
[2018-12-02 17:01] VITALS: BP 147/66
--- NOTE | 2018-12-02 17:36 | NUR ---
PT IN BED. WATCHING TV. PT HAS NO FURTHER NEEDS AT THIS TIME. BED LOW. CL IN REACH.
[2018-12-02 19:55] VITALS: BP 132/59
--- NOTE | 2018-12-02 20:00 | NUR ---
RECIEVED BEDSIDE REPORT. PT AA0 X3, VSS, RESP UNLABORED. ASSESSED PT FOOT AND AMPUTATED TOES. DRESSING C/D/I. PT DENIES NEED FOR PAIN AT THIS TIME. WILL CONTINUE POC. CL IN REACH, BED IN LOW. WILL CTM.
[2018-12-02 23:55] VITALS: BP 107/63
[2018-12-03 03:55] VITALS: BP 140/62
--- NOTE | 2018-12-03 05:30 | NUR ---
ASSESSED PT FOOT ULCER AND RIGHT 4TH AND 5TH TOE AMPUTATION. CHANGED DRESSING. APPEARS DRY AND INTACT. CLEANED THE AREA. APPLIED POVODINE WITH 4X4 GAUZE, WRAPPED WITH BANDAGE AND DATED. PT TOLERATED WELL. WILL CTM. CL IN REACH, BED IN LOW.
[2018-12-03 08:39] VITALS: BP 117/61
--- NOTE | 2018-12-03 09:50 | NUR ---
VENEER STACKER AT BS. CALL LIGHT IN REACH. WILL CONT. PLAN OF CARE.
--- NOTE | 2018-12-03 10:28 | NUR ---
Rehab Note- Received fax with a denial for an inpatient acute rehab stay per [facility] for the patient. VM left for [facility]. A peer to peer can be set up by calling [phone] within 7 business days of decision made on 12/02/17. Thank you for this referral! Cecy Gonzalez RN Clinical Liaison, [facility] Rehab
[2018-12-03 12:22] VITALS: BP 143/74
[2018-12-03 17:04] VITALS: BP 137/63
[2018-12-03 19:00] VITALS: BP 145/58
--- NOTE | 2018-12-03 21:00 | NUR ---
A&O X 4. PT STATES HE IS ABLE TO BATHE AND GET TO BEDSIDE COMMODE BY SELF. ENCOURAGED PT TO REQUEST ASSISTANCE, JUST IN CASE, WHEN HE DOES. DENIES PAIN. REQUESTS MICK AFTER FSBS 161. EDUCATED PT, BROUGHT MICK PER REQUEST.
[2018-12-04 04:00] VITALS: BP 125/62
--- NOTE | 2018-12-04 07:30 | NUR ---
REC'D IN BED AWAKE AND ALERT. RESP EVEN AND UNLABORED WITH NO DISTRESS NOTED. CAN EXPRESS NEEDS AND WANTS. NO C/O NOTED OR VOICED. ASSESSMENT COMPLETED. C/L IN REACH AT BEDSIDE.
[2018-12-04 08:08] VITALS: BP 136/71
--- NOTE | 2018-12-04 09:23 | MORECARE ---
CASE MANAGEMENT DISCHARGE SUMMARY PATIENT: RADHA SALGUERO UNIT: [id number] ADM DATE: 11/08/18 AGE: 73 : 45 SEX: M ROOM/BED: D.2135 AUTHOR: ROSA,DOC PHYSICIAN: REFERRING PHYSICIAN: MALOU SUN MD DATE OF SERVICE: 12/04/18 Discharge Plan Patient Name: RADHA SALGUERO Facility: [facility]:[place] : 1945 Planned Disposition: [facility]sp Facility Anticipated Discharge Date: Discharge Date: Expected LOS: Initial Reviewer: [id number] Initial Review Date: 11/08/2018 Generated: 12/04/18 10:23 am Comments DCP- Discharge Planning Updated by [id number]: Eloy Casillas on 12/04/18 8:[address] Patient Name: RADHA SALGUERO Encounter No: [id number] : 1945 Primary Insurance: [employer] MEDICARE ADV Anticipated DC Date: Planned Disposition: INPATIENT REHAB External Planned Provider: [facility] INPATIENT REHAB DCP follow-up note: CM SPOKE TO SIMON DURAND WHO INFORMED CM THAT SHE WILL DO PEER TO PEER FOR INPATIENT REHAB DENIAL BY INSURANCE. CM CALLED [facility] AT [phone], SPOKE TO JACKELYN AND PROVIDED PARMINDER'S CONTACT INFORMATION FOR PEER TO PEER. JACKELYN INFORMED CM THAT DR. SPARKS WILL CALL PARM[facility]ER WITHIN 24 HOURS FOR PEER TO PEER. CM SPOKE TO RN BHAVANA AGUILLON WHO INFORMED CM THAT PT WANTS TO GO TO INPATIENT REHAB AND DECLINED [facility] FACILITY REFERRALS TO BE SENT YESTERDAY. CM WAITING FOR PEER TO PEER RESULTS, APPEALING INSURANCE DENIAL FOR INPATIENT REHAB AT [facility]. Eloy Casillas, CASE MANAGEMENT DCP- Discharge Planning Updated by [id number]: Eloy Casillas on 11/29/18 3:[address] Patient Name: RADHA SALGUERO Encounter No: [id number] : 1945 Primary Insurance: WELLCARE MEDICARE ADV Anticipated DC Date: Planned Disposition: Usp Facility External Planned Provider: FIRST ACCEPTING FACILITY OR INPATIENT REHAB AT [facility] DCP follow-up note: CM CALLED JES AT [facility], . WAS INFORMED THAT [facility] CANNOT MEET PT'S NEEDS. PT HAS BEEN DECLINED BY NURSING FACILTIES IN [facility], [place] AND [facility]. CM NOTIFIED PT WHO WANTS REHAB AT [facility] TO RETURN TO HIS HOME AT THE [place] IN [facility] IN [place] AT DISCHARGE; PT STATES HE WILL CALL HIS INSURANCE COMPANY AND PT STATES "THEY WILL APPROVE THE REHAB HERE." PT DOES NOT WANT TO CONSIDER [facility] FACILITIES OUTSIDE THIS AREA. CM EXPLAINED THAT HE MAY HAVE NO OTHER OPTIONS IF HE IS UNABLE TO WALK AND CARE FOR HIMSELF. PT REPORTS UNDERSTANDING AND WANTS TO WAIT TO GET INTO REHAB HERE AND ASSURES CM AGAIN HE WILL CALL HIS INSURANCE COMPANY. CM WAITING ADMISSION DETERMINATIONS FROM [facility] INPATIENT REHAB. CM WILL CONTINUE TO EXPLORE OTHER NURSING HOMES IN [place]. PT'S INSURANC WILL HAVE TO PROVIDE AUTHORIZATION FOR REHAB SERVICES AT WHICH EVER FACILITY ACCEPTS. Eloy Casillas, CASE MANAGEMENT DCP- Discharge Planning Updated by [id number]: Eloy Casillas on 11/28/18 3:[address] Patient Name: RADHA SALGUERO Encounter No: [id number] : 1945 Primary Insurance: Oscar MEDICARE ADV Anticipated DC Date: Planned Disposition: Usp Facility External Planned Provider: FIRST ACCEPTING FACILITY OR INPATIENT REHAB AT [facility] follow-up note: CM RECEIVED ORDER FOR INPATIENT REHAB PRESCREENING, SPOKE TO PT IN ROOM. PT REPORTS HE ONLY WANTS REHAB TO GET STRONGER AND RETURN TO [place] WHERE HE LIVES. PT REPORTS HE WOULD GO TO INPATIENT REHAB OR [facility]. PT REPORTS ABILITY TO PARTICIPATE IN THREE HOURS OF PROGRESSIVE THERAPY PER DAY. PT ASKED ABOUT WHY WILL NOT THE DIALYSIS UNITS ACCEPT HIM AND AGAIN ASKED TO SPEAK TO DR. SUN. CM EXPLAINED THAT THE DOCTOR IS NOT GOING TO CONTINUE TO DISCUSS THIS ISSUE IT HAS BEEN DISCUSSED ALREADY WITH PT AND THAT PT WILL NEED TO ACCEPT HIS UNIT ACCEPTANCE IN [place] IT IS THE CLOSEST UNIT THAT WILL ACCEPT HIM FOR OUTPATIENT DIALYSIS. PT STATES HE WOULD LIKE REHAB AND THE HOSPITAL WOULD BE FINE AND IF [facility] WOULD ACCEPT, HE WILL GO EITHER PLACE FOR REHAB SERVICES ONLY WITH PLAN TO RETURN HOME. CM FAXED UPDATE TO JES AT [facility], . CM WAITING ADMISSION DETERMINATIONS FROM [facility] INPATIENT REHAB [facility] IN [place]. PT'S INSURANC WILL HAVE TO PROVIDE AUTHORIZATION FOR REHAB SERVICES AT WHICH EVER FACILITY ACCEPTS. CM TO CONTINUE TO FOLLOW AND ASSIST NEEDED. MOON Elizabeth MANAGEMENT DCP- Discharge Planning Updated by [id number]: Eloy Casillas on 11/27/18 2:[address] Patient Name: RADHA SALGUERO Encounter No: [id number] : 1945 Primary Insurance: WELLCARE MEDICARE ADV Anticipated DC Date: Planned Disposition: Usp Facility External Planned Provider: FIRST ACCEPTING FACILITY DCP follow-up note: GEETHA NGUYEN [facility] CAME AND MET WITH PT TO ASSESS FOR REHAB PLACEMENT. CM RECEIVED MESSAGE FROM GEETHA [facility] WHO INFORMED CM THAT THEY CHECKED PT'S INSURANCE, WELLCARE, THAT INDICATES PT IS A HOSPICE PT AND MEDICAID STILL SHOWS PT IS [facility] IN [place]. PT WOULD HAVE TO COME TO FACILITY [facility] MEDICAID AND THEY COULD PROVIDE THERAPY UNDER MEDICARE PART B. CM LATER RECEIVED PHONE CALL FROM [facility] WHO INFORMED CM THAT THEY CANNOT TAKE PT THEY DO NOT HAVE TRANSPORTATION FOR SUNDAY DIALYSIS. CM RECEIVED CALL FROM [facility] IN [place] WHO HAS RECEIVED REFERRAL AND IS TRYING TO ASSIST PT WITH REHAB PLACEMENT. CM CONFIRMED THAT PT HAS DIALYSIS ON TTS SCHEDULE AT THE [place] [facility]. PT HAS BEEN ACCEPTED FOR DIALYSIS AT [facility] IN [place], [place], 0930AM. PT CAN START AT [facility] OP DAILYSIS ON 11-26-18 AT 0900 AM. CM WAITING ADMISSION DETERMINATION FOR REHAB FROM [facility] IN [place]. MOON Elizabeth DCP- Discharge Planning Updated by [id number]: Eoly Casillas on 11/26/18 4:[address] Patient Name: RADHA SALGUERO Encounter No: [id number] : 1945 Primary Insurance: WELLCARE MEDICARE ADV Anticipated DC Date: Planned Disposition: Usp Facility External Planned Provider: FIRST ACCEPTING [facility] FACILITY FOR MEDICARE REHAB BED DCP follow-up note: CM RECEIVED CALL FROM [facility], , THEY WERE WILLING TO ACCEPT BUT CALLED [facility]YS[facility] AND PT COULD NOT BE CHANGED TO MWF DIALYSIS SCHEDULE FROM [place]. [facility] CANNOT ACCEPT THEY HAVE NO TRANSPORT AVAILABLE FOR SUNDAY DIALYSIS. CM FAXED REFERRAL UPDATE TO [facility] AT [phone]. CM FAXED REFERRAL UPDATE TO [facility] AT [phone]. CM FAXED REFERRAL UPDATE TO [facility] AT [phone]. . PT HAS BEEN ACCEPTED FOR DIALYSIS AT [facility] 0930[facility] PT CAN START AT [facility] OP DAILYSIS ON 11-26-18 AT 0900 AM. CM WAITING ADMISSION DETERMINATIONS FOR REHAB FROM [facility], [facility] AND [facility]. Eloy Casillas, CASE MANAGEMENT Appended by Eloy Casillas on 11/26/2018 11:05 JOINT MACHINE OPERATOR: CM RECEIVED CALL FROM [facility] WHO REPORTS THEY WILL NOT ACCEPT PT DUE TO PRIOR NON COMPLIANCE IN [facility] PLACEMENT IN [place] AND THEY CANNOT TRANSPORT TO DIALYSIS ON SATURDAYS. CM RECEIVED CALL FROM [facility], THEY ARE NOT ABLE TO MEET PT'S CLINICAL NEEDS AT THIS TIME. PT HAS BEEN ACCEPTED FOR DIALYSIS AT [facility] IN [place], [facility], 0930AM. PT CAN START AT [facility] OP DAILYSIS ON 11-26-18 AT 0900 AM. CM WAITING ADMISSION DETERMINATIONS FOR REHAB FROM [facility]. Eloy Casillas, CASE MANAGEMENT Appended by Eloy Casillas on 11/26/2018 12:06 JOINT MACHINE OPERATOR: CM CALLED AND SPOKE TO JES OF [facility] IN [place], , DISCUSSED REHAB REFERRAL AND ASKED IF SHE WOULD BE ABLE TO TRANSPORT PT TO [place] FOR DIALYSIS ON TTS SCHEDULE. JES WILL REVIEW REFERRAL AND GET BACK WITH CM. CM FAXED REFERRAL TO [facility] AT [phone]. PT HAS BEEN ACCEPTED FOR DIALYSIS AT [facility] IN [place], [facility], 0930AM. PT CAN START AT [facility] OP DAILYSIS ON 11-26-18 AT 0900 AM. CM WAITING ADMISSION DETERMINATIONS FOR REHAB FROM [facility] AND [facility]. Eloy Casillas, CASE MANAGEMENT Appended by Eloy Casillas on 11/26/2018 13:48 JOINT MACHINE OPERATOR: CM RECEIVED CALL FROM NATHALY OF [facility], THEY WILL NOT ACCEPT PT. CM RECEIVED CALL FROM [facility] WHO REQUESTED REFERRAL BE FAXED TO ALTERNATE NUMBER FAX IS NOT WORKING ON THE MAIN LINE. CM FAXED REFERRAL TO [facility] AT [phone]. PT HAS BEEN ACCEPTED FOR DIALYSIS AT [facility] IN [place], [facility], 0930AM. PT CAN START AT [facility] OP DAILYSIS ON 11-26-18 AT 0900 AM. CM WAITING ADMISSION DETERMINATION FOR REHAB FROM [facility] IN [place]. Eloy Casillas, CASE MANAGEMENT Appended by Eloy Casillas on 11/26/2018 17:13 JOINT MACHINE OPERATOR: CM SPOKE TO GEETHA OF [facility] WHO WILL REVIEW TO SEE IF [facility] CAN MEET PT'S NEEDS. CM FAXED REFERRAL TO [facility] AT [phone]. PT HAS BEEN ACCEPTED FOR DIALYSIS AT [facility] IN [place], [facility], 0930AM. PT CAN START AT [facility] OP DAILYSIS ON 11-26-18 AT 0900 AM. CM WAITING ADMISSION DETERMINATION FOR REHAB FROM [facility] IN [place] AND [facility] IN [place]. Eloy Casillas, CASE MANAGEMENT DCP- Discharge Planning Updated by [id number]: Eloy Casillas on 11/25/18 11:[address] Patient Name: RADHA SALGUERO Encounter No: [id number] : 1945 Primary Insurance: WELLC[employer] MEDICARE ADV Anticipated DC Date: Planned Disposition: Usp Facility External Planned Provider: FIRST ACCEPTING [facility] FACILITY FOR MEDICARE REHAB BED DCP follow-up note: CM SPOKE TO PT IN ROOM AND PROVIDED UPDATE THIS MORNING. CM INFORMED PT THAT HE WOULD BE DISCHARGING FROM THE HOSPITAL SOON OUTPATIENT DIALYSIS UNIT SCHEDULE IS OBTAINED. PT CONTINUES TO REPORT PLAN TO GO BACK TO HIS HOTEL ROOM IN [place] AND THEN BEGAN INSISTING TO KNOW WHY THE DOCTORS AT THE DIALYSIS UNITS WILL NOT ACCEPT HIM. CM EXPLAINED THAT PT WILL HAVE TO TALK TO THE DOCTORS HIMSELF AND CM WAS CONCERNED WITH FINDING AN ACCEPTING UNIT FOR OUTPATIENT DIALYSIS. PT ARGUED THAT THE DOCTORS HAVE NO REASON TO NOT ACCEPT HIM. CM EXPLAINED TO PT THAT HE CANNOT CHANGE THIS AND NEEDS TO CONCENTRATE ON DISCHARGE PLANNING AND LET THE [facility] COORDINATOR FIND A UNIT THAT WOULD ACCEPT. PT CONTINUED TO ARGUE REPORTING THE [place] UNIT HAD ACCEPTED HIM AND HAD NO REASON TO NOT TAKE HIM WHEN HE ARRIVED "HOME" IN [place]. CM EXPLAINED THAT THE UNIT NEVER ACCEPTED HIM, PT REPORTS THIS IS NOT TRUE. CM INFORMED PT THAT CM WILL NOT CONTINUE TO ARGUE THE POINT AND WOULD FOCUS ON DISCHARGE PLANNING. PT REPORTS PLAN TO RETURN TO HIS HOTEL ROOM IN [place] AND NEEDS A MWF DIALYSIS SCHEDULE TO USE MEDICAID TRANSPORTATION. CM DISCUSSED AVAILABILTY OF [facility] REHAB SERVICES PT'S THERAPY NOTES INDICATE PT IS NOT WALKING WELL. PT DECLINES AND STATES HE IS GOING HOME. CM RECEIVED CALL FROM KWAN OF [facility] WHO REPORTS THEY RECEIVED REFERRAL FOR HOME HEALTH REGARDING PT. KWAN ADVISED THAT THEY WILL NOT ACCEPT PT DOES NOT APPEAR TO BE APPROPRIATE AT THIS TIME FOR HOME HEALTH. CM SPOKE TO DR. SUN WHO INFORMED PT IS STABLE FOR DISCHARGE. CM FAXED REFERRAL TO [facility] AT [phone]. CM RECEIVED REQUEST FOR MORE INFORMATION (OUTPATIENT DIALYSIS UNIT, NEED FOR ANTIBIOTICS AT DISCHARE AND ISOLATION STATUS.) CM CALLED [facility], , SPOKE TO EZEKIEL, PROVIDED INFORMATION AND FAXED REFERRAL UPDATE TO [facility] AT [phone] CM FAXED REFERRAL UPDATE TO [facility] AT [phone]. CM FAXED REFERRAL UPDATE TO [facility] AT [phone]. . PT HAS BEEN ACCEPTED FOR DIALYSIS AT [facility], 0930AM. PT CAN START AT [facility] OP DAILYSIS ON 11-26-18 AT 0900 AM. CM WAITING ADMISSION DETERMINATIONS FOR REHAB FROM [facility], [facility], [facility] AND [facility]. Eloy Casillas, CASE MANAGEMENT DCP- Discharge Planning Updated by [id number]: Eloy Casillas on 11/22/18 4:[address] Patient Name: RADHA SALGUERO Encounter No: [id number] : 1945 Primary Insurance: WE[employer] MEDICARE ADV Anticipated DC Date: Planned Disposition: Usp Facility External Planned Provider: FIRST ACCEPTING [facility] FACILITY FOR MEDICARE REHAB BED DCP follow-up note: CM SPOKE TO PT IN ROOM AND PROVIDED UPDATE THIS MORNING. CM INFORMED PT THAT HE WOULD BE DISCHARGING FROM THE HOSPITAL SOON OUTPATIENT DIALYSIS UNIT SCHEDULE IS OBTAINED. PT CONTINUES TO REPORT PLAN TO GO BACK TO HIS HOTEL ROOM IN [place] AND THEN BEGAN INSISTING TO KNOW WHY THE DOCTORS AT THE DIALYSIS UNITS WILL NOT ACCEPT HIM. CM EXPLAINED THAT PT WILL HAVE TO TALK TO THE DOCTORS HIMSELF AND CM WAS CONCERNED WITH FINDING AN ACCEPTING UNIT FOR OUTPATIENT DIALYSIS. PT ARGUED THAT THE DOCTORS HAVE NO REASON TO NOT ACCEPT HIM. CM EXPLAINED TO PT THAT HE CANNOT CHANGE THIS AND NEEDS TO CONCENTRATE ON DISCHARGE PLANNING AND LET THE [facility] COORDINATOR FIND A UNIT THAT WOULD ACCEPT. PT CONTINUED TO ARGUE REPORTING THE [place] UNIT HAD ACCEPTED HIM AND HAD NO REASON TO NOT TAKE HIM WHEN HE ARRIVED "HOME" IN [place]. CM EXPLAINED THAT THE UNIT NEVER ACCEPTED HIM, PT REPORTS THIS IS NOT TRUE. CM INFORMED PT THAT CM WILL NOT CONTINUE TO ARGUE THE POINT AND WOULD FOCUS ON DISCHARGE PLANNING. PT REPORTS PLAN TO RETURN TO HIS HOTEL ROOM IN [place] AND NEEDS A MWF DIALYSIS SCHEDULE TO USE MEDICAID TRANSPORTATION. CM DISCUSSED AVAILABILTY OF [facility] REHAB SERVICES PT'S THERAPY NOTES INDICATE PT IS NOT WALKING WELL. PT DECLINES AND STATES HE IS GOING HOME. CM RECEIVED CALL FROM KWAN OF [facility] WHO REPORTS THEY RECEIVED REFERRAL FOR HOME HEALTH REGARDING PT. KWAN ADVISED THAT THEY WILL NOT ACCEPT PT DOES NOT APPEAR TO BE APPROPRIATE AT THIS TIME FOR HOME HEALTH. CM SPOKE TO KAYLENE OF [facility], PT ACCEPTED FOR DIALYSIS AT [facility] IN [place], [facility], 0930AM. CM NOTIFIED PT AND PROVIDED PT A COPY OF HIS THERAPY NOTE FROM YESTERDAY THAT INDICATES PT WALKING 4 FEET WITH 35 % ASSISTANCE. CM INFORMED PT THAT IS NOT SAFE FOR HIM TO DISCHARGE HOME WITHOUT ASSISTANCE. PT REPORTS HAVING NO FAMILY OR FRIENDS TO ASSIST. PT STILL DECLINED [facility] FACILITY STATING HE LEFT ONE AND IS NOT GOING BACK. CM DISCUSSED HAVING A SAFE DISCHARGE PLAN AND IF PT INSISTED ON GOING HOME IN CURRENT CONDITION, CM WOULD CALL ADULT PROTECTIVE SERVICES. PT DOES NOT WANT TO BE INVOLVED WITH ADULT PROTECTIVE SERVICES AND WILL AGREE FOR REHAB PLACEMENT ONLY IN [place] IF POSSIBLE AND IF NOT, [place]. CHOICE LETTER SIGNED. CM SPOKE TO [facility] AND [facility]. NATHALY INFORMED CM THAT [place] [facility] WILL NOT TRANSPORT TO DIALYSIS IN [place], THAT [facility] CANNOT ACCOMODATE TTS SCHEDULE ADN [facility] RAY WOULD NEED TO EVALUATE. CM FAXED REFERRAL TO [facility] AT [phone]. CM CALLED [facility], , SPOKE TO SANTA WHO WILL EVALUATE PT NEXT SUNDAY. CM FAXED REFERRAL TO [facility] AT [phone]. CM CALLED [facility], , SPOKE TO ENRIKE WHO WILL SCREEN FOR REHAB ADMISSION; CM FAXED REFERRAL TO [facility] AT [phone]. CM CALLED [facility], , SPOKE TO EZEKIEL WHO WILL SCREEN PT FOR ADMISSION, CM FAXED REFERRAL TO [facility] AT [phone]. PT HAS BEEN ACCEPTED FOR DIALYSIS AT [facility], 0930AM. PT CAN START AT [facility] OP DAILYSIS ON 11-26-18 AT 0900 AM. CM WAITING ADMISSION DETERMINATIONS FOR REHAB FROM [facility], [facility], [facility] AND [facility]. Eloy Casillas, CASE MANAGEMENT DCP- Discharge Planning Updated by [id number]: Eloy Casillas on 11/14/18 4:[address] Patient Name: RADHA SALGUERO Encounter No: [id number] : 1945 Primary Insurance: WE[employer] MEDICARE ADV Anticipated DC Date: Planned Disposition: Home DCP follow-up note: CM SPOKE TO DR. MATHIS REGARDING PT'S LIVING ARRAGEMENTS. CM SPOKE TO PT IN ROOM REGARDING LIVING IN HOTEL ROOM. PT REPORTS HE WAS LIVING IN A [facility], DOES NOT WANT TO GO BACK TO ONE AND IS LIVING IN THE HOTEL UNTIL HE FINDS A PLACE THAT HE LIKES. CM DISCUSSED REHAB SERVICES HOME HEALTH AND MEDICAL EQUIPMENT. PT DENIES DISCHARGE NEEDS OTHER THAN NEEDING A DIALYSIS CLINIC. PT STILL UPSET THAT THE [place] [facility] WILL NOT ACCEPT HIM A PATIENT. PT REPORTS HE WILL BE STAYING IN [place] AND WILL FIND HIMSELF AN APARTMENT THERE. PT REPORTS USING MEDICAID TRANSPORT FOR MEDICAL APPOINTMENTS AND NEEDS A Sunday SCHEDULE IN ORDER TO USE MEDICAID TRANSPORT TO AND FROM DIALYSIS. PT REPORTS INABILITY TO GET TO [facility] ON WEEKENDS. KAYLENE OF [facility] NOTIFIED. CM WAITING ARRANGEMENT AND ACCEPTANCE AT OUTPATIENT DIALYSIS CLINIC; [facility] COORDINATOR IS WORKING ON THIS. CM TO CONTINUE TO FOLLOW AND ASSIST IF NEEDED. Eloy Casillas, CASE MANAGEMENT DCP- Discharge Planning Updated by [id number]: Sherri Walker on 11/14/18 2:[address] I HAVE BEEN IN COMMUNICATION WITH KAYLENE KIM, CLINICAL LIASON FOR [facility]. SHE HAS BEEN WORKING ON PLACEMENT FOR THE PATIENT. THIS PATIENT WAS IN A [facility] IN [place] AND RECEIVING DIALYSIS. HE KNEW HE WAS NOT ACCEPTED BY THE [place] [facility] BEFORE HE EVER MOVED TO [place], BUT CAME ANYWAY. KAYLENE HAD BEEN WORKING WITH THE [place] UNIT, AND THEY ARE STILL DENYING HIM PLACEMENT THERE. SHE STATED THAT HE HAS THE OPTION OF [place], [place], OR [place]. WHILE I WAS ON THE PHONE WITH KAYLENE, PHILOMENA WENT AND ASKED THE PATIENT AND HE SAID CRICKET CRAMER, BUT IS INSISTENT THAT HE HAVE A M-W-F SCHEDULE. KAYLENE CALLED BACK AND STATED THAT BECAUSE DR SIMS HAS REFUSED THE PATIENT, THE [place] AND [place] UNITS HAVE ALSO DENIED THE PATIENT. THE ONLY OPTION IS FOR THE [place] UNIT AND THESE ARE THE SAME DOCTORS THAT CARED FOR HIM IN [place]. I WENT AND TALKED TO THE PATIENT AND HE STATED THAT THAT WOULD BE FINE. I HAVE LET KAYLENE KNOW THIS. I HAVE ALSO PASSED ONTO HER THAT PER DR AGUIRRE, THE PATIENT WAS GOING TO NEED 6 WEEKS OF VANCOMYCIN TO BE GIVEN IN DIALYSIS. SHE HAS STATED THAT THAT SHOULD NOT BE A PROBLEM ONCE HE IS ACCEPTED. ALSO DURING THIS TIME, JEFFERSON, PHYSICAL THERAPIST, CAME BY AND STATED THAT THE PATIENT WAS NOT STABLE ON THE CRUTCHES AND DID MUCH BETTER ON THE WALKER. HE RECOMMENDED THAT THE PATIENT GET A WALKER. I ALSO SPOKE WITH THE PATIENT AND HE STATED THAT HE HAS A WALKER AT THE [place] AND DOES NOT NEED ANOTHER ONE. HE STATED THAT THE THERAPIST CAME IN AND GOT HIM UP RIGHT AFTER DIALYSIS AND HE WAS WEEK. HE STATED THAT HE WILL DO BETTER TOMORROW. I HAVE EXPLAINED THAT WE SHOULD HAVE A WALKER THAT HE CAN BORROW DURING THERAPY IF NEEDED. DCP- Discharge Planning Updated by [id number]: Mallory Hawley on 11/11/18 2:[address] PATIENT HAD RECENTLY RETURNED FROM HD AND HAD EATEN HIS LUNCH. HE SAID HE WAS TIRED. SPOKE SLOWLY PATIENT STATES HE IS HARD OF HEARING BUT DID NOT WANT TO TURN DOWN THE VOLUME ON TV. LIV[facility] IN [place], [place]. STATES HE HAS NO BROTHERS, SISTERS OR CHILDREN. HE SAYS HE DOES HAVE COUSINS THAT LIVE IN [place]. STATES HE WILL HAVE TRANSPORTATION AT DISCHARGE FROM HIS FRIEND INDIRA DUNN. CONTACT PHONE NUMBER- [phone]. STATES HE IS TIRED THEREFORE CM STATED WILL REVISIT TO ASSIST WITH DISCHARGE. KAYLENE HELTON ON SITE AND HE STATES HE HAS SPOKEN WITH THE HD COORDINATOR. DCP- Discharge Planning Updated by [id number]: Mallory Hawley on 11/11/18 12:[address] PATIENT PRESENTLY IN HD. CM AWAITS HIS RETURN TO THE ROOM DCP- Discharge Planning Updated by [id number]: Mallory Hawley on 11/10/18 6:[address] CM TO FOLLOW FOR ASSESSMENT. APPARENTLY HE RECENTLY RELOCATED TO [place], [place]. MD HAS ORDERED HD SETUP FOR [facility]. TC TO KAYLENE HELTON. LEFT VOICE MAIL. PATIENT REPORTEDLY LIVING IN A [place]. QUESTION REGARDING HOUSING. CM TO FOLLOW. DCPIA - Discharge Planning Initial Assessment Updated by [id number]: Mallory Hawley on 11/11/18 3:04 pm * Is the patient Alert and Oriented? Yes * PCP DR RONN DURAN * [facility] [place] * Other Environment [facility] * ADLs Independent * List name and contact numbers for known caregivers / representatives who currently or will assist patient after discharge: INDIRA DUNN- FRIEND FOR TRANSPORTATION * Verbal permission to speak to the caregivers and representatives has been obtained from the patient. No * Community resources currently utilized Other * Please name any agencies selected above. [facility] [place], [place] KAYLENE HELTON TRYING TO GET HD SET UP * Additional services required to return to the preadmission environment? Yes * Can the patient safely return to the preadmission environment? Yes Coverage Notice Reviewer: [id number] - Eloy Casillas Notice Issued Date-Time: 11/22/2018 11:50 Notice Type: Patient Choice Letter Notice Delivered To: Patient Relationship to Patient: Bacon Skinner Name: Delivery Method: HAND - Hand Delivered Nguyen Days: Prior Verbal Notification: Recipient Understood Notice: Yes Recipient Signature: Yes Med Rec Note Co-signed by Attending: Coverage Notice Comment: SNF IN [place] OR [place] FOR REHAB ONLY... Last DP export: 11/29/18 3:38 p Patient Name: RADHA SALGUERO Page [id number] at 0923 All edits/amendments must be made on the electronic document DICTATION DATE: 12/04/18921 CHIEF FUNDRAISING OFFICER: JEANMARIE 12/04/18921 RPT#: [id number] DC DATE: STATUS: ADM IN [facility] [address] [place] [address] END OF REPORT
--- NOTE | 2018-12-04 10:13 | MORECARE ---
CASE MANAGEMENT DISCHARGE SUMMARY PATIENT: RADHA SALGUERO UNIT: [id number] ADM DATE: 11/08/18 AGE: 73 : 45 SEX: M ROOM/BED: D.2135 AUTHOR: ROSA,DOC PHYSICIAN: REFERRING PHYSICIAN: MALOU SUN MD DATE OF SERVICE: 12/04/18 Discharge Plan Patient Name: RAD[facility]GUERO [facility] [facility] 1945 Planned Disposition: Detention Facility Anticipated Discharge Date: Discharge Date: Expected LOS: Initial Reviewer: [id number] Initial Review Date: 11/08/2018 Generated: 12/04/18 11:12 am Comments DCP- Discharge Planning Updated by [id number]: Eloy Casillas on 12/04/18 9:[address] Patient Name: RADHA SALGUERO Encounter No: [id number] : 1945 [facility] Anticipated DC Date: Planned Disposition: INPATIENT REHAB External Planned Provider: [facility] DCP follow-up note: CM SPOKE TO SIMON DURAND WHO INFORMED CM THAT SHE WILL DO PEER TO PEER FOR INPATIENT REHAB DENIAL BY INSURANCE. CM [facility]ED [facility] AT [phone], SPOKE TO JACKELYN AND PROVIDED [employer]S CONTACT INFORMATION FOR PEER TO PEER. JACKELYN INFORMED CM THAT DR. SPARKS WILL CALL [employer] WITHIN 24 HOURS FOR PEER TO PEER. CM SPOKE TO RN BHAVANA AGUILLON WHO INFORMED CM THAT PT WANTS TO GO TO INPATIENT REHAB AND DECLINED LONG-TERM FACILITY REFERRALS TO BE SENT YESTERDAY. CM WAITING FOR PEER TO PEER RESULTS, APPEALING INSURANCE DENIAL FOR INPATIENT REHAB AT [facility]. Eloy Casillas, CASE MANAGEMENT Appended by Eloy Casillas on 12/04/2018 10:10 WET MIXER: LATE ENTRY FROM 12-02-18, 1450 HOURS: CM SPOKE TO PT IN ROOM REGARDING DISCHARGE PLANNING AND NEEDS. PT REPORTED THAT HE TALKED TO HIS INSURANCE COMPANY WHO SAID THEY WOULD PAY FOR 20 DAYS OF REHAB HERE. PT REFUSED LONG-TERM REFERRALS AND WANTS REHAB AT [place], INSISTED THAT HIS INSURANCE WILL PAY FOR IT. IMPORTANT MESSAGE FROM MEDICARE PROVIDED AND EXPLAINED. CM WAITING FOR PEER TO PEER RESULTS, APPEALING INSURANCE DENIAL FOR INPATIENT REHAB AT [facility]. Eloy Casillas, CASE MANAGEMENT DCP- Discharge Planning Updated by [id number]: Eloy Casillas on 11/29/18 3:[address] Patient Name: RADHA SALGUERO Encounter No: [id number] : 1945 Primary Insurance: [employer] MEDICARE ADV Anticipated DC Date: Planned Disposition: Detention Facility External Planned Provider: FIRST ACCEPTING FACILITY OR INPATIENT REHAB AT [place] DCP follow-up note: CM CALLED JES AT [facility], . WAS INFORMED THAT [facility] CANNOT MEET PT'S NEEDS. PT HAS BEEN DECLINED BY NURSING FACILTIES IN [facility], [facility]. CM NOTIFIED PT WHO WANTS REHAB AT [place] TO RETURN TO HIS HOME AT THE [place] [facility] IN [place] AT DISCHARGE; PT STATES HE WILL CALL HIS INSURANCE COMPANY AND PT STATES "THEY WILL APPROVE THE REHAB HERE." PT DOES NOT WANT TO CONSIDER LONG-TERM FACILITIES OUTSIDE THIS AREA. CM EXPLAINED THAT HE MAY HAVE NO OTHER OPTIONS IF HE IS UNABLE TO WALK AND CARE FOR HIMSELF. PT REPORTS UNDERSTANDING AND WANTS TO WAIT TO GET INTO REHAB HERE AND ASSURES CM AGAIN HE WILL CALL HIS INSURANCE COMPANY. CM WAITING ADMISSION DETERMINATIONS FROM [facility] INPATIENT RE[facility]. CM WILL CONTINUE TO EXPLORE OTHER NURSING HOMES IN [place]. PT'S INSURANC WILL HAVE TO PROVIDE AUTHORIZATION FOR REHAB SERVICES AT WHICH EVER FACILITY ACCEPTS. Eloy Casillas, CASE MANAGEMENT DCP- Discharge Planning Updated by [id number]: Eloy Casillas on 11/28/18 3:[address] Patient Name: RADHA SALGUERO Encounter No: [id number] : 1945 Primary Insurance: [employer] MEDICARE ADV Anticipated DC Date: Planned Disposition: Detention Facility External Planned Provider: FIRST ACCEPTING FACILITY OR INPATIENT REHAB AT [place] DCP follow-up note: CM RECEIVED ORDER FOR INPATIENT REHAB PRESCREENING, SPOKE TO PT IN ROOM. PT REPORTS HE ONLY WANTS REHAB TO GET STRONGER AND RETURN TO [place] WHERE HE LIVES. PT REPORTS HE WOULD GO TO INPATIENT REHAB OR LONG-TERM. PT REPORTS ABILITY TO PARTICIPATE IN THREE HOURS OF PROGRESSIVE THERAPY PER DAY. PT ASKED ABOUT WHY WILL NOT THE DIALYSIS UNITS ACCEPT HIM AND AGAIN ASKED TO SPEAK TO DR. GERSCH. CM EXPLAINED THAT THE DOCTOR IS NOT GOING TO CONTINUE TO DISCUSS THIS ISSUE IT HAS BEEN DISCUSSED ALREADY WITH PT AND THAT PT WILL NEED TO ACCEPT HIS UNIT ACCEPTANCE IN [place] IT IS THE CLOSEST UNIT THAT WILL ACCEPT HIM FOR OUTPATIENT DIALYSIS. PT STATES HE WOULD LIKE REHAB AND THE HOSPITAL WOULD BE FINE AND IF [facility] WOULD ACCEPT, HE WILL GO EITHER PLACE FOR REHAB SERVICES ONLY WITH PLAN TO RETURN HOME. CM FAXED UPDATE TO JES AT [facility], . CM WAITING ADMISSION DETERMINATIONS FROM [facility] LONG-TERM FAC[facility] IN [place]. PT'S INSURANC WILL HAVE TO PROVIDE AUTHORIZATION FOR REHAB SERVICES AT WHICH EVER FACILITY ACCEPTS. CM TO CONTINUE TO FOLLOW AND ASSIST NEEDED. Eloy Casillas, CASE MANAGEMENT DCP- Discharge Planning Updated by [id number]: Eloy Casillas on 11/27/18 2:[address] Patient Name: RADHA SALGUERO Encounter No: [id number] : 1945 Primary Insurance: [employer] MEDICARE ADV Anticipated DC Date: Planned Disposition: Detention Facility External Planned Provider: FIRST ACCEPTING FACILITY DCP follow-up note: [facility] NGUYEN [facility] CAME AND MET WITH PT TO ASSESS FOR REHAB PLACEMENT. CM RECEIVED MESSAGE FROM [facility] WHO INFORMED CM THAT THEY CHECKED PT'S INSURANCE, [employer], THAT INDICATES PT IS A HOSPICE PT AND MEDICAID STILL SHOWS PT IS SMALL ORDER [facility] C[facility] AT PREVIOUS SKILLED NURSING IN [place]. PT WOULD HAVE TO COME TO FACILITY SMALL ORDER [facility] C[facility] MEDICAID AND THEY COULD PROVIDE THERAPY UNDER MEDICARE PART B. CM LATER RECEIVED PHONE CALL FROM [facility] WHO INFORMED CM THAT THEY CANNOT TAKE PT THEY DO NOT HAVE TRANSPORTATION FOR SUNDAY DIALYSIS. CM RECEIVED CALL FROM JES OF [facility] IN [place] WHO HAS RECEIVED REFERRAL AND IS TRYING TO ASSIST PT WITH REHAB PLACEMENT. CM CONFIRMED THAT PT HAS DIALYSIS ON TTS SCHEDULE AT THE [place] [facility]. PT HAS BEEN ACCEPTED FOR DIALYSIS AT [facility] IN [place], TTS, 0930AM. PT CAN START AT [facility] OP DAILYSIS ON 11-26-18 AT 0900 AM. CM WAITING ADMISSION DETERMINATION FOR REHAB FROM [facility] IN [place]. Eloy Casillas, CASE MANAGEMENT DCP- Discharge Planning Updated by [id number]: Eloy Casillas on 11/26/18 4:[address] Patient Name: RADHA SALGUERO Encounter No: [id number] : 1945 Primary Insurance: [employer] MEDICARE ADV Anticipated DC Date: Planned Disposition: Detention Facility External Planned Provider: FIRST ACCEPTING LONG-TERM FACILITY FOR MEDICARE REHAB BED DCP follow-up note: CM RECEIVED CALL FROM BENITO NGUYEN [facility], , THEY WERE WILLING TO ACCEPT BUT CALLED [facility] DIALYSIS AND PT COULD NOT BE CHANGED TO MWF DIALYSIS SCHEDULE FROM [facility]. [facility] CANNOT ACCEPT THEY HAVE NO TRANSPORT AVAILABLE FOR SUNDAY DIALYSIS. CM FAXED REFERRAL UPDATE TO [facility]IA [facility] AT [phone]. CM FAXED REFERRAL UPDATE TO [facility] AT [phone]. CM FAXED REFERRAL UPDATE TO [facility] AT [phone]. . PT HAS BEEN ACCEPTED FOR DIALYSIS AT [facility] IN [place], [facility], 0930AM. PT CAN START AT [facility] OP DAILYSIS ON 11-26-18 AT 0900 AM. CM WAITING ADMISSION DETERMINATIONS FOR REHAB FROM [facility], [facility] AND [facility]. Eloy Casillas, CASE MANAGEMENT Appended by Eloy Casillas on 11/26/2018 11:05 WET MIXER: CM RECEIVED CALL FROM [facility] WHO REPORTS THEY WILL NOT ACCEPT PT DUE TO PRIOR NON COMPLIANCE IN PREVIOUS SKILLED NURSING PLACEMENT IN [place] AND THEY CANNOT TRANSPORT TO DIALYSIS ON SATURDAYS. CM RECEIVED CALL FROM [facility], THEY ARE NOT ABLE TO MEET PT'S CLINICAL NEEDS AT THIS TIME. PT HAS BEEN ACCEPTED FOR DIALYSIS AT [facility] IN [place], [facility], 0930AM. PT CAN START AT [facility] OP DAILYSIS ON 11-26-18 AT 0900 AM. CM WAITING ADMISSION DETERMINATIONS FOR REHAB FROM [facility]. Eloy Casillas, CASE MANAGEMENT Appended by Eloy Casillas on 11/26/2018 12:06 WET MIXER: CM CALLED AND SPOKE TO JES OF [facility] [place], , DISCUSSED REHAB REFERRAL AND ASKED IF SHE WOULD BE ABLE TO TRANSPORT PT TO [place] FOR DIALYSIS ON TTS SCHEDULE. JES WILL REVIEW REFERRAL AND GET BACK WITH CM. CM FAXED REFERRAL TO [facility] AT [phone]. PT HAS BEEN ACCEPTED FOR DIALYSIS AT [facility] IN [facility], 0930AM. PT CAN START AT [facility] OP DAILYSIS ON 11-26-18 AT 0900 AM. CM WAITING ADMISSION DETERMINATIONS FOR REHAB FROM [facility] AND [facility]. Eloy Casillas, CASE MANAGEMENT Appended by Eloy Casillas on 11/26/2018 13:48 WET MIXER: CM RECEIVED CALL FROM [facility], THEY WILL NOT ACCEPT PT. CM RECEIVED CALL FROM [facility] WHO REQUESTED REFERRAL BE FAXED TO ALTERNATE NUMBER FAX IS NOT WORKING ON THE MAIN LINE. CM FAXED REFERRAL TO [facility] AT [phone]. PT HAS BEEN ACCEPTED FOR DIALYSIS AT [facility] IN [facility], 0930AM. PT CAN START AT [facility] OP DAILYSIS ON 11-26-18 AT 0900 AM. CM WAITING ADMISSION DETERMINATION FOR REHAB FROM [facility] IN [place]. Eloy Casillas, CASE MANAGEMENT Appended by Eloy Casillas on 11/26/2018 17:13 WET MIXER: CM SPOKE TO [facility] WHO WILL REVIEW TO SEE IF [facility] CAN MEET PT'S NEEDS. CM FAXED REFERRAL TO [facility] AT [phone]. PT HAS BEEN ACCEPTED FOR DIALYSIS AT [facility] IN [place], [facility], 0930AM. PT CAN START AT [facility] OP DAILYSIS ON 11-26-18 AT 0900 AM. CM WAITING ADMISSION DETERMINATION FOR REHAB FROM [facility] IN [place] AND [facility] IN [place]. Eloy Casillas, CASE MANAGEMENT DCP- Discharge Planning Updated by [id number]: Eloy Casillas on 11/25/18 11:[address] Patient Name: RADHA SALGUERO Encounter No: [id number] : 1945 Primary Insurance: [employer] MEDICARE ADV Anticipated DC Date: Planned Disposition: Detention Facility External Planned Provider: FIRST ACCEPTING LONG-TERM FACILITY FOR MEDICARE REHAB BED DCP follow-up note: CM SPOKE TO PT IN ROOM AND PROVIDED UPDATE THIS MORNING. CM INFORMED PT THAT HE WOULD BE DISCHARGING FROM THE HOSPITAL SOON OUTPATIENT DIALYSIS UNIT SCHEDULE IS OBTAINED. PT CONTINUES TO REPORT PLAN TO GO BACK TO HIS HOT ROOM IN [place] AND THEN BEGAN INSISTING TO KNOW WHY THE DOCTORS AT THE DIALYSIS UNITS WILL NOT ACCEPT HIM. CM EXPLAINED THAT PT WILL HAVE TO TALK TO THE DOCTORS HIMSELF AND CM WAS CONCERNED WITH FINDING AN ACCEPTING UNIT FOR OUTPATIENT DIALYSIS. PT ARGUED THAT THE DOCTORS HAVE NO REASON TO NOT ACCEPT HIM. CM EXPLAINED TO PT THAT HE CANNOT CHANGE THIS AND NEEDS TO CONCENTRATE ON DISCHARGE PLANNING AND LET THE [facility] COORDINATOR FIND A UNIT THAT WOULD ACCEPT. PT CONTINUED TO ARGUE REPORTING THE [place] UNIT HAD ACCEPTED HIM AND HAD NO REASON TO NOT TAKE HIM WHEN HE ARRIVED "HOME" IN [place]. CM EXPLAINED THAT THE UNIT NEVER ACCEPTED HIM, PT REPORTS THIS IS NOT TRUE. CM INFORMED PT THAT CM WILL NOT CONTINUE TO ARGUE THE POINT AND WOULD FOCUS ON DISCHARGE PLANNING. PT REPORTS PLAN TO RETURN TO HIS HOTEL ROOM IN [place] AND NEEDS A MWF DIALYSIS SCHEDULE TO USE MEDICAID TRANSPORTATION. CM DISCUSSED AVAILABILTY OF LONG-TERM REHAB SERVICES PT'S THERAPY NOTES INDICATE PT IS NOT WALKING WELL. PT DECLINES AND STATES HE IS GOING HOME. CM RECEIVED CALL FROM KWAN OF [facility] WHO REPORTS THEY RECEIVED REFERRAL FOR HOME HEALTH REGARDING PT. KWAN ADVISED THAT THEY WILL NOT ACCEPT PT DOES NOT APPEAR TO BE APPROPRIATE AT THIS TIME FOR HOME HEALTH. CM SPOKE TO DR. SUN WHO INFORMED PT IS STABLE FOR DISCHARGE. CM FAXED REFERRAL TO [facility]IA N[facility] AT [phone]. CM RECEIVED REQUEST FOR MORE INFORMATION (OUTPATIENT DIALYSIS UNIT, NEED FOR ANTIBIOTICS AT DISCHARE AND ISOLATION STATUS.) CM CALLED [facility], , SPOKE TO EZEKIEL, PROVIDED INFORMATION AND FAXED REFERRAL UPDATE TO [facility] AT [phone] CM FAXED REFERRAL UPDATE TO [facility] AT [phone]. CM FAXED REFERRAL UPDATE TO [facility] AT [phone]. . PT HAS BEEN ACCEPTED FOR DIALYSIS AT [facility] IN [place], [facility], 0930AM. PT CAN START AT [facility] OP DAILYSIS ON 11-26-18 AT 0900 AM. CM WAITING ADMISSION DETERMINATIONS FOR REHAB FROM [facility], [facility], [facility] AND [facility]. Eloy Casillas, CASE MANAGEMENT DCP- Discharge Planning Updated by [id number]: Eloy Casillas on 11/22/18 4:[address] Patient Name: RADHA SALGUERO Encounter No: [id number] : 1945 Primary Insurance: [employer] MEDICARE ADV Anticipated DC Date: Planned Disposition: Detention Facility External Planned Provider: FIRST ACCEPTING LONG-TERM FACILITY FOR MEDICARE REHAB BED DCP follow-up note: CM SPOKE TO PT IN ROOM AND PROVIDED UPDATE THIS MORNING. CM INFORMED PT THAT HE WOULD BE DISCHARGING FROM THE HOSPITAL SOON OUTPATIENT DIALYSIS UNIT SCHEDULE IS OBTAINED. PT CONTINUES TO REPORT PLAN TO GO BACK TO HIS HOTEL ROOM IN [place] AND THEN BEGAN INSISTING TO KNOW WHY THE DOCTORS AT THE DIALYSIS UNITS WILL NOT ACCEPT HIM. CM EXPLAINED THAT PT WILL HAVE TO TALK TO THE DOCTORS HIMSELF AND CM WAS CONCERNED WITH FINDING AN ACCEPTING UNIT FOR OUTPATIENT DIALYSIS. PT ARGUED THAT THE DOCTORS HAVE NO REASON TO NOT ACCEPT HIM. CM EXPLAINED TO PT THAT HE CANNOT CHANGE THIS AND NEEDS TO CONCENTRATE ON DISCHARGE PLANNING AND LET THE [facility] COORDINATOR FIND A UNIT THAT WOULD ACCEPT. PT CONTINUED TO ARGUE REPORTING THE [place] UNIT HAD ACCEPTED HIM AND HAD NO REASON TO NOT TAKE HIM WHEN HE ARRIVED "HOME" IN [place]. CM EXPLAINED THAT THE UNIT NEVER ACCEPTED HIM, PT REPORTS THIS IS NOT TRUE. CM INFORMED PT THAT CM WILL NOT CONTINUE TO ARGUE THE POINT AND WOULD FOCUS ON DISCHARGE PLANNING. PT REPORTS PLAN TO RETURN TO HIS HOTEL ROOM IN [place] AND NEEDS A MWF DIALYSIS SCHEDULE TO USE MEDICAID TRANSPORTATION. CM DISCUSSED AVAILABILTY OF LONG-TERM REHAB SERVICES PT'S THERAPY NOTES INDICATE PT IS NOT WALKING WELL. PT DECLINES AND STATES HE IS GOING HOME. CM RECEIVED CALL FROM KWAN OF [facility] WHO REPORTS THEY RECEIVED REFERRAL FOR HOME HEALTH REGARDING PT. KWAN ADVISED THAT THEY WILL NOT ACCEPT PT DOES NOT APPEAR TO BE APPROPRIATE AT THIS TIME FOR HOME HEALTH. BHAVANA SPOKE TO KAYLENE OF [facility], PT ACCEPTED FOR DIALYSIS AT [facility] IN [facility], 0930AM. CM NOTIFIED PT AND PROVIDED PT A COPY OF HIS THERAPY NOTE FROM YESTERDAY THAT INDICATES PT WALKING 4 FEET WITH 35 % ASSISTANCE. CM INFORMED PT THAT IS NOT SAFE FOR HIM TO DISCHARGE HOME WITHOUT ASSISTANCE. PT REPORTS HAVING NO FAMILY OR FRIENDS TO ASSIST. PT STILL DECLINED LONG-TERM FACILITY STATING HE LEFT ONE AND IS NOT GOING BACK. CM DISCUSSED HAVING A SAFE DISCHARGE PLAN AND IF PT INSISTED ON GOING HOME IN CURRENT CONDITION, CM WOULD CALL ADULT PROTECTIVE SERVICES. PT DOES NOT WANT TO BE INVOLVED WITH ADULT PROTECTIVE SERVICES AND WILL AGREE FOR REHAB PLACEMENT ONLY IN [place] IF POSSIBLE AND IF NOT, [place]. CHOICE LETTER SIGNED. CM SPOKE TO NATHALY [facility] AND [facility]. NATHALY INFORMED CM THAT [facility] WILL NOT TRANSPORT TO DIALYSIS IN [place], THAT [facility] CANNOT ACCOMODATE TTS SCHEDULE ADN [facility] WOULD NEED TO EVALUATE. CM FAXED REFERRAL TO [facility] AT [phone]. CM CALLED [facility], , SPOKE TO SANTA WHO WILL EVALUATE PT NEXT SUNDAY. CM FAXED REFERRAL TO [facility] AT [phone]. CM CALLED [facility], , SPOKE TO ENRIKE WHO WILL SCREEN FOR REHAB ADMISSION; CM FAXED REFERRAL TO [facility] AT [phone]. CM CALLED [facility], , SPOKE TO EZEKIEL WHO WILL SCREEN PT FOR ADMISSION, CM FAXED REFERRAL TO [facility] AT [phone]. PT HAS BEEN ACCEPTED FOR DIALYSIS AT [facility] IN [place], TTS, 0930AM. PT CAN START AT [facility] OP DAILYSIS ON 11-26-18 AT 0900 AM. CM WAITING ADMISSION DETERMINATIONS FOR REHAB FROM [facility], [facility], [facility] AND [facility]. Eloy Casillas, CASE MANAGEMENT DCP- Discharge Planning Updated by [id number]: Eloy Casillas on 11/14/18 4:[address] Patient Name: RADHA SALGUERO Encounter No: [id number] : 1945 Primary Insurance: [employer] MEDICARE ADV Anticipated DC Date: Planned Disposition: Home DCP follow-up note: CM SPOKE TO DR. MATHIS REGARDING PT'S LIVING ARRAGEMENTS. CM SPOKE TO PT IN ROOM REGARDING LIVING IN HOTEL ROOM. PT REPORTS HE WAS LIVING IN A SKILLED NURSING, DOES NOT WANT TO GO BACK TO ONE AND IS LIVING IN THE HOTEL UNTIL HE FINDS A PLACE THAT HE LIKES. CM DISCUSSED REHAB SERVICES HOME HEALTH AND MEDICAL EQUIPMENT. PT DENIES DISCHARGE NEEDS OTHER THAN NEEDING A DIALYSIS CLINIC. PT STILL UPSET THAT THE [place] [facility] WILL NOT ACCEPT HIM A PATIENT. PT REPORTS HE WILL BE STAYING IN [place] AND WILL FIND HIMSELF AN APARTMENT THERE. PT REPORTS USING MEDICAID TRANSPORT FOR MEDICAL APPOINTMENTS AND NEEDS A Sunday SCHEDULE IN ORDER TO USE MEDICAID TRANSPORT TO AND FROM DIALYSIS. PT REPORTS INABILITY TO GET TO [facility] ON WEEKENDS. KAYLENE OF [facility] NOTIFIED. CM WAITING ARRANGEMENT AND ACCEPTANCE AT OUTPATIENT DIALYSIS CLINIC; [facility] COORDINATOR IS WORKING ON THIS. CM TO CONTINUE TO FOLLOW AND ASSIST IF NEEDED. Eloy Casillas, CASE MANAGEMENT DCP- Discharge Planning Updated by [id number]: Sherri Walker on 11/14/18 2:[address] I HAVE BEEN IN COMMUNICATION WITH KAYLENE KIM, CLINICAL [facility]ON FOR [facility]. SHE HAS BEEN WORKING ON PLACEMENT FOR THE PATIENT. THIS PATIENT WAS IN A SKILLED NURSING IN [place] AND RECEIVING DIALYSIS. HE KNEW HE WAS NOT ACCEPTED BY THE [place] [facility] BEFORE HE EVER MOVED TO [place], BUT CAME ANYWAY. KAYLENE HAD BEEN WORKING WITH THE [facility] UN[facility], AND THEY ARE STILL DENYING HIM PLACEMENT THERE. SHE STATED THAT HE HAS THE OPTION OF [place], [place], OR [place]. WHILE I WAS ON THE PHONE WITH KAYLENE, PHILOMENA WENT AND ASKED THE PATIENT AND HE SAID [facility] [place], BUT IS INSISTENT THAT HE HAVE A M-W-F SCHEDULE. KAYLENE CALLED BACK AND STATED THAT BECAUSE DR SIMS HAS REFUSED THE PATIENT, THE [place] AND [place] UNITS HAVE ALSO DENIED THE PATIENT. THE ONLY OPTION IS FOR THE [place] UNIT AND THESE ARE THE SAME DOCTORS THAT CARED FOR HIM IN [place]. I WENT AND TALKED TO THE PATIENT AND HE STATED THAT THAT WOULD BE FINE. I HAVE LET KAYLENE KNOW THIS. I HAVE ALSO PASSED ONTO HER THAT PER DR AGUIRRE, THE PATIENT WAS GOING TO NEED 6 WEEKS OF VANCOMYCIN TO BE GIVEN IN DIALYSIS. SHE HAS STATED THAT THAT SHOULD NOT BE A PROBLEM ONCE HE IS ACCEPTED. ALSO DURING THIS TIME, JEFFERSON, PHYSICAL THERAPIST, CAME BY AND STATED THAT THE PATIENT WAS NOT STABLE ON THE CRUTCHES AND DID MUCH BETTER ON THE WALKER. HE RECOMMENDED THAT THE PATIENT GET A WALKER. I ALSO SPOKE WITH THE PATIENT AND HE STATED THAT HE HAS A WALKER AT THE H[place]EL AND DOES NOT NEED ANOTHER ONE. HE STATED THAT THE THERAPIST CAME IN AND GOT HIM UP RIGHT AFTER DIALYSIS AND HE WAS WEEK. HE STATED THAT HE WILL DO BETTER TOMORROW. I HAVE EXPLAINED THAT WE SHOULD HAVE A WALKER THAT HE CAN BORROW DURING THERAPY IF NEEDED. DCP- Discharge Planning Updated by [id number]: Mallory Zamarripas on 11/11/18 2:[address] PATIENT HAD RECENTLY RETURNED FROM HD AND HAD EATEN HIS LUNCH. HE SAID HE WAS TIRED. SPOKE SLOWLY PATIENT STATES HE IS HARD OF HEARING BUT DID NOT WANT TO TURN DOWN THE VOLUME ON TV. LIVES AT THE [facility] IN [place], [place]. STATES HE HAS NO BROTHERS, SISTERS OR CHILDREN. HE SAYS HE DOES HAVE COUSINS THAT LIVE IN [place]. STATES HE WILL HAVE TRANSPORTATION AT DISCHARGE FROM HIS FRIEND INDIRA DUNN. CONTACT PHONE NUMBER- [phone]. STATES HE IS TIRED THEREFORE CM STATED WILL REVISIT TO ASSIST WITH DISCHARGE. KAYLENE HELTON ON SITE AND HE STATES HE HAS SPOKEN WITH THE HD COORDINATOR. DCP- Discharge Planning Updated by [id number]: Mallory Milam on 11/11/18 12:[address] PATIENT PRESENTLY IN HD. CM AWAITS HIS RETURN TO THE ROOM DCP- Discharge Planning Updated by [id number]: Mallory Milam on 11/10/18 6:[address] CM TO FOLLOW FOR ASSESSMENT. APPARENTLY HE RECENTLY RELOCATED TO [place], [place]. MD HAS ORDERED HD SETUP FOR [facility]. TC TO KAYLENE HELTON. LEFT VOICE MAIL. PATIENT REPORTEDLY LIVING IN A HOTEL. QUESTION REGARDING HOUSING. CM TO FOLLOW. DCPIA - Discharge Planning Initial Assessment Updated by [id number]: Mallory Milam on 11/11/18 3:04 pm * Is the patient Alert and Oriented? Yes * PCP DR RONN DURAN * Pharmacy [facility] IN [place] * Other Environment [facility] * ADLs Independent * List name and contact numbers for known caregivers / representatives who currently or will assist patient after discharge: INDIRA DUNN- FRIEND FOR TRANSPORTATION * Verbal permission to speak to the caregivers and representatives has been obtained from the patient. No * Community resources currently utilized Other * Please name any agencies selected above. [facility] [place] KAYLENE HELTON TRYING TO GET HD SET UP * Additional services required to return to the preadmission environment? Yes * Can the patient safely return to the preadmission environment? Yes Coverage Notice Reviewer: [id number] - Eloy Casillas Notice Issued Date-Time: 11/22/2018 11:50 Notice Type: Patient Choice Letter Notice Delivered To: Patient Relationship to Patient: Go Go Dancer Name: Delivery Method: HAND - Hand Delivered Nguyen Days: Prior Verbal Notification: Recipient Understood Notice: Yes Recipient Signature: Yes Med Rec Note Co-signed by Attending: Coverage Notice Comment: SNF IN [place] OR [place] FOR REHAB ONLY... Reviewer: [id number] - Eloy Casillas Notice Issued Date-Time: 12/02/2018 14:50 Notice Type: IM Discharge Notice Notice Delivered To: Patient Relationship to Patient: Go Go Dancer Name: Delivery Method: HAND - Hand Delivered Nguyen Days: Prior Verbal Notification: Recipient Understood Notice: Yes Recipient Signature: Yes Med Rec Note Co-signed by Attending: Coverage Notice Comment: Last DP export: 12/04/18 8:23 a Patient Name: RADHA SALGUERO Page [id number] at 1013 All edits/amendments must be made on the electronic document DICTATION DATE: 12/04/18 1012 DROP TESTER: JEANMARIE 12/04/18 1012 RPT#: [id number] DC DATE: STATUS: ADM IN [facility] [address] [place] [address] END OF REPORT
--- NOTE | 2018-12-04 14:15 | NUR ---
PT WAS IN ROOM WORKING WITH PT AND THEN PT STATED " I NEED TO SIT DOWN." PT ASSISTED PT TO CHAIR PT THEN BECAME UNRESPONSIVE WITH BLANK STARE ON HIS FACE. THIS NURSE DID A STERM RUB PT STILL DID NOT RESPONIVE, HE WAS THEN PLACE BACK TO BED A RAPID WAS CALLED. PT NAME WAS CALLED AGAIN WHEN PLACE BACK INTO THE BED AND HE THEN RESPONSED. BP WAS OBTAIN 138/71, 71, 18, 98%. BS 130. RAPID WAS CANCELLED. PT AWAKE AND TALKING AT THIS TIME. CONTIUE TO MONITOR VS.CALLED WAS PLACED TO PARMINDER [facility] REC'D NEW ORDERS FOR TELEMETY. C/L IN REACH AT BEDSIDE.
[2018-12-04 15:37] VITALS: BP 138/73
--- NOTE | 2018-12-04 16:23 | NUR ---
DAILY DRESSING CHANGES USING BETADINE SOAKED ADAPTIC HAVE BEEN DISCONTINUED. ELTA CREAM WILL BE APPLIED DAILY FOR MOISTURE. CREAM IS TO BE APPLIED AND ALLOWED TO ABSORB FOR 5 MIN. ANY UNABSORBED CREAM NEEDS TO BE REMOVED WITH DRY 4X4 OR WASH CLOTH. THEN PLACE NON-SKID SOCKS ON PT. WILL CONTINUE MONITORING.
--- NOTE | 2018-12-04 19:46 | NUR ---
DRESSING CHANGED TO HEMOSPLIT AT THIS TIME. C/L IN REACH AT BEDSIDE.
--- NOTE | 2018-12-04 19:55 | NUR ---
RESUMING CARE. PT IS LAYING IN BED WITH EYES CLOSED RESTING COMFORTABLY. BED IN THE LOWEST POSITION WITH CALL LIGHT IN REACH. WILL CONTINUE TO MONITOR PT AND FOLLOW PLAN OF CARE.
[2018-12-04 21:09] VITALS: BP 138/62
--- NOTE | 2018-12-04 23:38 | NUR ---
LYING IN BED WITH CALL LIGHT IN REACH. WILL CONTINUE TO MONITOR.
[2018-12-05] VITALS: BP 121/65
[2018-12-05 04:00] VITALS: BP 124/59
--- NOTE | 2018-12-05 04:56 | NUR ---
PT LAYING IN BED WITH EYES CLOSED RESTING COMFORABLY. BED IN LOW POSITION WITH CALL LIGHT IN REACH. SIDE RAILS UP X 2. WILL CONTINUE TO MONITOR PT AND FOLLOW PLAN OF CARE.
--- NOTE | 2018-12-05 07:30 | NUR ---
RECEIVED A/A/OX4. DENIES ANY PAIN OR DISCOMFORT WITH NO REQUESTS VOICED. DRESSING TO RIGHT FOOT C/D/I. DRESSING REMOVED WITH INCISION C/D AND SCAB FORMED ON RIGHT HEEL WITH NO DRAINAGE. SL PATENT TO LEFT FOREARM WITHOUT REDNESS OR EDEMA. RIGHT CHEST H/S IN PLACE WITH DRESSING C/D/I. BED IN LOWEST POSITION WITH SIDERAILS UP X 2 AND CALL LIGHT IN REACH.
[2018-12-05 07:49] VITALS: BP 131/64
--- NOTE | 2018-12-05 10:23 | NUR ---
RESTING QUIETLY IN BED. NO NEEDS VOICED AT THIS TIME.
[2018-12-05 11:00] VITALS: BP 128/57
--- NOTE | 2018-12-05 11:26 | NUR ---
Rehab Note- Received fax for an approval that was overturned with peer to peer review. Notified [facility]AVA[facility] Dalton. Will plan to accept the patient today if discharge orders are received. Thank you for this referral! Cecy Gonzalez RN Clinical Liaison, [facility]
--- NOTE | 2018-12-05 12:04 | MORECARE ---
CASE MANAGEMENT DISCHARGE SUMMARY PATIENT: RADHA SALGUERO UNIT: [id number] ADM DATE: 11/08/18 AGE: 73 : 45 SEX: M ROOM/BED: D.2135 AUTHOR: ROSA,DOC PHYSICIAN: REFERRING PHYSICIAN: MALOU SUN MD DATE OF SERVICE: 12/05/18 Discharge Plan Patient Name: RADHA SALGUERO [facility] [facility] 1945 Planned Disposition: Inpatient Rehab Anticipated Discharge Date: 12/05/18 Discharge Date: Expected LOS: 27 Initial Reviewer: [id number] Initial Review Date: 11/08/2018 Generated: 12/05/18 1:03 pm Comments DCP- Discharge Planning Updated by [id number]: Eloy Casillas on 12/04/18 9:[address] Patient Name: RADHA SALGUERO Encounter No: [id number] : 1945 Primary Insurance: [employer] MEDICARE ADV Anticipated DC Date: Planned Disposition: INPATIENT REHAB External Planned Provider: [facility] INPATIENT REHAB DCP follow-up note: CM SPOKE TO SIMON DURAND WHO INFORMED CM THAT SHE WILL DO PEER TO PEER FOR INPATIENT REHAB DENIAL BY INSURANCE. CM CALLED [facility] AT [phone], SPOKE TO JACKELYN AND PROVIDED PARMINDER'S CONTACT INFORMATION FOR PEER TO PEER. JACKELYN INFORMED BHAVANA THAT DR. SPARKS WILL CALL [facility] WITHIN 24 HOURS FOR PEER TO PEER. CM SPOKE TO RN BHAVANA AGUILLON WHO INFORMED CM THAT PT WANTS TO GO TO INPATIENT REHAB AND DECLINED [facility]TER FACILITY REFERRALS TO BE SENT YESTERDAY. CM WAITING FOR PEER TO PEER RESULTS, APPEALING INSURANCE DENIAL FOR INPATIENT REHAB AT [facility]. Eloy Casillas, CASE MANAGEMENT Appended by Eloy Casillas on 12/04/2018 10:10 SHUTTLE FITTING SUPERVISOR: LATE ENTRY FROM 12-02-18, 1450 HOURS: CM SPOKE TO PT IN ROOM REGARDING DISCHARGE PLANNING AND NEEDS. PT REPORTED THAT HE TALKED TO HIS INSURANCE COMPANY WHO SAID THEY WOULD PAY FOR 20 DAYS OF REHAB HERE. PT REFUSED [facility] REFERRALS AND WANTS REHAB AT [place], INSISTED THAT HIS INSURANCE WILL PAY FOR IT. IMPORTANT MESSAGE FROM MEDICARE PROVIDED AND EXPLAINED. CM WAITING FOR PEER TO PEER RESULTS, APPEALING INSURANCE DENIAL FOR INPATIENT REHAB AT [facility]. Eloy Casillas, CASE MANAGEMENT DCP- Discharge Planning Updated by [id number]: Eloy Casillas on 11/29/18 3:[address] Patient Name: RADHA SALGUERO Encounter No: [id number] : 1945 Primary Insurance: [employer] MEDICARE ADV Anticipated DC Date: Planned Disposition: Prison Facility External Planned Provider: FIRST ACCEPTING FACILITY OR INPATIENT REHAB AT [place] DC follow-up note: CM CALLED JSE AT [facility], . WAS INFORMED THAT [facility] CANNOT MEET PT'S NEEDS. PT HAS BEEN DECLINED BY NURSING FACILTIES IN [facility], [facility]. CM NOTIFIED PT WHO WANTS REHAB AT [place] TO RETURN TO HIS HOME AT THE [place] IN [facility] IN [place] AT DISCHARGE; PT STATES HE WILL CALL HIS INSURANCE COMPANY AND PT STATES "THEY WILL APPROVE THE REHAB HERE." PT DOES NOT WANT TO CONSIDER SHELTER FACILITIES OUTSIDE THIS AREA. CM EXPLAINED THAT HE MAY HAVE NO OTHER OPTIONS IF HE IS UNABLE TO WALK AND CARE FOR HIMSELF. PT REPORTS UNDERSTANDING AND WANTS TO WAIT TO GET INTO REHAB HERE AND ASSURES CM AGAIN HE WILL CALL HIS INSURANCE COMPANY. CM WAITING ADMISSION DETERMINATIONS FROM [facility] INPATIENT REHAB. CM WILL CONTINUE TO EXPLORE OTHER NURSING HOMES IN [place]. PT'S INSURANC WILL HAVE TO PROVIDE AUTHORIZATION FOR REHAB SERVICES AT WHICH EVER FACILITY ACCEPTS. Eloy Casillas CASE MANAGEMENT DCP- Discharge Planning Updated by [id number]: Eloy Casillas on 11/28/18 3:[address] Patient Name: RADHA SALGUERO Encounter No: [id number] : 1945 Primary Insurance: [employer] MEDICARE ADV Anticipated DC Date: Planned Disposition: Prison Facility External Planned Provider: FIRST ACCEPTING FACILITY OR INPATIENT REHAB AT [place] DCP follow-up note: CM RECEIVED ORDER FOR INPATIENT REHAB PRESCREENING, SPOKE TO PT IN ROOM. PT REPORTS HE ONLY WANTS REHAB TO GET STRONGER AND RETURN TO [place] WHERE HE LIVES. PT REPORTS HE WOULD GO TO INPATIENT REHAB OR [facility]. PT REPORTS ABILITY TO PARTICIPATE IN THREE HOURS OF PROGRESSIVE THERAPY PER DAY. PT ASKED ABOUT WHY WILL NOT THE DIALYSIS UNITS ACCEPT HIM AND AGAIN ASKED TO SPEAK TO DR. SUN. CM EXPLAINED THAT THE DOCTOR IS NOT GOING TO CONTINUE TO DISCUSS THIS ISSUE IT HAS BEEN DISCUSSED ALREADY WITH PT AND THAT PT WILL NEED TO ACCEPT HIS UNIT ACCEPTANCE IN [place] IT IS THE CLOSEST UNIT THAT WILL ACCEPT HIM FOR OUTPATIENT DIALYSIS. PT STATES HE WOULD LIKE REHAB AND THE HOSPITAL WOULD BE FINE AND IF [facility] WOULD ACCEPT, HE WILL GO EITHER PLACE FOR REHAB SERVICES ONLY WITH PLAN TO RETURN HOME. CM FAXED UPDATE TO JES AT [facility], . CM WAITING ADMISSION DETERMINATIONS FROM [facility] INPATIENT REHAB [facility] IN [place]. PT'S INSURANC WILL HAVE TO PROVIDE AUTHORIZATION FOR REHAB SERVICES AT WHICH EVER FACILITY ACCEPTS. CM TO CONTINUE TO FOLLOW AND ASSIST NEEDED. Eloy Casillas CASE MANAGEMENT DCP- Discharge Planning Updated by [id number]: Eloy Casillas on 11/27/18 2:[address] Patient Name: RADHA SALGUERO Encounter No: [id number] : 1945 Primary Insurance: [employer] MEDICARE ADV Anticipated DC Date: Planned Disposition: Prison Facility External Planned Provider: FIRST ACCEPTING FACILITY DCP follow-up note: GEETHA NGUYEN [facility] CAME AND MET WITH PT TO ASSESS FOR REHAB PLACEMENT. CM RECEIVED MESSAGE FROM GEETHA NGUYEN [facility] WHO INFORMED CM THAT THEY CHECKED PT'S INSURANCE, [employer], THAT INDICATES PT IS A HOSPICE PT AND MEDICAID STILL SHOWS PT IS USP CARE AT [facility] IN [place]. PT WOULD HAVE TO COME TO FACILITY USP CARE MEDICAID AND THEY COULD PROVIDE THERAPY UNDER MEDICARE PART B. CM LATER RECEIVED PHONE CALL FROM GEETHA NGUYEN [facility] WHO INFORMED CM THAT THEY CANNOT TAKE PT THEY DO NOT HAVE TRANSPORTATION FOR SUNDAY DIALYSIS. CM RECEIVED CALL FROM JES OF [facility] IN [place] WHO HAS RECEIVED REFERRAL AND IS TRYING TO ASSIST PT WITH REHAB PLACEMENT. CM CONFIRMED THAT PT HAS DIALYSIS ON TTS SCHEDULE AT THE [place] [facility]. PT HAS BEEN ACCEPTED FOR DIALYSIS AT [facility] IN [place], TTS, 0930AM. PT CAN START AT [facility] OP DAILYSIS ON 11-26-18 AT 0900 AM. CM WAITING ADMISSION DETERMINATION FOR REHAB FROM [facility] IN [place]. Eloy Casillas, CASE MANAGEMENT DCP- Discharge Planning Updated by [id number]: Eloy Casillas on 11/26/18 4:[address] Patient Name: RADHA SALGUERO Encounter No: [id number] : 1945 Primary Insurance: [employer] MEDICARE ADV Anticipated DC Date: Planned Disposition: Prison Facility External Planned Provider: FIRST ACCEPTING [facility]LTER FACILITY FOR MEDICARE REHAB BED DCP follow-up note: CM RECEIVED CALL FROM BENITO NGUYEN [facility], , THEY WERE WILLING TO ACCEPT BUT CALLED [facility]IAL[facility] AND PT COULD NOT BE CHANGED TO MWF DIALYSIS SCHEDULE FROM [facility]. [facility] CANNOT ACCEPT THEY HAVE NO TRANSPORT AVAILABLE FOR SUNDAY DIALYSIS. CM FAXED REFERRAL UPDATE TO [facility] AT [phone]. CM FAXED REFERRAL UPDATE TO [facility] AT [phone]. CM FAXED REFERRAL UPDATE TO [employer] AT [phone]. . PT HAS BEEN ACCEPTED FOR DIALYSIS AT [facility], 0930AM. PT CAN START AT [facility] OP DAILYSIS ON 11-26-18 AT 0900 AM. CM WAITING ADMISSION DETERMINATIONS FOR REHAB FROM [facility], [facility] AND [employer]. Eloy Casillas, CASE MANAGEMENT Appended by Eloy Casillas on 11/26/2018 11:05 SHUTTLE FITTING SUPERVISOR: CM RECEIVED CALL FROM SANTA NGUYEN [facility] WHO REPORTS THEY WILL NOT ACCEPT PT DUE TO PRIOR NON COMPLIANCE IN [facility] P[facility] PLACEMENT IN [place] AND THEY CANNOT TRANSPORT TO DIALYSIS ON SATURDAYS. CM RECEIVED CALL FROM [facility], THEY ARE NOT ABLE TO MEET PT'S CLINICAL NEEDS AT THIS TIME. PT HAS BEEN ACCEPTED FOR DIALYSIS AT [facility] IN [facility], 0930AM. PT CAN START AT [facility] OP DAILYSIS ON 11-26-18 AT 0900 AM. CM WAITING ADMISSION DETERMINATIONS FOR REHAB FROM [facility]. Eloy Casillas, CASE MANAGEMENT Appended by Eloy Casillas on 11/26/2018 12:06 SHUTTLE FITTING SUPERVISOR: CM CALLED AND SPOKE TO JES OF [facility] IN [place], , DISCUSSED REHAB REFERRAL AND ASKED IF SHE WOULD BE ABLE TO TRANSPORT PT TO [place] FOR DIALYSIS ON TTS SCHEDULE. JES WILL REVIEW REFERRAL AND GET BACK WITH CM. CM FAXED REFERRAL TO [facility] AT [phone]. PT HAS BEEN ACCEPTED FOR DIALYSIS AT [facility] IN [facility], 0930AM. PT CAN START AT [facility] OP DAILYSIS ON 11-26-18 AT 0900 AM. CM WAITING ADMISSION DETERMINATIONS FOR REHAB FROM [facility] AND [facility]. Eloy Casillas, CASE MANAGEMENT Appended by Eloy Casillas on 11/26/2018 13:48 SHUTTLE FITTING SUPERVISOR: CM RECEIVED CALL FROM [facility], THEY WILL NOT ACCEPT PT. CM RECEIVED CALL FROM [facility] WHO REQUESTED REFERRAL BE FAXED TO ALTERNATE NUMBER FAX IS NOT WORKING ON THE MAIN LINE. CM FAXED REFERRAL TO [facility] AT [phone]. PT HAS BEEN ACCEPTED FOR DIALYSIS AT [facility] IN [facility], 0930AM. PT CAN START AT [facility] OP DAILYSIS ON 11-26-18 AT 0900 AM. CM WAITING ADMISSION DETERMINATION FOR REHAB FROM [facility] IN [place]. Eloy Casillas, CASE MANAGEMENT Appended by Eloy Casillas on 11/26/2018 17:13 SHUTTLE FITTING SUPERVISOR: CM SPOKE TO [facility] WHO WILL REVIEW TO SEE IF [facility] CAN MEET PT'S NEEDS. CM FAXED REFERRAL TO [facility] AT [phone]. PT HAS BEEN ACCEPTED FOR DIALYSIS AT [facility] IN [place], [facility], 0930AM. PT CAN START AT [facility] OP DAILYSIS ON 11-26-18 AT 0900 AM. CM WAITING ADMISSION DETERMINATION FOR REHAB FROM [facility] IN [place] AND [facility] IN [place]. Eloy Casillas, CASE MANAGEMENT DCP- Discharge Planning Updated by [id number]: Eloy Casillas on 11/25/18 11:[address] Patient Name: RADHA SALGUERO Encounter No: [id number] : 1945 Primary Insurance: [employer] MEDICARE ADV Anticipated DC Date: Planned Disposition: Prison Facility External Planned Provider: FIRST ACCEPTING [facility]LTER FACILITY FOR MEDICARE REHAB BED DCP follow-up note: CM SPOKE TO PT IN ROOM AND PROVIDED UPDATE THIS MORNING. CM INFORMED PT THAT HE WOULD BE DISCHARGING FROM THE HOSPITAL SOON OUTPATIENT DIALYSIS UNIT SCHEDULE IS OBTAINED. PT CONTINUES TO REPORT PLAN TO GO BACK TO HIS HOTEL ROOM IN [place] AND THEN BEGAN INSISTING TO KNOW WHY THE DOCTORS AT THE DIALYSIS UNITS WILL NOT ACCEPT HIM. CM EXPLAINED THAT PT WILL HAVE TO TALK TO THE DOCTORS HIMSELF AND CM WAS CONCERNED WITH FINDING AN ACCEPTING UNIT FOR OUTPATIENT DIALYSIS. PT ARGUED THAT THE DOCTORS HAVE NO REASON TO NOT ACCEPT HIM. CM EXPLAINED TO PT THAT HE CANNOT CHANGE THIS AND NEEDS TO CONCENTRATE ON DISCHARGE PLANNING AND LET THE [facility] COORDIN[facility] FIND A UNIT THAT WOULD ACCEPT. PT CONTINUED TO ARGUE REPORTING THE [place] [facility] HAD ACCEPTED HIM AND HAD NO REASON TO NOT TAKE HIM WHEN HE ARRIVED "HOME" IN [place]. CM EXPLAINED THAT THE UNIT NEVER ACCEPTED HIM, PT REPORTS THIS IS NOT TRUE. CM INFORMED PT THAT CM WILL NOT CONTINUE TO ARGUE THE POINT AND WOULD FOCUS ON DISCHARGE PLANNING. PT REPORTS PLAN TO RETURN TO HIS HOTEL ROOM IN [place] AND NEEDS A MWF DIALYSIS SCHEDULE TO USE MEDICAID TRANSPORTATION. CM DISCUSSED AVAILABILTY OF SHELTER REHAB SERVICES PT'S THERAPY NOTES INDICATE PT IS NOT WALKING WELL. PT DECLINES AND STATES HE IS GOING HOME. CM RECEIVED CALL FROM [facility] WHO REPORTS THEY RECEIVED REFERRAL FOR HOME HEALTH REGARDING PT. [facility] ADVISED THAT THEY WILL NOT ACCEPT PT DOES NOT APPEAR TO BE APPROPRIATE AT THIS TIME FOR HOME HEALTH. CM SPOKE TO DR. SUN WHO INFORMED PT IS STABLE FOR DISCHARGE. CM FAXED REFERRAL TO [facility] AT [phone]. CM RECEIVED REQUEST FOR MORE INFORMATION (OUTPATIENT DIALYSIS UNIT, NEED FOR ANTIBIOTICS AT DISCHARE AND ISOLATION STATUS.) CM CALLED [facility], , SPOKE TO EZEKIEL, PROVIDED INFORMATION AND FAXED REFERRAL UPDATE TO [facility] AT [phone] CM FAXED REFERRAL UPDATE TO [facility] AT [phone]. CM FAXED REFERRAL UPDATE TO [facility] AT [phone]. . PT HAS BEEN ACCEPTED FOR DIALYSIS AT [facility] IN [place], [facility], 0930AM. PT CAN START AT [facility] OP DAILYSIS ON 11-26-18 AT 0900 AM. CM WAITING ADMISSION DETERMINATIONS FOR REHAB FROM [facility], [facility], [facility] AND [facility]. Eloy Casillas, CASE MANAGEMENT DCP- Discharge Planning Updated by [id number]: Eloy Casillas on 11/22/18 4:[address] Patient Name: RADHA SALGUERO Encounter No: [id number] : 1945 Primary Insurance: [employer] MEDICARE ADV Anticipated DC Date: Planned Disposition: Prison Facility External Planned Provider: FIRST ACCEPTING SHELTER FACILITY FOR MEDICARE REHAB BED DCP follow-up note: CM SPOKE TO PT IN ROOM AND PROVIDED UPDATE THIS MORNING. CM INFORMED PT THAT HE WOULD BE DISCHARGING FROM THE HOSPITAL SOON OUTPATIENT DIALYSIS UNIT SCHEDULE IS OBTAINED. PT CONTINUES TO REPORT PLAN TO GO BACK TO HIS HOTEL ROOM IN [place] AND THEN BEGAN INSISTING TO KNOW WHY THE DOCTORS AT THE DIALYSIS UNITS WILL NOT ACCEPT HIM. CM EXPLAINED THAT PT WILL HAVE TO TALK TO THE DOCTORS HIMSELF AND CM WAS CONCERNED WITH FINDING AN ACCEPTING UNIT FOR OUTPATIENT DIALYSIS. PT ARGUED THAT THE DOCTORS HAVE NO REASON TO NOT ACCEPT HIM. CM EXPLAINED TO PT THAT HE CANNOT CHANGE THIS AND NEEDS TO CONCENTRATE ON DISCHARGE PLANNING AND LET THE [facility] COORDIN[facility] FIND A UNIT THAT WOULD ACCEPT. PT CONTINUED TO ARGUE REPORTING THE [place] UNIT HAD ACCEPTED HIM AND HAD NO REASON TO NOT TAKE HIM WHEN HE ARRIVED "HOME" IN [place]. CM EXPLAINED THAT THE UNIT NEVER ACCEPTED HIM, PT REPORTS THIS IS NOT TRUE. CM INFORMED PT THAT CM WILL NOT CONTINUE TO ARGUE THE POINT AND WOULD FOCUS ON DISCHARGE PLANNING. PT REPORTS PLAN TO RETURN TO HIS HOTEL ROOM IN [place] AND NEEDS A MWF DIALYSIS SCHEDULE TO USE MEDICAID TRANSPORTATION. CM DISCUSSED AVAILABILTY OF SHELTER REHAB SERVICES PT'S THERAPY NOTES INDICATE PT IS NOT WALKING WELL. PT DECLINES AND STATES HE IS GOING HOME. CM RECEIVED CALL FROM [facility] WHO REPORTS THEY RECEIVED REFERRAL FOR HOME HEALTH REGARDING PT. [facility] ADVISED THAT THEY WILL NOT ACCEPT PT DOES NOT APPEAR TO BE APPROPRIATE AT THIS TIME FOR HOME HEALTH. BHAVANA SPOKE TO KAYLENE OF [facility], PT ACCEPTED FOR DIALYSIS AT [facility] IN [facility], 0930AM. CM NOTIFIED PT AND PROVIDED PT A COPY OF HIS THERAPY NOTE FROM YESTERDAY THAT INDICATES PT WALKING 4 FEET WITH 35 % ASSISTANCE. CM INFORMED PT THAT IS NOT SAFE FOR HIM TO DISCHARGE HOME WITHOUT ASSISTANCE. PT REPORTS HAVING NO FAMILY OR FRIENDS TO ASSIST. PT STILL DECLINED SHELTER FACILITY STATING HE LEFT ONE AND IS NOT GOING BACK. CM DISCUSSED HAVING A SAFE DISCHARGE PLAN AND IF PT INSISTED ON GOING HOME IN CURRENT CONDITION, CM WOULD CALL ADULT PROTECTIVE SERVICES. PT DOES NOT WANT TO BE INVOLVED WITH ADULT PROTECTIVE SERVICES AND WILL AGREE FOR REHAB PLACEMENT ONLY IN [place] IF POSSIBLE AND IF NOT, [place]. CHOICE LETTER SIGNED. BHAVANA SPOKE TO NATHALY EDWARDS [facility] AND [facility]. NATHALY INFORMED CM THAT [facility] WILL NOT TRANSPORT TO DIALYSIS IN [place], THAT [facility] CANNOT ACCOMODATE TTS SCHEDULE ADN [facility] WOULD NEED TO EVALUATE. CM FAXED REFERRAL TO [facility] AT [phone]. CM CALLED [facility], , SPOKE TO SANTA WHO WILL EVALUATE PT NEXT SUNDAY. CM FAXED REFERRAL TO [facility] AT [phone]. CM CALLED [facility], , SPOKE TO ENRIKE WHO WILL SCREEN FOR REHAB ADMISSION; CM FAXED REFERRAL TO [facility] AT [phone]. CM CALLED [facility], , SPOKE TO EZEKIEL WHO WILL SCREEN PT FOR ADMISSION, CM FAXED REFERRAL TO [facility] AT [phone]. PT HAS BEEN ACCEPTED FOR DIALYSIS AT [facility] IN [place], TTS, 0930AM. PT CAN START AT [facility] OP DAILYSIS ON 11-26-18 AT 0900 AM. CM WAITING ADMISSION DETERMINATIONS FOR REHAB FROM [facility], [facility], [facility] AND [facility]. Eloy Casillas, CASE MANAGEMENT DCP- Discharge Planning Updated by [id number]: Eloy Casillas on 11/14/18 4:[address] Patient Name: RADHA SALGUERO Encounter No: [id number] : 1945 Primary Insurance: [employer] MEDICARE ADV Anticipated DC Date: Planned Disposition: Home DCP follow-up note: CM SPOKE TO DR. MATHIS REGARDING PT'S LIVING ARRAGEMENTS. CM SPOKE TO PT IN ROOM REGARDING LIVING IN HOTEL ROOM. PT REPORTS HE WAS LIVING IN A PENITENTIARY, DOES NOT WANT TO GO BACK TO ONE AND IS LIVING IN THE HOTEL UNTIL HE FINDS A PLACE THAT HE LIKES. CM DISCUSSED REHAB SERVICES HOME HEALTH AND MEDICAL EQUIPMENT. PT DENIES DISCHARGE NEEDS OTHER THAN NEEDING A DIALYSIS CLINIC. PT STILL UPSET THAT THE [place] [facility] WILL NOT ACCEPT HIM A PATIENT. PT REPORTS HE WILL BE STAYING IN [place] AND WILL FIND HIMSELF AN APARTMENT THERE. PT REPORTS USING MEDICAID TRANSPORT FOR MEDICAL APPOINTMENTS AND NEEDS A Sunday SCHEDULE IN ORDER TO USE MEDICAID TRANSPORT TO AND FROM DIALYSIS. PT REPORTS INABILITY TO GET TO DILAYSIS ON WEEKENDS. KAYLENE OF [facility] NOTIFIED. CM WAITING ARRANGEMENT AND ACCEPTANCE AT OUTPATIENT DIALYSIS CLINIC; [facility] COORDINATOR IS WORKING ON THIS. CM TO CONTINUE TO FOLLOW AND ASSIST IF NEEDED. Eloy Casillas, CASE MANAGEMENT DCP- Discharge Planning Updated by [id number]: Sherri Walker on 11/14/18 2:[address] I HAVE BEEN IN COMMUNICATION WITH KAYLENE KIM, CLINICAL LIASON FOR [facility]. SHE HAS BEEN WORKING ON PLACEMENT FOR THE PATIENT. THIS PATIENT WAS IN A PENITENTIARY IN [place] AND RECEIVING DIALYSIS. HE KNEW HE WAS NOT ACCEPTED BY THE [place] [facility] BEFORE HE EVER MOVED TO [place], BUT CAME ANYWAY. KAYLENE HAD BEEN WORKING WITH THE [place] [facility], AND THEY ARE STILL DENYING HIM PLACEMENT THERE. SHE STATED THAT HE HAS THE OPTION OF [place], [place], OR [place]. WHILE I WAS ON THE PHONE WITH KAYLENE, PHILOMENA WENT AND ASKED THE PATIENT AND HE SAID [place], BUT IS INSISTENT THAT HE HAVE A M-W-F SCHEDULE. KAYLENE CALLED BACK AND STATED THAT BECAUSE DR SIMS HAS REFUSED THE PATIENT, THE [place] AND [place] UNITS HAVE ALSO DENIED THE PATIENT. THE ONLY OPTION IS FOR THE [place] UNIT AND THESE ARE THE SAME DOCTORS THAT CARED FOR HIM IN [place]. I WENT AND TALKED TO THE PATIENT AND HE STATED THAT THAT WOULD BE FINE. I HAVE LET KAYLENE KNOW THIS. I HAVE ALSO PASSED ONTO HER THAT PER DR AGUIRRE, THE PATIENT WAS GOING TO NEED 6 WEEKS OF VANCOMYCIN TO BE GIVEN IN DIALYSIS. SHE HAS STATED THAT THAT SHOULD NOT BE A PROBLEM ONCE HE IS ACCEPTED. ALSO DURING THIS TIME, JEFFERSON, PHYSICAL THERAPIST, CAME BY AND STATED THAT THE PATIENT WAS NOT STABLE ON THE CRUTCHES AND DID MUCH BETTER ON THE WALKER. HE RECOMMENDED THAT THE PATIENT GET A WALKER. I ALSO SPOKE WITH THE PATIENT AND HE STATED THAT HE HAS A WALKER AT THE [place] AND DOES NOT NEED ANOTHER ONE. HE STATED THAT THE THERAPIST CAME IN AND GOT HIM UP RIGHT AFTER DIALYSIS AND HE WAS WEEK. HE STATED THAT HE WILL DO BETTER TOMORROW. I HAVE EXPLAINED THAT WE SHOULD HAVE A WALKER THAT HE CAN BORROW DURING THERAPY IF NEEDED. DCP- Discharge Planning Updated by [id number]: Mallory Zamarripas on 11/11/18 2:[address] PATIENT HAD RECENTLY RETURNED FROM HD AND HAD EATEN HIS LUNCH. HE SAID HE WAS TIRED. SPOKE SLOWLY PATIENT STATES HE IS HARD OF HEARING BUT DID NOT WANT TO TURN DOWN THE VOLUME ON TV. LIVES AT THE [facility] IN [place], [place]. STATES HE HAS NO BROTHERS, SISTERS OR CHILDREN. HE SAYS HE DOES HAVE COUSINS THAT LIVE IN [place]. STATES HE WILL HAVE TRANSPORTATION AT DISCHARGE FROM HIS FRIEND INDIRA DUNN. CONTACT PHONE NUMBER- [phone]. STATES HE IS TIRED THEREFORE CM STATED WILL REVISIT TO ASSIST WITH DISCHARGE. KAYLENE HELTON ON SITE AND HE STATES HE HAS SPOKEN WITH THE HD COORDINATOR. DCP- Discharge Planning Updated by [id number]: Mallory Deuel on 11/11/18 12:[address] PATIENT PRESENTLY IN HD. CM AWAITS HIS RETURN TO THE ROOM DCP- Discharge Planning Updated by [id number]: Mallory Deuel on 11/10/18 6:[address] CM TO FOLLOW FOR ASSESSMENT. APPARENTLY HE RECENTLY RELOCATED TO [place], [place]. MD HAS ORDERED HD SETUP FOR [facility]. TC TO KAYLENE HELTON. LEFT VOICE MAIL. PATIENT REPORTEDLY LIVING IN A HOTEL. QUESTION REGARDING HOUSING. CM TO FOLLOW. DCPIA - Discharge Planning Initial Assessment Updated by [id number]: Mallory Deuel on 11/11/18 3:04 pm * Is the patient Alert and Oriented? Yes * PCP DR RONN DURAN * Pharmacy [facility] IN [place] * Other Environment [facility] * ADLs Independent * List name and contact numbers for known caregivers / representatives who currently or will assist patient after discharge: INDIRA DUNN- FRIEND FOR TRANSPORTATION * Verbal permission to speak to the caregivers and representatives has been obtained from the patient. No * Community resources currently utilized Other * Please name any agencies selected above. [facility] [place] KAYLENE HELTON TRYING TO GET HD SET UP * Additional services required to return to the preadmission environment? Yes * Can the patient safely return to the preadmission environment? Yes Coverage Notice Reviewer: [id number] - Eloy Casillas Notice Issued Date-Time: 11/22/2018 11:50 Notice Type: Patient Choice Letter Notice Delivered To: Patient Relationship to Patient: Editor Magazine Name: Delivery Method: HAND - Hand Delivered Nguyen Days: Prior Verbal Notification: Recipient Understood Notice: Yes Recipient Signature: Yes Med Rec Note Co-signed by Attending: Coverage Notice Comment: SNF IN [place] OR [place] FOR REHAB ONLY... Reviewer: [id number] Casillas Notice Issued Date-Time: 12/02/2018 14:50 Notice Type: IM Discharge Notice Notice Delivered To: Patient Relationship to Patient: Editor Magazine Name: Delivery Method: HAND - Hand Delivered Nguyen Days: Prior Verbal Notification: Recipient Understood Notice: Yes Recipient Signature: Yes Med Rec Note Co-signed by Attending: Coverage Notice Comment: Reviewer: JEAN CLAUDE Casillas Notice Issued Date-Time: 12/05/2018 11:55 Notice Type: IM Discharge Notice Notice Delivered To: Patient Relationship to Patient: Editor Magazine Name: Delivery Method: HAND - Hand Delivered Nguyen Days: Prior Verbal Notification: Recipient Understood Notice: Yes Recipient Signature: Yes Med Rec Note Co-signed by Attending: Coverage Notice Comment: Last DP export: 12/04/18 9:13 a Patient Name: RADHA SALGUERO Page [id number] at 1204 All edits/amendments must be made on the electronic document DICTATION DATE: 12/05/18 1203 SOCIAL PROBLEMS SPECIALIST: JEANMARIE 12/05/18 1203 RPT#: [id number] DC DATE: STATUS: ADM IN [place] [id number] [place] [address] END OF REPORT
--- NOTE | 2018-12-05 12:13 | MORECARE ---
CASE MANAGEMENT DISCHARGE SUMMARY PATIENT: RADHA SALGUERO UNIT: [id number] ADM DATE: 11/08/18 AGE: 73 : 45 SEX: M ROOM/BED: D.2135 AUTHOR: GENEVA LEE PHYSICIAN: REFERRING PHYSICIAN: MALOU SUN MD DATE OF SERVICE: 12/05/18 Discharge Plan Patient Name: RADHA SALGUERO Facility: [facility]:[place] : 1945 Planned Disposition: Inpatient Rehab Anticipated Discharge Date: 12/05/18 Discharge Date: Expected LOS: 27 Initial Reviewer: [id number] Initial Review Date: 11/08/2018 Generated: 12/05/18 1:13 pm Comments DCP- Discharge Planning Updated by [id number]: Eloy Casillas on 12/05/18 11:[address] Patient Name: RADHA SALGUERO Encounter No: [id number] : 1945 Primary Insurance: [employer] MEDICARE ADV Anticipated DC Date: 12-05-2018 Planned Disposition: Inpatient Rehab External Planned Provider: [facility] INPATIENT REHAB DCP follow-up note: CM SPOKE TO [facility] OF INPATIENT REHAB, THEY PAVE RECEIVED INSURANCE AUTHORIZATION FOR REHAB AT [facility]. REHAB WILL ACCEPT PT TODAY FOR REHAB. CM SPOKE TO SIMON FULLER WHO WAS AWARE OF PEER TO PEER AND DENIAL BEING OVERTURNED, PT DISCHARGED TO REHAB TODAY. PT NOTIFIED, IN AGREEMENT WITH DISCHARGE TO INPATIENT REHAB, IMPORTANT MESSAGE FROM MEDICARE PROVIDED AND EXPLAINED. PT CAUTIONED THAT HE MUST PARTICIPATE FULLY WITH REHAB OR HIS INSURANCE WOULD NOT PAY FOR INPATIENT REHAB AND PT WOULD BE SENT TO LOWER LEVEL OF CARE. PT REPORTS HE HAD SPOKEN TO HIS INSURANCE COMPANY AND UNDERSTANDS WHAT HE MUST DO. STUDENT FINANCE ADVISOR NURSE NOTIFIED. [facility] INPATIENT REHAB TO CONTACT MED 2 NURSE WITH ROOM NUMBER WHEN READY TO ACCEPT PT AND NURSE REPORT. MOON Elizabeth DCP- Discharge Planning Updated by [id number]: Eloy Casillas on 12/04/18 9:[address] Patient Name: RADHA SALGUERO Encounter No: [id number] : 1945 Primary Insurance: [employer] MEDICARE ADV Anticipated DC Date: Planned Disposition: INPATIENT REHAB External Planned Provider: [facility] INPATIENT REHAB DCP follow-up note: CM SPOKE TO SIMON DURAND WHO INFORMED CM THAT SHE WILL DO PEER TO PEER FOR INPATIENT REHAB DENIAL BY INSURANCE. CM CALLED [facility] AT [phone], SPOKE TO JACKELYN AND PROVIDED PARMINDER'S CONTACT INFORMATION FOR PEER TO PEER. JACKELYN INFORMED CM THAT DR. SPARKS WILL CALL PARMINDER WITHIN 24 HOURS FOR PEER TO PEER. CM SPOKE TO RN BHAVANA AGUILLON WHO INFORMED CM THAT PT WANTS TO GO TO INPATIENT REHAB AND DECLINED [facility] REFERRALS TO BE SENT YESTERDAY. CM WAITING FOR PEER TO PEER RESULTS, APPEALING INSURANCE DENIAL FOR INPATIENT REHAB AT [facility]. Eloy Casillas, CASE MANAGEMENT Appended by Eloy Casillas on 12/04/2018 10:10 PERMASTONE INSTALLER: LATE ENTRY FROM 12-02-18, 1450 HOURS: CM SPOKE TO PT IN ROOM REGARDING DISCHARGE PLANNING AND NEEDS. PT REPORTED THAT HE TALKED TO HIS INSURANCE COMPANY WHO SAID THEY WOULD PAY FOR 20 DAYS OF REHAB HERE. PT REFUSED [facility] REFERRALS AND WANTS REHAB AT [facility], INSISTED THAT HIS INSURANCE WILL PAY FOR IT. IMPORTANT MESSAGE FROM MEDICARE PROVIDED AND EXPLAINED. CM WAITING FOR PEER TO PEER RESULTS, APPEALING INSURANCE DENIAL FOR INPATIENT REHAB AT [facility]. Eloy Casillas, CASE MANAGEMENT DCP- Discharge Planning Updated by [id number]: Eloy Casillas on 11/29/18 3:[address] Patient Name: RADHA SALGUERO Encounter No: [id number] : 1945 Primary Insurance: [employer] MEDICARE ADV Anticipated DC Date: Planned Disposition: [facility]dc Facility External Planned Provider: FIRST ACCEPTING FACILITY OR INPATIENT REHAB AT [facility] follow-up note: CM CALLED JES AT [facility], . WAS INFORMED THAT [facility] CANNOT MEET PT'S NEEDS. PT HAS BEEN DECLINED BY NURSING FACILTIES IN [place], [place], [place] AND [place]. CM NOTIFIED PT WHO WANTS REHAB AT [facility] TO RETURN TO HIS HOME AT THE [address] IN [facility] IN [place] AT DISCHARGE; PT STATES HE WILL CALL HIS INSURANCE COMPANY AND PT STATES "THEY WILL APPROVE THE REHAB HERE." PT DOES NOT WANT TO CONSIDER [facility] FACILITIES OUTSIDE THIS AREA. CM EXPLAINED THAT HE MAY HAVE NO OTHER OPTIONS IF HE IS UNABLE TO WALK AND CARE FOR HIMSELF. PT REPORTS UNDERSTANDING AND WANTS TO WAIT TO GET INTO REHAB HERE AND ASSURES CM AGAIN HE WILL CALL HIS INSURANCE COMPANY. CM WAITING ADMISSION DETERMINATIONS FROM [facility] INPATIENT REHAB. CM WILL CONTINUE TO EXPLORE OTHER NURSING HOMES IN [place]. PT'S INSURANC WILL HAVE TO PROVIDE AUTHORIZATION FOR REHAB SERVICES AT WHICH EVER FACILITY ACCEPTS. MOON Elizabeth MANAGEMENT DCP- Discharge Planning Updated by [id number]: Eloy Casillas on 11/28/18 3:[address] Patient Name: RADHA SALGUERO Encounter No: [id number] : 1945 Primary Insurance: [employer] MEDICARE ADV Anticipated DC Date: Planned Disposition: Fdc Facility External Planned Provider: FIRST ACCEPTING FACILITY OR INPATIENT REHAB AT [facility] follow-up note: CM RECEIVED ORDER FOR INPATIENT REHAB PRESCREENING, SPOKE TO PT IN ROOM. PT REPORTS HE ONLY WANTS REHAB TO GET STRONGER AND RETURN TO [place] WHERE HE LIVES. PT REPORTS HE WOULD GO TO [facility]PATIENT REHAB OR [facility]. PT REPORTS ABILITY TO PARTICIPATE IN THREE HOURS OF PROGRESSIVE THERAPY PER DAY. PT ASKED ABOUT WHY WILL NOT THE DIALYSIS UNITS ACCEPT HIM AND AGAIN ASKED TO SPEAK TO DR. SUN. CM EXPLAINED THAT THE DOCTOR IS NOT GOING TO CONTINUE TO DISCUSS THIS ISSUE IT HAS BEEN DISCUSSED ALREADY WITH PT AND THAT PT WILL NEED TO ACCEPT HIS UNIT ACCEPTANCE IN [place] IT IS THE CLOSEST UNIT THAT WILL ACCEPT HIM FOR OUTPATIENT DIALYSIS. PT STATES HE WOULD LIKE REHAB AND THE HOSPITAL WOULD BE FINE AND IF [facility] WOULD ACCEPT, HE WILL GO EITHER PLACE FOR REHAB SERVICES ONLY WITH PLAN TO RETURN HOME. CM FAXED UPDATE TO JES AT [facility], . CM WAITING ADMISSION DETERMINATIONS FROM [facility] INPATIENT REHAB [facility] IN [place]. PT'S INSURANC WILL HAVE TO PROVIDE AUTHORIZATION FOR REHAB SERVICES AT WHICH EVER FACILITY ACCEPTS. CM TO CONTINUE TO FOLLOW AND ASSIST NEEDED. MOON Elizabeth DCP- Discharge Planning Updated by [id number]: Eloy Casillas on 11/27/18 2:[address] Patient Name: RADHA SALGUERO Encounter No: [id number] : 1945 Primary Insurance: [employer] MEDICARE ADV Anticipated DC Date: Planned Disposition: Fdc Facility External Planned Provider: FIRST ACCEPTING FACILITY DCP follow-up note: [facility] CAME AND MET WITH PT TO ASSESS FOR REHAB PLACEMENT. CM RECEIVED MESSAGE FROM [facility] [place] WHO INFORMED CM THAT THEY CHECKED PT'S INSURANCE, [employer], THAT INDICATES PT IS A HOSPICE PT AND MEDICAID STILL SHOWS PT IS PROVIDER RELATIONS SPECIALIST CARE AT [facility] [place]. PT WOULD HAVE TO COME TO FACILITY PENITENTIARY CARE MEDICAID AND THEY COULD PROVIDE THERAPY UNDER MEDICARE PART B. CM LATER RECEIVED PHONE CALL FROM [facility] [place] WHO INFORMED CM THAT THEY CANNOT TAKE PT THEY DO NOT HAVE TRANSPORTATION FOR SUNDAY DIALYSIS. CM RECEIVED CALL FROM JES [facility] IN [place] WHO HAS RECEIVED REFERRAL AND IS TRYING TO ASSIST PT WITH REHAB PLACEMENT. CM CONFIRMED THAT PT HAS DIALYSIS ON TTS SCHEDULE AT THE [place] [facility]. PT HAS BEEN ACCEPTED FOR DIALYSIS AT [facility] IN [place], [facility], 0930AM. PT CAN START AT [facility] OP DAILYSIS ON 11-26-18 AT 0900 AM. CM WAITING ADMISSION DETERMINATION FOR REHAB FROM [facility] IN [place]. Eloy Casillas, CASE MANAGEMENT DCP- Discharge Planning Updated by [id number]: Eloy Casillas on 11/26/18 4:[address] Patient Name: RADHA SALGUERO Encounter No: [id number] : 1945 Primary Insurance: [employer] MEDICARE ADV Anticipated DC Date: Planned Disposition: Fdc Facility External Planned Provider: FIRST ACCEPTING [facility] FOR MEDICARE REHAB BED DCP follow-up note: CM RECEIVED CALL FROM [facility], , THEY WERE WILLING TO ACCEPT BUT CALLED [facility] DIALYSIS AND PT COULD NOT BE CHANGED TO MWF DIALYSIS SCHEDULE FROM [place]. [facility] CANNOT ACCEPT THEY HAVE NO TRANSPORT AVAILABLE FOR SUNDAY DIALYSIS. CM FAXED REFERRAL UPDATE TO [facility] AT [phone]. CM FAXED REFERRAL UPDATE TO MELISSA CHRISTOPHER AT [phone]. CM FAXED REFERRAL UPDATE TO [facility] AT [phone]. . PT HAS BEEN ACCEPTED FOR DIALYSIS AT [facility] IN [place], [facility], 0930AM. PT CAN START AT [facility] OP DAILYSIS ON 11-26-18 AT 0900 AM. CM WAITING ADMISSION DETERMINATIONS FOR REHAB FROM [facility] [place] [facility] [place]. Eloy Casillas, CASE MANAGEMENT Appended by Eloy Casillas on 11/26/2018 11:05 PERMASTONE INSTALLER: CM RECEIVED CALL FROM [facility] WHO REPORTS THEY WILL NOT ACCEPT PT DUE TO PRIOR NON COMPLIANCE IN [facility] PL[facility]EMENT IN [place] AND THEY CANNOT TRANSPORT TO DIALYSIS ON SATURDAYS. CM RECEIVED CALL FROM ENRIKE [facility], THEY ARE NOT ABLE TO MEET PT'S CLINICAL NEEDS AT THIS TIME. PT HAS BEEN ACCEPTED FOR DIALYSIS AT [facility] IN [place], [facility], 0930AM. PT CAN START AT [facility] OP DAILYSIS ON 11-26-18 AT 0900 AM. CM WAITING ADMISSION DETERMINATIONS FOR REHAB FROM [facility]. Eloy Casillas CASE MANAGEMENT Appended by Eloy Casillas on 11/26/2018 12:06 PERMASTONE INSTALLER: CM CALLED AND SPOKE TO JES OF [facility] IN [place], , DISCUSSED REHAB REFERRAL AND ASKED IF SHE WOULD BE ABLE TO TRANSPORT PT TO [place] FOR DIALYSIS ON TTS SCHEDULE. JES WILL REVIEW REFERRAL AND GET BACK WITH CM. CM FAXED REFERRAL TO [facility] AT [phone]. PT HAS BEEN ACCEPTED FOR DIALYSIS AT [facility] IN [facility], 0930AM. PT CAN START AT [facility] OP DAILYSIS ON 11-26-18 AT 0900 AM. CM WAITING ADMISSION DETERMINATIONS FOR REHAB FROM [facility] AND [facility]. Eloy Casillas, CASE MANAGEMENT Appended by Eloy Casillas on 11/26/2018 13:48 PERMASTONE INSTALLER: CM RECEIVED CALL FROM NATHALY [facility], THEY WILL NOT ACCEPT PT. CM RECEIVED CALL FROM [facility] WHO REQUESTED REFERRAL BE FAXED TO ALTERNATE NUMBER FAX IS NOT WORKING ON THE MAIN LINE. CM FAXED REFERRAL TO [facility] AT [phone]. PT HAS BEEN ACCEPTED FOR DIALYSIS AT [facility] IN [place], [facility], 0930AM. PT CAN START AT [facility] OP DAILYSIS ON 11-26-18 AT 0900 AM. CM WAITING ADMISSION DETERMINATION FOR REHAB FROM [facility] IN [place]. Eloy Casillas, CASE MANAGEMENT Appended by Eloy Casillas on 11/26/2018 17:13 PERMASTONE INSTALLER: CM SPOKE TO [facility] WHO WILL REVIEW TO SEE IF [facility] CAN MEET PT'S NEEDS. CM FAXED REFERRAL TO [facility] AT [phone]. PT HAS BEEN ACCEPTED FOR DIALYSIS AT [facility] IN [place], [facility], 0930AM. PT CAN START AT [facility] OP DAILYSIS ON 11-26-18 AT 0900 AM. CM WAITING ADMISSION DETERMINATION FOR REHAB FROM [facility] IN [place] AND [facility] IN [place]. Eloy Casillas, CASE MANAGEMENT DCP- Discharge Planning Updated by [id number]: Eloy Casillas on 11/25/18 11:[address] Patient Name: RADHA SALGUERO Encounter No: [id number] : 1945 Primary Insurance: [employer] MEDICARE ADV Anticipated DC Date: Planned Disposition: Fdc Facility External Planned Provider: FIRST ACCEPTING [facility] FOR MEDICARE REHAB BED DCP follow-up note: CM SPOKE TO PT IN ROOM AND PROVIDED UPDATE THIS MORNING. CM INFORMED PT THAT HE WOULD BE DISCHARGING FROM THE HOSPITAL SOON OUTPATIENT DIALYSIS UNIT SCHEDULE IS OBTAINED. PT CONTINUES TO REPORT PLAN TO GO BACK TO HIS HOTEL ROOM IN [place] AND THEN BEGAN INSISTING TO KNOW WHY THE DOCTORS AT THE DIALYSIS UNITS WILL NOT ACCEPT HIM. CM EXPLAINED THAT PT WILL HAVE TO TALK TO THE DOCTORS HIMSELF AND CM WAS CONCERNED WITH FINDING AN ACCEPTING UNIT FOR OUTPATIENT DIALYSIS. PT ARGUED THAT THE DOCTORS HAVE NO REASON TO NOT ACCEPT HIM. CM EXPLAINED TO PT THAT HE CANNOT CHANGE THIS AND NEEDS TO CONCENTRATE ON DISCHARGE PLANNING AND LET THE [facility] COORDINATOR FIND A UNIT THAT WOULD ACCEPT. PT CONTINUED TO ARGUE REPORTING THE [place] UNIT HAD ACCEPTED HIM AND HAD NO REASON TO NOT TAKE HIM WHEN HE ARRIVED "HOME" IN [place]. CM EXPLAINED THAT THE UNIT NEVER ACCEPTED HIM, PT REPORTS THIS IS NOT TRUE. CM INFORMED PT THAT CM WILL NOT CONTINUE TO ARGUE THE POINT AND WOULD FOCUS ON DISCHARGE PLANNING. PT REPORTS PLAN TO RETURN TO HIS HOTEL ROOM IN [place] AND NEEDS A MWF DIALYSIS SCHEDULE TO USE MEDICAID TRANSPORTATION. CM DISCUSSED AVAILABILTY OF [facility] RE[facility]AB SERVICES PT'S THERAPY NOTES INDICATE PT IS NOT WALKING WELL. PT DECLINES AND STATES HE IS GOING HOME. CM RECEIVED CALL FROM KWAN OF [facility] WHO REPORTS THEY RECEIVED REFERRAL FOR HOME HEALTH REGARDING PT. KWAN ADVISED THAT THEY WILL NOT ACCEPT PT DOES NOT APPEAR TO BE APPROPRIATE AT THIS TIME FOR HOME HEALTH. BHAVANA SPOKE TO DR. SUN WHO INFORMED PT IS STABLE FOR DISCHARGE. CM FAXED REFERRAL TO [facility] AT [phone]. CM RECEIVED REQUEST FOR MORE INFORMATION (OUTPATIENT DIALYSIS UNIT, NEED FOR ANTIBIOTICS AT DISCHARE AND ISOLATION STATUS.) CM CALLED [facility], , SPOKE TO EZEKIEL, PROVIDED INFORMATION AND FAXED REFERRAL UPDATE TO [facility] AT [phone] CM FAXED REFERRAL UPDATE TO [facility] AT [phone]. CM FAXED REFERRAL UPDATE TO [facility] AT [phone]. . PT HAS BEEN ACCEPTED FOR DIALYSIS AT [facility] IN [facility], 0930AM. PT CAN START AT [facility] OP DAILYSIS ON 11-26-18 AT 0900 AM. CM WAITING ADMISSION DETERMINATIONS FOR REHAB FROM [facility], [facility] AND [facility]. Eloy Casillas, CASE MANAGEMENT DCP- Discharge Planning Updated by [id number]: Eloy Casillas on 11/22/18 4:[address] Patient Name: RADHA SALGUERO Encounter No: [id number] : 1945 Primary Insurance: [employer] MEDICARE ADV Anticipated DC Date: Planned Disposition: [facility] Facility External Planned Provider: FIRST ACCEPTING [facility] FOR MEDICARE REHAB BED DCP follow-up note: CM SPOKE TO PT IN ROOM AND PROVIDED UPDATE THIS MORNING. CM INFORMED PT THAT HE WOULD BE DISCHARGING FROM THE HOSPITAL SOON OUTPATIENT DIALYSIS UNIT SCHEDULE IS OBTAINED. PT CONTINUES TO REPORT PLAN TO GO BACK TO HIS HOTEL ROOM IN [place] AND THEN BEGAN INSISTING TO KNOW WHY THE DOCTORS AT THE DIALYSIS UNITS WILL NOT ACCEPT HIM. CM EXPLAINED THAT PT WILL HAVE TO TALK TO THE DOCTORS HIMSELF AND CM WAS CONCERNED WITH FINDING AN ACCEPTING UNIT FOR OUTPATIENT DIALYSIS. PT ARGUED THAT THE DOCTORS HAVE NO REASON TO NOT ACCEPT HIM. CM EXPLAINED TO PT THAT HE CANNOT CHANGE THIS AND NEEDS TO CONCENTRATE ON DISCHARGE PLANNING AND LET THE [facility] COORDINATOR FIND A UNIT THAT WOULD ACCEPT. PT CONTINUED TO ARGUE REPORTING THE [place] UNIT HAD ACCEPTED HIM AND HAD NO REASON TO NOT TAKE HIM WHEN HE ARRIVED "HOME" IN [place]. CM EXPLAINED THAT THE UNIT NEVER ACCEPTED HIM, PT REPORTS THIS IS NOT TRUE. CM INFORMED PT THAT CM WILL NOT CONTINUE TO ARGUE THE POINT AND WOULD FOCUS ON DISCHARGE PLANNING. PT REPORTS PLAN TO RETURN TO HIS HOTEL ROOM IN [place] AND NEEDS A MWF DIALYSIS SCHEDULE TO USE MEDICAID TRANSPORTATION. CM DISCUSSED AVAILABILTY OF [facility] RE[facility]AB SERVICES PT'S THERAPY NOTES INDICATE PT IS NOT WALKING WELL. PT DECLINES AND STATES HE IS GOING HOME. CM RECEIVED CALL FROM KWAN OF [facility] WHO REPORTS THEY RECEIVED REFERRAL FOR HOME HEALTH REGARDING PT. KWAN ADVISED THAT THEY WILL NOT ACCEPT PT DOES NOT APPEAR TO BE APPROPRIATE AT THIS TIME FOR HOME HEALTH. CM SPOKE TO KAYLENE OF [facility], PT ACCEPTED FOR DIALYSIS AT [facility] IN [place], [place], 0930AM. CM NOTIFIED PT AND PROVIDED PT A COPY OF HIS THERAPY NOTE FROM YESTERDAY THAT INDICATES PT WALKING 4 FEET WITH 35 % ASSISTANCE. CM INFORMED PT THAT IS NOT SAFE FOR HIM TO DISCHARGE HOME WITHOUT ASSISTANCE. PT REPORTS HAVING NO FAMILY OR FRIENDS TO ASSIST. PT STILL DECLINED [facility] FACILITY STATING HE LEFT ONE AND IS NOT GOING BACK. CM DISCUSSED HAVING A SAFE DISCHARGE PLAN AND IF PT INSISTED ON GOING HOME IN CURRENT CONDITION, CM WOULD CALL ADULT PROTECTIVE SERVICES. PT DOES NOT WANT TO BE INVOLVED WITH ADULT PROTECTIVE SERVICES AND WILL AGREE FOR REHAB PLACEMENT ONLY IN [place] IF POSSIBLE AND IF NOT, [place]. CHOICE LETTER SIGNED. CM SPOKE TO [facility]ATH[facility] AND [facility]. NATHALY INFORMED CM THAT [facility] WILL NOT TRANSPORT TO DIALYSIS IN [place], THAT [facility] CANNOT ACCOMODATE TTS SCHEDULE ADN [facility] WOULD NEED TO EVALUATE. CM FAXED REFERRAL TO [facility] AT [phone]. CM CALLED [facility], , SPOKE TO [facility] WHO WILL EVALUATE PT NEXT SUNDAY. CM FAXED REFERRAL TO [facility] AT [phone]. CM CALLED [facility], , SPOKE TO ENRIKE WHO WILL SCREEN FOR REHAB ADMISSION; CM FAXED REFERRAL TO [facility] AT [phone]. CM CALLED [facility], , SPOKE TO EZEKIEL WHO WILL SCREEN PT FOR ADMISSION, CM FAXED REFERRAL TO [facility] AT [phone]. PT HAS BEEN ACCEPTED FOR DIALYSIS AT [facility] IN [place], [place], 0930AM. PT CAN START AT [facility] OP DAILYSIS ON 11-26-18 AT 0900 AM. CM WAITING ADMISSION DETERMINATIONS FOR REHAB FROM [facility], [place], [place] [facility] [place]. Eloy Casillas, CASE MANAGEMENT DCP- Discharge Planning Updated by [id number]: Eloy Casillas on 11/14/18 4:[address] Patient Name: RADHA SALGUERO Encounter No: [id number] : 1945 Primary Insurance: [employer] MEDICARE ADV Anticipated DC Date: Planned Disposition: Home DCP follow-up note: CM SPOKE TO DR. MATHIS REGARDING PT'S LIVING ARRAGEMENTS. CM SPOKE TO PT IN ROOM REGARDING LIVING IN HOTEL ROOM. PT REPORTS HE WAS LIVING IN A PENITENTIARY, DOES NOT WANT TO GO BACK TO ONE AND IS LIVING IN THE HOTEL UNTIL HE FINDS A PLACE THAT HE LIKES. CM DISCUSSED REHAB SERVICES HOME HEALTH AND MEDICAL EQUIPMENT. PT DENIES DISCHARGE NEEDS OTHER THAN NEEDING A DIALYSIS CLINIC. PT STILL UPSET THAT THE [place] [facility] WILL NOT ACCEPT HIM A PATIENT. PT REPORTS HE WILL BE STAYING IN [place] AND WILL FIND HIMSELF AN APARTMENT THERE. PT REPORTS USING MEDICAID TRANSPORT FOR MEDICAL APPOINTMENTS AND NEEDS A Sunday SCHEDULE IN ORDER TO USE MEDICAID TRANSPORT TO AND FROM DIALYSIS. PT REPORTS INABILITY TO GET TO [facility] ON WEEKENDS. KAYLENE OF [facility] NOTIFIED. CM WAITING ARRANGEMENT AND ACCEPTANCE AT OUTPATIENT DIALYSIS CLINIC; [facility] COORDINATOR IS WORKING ON THIS. CM TO CONTINUE TO FOLLOW AND ASSIST IF NEEDED. Eloy Casillas, CASE MANAGEMENT DCP- Discharge Planning Updated by [id number]: Sherri Walker on 11/14/18 2:[address] I HAVE BEEN IN COMMUNICATION WITH KAYLENE KIM, CLINICAL LIASON FOR [facility]. SHE HAS BEEN WORKING ON PLACEMENT FOR THE PATIENT. THIS PATIENT WAS IN A PENITENTIARY IN [place] AND RECEIVING DIALYSIS. HE KNEW HE WAS NOT ACCEPTED BY THE [place] [facility] BEFORE HE EVER MOVED TO [place], BUT CAME ANYWAY. KAYLENE HAD BEEN WORKING WITH THE [place] UNIT, AND THEY ARE STILL DENYING HIM PLACEMENT THERE. SHE STATED THAT HE HAS THE OPTION OF [place], [place], OR [place]. WHILE I WAS ON THE PHONE WITH KAYLENE, PHILOMENA WENT AND ASKED THE PATIENT AND HE SAID [facility], BUT IS INSISTENT THAT HE HAVE A M-W-F SCHEDULE. KAYLENE CALLED BACK AND STATED THAT BECAUSE DR SIMS HAS REFUSED THE PATIENT, THE [place] AND [place] UNITS HAVE ALSO DENIED THE PATIENT. THE ONLY OPTION IS FOR THE [place] UNIT AND THESE ARE THE SAME DOCTORS THAT CARED FOR HIM IN [place]. I WENT AND TALKED TO THE PATIENT AND HE STATED THAT THAT WOULD BE FINE. I HAVE LET KAYLENE KNOW THIS. I HAVE ALSO PASSED ONTO HER THAT PER DR AGUIRRE, THE PATIENT WAS GOING TO NEED 6 WEEKS OF VANCOMYCIN TO BE GIVEN IN DIALYSIS. SHE HAS STATED THAT THAT SHOULD NOT BE A PROBLEM ONCE HE IS ACCEPTED. ALSO DURING THIS TIME, JEFFERSON, PHYSICAL THERAPIST, CAME BY AND STATED THAT THE PATIENT WAS NOT STABLE ON THE CRUTCHES AND DID MUCH BETTER ON THE WALKER. HE RECOMMENDED THAT THE PATIENT GET A WALKER. I ALSO SPOKE WITH THE PATIENT AND HE STATED THAT HE HAS A WALKER AT THE [place] AND DOES NOT NEED ANOTHER ONE. HE STATED THAT THE THERAPIST CAME IN AND GOT HIM UP RIGHT AFTER DIALYSIS AND HE WAS WEEK. HE STATED THAT HE WILL DO BETTER TOMORROW. I HAVE EXPLAINED THAT WE SHOULD HAVE A WALKER THAT HE CAN BORROW DURING THERAPY IF NEEDED. DCP- Discharge Planning Updated by [id number]: Mallory Hawley on 11/11/18 2:[address] PATIENT HAD RECENTLY RETURNED FROM HD AND HAD EATEN HIS LUNCH. HE SAID HE WAS TIRED. SPOKE SLOWLY PATIENT STATES HE IS HARD OF HEARING BUT DID NOT WANT TO TURN DOWN THE VOLUME ON TV. LIVES [facility] THE [facility] IN [place], [place]. STATES HE HAS NO BROTHERS, SISTERS OR CHILDREN. HE SAYS HE DOES HAVE COUSINS THAT LIVE IN [place]. STATES HE WILL HAVE TRANSPORTATION AT DISCHARGE FROM HIS FRIEND INDIRA DUNN. CONTACT PHONE NUMBER- [phone]. STATES HE IS TIRED THEREFORE CM STATED WILL REVISIT TO ASSIST WITH DISCHARGE. KAYLENE HELTON ON SITE AND HE STATES HE HAS SPOKEN WITH THE HD COORDINATOR. DCP- Discharge Planning Updated by [id number]: Mallory Hawley on 11/11/18 12:[address] PATIENT PRESENTLY IN HD. CM AWAITS HIS RETURN TO THE ROOM DCP- Discharge Planning Updated by [id number]: Mallory Hawley on 11/10/18 6:[address] CM TO FOLLOW FOR ASSESSMENT. APPARENTLY HE [place] HAS ORDERED HD SETUP FOR [facility]. TC TO KAYLENE HELTON. LEFT VOICE MAIL. PATIENT REPORTEDLY LIVING IN A [place]EL. QUESTION REGARDING HOUSING. CM TO FOLLOW. DCPIA - Discharge Planning Initial Assessment Updated by [id number]: Mallory Hawley on 11/11/18 3:04 pm * Is the patient Alert and Oriented? Yes * PCP DR RONN DURAN * Pharmacy [facility] IN [place] * Other Environment [facility] [place] * ADLs Independent * List name and contact numbers for known caregivers / representatives who currently or will assist patient after discharge: INDIRAKevin DUNN- FRIEND FOR TRANSPORTATION * Verbal permission to speak to the caregivers and representatives has been obtained from the patient. No * Community resources currently utilized Other * Please name any agencies selected above. [facility] [place] , [place] KAYLENE HELTON TRYING TO GET HD SET UP * Additional services required to return to the preadmission environment? Yes * Can the patient safely return to the preadmission environment? Yes Coverage Notice Reviewer: JEAN CLAUDE Casillas Notice Issued Date-Time: 11/22/2018 11:50 Notice Type: Patient Choice Letter Notice Delivered To: Patient Relationship to Patient: Coat Fitter Name: Delivery Method: HAND - Hand Delivered Nguyen Days: Prior Verbal Notification: Recipient Understood Notice: Yes Recipient Signature: Yes Med Rec Note Co-signed by Attending: Coverage Notice Comment: [facility] IN [place] OR [place] FOR REHAB ONLY... Reviewer: JEAN CLAUDE Casillas Notice Issued Date-Time: 12/02/2018 14:50 Notice Type: IM Discharge Notice Notice Delivered To: Patient Relationship to Patient: Coat Fitter Name: Delivery Method: HAND - Hand Delivered Nguyen Days: Prior Verbal Notification: Recipient Understood Notice: Yes Recipient Signature: Yes Med Rec Note Co-signed by Attending: Coverage Notice Comment: Reviewer: JEAN CLAUDE Casillas Notice Issued Date-Time: 12/05/2018 11:55 Notice Type: IM Discharge Notice Notice Delivered To: Patient Relationship to Patient: Coat Fitter Name: Delivery Method: HAND - Hand Delivered Nguyen Days: Prior Verbal Notification: Recipient Understood Notice: Yes Recipient Signature: Yes Med Rec Note Co-signed by Attending: Coverage Notice Comment: Last DP export: 12/05/18 11:03 a Patient Name: RADHA SALGUERO Page [id number] at 1213 All edits/amendments must be made on the electronic document DICTATION DATE: 12/05/181212 AIRPLANE TECHNICIAN: JEANMARIE 12/05/181212 RPT#: [id number] DC DATE: STATUS: ADM IN [facility] [address] [place] [address] END OF REPORT
[2018-12-05] MEDS ORDERED: VANCOMYCIN 500500 MG IV (12:37)
[2018-12-05] MEDS ORDERED: PROCRIT SC (12:38)
[2018-12-05] MEDS ORDERED: [UNRECOGNIZED DRUG - OTHER] SC (12:38)
[2018-12-05] MEDS ORDERED: Lovenox INJ SC (12:38)
[2018-12-05] MEDS ORDERED: COREG 3.1253.125 MG PO (12:39)
[2018-12-05] MEDS ORDERED: CATAPRES0.1 MG PO (12:40)
[2018-12-05] MEDS ORDERED: BENADRYL25 MG PO (12:40)
[2018-12-05] MEDS ORDERED: ATARAX 25 MG TA25 MG PO (12:41)
[2018-12-05] MEDS ORDERED: LASIX40 MG PO (12:42)
[2018-12-05 17:02] VITALS: BP 132/64
== END 2018-12-05 18:07 | DRG 638 ==
LOC: D.ER 16:38 → D.M2 17:32 → D.EDHOLD 17:32 → D.M2 18:06
PROVIDERS: Internal Medicine Nephrology; ADMIT Internal Medicine Nephrology
PROC: 5A1D70Z Performance of Urinary Filtration, Intermittent, Less than 6 Hours Per Day (ICD-10-PCS; principal; 2018-11-09)
DX: E11.69 Type 2 diabetes mellitus with other specified complication (principal); M86.171 Other acute osteomyelitis, right ankle and foot; I12.0 Hypertensive chronic kidney disease with stage 5 chronic kidney disease or end stage renal disease; L97.419 Non-pressure chronic ulcer of right heel and midfoot with unspecified severity; R78.81 Bacteremia; E11.22 Type 2 diabetes mellitus with diabetic chronic kidney disease; N18.6 End stage renal disease; Z99.2 Dependence on renal dialysis; E78.5 Hyperlipidemia, unspecified; K21.9 Gastro-esophageal reflux disease without esophagitis; E87.5 Hyperkalemia; E11.621 Type 2 diabetes mellitus with foot ulcer

== ENCOUNTER 2018-12-05 15:39 | Inpatient (IN) | payer MEDICARE, MEDICAID ==
[~2018-12-05] VITALS: Ht 182.9 cm; Wt 98.8 kg
[~2018-12-05 15:39] MED LIST: ADALAT CC90 MG PO; ASPIRIN81 MG PO; ATARAX 25 MG TA25 MG PO; AVODART0.5 MG PO; BENADRYL25 MG PO; CARDURA8 MG PO; CATAPRES0.1 MG PO; CHRONULAC30 ML PO; CLARITIN 10 MG10 MG PO; COREG 3.1253.125 MG PO; COREG6.25 MG PO; FERROUS SULFAT325 MG PO; FLUTICASONE PRO16 GM NASAL; GLIMEPIRIDE2 MG PO; GLYCOLAX527 GM PO; LACTINEX C1 TAB.CHEW PO; LASIX40 MG PO; LASIX80 MG PO; LEVEMIR IN100 UNITS/ SC; LIPITOR40 MG PO; LOPRESSOR25 MG PO; Lovenox INJ SC; NORVASC2.5 MG PO; NOVOLOG100 UNIT/1 SQ; OMEPRAZOLE20 M1 PO; PROCRIT SC; PROCTOCORT28.35 GM RC; RENVELA800 MG PO; SALONPAS; SENNA-DOCUSATE; VANCOMYCIN 500500 MG IV; VITAMIN B-12500 MC1 PO; VITAMIN D31000 UNI2 PO; ZYLOPRIM100 MG PO; [UNRECOGNIZED DRUG - OTHER]; [UNRECOGNIZED DRUG - OTHER] SC
[2018-12-05 23:03] VITALS: BP 152/72; BMI 29.5
[2018-12-06 06:05] VITALS: BP 142/69
[2018-12-06 07:32] LABS: ANION GAP 19.2 mmol/L (8-16); CALCIUM 8.4 mg/dL (8.5-10.1); CARBON DIOXIDE 24.7 mmol/L (21.0-32.0); CREATININE - SERUM 11.7 mg/dL (0.6-1.3); POTASSIUM - SERUM 4.9 mmol/L (3.5-5.1)
[2018-12-06 12:30] VITALS: BP 138/74
[2018-12-06 13:28] VITALS: Ht 182.9 cm; Wt 98.8 kg
[2018-12-06 18:00] VITALS: BP 77/41
[2018-12-07 00:01] VITALS: BP 120/61
[2018-12-07 06:12] VITALS: BP 114/63
[2018-12-07 06:36] LABS: BASOPHILS 0.3 % (0-2); EOSINOPHILS 4.9 % (0-7); HEMATOCRIT 34.1 % (42.0-54.0); HEMOGLOBIN 10.7 g/dL (13.5-17.5); IMMATURE GRANULOCYTES 0.2 % (0-5); LYMPHOCYTES 33.3 % (15-50); MCH 24.8 pg (26.0-34.0); MCHC 31.4 g/dL (31.0-37.0); MCV 78.9 fL (80.0-100.0); MEAN PLATELET VOLUME 10.3 fL (7.4-10.4); MONOCYTES 8.3 % (2-11); RBC 4.32 10x6/uL (4.20-6.10); RDW 15.8 % (11.5-14.5); WBC 6.5 10x3/uL (4.8-10.8)
[2018-12-07 06:43] LABS: PLATELET COUNT 172 10x3/uL (130-400)
[2018-12-07 08:00] VITALS: BP 121/60
[2018-12-07 12:12] VITALS: BP 142/62
[2018-12-07 18:04] VITALS: BP 144/68
[2018-12-08 00:06] VITALS: BP 149/65
[2018-12-08 06:29] VITALS: BP 160/55
[2018-12-08 12:08] VITALS: BP 144/52
[2018-12-08 18:33] VITALS: BP 156/68
[2018-12-09 00:01] VITALS: BP 123/69
[2018-12-09 06:01] VITALS: BP 142/66
[2018-12-09 09:55] LABS: BASOPHILS 0.6 % (0-2); EOSINOPHILS 6.5 % (0-7); HEMATOCRIT 36.5 % (42.0-54.0); HEMOGLOBIN 11.5 g/dL (13.5-17.5); IMMATURE GRANULOCYTES 0.2 % (0-5); LYMPHOCYTES 28.6 % (15-50); MCH 25.3 pg (26.0-34.0); MCHC 31.5 g/dL (31.0-37.0); MCV 80.4 fL (80.0-100.0); MEAN PLATELET VOLUME 10.7 fL (7.4-10.4); MONOCYTES 5.3 % (2-11); NEUTROPHILS 58.8 % (40-80); RBC 4.54 10x6/uL (4.20-6.10); RDW 15.9 % (11.5-14.5); WBC 8.7 10x3/uL (4.8-10.8)
[2018-12-09 10:01] LABS: ANION GAP 17.8 mmol/L (8-16); CALCIUM 8.3 mg/dL (8.5-10.1); CARBON DIOXIDE 27.3 mmol/L (21.0-32.0); CREATININE - SERUM 13.2 mg/dL (0.6-1.3); POTASSIUM - SERUM 5.1 mmol/L (3.5-5.1)
[2018-12-09 10:07] LABS: PLATELET COUNT 213 10x3/uL (130-400)
[2018-12-09 12:15] VITALS: BP 135/62
[2018-12-09 16:13] VITALS: BP 181/55
[2018-12-09 17:20] VITALS: BP 107/52
[2018-12-10 00:16] VITALS: BP 121/51
[2018-12-10 06:09] VITALS: BP 127/51
[2018-12-10 12:27] VITALS: BP 132/60
[2018-12-10 16:21] VITALS: BP 116/49
[2018-12-10 18:00] VITALS: BP 128/37
[2018-12-11 00:15] VITALS: BP 136/54
[2018-12-11 06:10] VITALS: BP 157/62
[2018-12-11 07:31] LABS: BASOPHILS 0.2 % (0-2); EOSINOPHILS 5.5 % (0-7); HEMATOCRIT 31.2 % (42.0-54.0); HEMOGLOBIN 9.8 g/dL (13.5-17.5); IMMATURE GRANULOCYTES 0.1 % (0-5); LYMPHOCYTES 25.9 % (15-50); MCH 24.9 pg (26.0-34.0); MCHC 31.4 g/dL (31.0-37.0); MCV 79.2 fL (80.0-100.0); MEAN PLATELET VOLUME 10.1 fL (7.4-10.4); MONOCYTES 6.7 % (2-11); NEUTROPHILS 61.6 % (40-80); PLATELET COUNT 175 10x3/uL (130-400); RBC 3.94 10x6/uL (4.20-6.10); WBC 9.1 10x3/uL (4.8-10.8)
[2018-12-11 07:48] LABS: ANION GAP 19.8 mmol/L (8-16); CALCIUM 8.4 mg/dL (8.5-10.1); CARBON DIOXIDE 24.6 mmol/L (21.0-32.0); CREATININE - SERUM 11.3 mg/dL (0.6-1.3); POTASSIUM - SERUM 5.4 mmol/L (3.5-5.1)
[2018-12-11 12:48] VITALS: BP 140/62
[2018-12-12 00:20] VITALS: BP 131/71
[2018-12-12 06:05] VITALS: BP 139/62
[2018-12-12 12:44] VITALS: BP 136/65
[2018-12-12 18:00] VITALS: BP 111/56
--- NOTE | 2018-12-12 18:19 | RHP ---
PATIENT: RADHA SALGUERO MEDICAL RECORD: [id number] ACCOUNT: [id number] [id number] ADMISSION DATE: 12/05/18 REHABILITATION HISTORY AND PHYSICAL EXAMINATION POST ADMISSION PHYSICIAN EXAMINATION DATE OF ADMISSION: 12/05/2018 ADMITTING DIAGNOSIS: Debility. HISTORY OF PRESENT ILLNESS: The patient admitted secondary to debility secondary to osteomyelitis of the right calcaneus and diabetic foot ulcer. A 73-year-old gentleman presented to Emergency Room via ambulance as a transfer from [place]. He recently had a foot ulcer, had been transferred to [place], been receiving dialysis per our river pilot. He was recently relocated to [facility] after having some family living there and was discharged from the nursing facility in [place] for wound care of his ulcer. He was admitted to the acute hospital for workup. Due to the possibility of osteoarthritis, his ulcer was considered deep and purulent on the plantar aspect of his right foot. He is noted to have a potassium of 6.5 and elevated BNP, concern for possible pulmonary edema. He has got a history of end-stage renal disease. He was getting hemodialysis at [facility]. 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 Early in 2018, fourth and fifth digits were amputated. He had an extended acute hospital stay with difficulty getting him placed due to lack of hemodialysis services. He has declined physically, but believes an inpatient rehab will hopefully get him back to the point where he can discharge back to a hotel room that he has actually been living in and we were able to get him scheduled with hemodialysis via public transportation in [facility]. He has been seen by orthopedic surgeon, police detective and infectious disease doctor throughout his stay for treatment of osteomyelitis to his right heel wound. He has had noted issues with his PT becoming unresponsive at times and having some rapid response. He is currently receiving treatment for his right heel wound with supervision by podiatry. He is on some subcutaneous blood thinners. His blood sugar is being monitored closely secondary to elevations and hypoglycemia. He does have some weightbearing precautions to this extremity. He is a high fall risk. He has debility, weakness and impaired mobility. These are all barriers to him discharging home at this time. He was independent with his mobility and ADLs. After his prolonged hospitalization, he is currently set up for mod assist with his ADLs and mod assist to total assist for mobility at this time. He plans to return to his hotel room in [place] as soon as possible with assistance equipment after his inpatient rehab stay. COMORBIDITIES: In this patient include debility, diabetic foot ulcers, end-stage renal disease, hyperkalemia, calcaneal osteomyelitis, peripheral vascular disease and diabetes. PAST MEDICAL HISTORY: Significant for neuropathy, glasses, hearing aids, diabetes, hyperlipidemia, hypertension, pneumonia, chronic renal disease, depression, anxiety, gastroesophageal reflux disease. PAST SURGICAL HISTORY: Includes cataracts in both eyes. He has had some toes amputated and also hemodialysis access. ALLERGIES: Insulin. HISTORY AND PHYSICAL [id number] RADHA SALGUERO CURRENT MEDICATIONS: He is on vancomycin 500 mg daily; Renagel 1600 mg b.i.d. with meals; polyethylene glycol 17 grams in 8 ounces of water daily; Protonix 40 mg daily; nifedipine 90 mg daily; enoxaparin subQ 30 mg daily; he is on Rosa Maria 60 mg daily; lactulose 30 cc daily; Amaryl 4 mg daily; furosemide 40 mg daily; ferrous sulfate 325 daily; Cardura 8 mg daily; B12 500 mg daily; carvedilol 3.125 mg b.i.d. with meals; aspirin 81 mg daily; Procrit 3000 units, he gets this 3 times weekly; he is on a low-resistant sliding scale of Humalog; lactobacillus daily; he is on Levemir 20 units b.i.d.; Atarax 50 mg every 6 hours p.r.n.; Proctofoam p.r.n.; Catapres 0.1 mg t.i.d. p.r.n. elevated blood pressures; Benadryl 25 mg every 4 hours p.r.n. itching and atorvastatin 40 mg at bedtime. HABITS: No current alcohol or tobacco use. FAMILY HISTORY: Noncontributory. SOCIAL HISTORY: The patient hopes to return back to his hotel over in the [facility]. REVIEW OF SYSTEMS: GENERAL: Does complain of weakness and fatigue. HEENT: Denies cold, cough, or congestion. CARDIOVASCULAR: Denies any chest pain. PHYSICAL EXAMINATION: VITAL SIGNS: Stable, afebrile. GENERAL: A well-developed gentleman in no acute distress, alert upon exam. HEENT: Normocephalic and atraumatic. Mucosa moist. NECK: Supple. No lymphadenopathy. LUNGS: Clear at this time with no wheeze, rhonchi or rales. HEART: Regular rate and rhythm. No murmurs, rubs or gallops. ABDOMEN: Benign. EXTREMITIES: Consistent with amputations in the past. NEUROLOGIC: He does have noted neuropathy. LABORATORY DATA: Sodium is 143, potassium 4.9, BUN and creatinine of 85 and 11.7 and blood sugar is noted to be 77. ASSESSMENT: A 73-year-old gentleman admitted to the rehab with a working diagnosis of debility complicated by osteomyelitis. The patient has potential to make improvement. We instituted the following multidisciplinary therapies including, but not limited to physical, occupational, respiratory, speech, nutritional services, prosthetics and orthotics. Given his complex medical condition and risk for more complications, rehabilitation services cannot be provided at a low level of care such as long term facility. PLAN: 1. Admit to [facility] for intensive inpatient therapy to include the following disciplines: A. Physical therapy to improve gait, all transfer skills and bed mobility to a modified independent level. B. Occupational therapy to a modified independent level. C. Case management to assist with discharge planning and placement options. D. Nutrition to assist with nutritional needs. HISTORY AND PHYSICAL [id number] RADHA SALGUERO. Rehabilitation nursing to assist in monitoring the patient's underlying medical conditions and to assist with any type of bowel or bladder management. 2. The patient's current medication and medical care will be continued. 3. The patient will be placed on standard fall precautions. 4. The patient's estimated length of stay is approximately 7-10 days. 5. We will discuss this patient during care team staff meeting this week. We follow right along with nephrology. Continue on his hemodialysis and we will follow him up in the a.m. TRANSINT:[id number] Voice Confirmation ID: [id number] DOCUMENT ID: [id number] TOBY notes whether there has been none or any medical/functional change since admission: - No change since preadmission screen. TOBY attests patient continues to be appropriate for IRF: - Continues to be appropriate. ERA GRIJALVA MD at 0478 CC: [id number] DICTATION DATE: 12/06/18 0848 NURSING PROGRAM MANAGER: 12/06/18 1000 ADM IN [facility] [address] [facility]
[2018-12-13 00:14] VITALS: BP 132/59
[2018-12-13 07:50] LABS: ANION GAP 16.6 mmol/L (8-16); BASOPHILS 0.3 % (0-2); CALCIUM 8.4 mg/dL (8.5-10.1); CREATININE - SERUM 10.5 mg/dL (0.6-1.3); IMMATURE GRANULOCYTES 0.1 % (0-5); LYMPHOCYTES 35.2 % (15-50); MCH 24.8 pg (26.0-34.0); MCHC 31.3 g/dL (31.0-37.0); MCV 79.4 fL (80.0-100.0); MEAN PLATELET VOLUME 11.3 fL (7.4-10.4); MONOCYTES 9.5 % (2-11); NEUTROPHILS 48.9 % (40-80); POTASSIUM - SERUM 4.6 mmol/L (3.5-5.1); RBC 4.03 10x6/uL (4.20-6.10); RDW 15.4 % (11.5-14.5); WBC 7.4 10x3/uL (4.8-10.8)
[2018-12-13 08:07] VITALS: BP 122/53
[2018-12-13 08:13] LABS: PLATELET COUNT 215 10x3/uL (130-400)
[2018-12-13 14:02] VITALS: BP 128/68
[2018-12-13 19:00] VITALS: BP 120/55
[2018-12-14 01:44] VITALS: BP 109/46
[2018-12-14 06:33] VITALS: BP 128/54
[2018-12-14 12:57] VITALS: BP 133/67
[2018-12-14 18:09] VITALS: BP 138/85
[2018-12-14 23:15] VITALS: BP 111/81
[2018-12-15 06:23] VITALS: BP 117/78
[2018-12-15 12:23] VITALS: BP 147/64
[2018-12-15 12:28] VITALS: BP 154/65
[2018-12-15 21:06] VITALS: BP 136/59
[2018-12-16 06:11] VITALS: BP 135/57
[2018-12-16 07:50] LABS: BASOPHILS 0.4 % (0-2); EOSINOPHILS 4.9 % (0-7); HEMATOCRIT 32.2 % (42.0-54.0); HEMOGLOBIN 10.3 g/dL (13.5-17.5); LYMPHOCYTES 29.9 % (15-50); MCH 25.2 pg (26.0-34.0); MCV 78.7 fL (80.0-100.0); MEAN PLATELET VOLUME 10.4 fL (7.4-10.4); MONOCYTES 7.2 % (2-11); NEUTROPHILS 57.6 % (40-80); PLATELET COUNT 219 10x3/uL (130-400); RBC 4.09 10x6/uL (4.20-6.10); RDW 15.7 % (11.5-14.5); WBC 7.5 10x3/uL (4.8-10.8)
[2018-12-16 08:19] LABS: ANION GAP 19.5 mmol/L (8-16); CALCIUM 8.5 mg/dL (8.5-10.1); CARBON DIOXIDE 22.4 mmol/L (21.0-32.0); CREATININE - SERUM 11.6 mg/dL (0.6-1.3); POTASSIUM - SERUM 4.9 mmol/L (3.5-5.1)
[2018-12-16 12:05] VITALS: BP 136/70
[2018-12-16 19:00] VITALS: BP 152/73
[2018-12-17 00:23] VITALS: BP 151/68
[2018-12-17 06:54] VITALS: BP 142/63
[2018-12-17 08:00] VITALS: BP 142/64
[2018-12-17 12:00] VITALS: BP 156/76
[2018-12-17 18:00] VITALS: BP 118/61
[2018-12-18 00:37] VITALS: BP 141/67
[2018-12-18 06:38] VITALS: BP 141/67
[2018-12-18 07:28] LABS: BASOPHILS 0.4 % (0-2); HEMATOCRIT 32.7 % (42.0-54.0); HEMOGLOBIN 10.3 g/dL (13.5-17.5); LYMPHOCYTES 31.3 % (15-50); MCH 25.1 pg (26.0-34.0); MCHC 31.5 g/dL (31.0-37.0); MCV 79.6 fL (80.0-100.0); MEAN PLATELET VOLUME 10.9 fL (7.4-10.4); MONOCYTES 9.5 % (2-11); NEUTROPHILS 53.8 % (40-80); PLATELET COUNT 251 10x3/uL (130-400); RBC 4.11 10x6/uL (4.20-6.10); RDW 15.8 % (11.5-14.5); WBC 7.3 10x3/uL (4.8-10.8)
[2018-12-18 07:48] LABS: ANION GAP 17.9 mmol/L (8-16); CALCIUM 8.3 mg/dL (8.5-10.1); CARBON DIOXIDE 24.1 mmol/L (21.0-32.0)
[2018-12-18 12:00] VITALS: BP 141/61
[2018-12-18 17:45] VITALS: BP 132/61
[2018-12-18 19:00] VITALS: BP 127/63
[2018-12-19 00:05] VITALS: BP 152/68
[2018-12-19 06:37] VITALS: BP 111/55
[2018-12-19 06:46] VITALS: BP 111/55
[2018-12-19 12:00] VITALS: BP 143/67
[2018-12-19 18:00] VITALS: BP 90/44
[2018-12-20 00:16] VITALS: BP 142/69
[2018-12-20 06:33] VITALS: BP 147/73
[2018-12-20 10:32] LABS: BASOPHILS 0.2 % (0-2); EOSINOPHILS 4.3 % (0-7); HEMATOCRIT 32.2 % (42.0-54.0); HEMOGLOBIN 10.1 g/dL (13.5-17.5); IMMATURE GRANULOCYTES 0.1 % (0-5); LYMPHOCYTES 28.1 % (15-50); MCH 24.8 pg (26.0-34.0); MCHC 31.4 g/dL (31.0-37.0); MCV 78.9 fL (80.0-100.0); MEAN PLATELET VOLUME 11.2 fL (7.4-10.4); MONOCYTES 9.2 % (2-11); NEUTROPHILS 58.1 % (40-80); PLATELET COUNT 256 10x3/uL (130-400); RBC 4.08 10x6/uL (4.20-6.10); RDW 15.9 % (11.5-14.5); WBC 9.6 10x3/uL (4.8-10.8)
[2018-12-20 10:36] LABS: CALCIUM 8.3 mg/dL (8.5-10.1); CARBON DIOXIDE 23.7 mmol/L (21.0-32.0); CREATININE - SERUM 11.4 mg/dL (0.6-1.3); POTASSIUM - SERUM 4.7 mmol/L (3.5-5.1)
== END 2018-12-20 14:22 | DRG 947 ==
LOC: D.REHAB 15:39
PROVIDERS: ADMIT Emergency Medicine
DX: R53.81 Other malaise (principal); N18.6 End stage renal disease; M86.9 Osteomyelitis, unspecified; I12.0 Hypertensive chronic kidney disease with stage 5 chronic kidney disease or end stage renal disease; E11.621 Type 2 diabetes mellitus with foot ulcer; E11.22 Type 2 diabetes mellitus with diabetic chronic kidney disease; E87.5 Hyperkalemia; I73.9 Peripheral vascular disease, unspecified; K21.9 Gastro-esophageal reflux disease without esophagitis; E11.65 Type 2 diabetes mellitus with hyperglycemia; Z66 Do not resuscitate